=== PATIENT | male | born 1950 | race Caucasian/White ===

== ENCOUNTER 2019-05-01 13:20 | Inpatient (IN) | payer OTHER, SELFPAY ==
[2019-05-01] VITALS (15 sets, daily range): BP systolic 110–195; BP diastolic 61–101; PULSE 54–83; RESP 14–25; TEMP 36.6–38; O2SAT 91–100; BMI 23.2
--- NOTE | ~2019-05-01 | XR_ITS ---
XR abdomen/kub 1V 05/02/2019 10:58 Indication: Bilateral renal stones Procedure: KUB Comparison: 03/24/2016 Findings: There are bilateral renal stones. Nonobstructive bowel gas pattern. There is fecal impactio n of the colon. There is an aortobiiliac stent moderate degenerative changes of the hips. Impression: 1: Fecal impaction of the colon. 2: Bilateral nephrolithiasis. Reviewed, dictated and finalized at location B. GENIZER OPERATOR Impression: 1: Fecal impaction of the colon. 2: Bilateral nephrolithiasis.
--- NOTE | ~2019-05-01 | CT_ITS ---
EXAMINATION: CTA chest abdomen DATE: 05/01/2019 14:10 INDICATION: Chest and abdominal pain. TECHNIQUE: Computed tomographic angiography (CTA) of the chest and abdomen was performed with 100 mL Omnipaque-350 intravenous contrast. Automated exposure control and iterative reconstruction technique were employed. The dose-length product was 564.56 mGy-cm. Maximum intensity projection 3D-reconstruc tions of the aorta and other arteries were constructed by the technologist on a separate workstation. COMPARISON: CT abdomen and pelvis 04/22/2017 FINDINGS: CHEST CTA: There is mild scarring at the lung apices. There is moderate emphysema. There is mild atelectasis fela aterally. No pleural effusion. The heart size is normal. There are coronary artery calcifications. No pericardial effusion. There is no pulmonary embolus. There is mild bilateral hilar lymphadenopathy, likely reactive. The aorta measures 5.1 cm at the sinuses of Valsalva, 4.2 cm at the sinotubular junc tion, 3.8 cm in the mid ascending aorta, 3.4 cm at the aortic isthmus, 4.3 cm in the proximal descend ing aorta, and 3.3 cm in the mid descending aorta. There are bridging endplate osteophytes at multipl e levels in the spine, consistent with diffuse idiopathic skeletal hyperostosis (DISH). ABDOMEN CTA: The liver, gallbladder, spleen, pancreas, and adrenal glands are normal. There is cortical thinning o f the kidneys. There are cysts in the kidneys measuring up to 2.0 cm on the right. There are 1 mm, 7 mm, and 4 mm stones in right kidney. There are 9 mm and 7 mm stones in left kidney. The juxtarenal ao rta measures 4.8 cm. There is a 6.1 cm fusiform infrarenal aortic aneurysm. Partially visualized is a n infrarenal stent graft. Partially visualized is an intimal flap in infrarenal aorta. There is total occlusion of proximal right renal artery. There is mild stenosis of celiac axis and superior mesente dillan artery. The appendix is dilated to 10 mm with adjacent fat stranding. There is mild left para-aor tic lymphadenopathy. The largest node measures 12 x 16 mm. There is mild lumbar spondylosis. IMPRESSION: 1. Acute appendicitis. 2. Thoracic and abdominal aortic aneurysms with partially visualized stent graft in infrarenal aorta. Partially visualized intimal flap in the infrarenal aorta. 3. Mild left para-aortic and bilateral hilar lymphadenopathy, likely reactive. Reviewed, dictated and finalized at location A. IFIED PERSONAL FINANCE COUNSELOR IMPRESSION: 1. Acute appendicitis. 2. Thoracic and abdominal aortic aneurysms with partially visualized stent leni t in infrarenal aorta. Partially visualized intimal flap in the infrarenal aort a. 3. Mild left para-aortic and bilateral hilar lymphadenopathy, likely reactive.
--- NOTE | 2019-05-01 13:29 | ED.SOB ---
HPI - SOB/Dyspnea General Chief Complaint: Shortness of Breath/Dyspnea Stated Complaint: chest pain & SOB Time Seen by Provider: 05/01/19 13:29 Source: patient, EMS and RN notes reviewed Mode of arrival: EMS Limitations: no limitations History of Present Illness HPI Narrative: A 68 y/o male presents to the ED diffuse ABD tenderness and CP Related Data Allergies Allergy/AdvReac Type Severity Reaction Status Date / Time No Known Drug Allergies Allergy Mild Verified 11/06/17 02:53 PMFSH Family History Family History (Updated 11/09/16 @ 13:36 by DOCTOR UNKNOWN) Mother Family history of malignant neoplasm Acute myocardial infarction, Onset Age: 89 Father Acute myocardial infarction Social History Social History Smoking status: Heavy tobacco smoker Smoking end date: 03/01/11 Alcohol intake: never Course Vital Signs Vital signs: Vital Signs Temperature 98.9 F 05/01/19 13:16 Pulse Rate 70 05/01/19 13:16 Respiratory Rate 25 H 05/01/19 13:16 Blood Pressure 206/108 H 05/01/19 13:16 Pulse Oximetry 97 05/01/19 13:16 Temperature 98.9 F 05/01/19 13:16 Pulse Rate 67 05/01/19 13:29 Respiratory Rate 25 H 05/01/19 13:16 Blood Pressure 206/108 H 05/01/19 13:16 Pulse Oximetry 97 05/01/19 13:16 Discharge Plan Discharge Prescriptions: No Action albuterol sulfate [ProAir HFA] 90 mcg/actuation HFA aerosol inhaler See Rx Instructions .ROUTE .COMPLEX Qty: 8.5 RF: 2 trazodone 50 mg tablet See Rx Instructions PO BID Qty: 60 RF: 0 cyclobenzaprine 10 mg tablet 10 mg PO DAILY Qty: 90 RF: 2
--- NOTE | 2019-05-01 13:30 | ECG_ITS ---
Measurements Intervals [place] Rate: 66 P: 85 MO: 212 QRS: 101 QRSD: 117 T: 22 QT: 435 QTc: 457 Interpretive Statements SINUS RHYTHM WITH FIRST DEGREE AV BLOCK RIGHT AXIS DEVIATION INCOMPLETE RIGHT BUNDLE BRANCH BLOCK DELAYED PRECORDIAL R/S TRANSITION BASELINE ARTIFACT- I, III, AVR, AVL, AVF, V1-V6 ABNORMAL ECG Electronically Signed On 05-01-2019 13:49:27 HEARING AID REPAIRER by Reji Benton D.O.
--- NOTE | 2019-05-01 13:35 | ED.ABDPAIN ---
HPI - Abdominal Pain General Chief Complaint: Shortness of Breath/Dyspnea Stated Complaint: chest pain & SOB Time Seen by Provider: 05/01/19 13:29 Source: patient and RN notes reviewed Mode of arrival: EMS Limitations: no limitations History of Present Illness HPI narrative: A 68 y/o male presents to the ED via EMS with severe, constant, 7/10, diffuse ABD pain beginning this morning. He reports associated diffuse CP and that he has been constipated recently. He states that the last time he had pain like this was when he was dx with a aneurysm. He notes that the pain feels better when he covers up . He denies any SOB, N/V/D, back pain, fevers, and chills. MD elicited complaint: abdominal pain Pertinent past history: constipation, kidney stones and myocardial infarction Onset (ago): hour(s) (this morning) Pain Consistency: constant Location: diffuse Severity: severe Pain scale (0-10): 7 Relieving factors: other (when he covers up ) Associated symptoms: other (Diffuse CP and constipation) Related Data Home Medications Medication Instructions Recorded Confirmed albuterol sulfate [ProAir HFA] 90 mcg INHALATION PRN 05/01/19 05/01/19 amiodarone 200 mg PO DAILY 05/01/19 05/01/19 apixaban [Eliquis] 5 mg PO DAILY 05/01/19 05/01/19 aspirin [Adult Low Dose Aspirin] 81 mg PO DAILY 05/01/19 05/01/19 carvedilol 25 mg PO DAILY 05/01/19 05/01/19 hydralazine 50 mg PO DAILY 05/01/19 05/01/19 metoprolol succinate 200 mg PO DAILY 05/01/19 05/01/19 morphine 30 mg PO BID 05/01/19 05/01/19 naloxegol [Movantik] 25 mg PO DAILY 05/01/19 05/01/19 pantoprazole 40 mg PO DAILY 05/01/19 05/01/19 trazodone 50 mg PO BID 05/01/19 05/01/19 Allergies Allergy/AdvReac Type Severity Reaction Status Date / Time No Known Allergies Allergy Verified 05/01/19 13:53 Review of Systems Review of Systems: All systems reviewed & are unremarkable except as noted in HPI and below Constitutional: Constitutional: Denies chills and Denies fever(s) Cardiovascular: Cardiovascular: Reports chest pain (diffuse) Respiratory: Respiratory: Denies dyspnea Gastrointestinal: Gastrointestinal: Reports abdominal pain (diffuse), Reports constipation, Denies diarrhea, Denies nausea and Denies vomiting Musculoskeletal: Musculoskeletal: Denies back pain REPLACED BY [facility] Past Medical History Medical History AAA (abdominal aortic aneurysm) History of ruptured AAA with intravascular repair CAD (coronary artery disease) <4 METs, last stent in 2018 Carotid stenosis MADDIE. 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 History of kidney stones History of pneumonia Hypercholesteremia Osteomyelitis Surgical History Surgical History History of AAA (abdominal aortic aneurysm) repair Intra vascular repair 3 years ago at [facility] History of elbow surgery lt. History of lithotripsy History of tonsillectomy Hx of cardiac cath Hx of heart artery stent >5. Status post femorofemoral bypass surgery Family History Family History Mother Family history of malignant neoplasm Acute myocardial infarction, Onset Age: 89 Father Acute myocardial infarction Sibling AAA (abdominal aortic aneurysm) Social History Social History Smoking packs per day: 1 Smoking cigarettes per day: 20.0 Smoking status: Current every day smoker Tobacco type: cigarettes Second hand tobacco smoke exposure: Yes Alcohol intake: never Substance use: never Substance use type: does not use Living arrangements: alone Occupation/Education: retired
--- NOTE | 2019-05-01 13:37 | ECG_ITS ---
Measurements Intervals [place] Rate: 66 P: 95 AL: 212 QRS: 167 QRSD: 126 T: 76 QT: 469 QTc: 494 Interpretive Statements SINUS RHYTHM WITH FIRST DEGREE AV BLOCK LEFT POSTERIOR FASCICULAR BLOCK BASELINE ARTIFACT- I, II, III, AVR, AVL, AVF, V1-V3 ABNORMAL ECG Electronically Signed On 05-01-2019 14:18:59 BASEBALL GLOVE SHAPER by Reji Benton D.O.
[2019-05-01] MEDS: MORPHINE SULFATE 4 MG/ML INJ IV PUSH (13:55)
[2019-05-01] MEDS: NITROGLYCERIN OINTMENT 1 INCH DOSE 0.5 INCH TRANSDERM (13:56)
--- NOTE | 2019-05-01 14:01 | PC.NURSE ---
Pt to CT scan via stretcher on tele monitor.
[2019-05-01 14:06] LABS: Estimated CRCL calculation 53 ml/min; Estimated Glomerular Filt Rate 46
[2019-05-01 14:33] LABS: Basophils Percent Auto 0.2 % (0.2-1.2); Eosinophils Percent Auto 0.2 % (0-4.4); Hematocrit 40.5 % (42.0-52.0); Hemoglobin 12.6 g/dL (14.0-18.0); Immature Granulocyte Absolute 0.01 K/mm3 (0.00-0.031); Immature Granulocyte Percent A 0.2 % (0-0.5); Lymphocytes Absolute Auto 0.17 K/mm3 (0.9-3.2); Lymphocytes Percent Auto 3.1 % (18.3-44.2); Mean Corpuscular HGB Conc 31.1 g/dl (32-36); Mean Corpuscular Hemoglobin 27.2 pg (26-34); Mean Corpuscular Volume 87.3 fl (80-100); Mean Platelet Volume 8.6 fl (7.4-10.4); Monocytes Absolute Auto 0.1 K/mm3 (0.1-0.6); Monocytes Percent Auto 1.5 % (2.6-8.5); Neutrophils Absolute Auto 5.2 K/mm3 (1.3-6.7); Neutrophils Percent Auto 94.8 % (45.5-73.1); Platelet Count Result 147 k/mm3 (150-375); Red Blood Count 4.64 M/mm3 (4.6-6.20); Red Cell Distribution Width 14.6 % (11.5-14.5); White Blood Count 5.4 K/mm3 (4.5-10.0)
[2019-05-01 15:16] LABS: Alanine Aminotransferase 11 U/L (4-50); Albumin Level 3.3 g/dL (3.5-5.1); Alkaline Phosphatase 114 U/L (38-126); Aspartate Amino Transferase 15 U/L (17-59); Bilirubin,Total 0.7 mg/dL (0.2-1.3); Blood Urea Nitrogen 20 mg/dL (9-20); Calcium 7.5 mg/dL (8.4-10.2); Carbon Dioxide 27 mmol/L (22-30); Chloride 99 mmol/L (98-107); Estimated CRCL calculation 56 ml/min; Estimated Glomerular Filt Rate 50; Glucose 90 mg/dL (75-110); Potassium 3.5 mmol/L (3.4-5.0); Sodium 138 mmol/L (137-145)
[2019-05-01 15:27] LABS: Troponin I < 0.012 ng/mL (0.000-0.034)
--- NOTE | 2019-05-01 16:13 | WPDANESEPPF ---
Anes - Initial Pre Proc Eval Procedure: Operation Date: 05/01/19 16:00 Proposed Procedures p Laparoscopic Appendectomy - Gordon Blackwood MD Date/Time: 05/01/19 16:13 Surgeon: Gordon Blackwood MD Pre Op Diagnosis: chest pain & SOB Patient Data Age: 68 Gender: M Height: 2.01 m Weight: 90.4 kg Last Vital Signs Temp 37.2 C 05/01/19 13:16 Pulse 66 05/01/19 15:57 Resp 15 05/01/19 15:57 BP 158/75 H 05/01/19 15:57 Pulse Ox 94 05/01/19 15:57 Allergies Allergy/AdvReac Type Severity Reaction Status Date / Time No Known Allergies Allergy Verified 05/01/19 13:53 Home Medications Medication Instructions Recorded Confirmed Type albuterol sulfate 90 mcg/actuation See Rx Instructions .ROUTE 01/02/19 Rx aerosol inhaler .COMPLEX #8.5 gm cyclobenzaprine 10 mg tablet 10 mg PO DAILY #90 tablet 03/31/19 Rx trazodone 50 mg tablet See Rx Instructions PO BID #60 03/31/19 Rx tablet Laboratory Tests 05/01/19 05/01/19 05/01/19 14:05 14:29 14:29 WBC 5.4 K/mm3 K/mm3 (4.5-10.0) RBC 4.64 M/mm3 M/mm3 (4.6-6.20) Hgb 12.6 g/dL L g/dL (14.0-18.0) Hct 40.5 % L % (42.0-52.0) MCV 87.3 fl fl (80-100) MCH 27.2 pg pg (26-34) MCHC 31.1 g/dl L g/dl (32-36) RDW 14.6 % H % (11.5-14.5) Plt Count 147 k/mm3 L k/mm3 (150-375) MPV 8.6 fl fl (7.4-10.4) Immature Gran % (Auto) 0.2 % % (0-0.5) Neut % (Auto) 94.8 % H % (45.5-73.1) Lymph % (Auto) 3.1 % L % (18.3-44.2) [place] % (Auto) 1.5 % L % (2.6-8.5) Eos % (Auto) 0.2 % % (0-4.4) Baso % (Auto) 0.2 % % (0.2-1.2) Lymph # (Auto) 0.17 K/mm3 L K/mm3 (0.9-3.2) [place] # (Auto) 0.1 K/mm3 K/mm3 (0.1-0.6) Eos # (Auto) 0.0 K/mm3 K/mm3 (0-0.3) Baso # (Auto) 0.0 K/mm3 K/mm3 (0.0-0.1) Abs Immat Gran (auto) 0.01 K/mm3 K/mm3 (0.00-0.031) Absolute Neuts (auto) 5.2 K/mm3 K/mm3 (1.3-6.7) Absolute Nucleated RBC 0.0 K/mm3 K/mm3 (0.0-0.012) Nucleated RBC % 0.0 % % (0.0-0.2) Sodium 138 mmol/L mmol/L (137-145) Potassium 3.5 mmol/L mmol/L (3.4-5.0) Chloride 99 mmol/L mmol/L (98-107) Carbon Dioxide 27 mmol/L mmol/L (22-30) BUN 20 mg/dL mg/dL (9-20) Creatinine 1.50 mg/dL mg/dL 1.40 mg/dL H mg/dL (0.8-1.5) (0.7-1.3) Estim Creat Clear Calc 53 ml/min ml/min 56 ml/min ml/min Estimated GFR 46 L 50 L (59 - ) (59 - ) Glucose 90 mg/dL mg/dL (75-110) Calcium 7.5 mg/dL L mg/dL (8.4-10.2) Total Bilirubin 0.7 mg/dL mg/dL (0.2-1.3) AST 15 U/L L U/L (17-59) ALT 11 U/L U/L (4-50) Alkaline Phosphatase 114 U/L U/L (38-126) Troponin I < 0.012 ng/mL ng/mL (0.000-0.034) Total Protein 7.0 g/dL g/dL (6.3-8.2) Albumin 3.3 g/dL L g/dL (3.5-5.1) Patient hx anesthesia problems: none Family hx anesthesia problems: none [facility] Past Medical History Medical History (Updated 05/01/19 @ 16:14 by Guerrero Hou DO) AAA (abdominal aortic aneurysm) CAD (coronary artery disease) <4 METs, last stent in 2018 Carotid stenosis MADDIE. 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 History of kidney stones History of pneumonia Hypercholesteremia Osteomyelitis Surgical History Surgical History History of AAA (abdominal aortic aneurysm) repair History of elbow surgery lt. History of lithotripsy History of tonsillectomy Hx of cardiac cath Hx of heart artery stent >5.
--- NOTE | 2019-05-01 16:18 | PM.IMHP ---
H&P: HPI History of Present Illness Chief complaint: chest pain & SOB Narrative: Sameer Choe is a 68 year old male with a history of coronary artery disease status post multiple cardiac stents, carotid artery stenosis bilaterally, history of multiple strokes, COPD, and hypertension who is currently on chronic anticoagulation with Eliquis. He presented to the emergency department today with complaints of lower abdominal pain. He reports his pain started around 5:00 a.m. as a sudden onset and continued to worsen throughout the day. He denies any associated nausea, vomiting, fever, or chills. CT scan in the emergency department revealed acute uncomplicated appendicitis. Labs revealed a normal white blood cell count. Our service was contacted for the acute appendicitis. The patient has been evaluated in the emergency department by myself and Dr. Blackwood. The patient reports that his abdominal pain has improved since receiving pain medication. Denies any nausea or other pain at this time. He reports taking Eliquis last night around 5:00 p.m.. No other additional complaints at this time. Reports his most recent stroke was a few years ago. Patient denies any oral intake today. Review of Systems Constitutional: Constitutional: Reports as per HPI, Denies chills, Denies excessive sweating, Denies fatigue, Denies fever(s), Denies headache(s) and Denies weakness Eyes: Eyes: Denies change in vision and Denies loss of vision ENT: Reports Normal hearing present, Denies dizziness and Denies headache(s) Cardiovascular: Cardiovascular: Denies chest pain, Denies syncope, Denies leg edema, Denies lightheadedness, Denies radiating jaw, neck or arm pain and Denies dyspnea Respiratory: Respiratory: Denies cough, Denies dyspnea and Denies wheezing Gastrointestinal: Gastrointestinal: Reports as per HPI, Reports no additional gastrointestinal complaints, Reports abdominal pain (Lower abdominal pain), Denies bloating, Denies change in bowel habits, Reports constipation (Chronic constipation, no BM in a week), Denies diarrhea, Denies nausea and Denies vomiting Musculoskeletal: Musculoskeletal: Denies deformity, Denies joint swelling, Denies radiating pain into limb and Denies tingling Integumentary/Breasts: Skin/Breast: Denies pruritus, Denies wounds and Denies jaundice Neurologic: Reports Normal hearing present, Denies confusion, Denies dizziness, Denies syncope, Denies headache(s), Denies loss of vision and Denies tingling Comments: Reports aphasia and right-sided weakness as residual affects from previous strokes. Psychiatric: Psychiatric: Denies anxiety and Denies depression Endocrine: Endocrine: Denies cold intolerance and Denies heat intolerance [facility] Past Medical History Medical History AAA (abdominal aortic aneurysm) History of ruptured AAA with intravascular repair CAD (coronary artery disease) <4 METs, last stent in 2018 Carotid stenosis MADDIE. 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 History of kidney stones History of pneumonia Hypercholesteremia Osteomyelitis Surgical History Surgical History History of AAA (abdominal aortic aneurysm) repair Intra vascular repair 3 years ago at [facility] History of elbow surgery lt. History of lithotripsy History of tonsillectomy Hx of cardiac cath Hx of heart artery stent >5. Status post femorofemoral bypass surgery Family History Family History Mother Family history of malignant neoplasm Acute myocardial infarction, Onset Age: 89 Father Acute myocardial infarction Sibling AAA (abd
[2019-05-01] MEDS: LACTATED RINGERS 1,000 ML 30 ML IV CONT (16:23)
--- NOTE | 2019-05-01 17:45 | SUR.PREOP ---
1745 - PT ATTEMPTED TO VOID PER URINAL. NO URINE NOTED.
--- NOTE | 2019-05-01 17:57 | PM.PNGS ---
Progress Note: A&P Assessment and Plan (1) Acute appendicitis: Qualifiers: Acute appendicitis type: with localized peritonitis Appendicitis abscess presence: without abscess Appendicitis gangrene presence: without gangrene Appendicitis perforation presence: without perforation Qualified Code(s): K35.30 - Acute appendicitis with localized peritonitis, without perforation or gangrene Code(s): K35.80 - Unspecified acute appendicitis Status: Acute Assessment and Plan: Despite unusual presentation, it does look like the patient has acute appendicitis. I talked with him and his brother and we will go ahead with laparoscopic appendectomy this evening. Patient will be admitted after surgery and I will have the hospitalist see him in consultation. He is obviously at high risk for surgery but I think the surgery can be done safely with at the present time. All questions were answered. He agrees to go ahead. (2) Carotid stenosis: Code(s): I65.29 - Occlusion and stenosis of unspecified carotid artery Status: Chronic (3) Chronic anticoagulation: Code(s): Z79.01 - MCC (current) use of anticoagulants Status: Chronic Assessment and Plan: On Eliquis (4) CVA (cerebral vascular accident): Code(s): I63.9 - Cerebral infarction, unspecified Status: Chronic (5) CAD (coronary artery disease): Code(s): I25.10 - Atherosclerotic heart disease of [place] coronary artery without angina pectoris Status: Chronic (6) H/O: HTN (hypertension): Code(s): Z86.79 - Personal history of other diseases of the circulatory system Status: Acute Subjective Subjective Date/Time Seen: 05/01/19 17:57 Patient is a 68-year-old man who has had multiple complications of peripheral, cardiac, and cerebrovascular disease. He has had strokes and has some cognitive impairment as well as aphasia. He came to the emergency room with diffuse abdominal pain. He had an elevated white blood cell count. He was noted to have tenderness in the right lower quadrant. CT scan shows early acute appendicitis with a 10 mm appendix and periappendiceal stranding. He is taken to surgery now for laparoscopic appendectomy. He does take Eliquis and aspirin for his vascular disease and cardiac stents. Exam GI: Inspection: normal to inspection and non-distended GI Palp: Yes Soft to palpation, Yes Tenderness to palpation present (GI) (Right lower quadrant over McBurney's point) and Yes Guarding due to palpation present (GI) Objective Data Vital Signs Vital Signs: Vital Signs - 24 hr 05/01/19 13:16 05/01/19 13:29 05/01/19 13:32 Temperature 37.2 C Pulse Rate 70 67 Respiratory Rate 25 H Blood Pressure 195/101 H Pulse Oximetry 97 99 05/01/19 15:38 05/01/19 15:57 05/01/19 16:03 Temperature 38.0 C H Pulse Rate 66 66 65 Respiratory Rate 16 15 14 Blood Pressure 145/71 H 158/75 H 110/82 Pulse Oximetry 94 94 94 Intake/Output Intake/Output: Intake & Output 04/28/19 04/29/19 04/30/19 05/01/19 23:59 23:59 23:59 23:59 Intake Total 50 Balance 50 Meds/Results Medications: Active Medications Generic Name Dose Route Start Last Admin Trade Name Freq PRN Reason Stop Dose Admin Fentanyl Citrate 25 mcg 05/01/19 16:15 Sublimaze IV PUSH Q2M PRN Pain Lactated Ringer's 1,000 mls @ 30 mls/hr 05/01/19 16:15 05/01/19 16:23 Lr - Lactated Ringers Iv IV CONT 30 mls/hr .Q24H JENNIFER Administration Lactated Ringer's 1,000 mls @ 30 mls/hr 05/01/19 16:15 Lr - Lactated Ringers Iv IV CONT .Q24H JENNIFER Ondansetron HCl 4 mg 05/01/19 16:15 Zofran Inj IV PUSH ONCE PRN Nausea Radiology Results: ITS Impressions Chest/Abdomen CTA 05/01/19 14:22 IMPRESSION: 1. Acute appendicitis. 2. Thoracic and abdominal aortic aneurysms with partially visualized stent graft in infrarenal aorta. Partially visualized intimal flap in the infrar
[2019-05-01] MEDS: BUPIVACAINE/EPINEPHRINE 0.5% 30 ML VIAL INFILTRATE (18:27)
--- NOTE | 2019-05-01 18:56 | P.OP_ITS ---
Procedure Note - Detailed Date of procedure: 05/01/19 Pre-op diagnosis: chest pain & SOB acute appendicitis Post-op diagnosis: same Procedure performed: Laparoscopic appendectomy Description of procedure: The patient was taken to surgery and induced into general anesthesia. The abdomen was prepped and draped. Trocars were placed in the usual fashion using 0.5% Marcaine with epinephrine and applied Medical optical trocars. A 5 mm camera was used. The patient was placed in Trendelenburg with the right side elevated. The appendix was found and was elevated anteriorly. Dissection was carried out in the mesoappendix. The mesoappendix was dissectedand the appendiceal vessels cauterized for hemostasis. Eventually the base of the appendix was skeletonized. The appendix was ligated at its base with a Vicryl endo-loop. It was amputated just above the ligature and the mucosa of the appendiceal stump was cauterized. The appendix was immediately placed in an Endo-Catch bag and retrieved through the 10 11 left lower quadrant trocar site. We replaced the 10 11 trocar and reviewed the right lower quadrant and areas of dissection. All looked good with no evidence of bleeding or other problems. We evacuated CO2 and removed the trocar sleeves. Skin wounds were closed with subcuticular 4 O Monocryl skin suture. The wounds were dressed with Exofin surgical adhesive. The patient was awakened and taken to recovery in good condition. Sponge and needle counts were correct x2. Anesthesia: GETA and local (0.5% Marcaine with epinephrine) Surgeon: Gordon Blackwood MD Special Programs Director: Nhung VARELA Estimated blood loss (mL): 5 Drains: No Packing: No Pathology: yes (Appendix) Complications: None Condition: stable Disposition: PACU Findings: Acute non perforated appendicitis
--- NOTE | 2019-05-01 20:12 | ADMGEN ---
This patient, Sameer Choe, was admitted to 2 Medical Room 254-01. Patient/family oriented to hospital policies and general routines including ID bracelet, bed and alarms, visiting hours, pain management, procedures, bathroom and other care routines, personal items, smoking policy, room service/diet, and visiting hours. Valuables list has been completed. Information on how to activate the Rapid Response Team has been discussed. Patient/Family are encouraged to report perceived risks to care and to ask questions if they do not understand what they are told or what they should do.
[2019-05-01] MEDS: LACTATED RINGERS 1,000 ML 80 ML IV CONT (20:41)
[2019-05-01] MEDS: MORPHINE SULFATE 30 MG TABCR PO (20:41)
[2019-05-01] MEDS: TRAZODONE HCL 50 MG TABLET 100 MG PO (22:08)
[2019-05-01] MEDS: MORPHINE SULFATE 2 MG/ML INJ IV PUSH (22:15)
[2019-05-02] VITALS (7 sets, daily range): BP systolic 105–123; BP diastolic 56–64; PULSE 57–94; RESP 16–20; TEMP 36.5–37.5; O2SAT 90–94
[2019-05-02] MEDS: MORPHINE SULFATE 4 MG/ML INJ IV PUSH (04:59)
[2019-05-02 05:29] LABS: Basophils Percent Auto 0.1 % (0.2-1.2); Hematocrit 35.1 % (42.0-52.0); Hemoglobin 11.2 g/dL (14.0-18.0); Immature Granulocyte Absolute 0.05 K/mm3 (0.00-0.031); Immature Granulocyte Percent A 0.5 % (0-0.5); Lymphocytes Absolute Auto 0.44 K/mm3 (0.9-3.2); Lymphocytes Percent Auto 4.3 % (18.3-44.2); Mean Corpuscular HGB Conc 31.9 g/dl (32-36); Mean Corpuscular Hemoglobin 27.1 pg (26-34); Mean Platelet Volume 8.8 fl (7.4-10.4); Monocytes Absolute Auto 0.3 K/mm3 (0.1-0.6); Monocytes Percent Auto 2.8 % (2.6-8.5); Neutrophils Absolute Auto 9.5 K/mm3 (1.3-6.7); Neutrophils Percent Auto 92.3 % (45.5-73.1); Platelet Count Result 141 k/mm3 (150-375); Red Blood Count 4.13 M/mm3 (4.6-6.20); Red Cell Distribution Width 14.6 % (11.5-14.5); White Blood Count 10.3 K/mm3 (4.5-10.0)
[2019-05-02 05:42] LABS: Blood Urea Nitrogen 22 mg/dL (9-20); Calcium 7.2 mg/dL (8.4-10.2); Carbon Dioxide 24 mmol/L (22-30); Chloride 101 mmol/L (98-107); Estimated CRCL calculation 55 ml/min; Estimated Glomerular Filt Rate 46; Glucose 110 mg/dL (75-110); Potassium 4.1 mmol/L (3.4-5.0); Sodium 136 mmol/L (137-145)
--- NOTE | 2019-05-02 07:42 | P.PNAN_ITS ---
Anes - Prog Note Post-Op Date/Time: 05/02/19 07:42 Cardiovascular status: normal Respiratory status: normal Airway patency: baseline Mental status: baseline Post-Op hydration status: normal Vital Signs: Last Vital Signs Temp 36.9 C 05/02/19 06:00 Pulse 61 05/02/19 06:00 Resp 18 05/02/19 06:00 BP 115/60 05/02/19 06:00 Pulse Ox 90 05/02/19 06:00 I/O: Intake & Output 05/01/19 05/01/19 05/02/19 15:59 23:59 07:59 Intake Total 50 100 390 Output Total 2700 Balance 50 100 -2310 Laboratory Tests 05/02/19 05:08 05/02/19 05:08 05/01/19 05/01/19 05/01/19 14:05 14:29 14:29 WBC 5.4 RBC 4.64 Hgb 12.6 L Hct 40.5 L MCV 87.3 MCH 27.2 MCHC 31.1 L RDW 14.6 H Plt Count 147 L MPV 8.6 Immature Gran % (Auto) 0.2 Neut % (Auto) 94.8 H Lymph % (Auto) 3.1 L Villalba % (Auto) 1.5 L Eos % (Auto) 0.2 Baso % (Auto) 0.2 Lymph # (Auto) 0.17 L Villalba # (Auto) 0.1 Eos # (Auto) 0.0 Baso # (Auto) 0.0 Abs Immat Gran (auto) 0.01 Absolute Neuts (auto) 5.2 Absolute Nucleated RBC 0.0 Nucleated RBC % 0.0 Sodium 138 Potassium 3.5 Chloride 99 Carbon Dioxide 27 BUN 20 Creatinine 1.50 1.40 H Estim Creat Clear Calc 53 56 Estimated GFR 46 L 50 L Glucose 90 Calcium 7.5 L Total Bilirubin 0.7 AST 15 L ALT 11 Alkaline Phosphatase 114 Troponin I < 0.012 Total Protein 7.0 Albumin 3.3 L 05/02/19 05/02/19 05:08 05:08 WBC 10.3 H RBC 4.13 L Hgb 11.2 L Hct 35.1 L MCV 85.0 MCH 27.1 MCHC 31.9 L RDW 14.6 H Plt Count 141 L MPV 8.8 Immature Gran % (Auto) 0.5 Neut % (Auto) 92.3 H Lymph % (Auto) 4.3 L Villalba % (Auto) 2.8 Eos % (Auto) 0.0 Baso % (Auto) 0.1 L Lymph # (Auto) 0.44 L Villalba # (Auto) 0.3 Eos # (Auto) 0.0 Baso # (Auto) 0.0 Abs Immat Gran (auto) 0.05 H Absolute Neuts (auto) 9.5 H Absolute Nucleated RBC 0.0 Nucleated RBC % 0.0 Sodium 136 L Potassium 4.1 Chloride 101 Carbon Dioxide 24 BUN 22 H Creatinine 1.50 H Estim Creat Clear Calc 55 Estimated GFR 46 L Glucose 110 Calcium 7.2 L Total Bilirubin AST ALT Alkaline Phosphatase Troponin I Total Protein Albumin Post-procedural complaints: none Patient Feedback: Patient satisfied with anesthetic care.
--- NOTE | 2019-05-02 08:44 | WPDURCON ---
Assessment and Plan Assessment and plan (1) Urinary retention: Code(s): R33.9 - Retention of urine, unspecified Status: Acute Assessment and Plan: Will plan to keep villasenor in for 7-10 days and follow up in the office next week to do a voiding trial. Obtain catheter urine specimen for UA. (2) BPH (benign prostatic hyperplasia): Code(s): N40.0 - Benign prostatic hyperplasia without lower urinary tract symptoms Status: Acute Assessment and Plan: Start Flomax and Finasteride. No further evaluation necessary at this time. Will plan to follow as an outpatient. (3) Bilateral kidney stones: Code(s): N20.0 - Calculus of kidney Status: Acute Assessment and Plan: Obtain KUB for surgical planning purposes. No stones are obstructive at this time, we will discuss a Lithotripsy at his office visit. No surgery at this time, will be as an outpatient if patient chooses to proceed. (4) Bilateral renal cysts: Code(s): N28.1 - Cyst of kidney, acquired Status: Acute Urology Consult Note HPI Date Seen: 05/02/19 Requesting Physician: Gordon Blackwood MD Primary Care Provider: Horace Zendejas MD Consult Narrative Narrative: Sameer Choe is a 68 year old male who presented to the ER yesterday with lower quadrant abdominal pain and was later diagnosed with appendicitis. He then underwent an appendectomy with Dr. Blackwood last night and was transferred to the floor. He was discovered to have urinary retention following anethesia and bladder distension. He notes that he also had urinary retention after his AAA repair two years ago. Normally at home, he struggles with hesitancy, straining and slowed urinary stream. He doesn't have nocturia, and only urinates 3x during the day. He denies hematuria and UTI's. WBC initially was 13,000 but is trending down since surgery to 10,000. Creatinine was 1.60 and is also trending down slightly to 1.50. CT abdomen and pelvis reveals bilateral kidney cysts as well as bilateral renal stones that are non obstructive measuring 1mm, 7mm and 4mm in the right kidney and a 9mm and 7 mm in the left kidney. No UA was obtained. A catheter was placed early this morning to relieve retention. Review of Systems Cardiovascular: Cardiovascular: Denies chest pain Respiratory: Respiratory: Reports no additional respiratory complaints Gastrointestinal: Gastrointestinal: Reports abdominal pain (at incision sites), Denies nausea and Denies vomiting Genitourinary: Genitourinary: Denies hematuria, Denies dysuria, Denies flank pain, Denies urinary frequency, Reports urinary hesitancy, Denies urinary incontinence and Denies urinary urgency [facility] Past Medical History Medical History AAA (abdominal aortic aneurysm) History of ruptured AAA with intravascular repair CAD (coronary artery disease) <4 METs, last stent in 2018 Carotid stenosis MADDIE. 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 History of kidney stones History of pneumonia Hypercholesteremia Osteomyelitis Surgical History Surgical History History of AAA (abdominal aortic aneurysm) repair Intra vascular repair 3 years ago at [facility] History of elbow surgery lt. History of lithotripsy History of tonsillectomy Hx of cardiac cath Hx of heart artery stent >5. Status post femorofemoral bypass surgery Family History Family History Mother Family history of malignant neoplasm Acute myocardial infarction, Onset Age: 89 Father Acute myocardial infarction Sibling AAA (abdominal aortic aneurysm) Ot
[2019-05-02] MEDS: hydrALAZINE HCL 50 MG TABLET PO (08:51)
[2019-05-02] MEDS: ASPIRIN 81 MG ENTERIC TABLET PO (08:51)
[2019-05-02] MEDS: CYCLOBENZAPRINE HCL 10 MG TABLET PO (08:51)
[2019-05-02] MEDS: PANTOPRAZOLE 40 MG TABLET PO (08:52)
[2019-05-02] MEDS: carvediloL 25 MG TABLET PO (08:53)
[2019-05-02] MEDS: ENOXAPARIN 40 MG/0.4 ML SYRINGE SUB-Q (08:54)
[2019-05-02] MEDS: AMIODARONE HCL 200 MG TABLET PO (08:54)
[2019-05-02] MEDS: METOPROLOL SUCCINATE EXT REL 100 MG TABCR 200 MG PO (08:54)
[2019-05-02] MEDS: LACTATED RINGERS 1,000 ML 80 ML IV CONT (09:00)
[2019-05-02] MEDS: MORPHINE SULFATE 30 MG TABCR PO ×2 (09:15→20:33)
[2019-05-02] MEDS: FINASTERIDE 5 MG TABLET PO (10:03)
[2019-05-02] MEDS: TAMSULOSIN HCL 0.4 MG CAPSULE PO (10:03)
--- NOTE | 2019-05-02 10:44 | PM.PNGS ---
Progress Note: A&P Assessment and Plan (1) Acute appendicitis: Qualifiers: Acute appendicitis type: with localized peritonitis Appendicitis abscess presence: without abscess Appendicitis gangrene presence: without gangrene Appendicitis perforation presence: without perforation Qualified Code(s): K35.30 - Acute appendicitis with localized peritonitis, without perforation or gangrene Code(s): K35.80 - Unspecified acute appendicitis Status: Acute Assessment and Plan: POD#1 and doing fair. Had urinary retention post-operatively. Jhaveri catheter placed and Urology consulted. Appreciate their recommendations. Flomax and Finasteride started. Plan to keep Jhaveri in place on discharge and f/u with Urology next week as an outpatient. Advanced his diet to heart healthy. Pain well-controlled. Encouraged increased activity today. Hopefully discharge tomorrow if patient continues to improve. (2) Urinary retention: Code(s): R33.9 - Retention of urine, unspecified Status: Acute (3) BPH (benign prostatic hyperplasia): Code(s): N40.0 - Benign prostatic hyperplasia without lower urinary tract symptoms Status: Acute (4) Carotid stenosis: Code(s): I65.29 - Occlusion and stenosis of unspecified carotid artery Status: Chronic (5) Chronic anticoagulation: Code(s): Z79.01 - manager terminal (current) use of anticoagulants Status: Chronic Assessment and Plan: Eliquis on hold for now. (6) CVA (cerebral vascular accident): Code(s): I63.9 - Cerebral infarction, unspecified Status: Chronic (7) CAD (coronary artery disease): Code(s): I25.10 - Atherosclerotic heart disease of [place] coronary artery without angina pectoris Status: Chronic (8) H/O: HTN (hypertension): Code(s): Z86.79 - Personal history of other diseases of the circulatory system Status: Acute Additional Plan Discussed plan of care with Dr. Blackwood. Subjective Subjective Date/Time Seen: 05/02/19 09:55 Post Op day: 1 (laparoscopic appendectomy) Patient reports: feels better, tolerating liquids well, flatus and bowel movement Interval history: Patient seen and examined. Reports some abdominal soreness this morning at incision sites, to which he took the oxycodone for and feels it helped. Reports getting up to the chair this morning. Tolerating a full liquid diet without nausea, vomiting, or bloating. Has had a BM this morning. Has issues with urinary retention and a Jhaveri catheter was placed. Urology has been consulted. Patient reports having a history of difficulty urinating following his AAA repair. No additional complaints today. Review of Systems Review of Systems: All systems reviewed & are unremarkable except as noted in HPI and below Exam Const: General: comfortable, no acute distress, alert and awake Orientation/consciousness: patient oriented x3 Resp: Effort & Inspection: normal respiratory effort Auscultation: clear to auscultation bilaterally Cardio: Rate: regular rate Rhythm: regular rhythm Heart sounds: S1 normal heart sound present and S2 normal heart sound present GI: Inspection: non-distended and incision (Abdominal incisions clean/dry/intact.) GI Palp: Yes Soft to palpation, Yes Tenderness to palpation present (GI) (mild incisional tenderness), No Guarding due to palpation present (GI) and No Rebound tenderness present Auscultation: normal bowel sounds Urinary Catheter: Urinary Catheter: patent and draining, urine dark and urine pink Neuro: General: moves all extremities Cranial nerves: Yes CN's II-XII intact bilaterally Speech: normal speech Extrem: General: no calf tenderness and no edema Psych: Mental Status: mental status grossly normal Attitude: cooperative Thought process: Normal thought process present Thought content: Yes Normal thought content present Objective Data Vital Signs Vital Signs: Vital Signs - 24 hr 05/01/19 13:16
--- NOTE | 2019-05-02 12:41 | PC.NURSE ---
Patient having issues with villasenor catheter properly draining. Villasenor was inserted by night RN around 0600. She stated she had initially received 100mls of urine after inserting catheter. However, at approximately 1200 patient still has not had anymore urine output in villasenor (still at the 100ml hayden). Bladder scanned patient and it revealed only approx 12ccs on scan. Tried to manipulate villasenor to see if it was a positional issue. However, after trying to reinflate catheter, patient complaining of a lot of pain with balloon inflation. Discontinued catheter and notified Dr. Ramirez of issue. Received orders from Dr. Ramirez to allow patient to rest and then try to insert a coude villasenor catheter. He was also notified of patients urine output being very dark and minimal since 0600. He stated he was going to look into patients chart and he would let me know if he wanted to start patient back on IVF.
--- NOTE | 2019-05-02 14:24 | PM.IMCN ---
Assessment and Plan Assessment and plan (1) Acute appendicitis: Qualifiers: Acute appendicitis type: with localized peritonitis Appendicitis abscess presence: without abscess Appendicitis gangrene presence: without gangrene Appendicitis perforation presence: without perforation Qualified Code(s): K35.30 - Acute appendicitis with localized peritonitis, without perforation or gangrene Code(s): K35.80 - Unspecified acute appendicitis Status: Acute Assessment and Plan: Sameer Choe is a 68 year old male with a past medical history of coronary artery disease with stents, CVA with right-sided residual and with bilateral 100% carotid stenosis as well as AAA which was repaired about 2 years ago, patient presented emergency department a complaint of low abdominal pain he was found to have acute appendicitis patient was seen by general surgery and was taken to OR and had a penectomy, today patient is feeling better denies any chest pain shortness of breath abdominal pain nausea or vomiting he did have a bowel movement this morning, he does have history of BPH with hesitancy and slow stream, patient was seen by urologist and started the patient on finasteride and Flomax, however patient p.o. intake is very poor will increase him to increase his fluid intake and will monitor his urine output (2) H/O: HTN (hypertension): Code(s): Z86.79 - Personal history of other diseases of the circulatory system Status: Acute Assessment and Plan: Will continue home regimen and monitor (3) CAD (coronary artery disease): Code(s): I25.10 - Atherosclerotic heart disease of [place] coronary artery without angina pectoris Status: Chronic Assessment and Plan: Patient is clinically stable will be continued is beta-florecita he has no complaint of chest pain (4) Carotid stenosis: Code(s): I65.29 - Occlusion and stenosis of unspecified carotid artery Status: Chronic Assessment and Plan: Patient clinically stable (5) CVA (cerebral vascular accident): Code(s): I63.9 - Cerebral infarction, unspecified Status: Chronic Assessment and Plan: Patient is clinically stable (6) BPH (benign prostatic hyperplasia): Code(s): N40.0 - Benign prostatic hyperplasia without lower urinary tract symptoms Status: Acute Assessment and Plan: Patient with history of BPH with symptoms he was seen by urologist started the patient Flomax and finasteride will continue to monitor HPI Data of Consult Consult date: 05/02/19 Requesting Physician: Gordon Blackwood MD Primary Care Provider: Horace Zendejas MD Consult Narrative Narrative: Sameer Choe is a 68 year old male with a past medical history of coronary artery disease with stents, CVA with right-sided residual and with bilateral 100% carotid stenosis as well as AAA which was repaired about 2 years ago, patient presented emergency department a complaint of low abdominal pain he was found to have acute appendicitis patient was seen by general surgery and was taken to OR and had a penectomy, today patient is feeling better denies any chest pain shortness of breath abdominal pain nausea or vomiting he did have a bowel movement this morning, he does have history of BPH with hesitancy and slow stream, patient was seen by urologist and started the patient on finasteride and Flomax, however patient p.o. intake is very poor will increase him to increase his fluid intake and will monitor his urine output Review of Systems Review of Systems: All systems reviewed & are unremarkable except as noted in HPI and below PMFSH Past Medical History Medical History AAA (abdominal aortic aneurysm) History of ruptured AAA with intravascular repair CAD (coronary artery disease) <4 METs, last stent in 2018 Carotid stenosis MADDIE. - 100% occlusion both sides CVA (cerebral vasc
[2019-05-02 14:42] LABS: Add Urine Microscopic? YES; Appearance Urine Clear (Clear); Bacteria Urine Trace /hpf; Bilirubin Urine Negative (Negative); Blood Urine 3+ (Negative); Color Urine Yellow (Yellow); Glucose Urine UA Negative (Negative); Ketones Urine Negative (Negative); Leukocyte Esterase Ur 1+ LEU/UL (NEGATIVE); Nitrate Urine Negative (Negative); Protein Urine Negative (Negative); RBC Urine >75 /hpf (0-2); Specific Grav Ur 1.015 (1.001-1.035); Urobilinogen Urine Negative mg/dL (<2.0); WBC Urine 16-20 /hpf (0-3)
--- NOTE | 2019-05-02 16:31 | PC.NURSE ---
On 05/02/19, the graduate nurse Rupert Callaway RN, provided care and completed [facility] documentation on this patient. I have reviewed the student's documentation and agree with the findings.
--- NOTE | 2019-05-02 19:29 | PC.NURSE ---
Home medication Movantik tubed down to pharmacy at 1929 05/02/2019.
--- NOTE | 2019-05-02 19:54 | PHAR ---
The patient's home med of HOME MED Naloxegol [Movantik] 25 MG has been verified. Med bottle is dated 01/04/18.
[2019-05-02] MEDS: TRAZODONE HCL 50 MG TABLET 100 MG PO (20:33)
[2019-05-03 06:00] VITALS: BP 173/83; PULSE 56; RESP 20; TEMP 36.9; O2SAT 95
[2019-05-03 06:05] LABS: Hematocrit 36.7 % (42.0-52.0); Hemoglobin 11.9 g/dL (14.0-18.0); Mean Corpuscular HGB Conc 32.4 g/dl (32-36); Mean Corpuscular Hemoglobin 27.4 pg (26-34); Mean Corpuscular Volume 84.6 fl (80-100); Mean Platelet Volume 9.1 fl (7.4-10.4); Platelet Count Result 168 k/mm3 (150-375); Red Blood Count 4.34 M/mm3 (4.6-6.20); Red Cell Distribution Width 14.6 % (11.5-14.5); White Blood Count 10.8 K/mm3 (4.5-10.0)
[2019-05-03 06:13] LABS: Blood Urea Nitrogen 29 mg/dL (9-20); Calcium 7.5 mg/dL (8.4-10.2); Carbon Dioxide 27 mmol/L (22-30); Chloride 99 mmol/L (98-107); Estimated CRCL calculation 48 ml/min; Estimated Glomerular Filt Rate 40; Glucose 99 mg/dL (75-110); Potassium 3.4 mmol/L (3.4-5.0); Sodium 138 mmol/L (137-145)
[2019-05-03 08:12] VITALS: PULSE 60
[2019-05-03] MEDS: TAMSULOSIN HCL 0.4 MG CAPSULE PO (08:12)
[2019-05-03] MEDS: MORPHINE SULFATE 30 MG TABCR PO ×2 (08:12→21:52)
[2019-05-03] MEDS: METOPROLOL SUCCINATE EXT REL 100 MG TABCR 200 MG PO (08:12)
[2019-05-03] MEDS: ASPIRIN 81 MG ENTERIC TABLET PO (08:12)
[2019-05-03 08:13] VITALS: PULSE 60
[2019-05-03] MEDS: hydrALAZINE HCL 50 MG TABLET PO (08:13)
[2019-05-03] MEDS: carvediloL 25 MG TABLET PO (08:13)
[2019-05-03] MEDS: PANTOPRAZOLE 40 MG TABLET PO (08:13)
[2019-05-03 08:14] VITALS: PULSE 60
[2019-05-03] MEDS: AMIODARONE HCL 200 MG TABLET PO (08:14)
[2019-05-03] MEDS: CYCLOBENZAPRINE HCL 10 MG TABLET PO (08:14)
[2019-05-03] MEDS: FINASTERIDE 5 MG TABLET PO (08:14)
[2019-05-03] MEDS: ENOXAPARIN 40 MG/0.4 ML SYRINGE SUB-Q (08:14)
[2019-05-03] MEDS: POTASSIUM CHLORIDE 20 MEQ PACKET (FOR LIQUID) 40 MEQ PO (08:18)
--- NOTE | 2019-05-03 08:37 | PM.PNGS ---
Progress Note: A&P Assessment and Plan (1) Acute appendicitis: Qualifiers: Acute appendicitis type: with localized peritonitis Appendicitis abscess presence: without abscess Appendicitis gangrene presence: without gangrene Appendicitis perforation presence: without perforation Qualified Code(s): K35.30 - Acute appendicitis with localized peritonitis, without perforation or gangrene Code(s): K35.80 - Unspecified acute appendicitis Status: Acute Assessment and Plan: POD2 and patient continues to slowly improve. Abdominal x-ray yesterday ordered by Urology showed a fecal impaction. Patient was restarted on his Movantik and has had multiple large formed bowel movements through the night and into this morning. Seems to have resolved. Tolerating a regular diet. Will get the patient up and walking the halls today. Encouraged increased activity. Creatinine up to 1.7 today. Will repeat labs in the am. Hopefully patient can be discharged tomorrow if he continues to improve. (2) Urinary retention: Code(s): R33.9 - Retention of urine, unspecified Status: Acute Assessment and Plan: Urinary retention post-operatively. Urology was consulted and appreciate recommendations. Plan to keep Jhaveri in place on discharge and f/u with Urology next week as an outpatient. Continue Flomax and Finasteride. (3) BPH (benign prostatic hyperplasia): Code(s): N40.0 - Benign prostatic hyperplasia without lower urinary tract symptoms Status: Acute Assessment and Plan: See plan above. (4) Carotid stenosis: Code(s): I65.29 - Occlusion and stenosis of unspecified carotid artery Status: Chronic (5) Chronic anticoagulation: Code(s): Z79.01 - long-term (current) use of anticoagulants Status: Chronic Assessment and Plan: Eliquis on hold. (6) CVA (cerebral vascular accident): Code(s): I63.9 - Cerebral infarction, unspecified Status: Chronic (7) CAD (coronary artery disease): Code(s): I25.10 - Atherosclerotic heart disease of [place] coronary artery without angina pectoris Status: Chronic (8) H/O: HTN (hypertension): Code(s): Z86.79 - Personal history of other diseases of the circulatory system Status: Acute Additional Plan Discussed plan of care with Dr. Blackwood. Subjective Subjective Date/Time Seen: 05/03/19 08:37 Post Op day: 2 (Laparoscopic appendectomy) Patient reports: no new complaints and bowel movement Interval history: Patient seen and examined. Reports feeling well today. Tolerating a heart healthy diet. Reports 3 bowel movements overnight. Per the nurse, the patient's family brought in his Movantik last night and after taking this he had 3 large stool ball formed bowel movements. The patient reports a bowel movement already this morning. Denies nausea, vomiting, or bloating. Pain is tolerable. No other complaints at this time. Review of Systems Review of Systems: All systems reviewed & are unremarkable except as noted in HPI and below Exam Const: General: comfortable, no acute distress, alert and awake Orientation/consciousness: patient oriented x3 GI: Inspection: non-distended and incision (Abdominal incisions clean/dry/intact.) GI Palp: Yes Soft to palpation, Yes Tenderness to palpation present (GI) (Minimal incisional tenderness), No Guarding due to palpation present (GI) and No Rebound tenderness present Auscultation: normal bowel sounds Urinary Catheter: Urinary Catheter: patent and draining and urine clear Neuro: General: moves all extremities Cranial nerves: Yes CN's II-XII intact bilaterally Speech: normal speech Extrem: General: no calf tenderness and no edema Psych: Mental Status: mental status grossly normal Attitude: cooperative Thought process: Normal thought process present Thought content: Yes Normal thought content present Objective Data Vital Signs Vital Signs: Vital Signs - 24 hr
[2019-05-03] MEDS: LACTATED RINGERS 1,000 ML 80 ML IV CONT ×2 (10:23→23:51)
[2019-05-03 14:00] VITALS: BP 129/63; PULSE 56; RESP 16; TEMP 36.5; O2SAT 92
--- NOTE | 2019-05-03 14:52 | PM.IMPN ---
Progress Note: A&P Assessment and Plan (1) Acute appendicitis: Qualifiers: Acute appendicitis type: with localized peritonitis Appendicitis abscess presence: without abscess Appendicitis gangrene presence: without gangrene Appendicitis perforation presence: without perforation Qualified Code(s): K35.30 - Acute appendicitis with localized peritonitis, without perforation or gangrene Code(s): K35.80 - Unspecified acute appendicitis Status: Acute Assessment and Plan: 05/03/19 14:52 Sameer Choe is a 68 year old male with a past medical history of coronary artery disease with stents, CVA with right-sided residual and with bilateral 100% carotid stenosis as well as AAA which was repaired about 2 years ago, patient presented emergency department a complaint of low abdominal pain he was found to have acute appendicitis patient was seen by general surgery and was taken to OR and had a penectomy, today patient is feeling better denies any chest pain shortness of breath abdominal pain nausea or vomiting he did have a bowel movement this morning, he does have history of BPH with hesitancy and slow stream, patient was seen by urologist and started the patient on finasteride and Flomax, however patient p.o. intake is very poor will encourage him to increase his fluid intake and will monitor his urine output, Today patient had 2 big BM, he is feeling better, however his creatinine is 1.7, discussed with surgery team will start patient on IVF 80cc/hr, encourage him to increase fluids intake and monitor him over night and plan tomorrow for discharge. (2) H/O: HTN (hypertension): Code(s): Z86.79 - Personal history of other diseases of the circulatory system Status: Acute Assessment and Plan: Will continue home regimen and monitor (3) CAD (coronary artery disease): Code(s): I25.10 - Atherosclerotic heart disease of [place] coronary artery without angina pectoris Status: Chronic Assessment and Plan: Patient is clinically stable will be continued is beta-florecita he has no complaint of chest pain (4) Carotid stenosis: Code(s): I65.29 - Occlusion and stenosis of unspecified carotid artery Status: Chronic Assessment and Plan: Patient clinically stable (5) CVA (cerebral vascular accident): Code(s): I63.9 - Cerebral infarction, unspecified Status: Chronic Assessment and Plan: Patient is clinically stable (6) BPH (benign prostatic hyperplasia): Code(s): N40.0 - Benign prostatic hyperplasia without lower urinary tract symptoms Status: Acute Assessment and Plan: Patient with history of BPH with symptoms he was seen by urologist started the patient Flomax and finasteride will continue to monitor (7) REYES (acute kidney injury): Code(s): N17.9 - Acute kidney failure, unspecified Status: Acute Assessment and Plan: most likely due to dehydation and poor po intake, we have started patient on IVF and will recheck tomorrow. Subjective Date/time seen: 05/03/19 14:52 Sameer Choe is a 68 year old male with a past medical history of coronary artery disease with stents, CVA with right-sided residual and with bilateral 100% carotid stenosis as well as AAA which was repaired about 2 years ago, patient presented emergency department a complaint of low abdominal pain he was found to have acute appendicitis patient was seen by general surgery and was taken to OR and had a penectomy, today patient is feeling better denies any chest pain shortness of breath abdominal pain nausea or vomiting he did have a bowel movement this morning, he does have history of BPH with hesitancy and slow stream, patient was seen by urologist and started the patient on finasteride and Flomax, however patient p.o. intake is very poor will encourage him to increase his fluid intake and will monitor his urine output, Today patient had 2 big BM, he is feeling marcia
[2019-05-03] MEDS: TRAZODONE HCL 50 MG TABLET 100 MG PO (21:51)
[2019-05-03 22:00] VITALS: BP 140/74; PULSE 84; RESP 20; TEMP 37.4; O2SAT 93
[2019-05-04 05:54] LABS: Hematocrit 33.5 % (42.0-52.0); Hemoglobin 10.5 g/dL (14.0-18.0); Mean Corpuscular HGB Conc 31.3 g/dl (32-36); Mean Corpuscular Hemoglobin 27.3 pg (26-34); Mean Platelet Volume 9.1 fl (7.4-10.4); Platelet Count Result 121 k/mm3 (150-375); Red Blood Count 3.85 M/mm3 (4.6-6.20); Red Cell Distribution Width 14.6 % (11.5-14.5); White Blood Count 7.5 K/mm3 (4.5-10.0)
[2019-05-04 06:00] VITALS: BP 151/87; PULSE 48; RESP 20; TEMP 37; O2SAT 94
[2019-05-04 06:06] LABS: Blood Urea Nitrogen 20 mg/dL (9-20); Calcium 7.2 mg/dL (8.4-10.2); Carbon Dioxide 26 mmol/L (22-30); Chloride 103 mmol/L (98-107); Estimated CRCL calculation 55 ml/min; Estimated Glomerular Filt Rate 46; Glucose 87 mg/dL (75-110); Potassium 3.7 mmol/L (3.4-5.0); Sodium 139 mmol/L (137-145)
[2019-05-04] MEDS: ENOXAPARIN 40 MG/0.4 ML SYRINGE SUB-Q (08:46)
[2019-05-04 08:47] VITALS: PULSE 56
[2019-05-04] MEDS: PANTOPRAZOLE 40 MG TABLET PO (08:47)
[2019-05-04] MEDS: FINASTERIDE 5 MG TABLET PO (08:47)
[2019-05-04] MEDS: METOPROLOL SUCCINATE EXT REL 100 MG TABCR 200 MG PO (08:47)
[2019-05-04] MEDS: ASPIRIN 81 MG ENTERIC TABLET PO (08:47)
[2019-05-04] MEDS: TAMSULOSIN HCL 0.4 MG CAPSULE PO (08:47)
[2019-05-04] MEDS: CYCLOBENZAPRINE HCL 10 MG TABLET PO (08:47)
[2019-05-04] MEDS: MORPHINE SULFATE 30 MG TABCR PO (08:47)
[2019-05-04 08:49] VITALS: PULSE 56
[2019-05-04] MEDS: carvediloL 25 MG TABLET PO (08:49)
[2019-05-04] MEDS: hydrALAZINE HCL 50 MG TABLET PO (08:49)
[2019-05-04] MEDS: AMIODARONE HCL 200 MG TABLET PO (08:49)
--- NOTE | 2019-05-04 09:04 | PM.DS ---
DS: Diagnosis Admitting Diagnosis Admitting Diagnosis: Unspecified acute appendicitis Chronic anticoagulation CVA Carotid stenosis 100% bilaterally Coronary artery disease Hypertension BPH Bilateral kidney stones Discharge Diagnosis (1) Acute appendicitis: Qualifiers: Acute appendicitis type: with localized peritonitis Appendicitis abscess presence: without abscess Appendicitis gangrene presence: without gangrene Appendicitis perforation presence: without perforation Qualified Code(s): K35.30 - Acute appendicitis with localized peritonitis, without perforation or gangrene Code(s): K35.80 - Unspecified acute appendicitis Status: Acute Assessment and Plan: Laparoscopic appendectomy by Dr. Blackwood on 05/01/2019 (2) Chronic anticoagulation: Code(s): Z79.01 - terminal manager (current) use of anticoagulants Status: Chronic Assessment and Plan: May restart Eliquis tomorrow morning on 05/05/19. (3) CVA (cerebral vascular accident): Code(s): I63.9 - Cerebral infarction, unspecified Status: Chronic (4) Carotid stenosis: Code(s): I65.29 - Occlusion and stenosis of unspecified carotid artery Status: Chronic (5) CAD (coronary artery disease): Code(s): I25.10 - Atherosclerotic heart disease of [place] coronary artery without angina pectoris Status: Chronic (6) H/O: HTN (hypertension): Code(s): Z86.79 - Personal history of other diseases of the circulatory system Status: Acute (7) Urinary retention: Code(s): R33.9 - Retention of urine, unspecified Status: Acute (8) BPH (benign prostatic hyperplasia): Code(s): N40.0 - Benign prostatic hyperplasia without lower urinary tract symptoms Status: Acute (9) Bilateral kidney stones: Code(s): N20.0 - Calculus of kidney Status: Acute (10) Bilateral renal cysts: Code(s): N28.1 - Cyst of kidney, acquired Status: Acute (11) Chronic kidney disease: Code(s): N18.9 - Chronic kidney disease, unspecified Status: Acute DS: Summary Hospital Course Reason for hospitalization: Sameer Cohe is a 68 year old male with a history of coronary artery disease status post multiple cardiac stents, 100% carotid artery stenosis bilaterally, history of multiple strokes, COPD, and hypertension who is currently on chronic anticoagulation with Eliquis. He presented to the emergency department with complaints of lower abdominal pain. CT scan in the emergency department revealed acute uncomplicated appendicitis. Labs revealed a normal white blood cell count. Our service was contacted for the acute appendicitis. The patient had last taken Eliquis the night prior to surgery around 5:00 p.m.. The patient was evaluated in the emergency department by myself and Dr. Blackwood, and a discussion was had regarding treatment plan. The decision was made to admit the patient for surgical evaluation and to proceed with laparoscopic appendectomy. Hospital Course: The patient underwent a laparoscopic appendectomy by Dr. Blackwood on 05/01/2019. Appendicitis with no evidence of perforation or abscess. The patient was treated with IV antibiotics, IV fluids, and analgesics preoperatively. Following surgery, the antibiotics were stopped. The patient was a high risk surgical candidate due to his significant medical history and comorbidities. The hospitalist was consulted for medical management postoperatively. Patient also dealt with urinary retention postoperatively and Urology was consulted. He does have a history of BPH. A Jhaveri catheter was placed and he was started on finasteride and Flomax. He will be discharged with the Jhaveri catheter and follow up with Urology in week. He also incidentally had renal cysts and kidney stones. The patient was slowly advanced on a diet and has been tolerating this well since surgery. Urology had ordered an abdominal x-ray for outpatient surgery planning a
--- NOTE | 2019-05-04 12:34 | PM.IMPN ---
Progress Note: A&P Assessment and Plan (1) Acute appendicitis: Qualifiers: Acute appendicitis type: with localized peritonitis Appendicitis abscess presence: without abscess Appendicitis gangrene presence: without gangrene Appendicitis perforation presence: without perforation Qualified Code(s): K35.30 - Acute appendicitis with localized peritonitis, without perforation or gangrene Code(s): K35.80 - Unspecified acute appendicitis Status: Acute Assessment and Plan: 05/04/19 12:34 Sameer Choe is a 68 year old male with a past medical history of coronary artery disease with stents, CVA with right-sided residual and with bilateral 100% carotid stenosis as well as AAA which was repaired about 2 years ago, patient presented emergency department a complaint of low abdominal pain he was found to have acute appendicitis patient was seen by general surgery and was taken to OR and had a penectomy, today patient is feeling better denies any chest pain shortness of breath abdominal pain nausea or vomiting he did have a bowel movement this morning, he does have history of BPH with hesitancy and slow stream, patient was seen by urologist and started the patient on finasteride and Flomax, however patient p.o. intake is very poor will encourage him to increase his fluid intake and will monitor his urine output, Today patient had 2 big BM, he is feeling better, however his creatinine is 1.7, discussed with surgery team will start patient on IVF 80cc/hr, encourage him to increase fluids intake and monitor him over night, today patient creatinine is close to his baseline his clinically stable his seen by his surgeon and plan is to discharge him today (2) H/O: HTN (hypertension): Code(s): Z86.79 - Personal history of other diseases of the circulatory system Status: Acute Assessment and Plan: Clinically stable (3) CAD (coronary artery disease): Code(s): I25.10 - Atherosclerotic heart disease of [place] coronary artery without angina pectoris Status: Chronic Assessment and Plan: Patient is clinically stable. (4) Carotid stenosis: Code(s): I65.29 - Occlusion and stenosis of unspecified carotid artery Status: Chronic Assessment and Plan: Patient clinically stable (5) CVA (cerebral vascular accident): Code(s): I63.9 - Cerebral infarction, unspecified Status: Chronic Assessment and Plan: Patient is clinically stable (6) BPH (benign prostatic hyperplasia): Code(s): N40.0 - Benign prostatic hyperplasia without lower urinary tract symptoms Status: Acute Assessment and Plan: Patient with history of BPH with symptoms he was seen by urologist started the patient Flomax and finasteride, patient has a Jhaveri catheter he will follow-up with urologist (7) REYES (acute kidney injury): Code(s): N17.9 - Acute kidney failure, unspecified Status: Acute Assessment and Plan: most likely due to dehydation and poor po intake, we have started patient on IVF, patient creatinine is at his baseline. Subjective Date/time seen: 05/04/19 12:34 Sameer Choe is a 68 year old male with a past medical history of coronary artery disease with stents, CVA with right-sided residual and with bilateral 100% carotid stenosis as well as AAA which was repaired about 2 years ago, patient presented emergency department a complaint of low abdominal pain he was found to have acute appendicitis patient was seen by general surgery and was taken to OR and had a penectomy, today patient is feeling better denies any chest pain shortness of breath abdominal pain nausea or vomiting he did have a bowel movement this morning, he does have history of BPH with hesitancy and slow stream, patient was seen by urologist and started the patient on finasteride and Flomax, however patient p.o. intake is very poor will encourage him to increase his fluid intake and will monitor
[2019-05-04 14:00] VITALS: BP 125/62; PULSE 75; RESP 18; TEMP 36.3; O2SAT 97
== END 2019-05-04 14:33 | disposition home or self-care (01) | DRG 342 ==
LOC: ANHED 15:15 → ANHSURGERY 15:50 → ANH2MED 19:54 → ANHSURGERY 05-02 11:04 → ANH2MED 05-03 10:46
PROVIDERS: Family Medicine; Nurse Practitioner Adult Health; Admitting Provider Hospitalist; Emergency Provider Emergency Medicine; PCP Emergency Medicine; Visit Provider Surgery
PROC: 0DTJ4ZZ Resection of Appendix, Percutaneous Endoscopic Approach (ICD-10-PCS; CPT 44970; principal; 2019-05-01 16:00)
DX: K35.30 Acute appendicitis with localized peritonitis, without perforation or gangrene (principal); I69.351 Hemiplegia and hemiparesis following cerebral infarction affecting right dominant side; I25.10 Atherosclerotic heart disease of native coronary artery without angina pectoris; I65.23 Occlusion and stenosis of bilateral carotid arteries; N20.0 Calculus of kidney; N40.1 Benign prostatic hyperplasia with lower urinary tract symptoms; R33.9 Retention of urine, unspecified; I12.9 Hypertensive chronic kidney disease with stage 1 through stage 4 chronic kidney disease, or unspecified chronic kidney disease; N18.9 Chronic kidney disease, unspecified; N28.1 Cyst of kidney, acquired; K21.9 Gastro-esophageal reflux disease without esophagitis; E78.00 Pure hypercholesterolemia, unspecified; I69.320 Aphasia following cerebral infarction; I69.311 Memory deficit following cerebral infarction; I69.319 Unspecified symptoms and signs involving cognitive functions following cerebral infarction; F17.210 Nicotine dependence, cigarettes, uncomplicated; Z95.5 Presence of coronary angioplasty implant and graft; Z79.01 Long term (current) use of anticoagulants; I25.2 Old myocardial infarction; Z86.19 Personal history of other infectious and parasitic diseases
CPT/HCPCS: 36415; 71275; 74018; 74175; 80048; 80053; 81001; 84484; 85025; 85027; 87804; 88304; 88342; 93005; 96365; 96375; 99285; A9270; J0330; J1650; J2270; J2405; J2543; J2704; J2710; J3010; J7120; Q9967

== ENCOUNTER 2019-07-16 22:10 | Emergency (ER) | payer OTHER, SELFPAY ==
--- NOTE | ~2019-07-16 | CT_ITS ---
EXAMINATION: CT abdomen pelvis w con DATE: 07/16/2019 23:04 INDICATION: Left-sided abdominal pain TECHNIQUE: Computed tomography (CT) of the abdomen and pelvis was performed with 100 mL Omnipaque-350 intravenous contrast. Automated exposure control and iterative reconstruction technique were employe d. The dose-length product was 562.11 mGy-cm. COMPARISON: 05/01/2019 FINDINGS: Emphysema. Heart size is normal. Atherosclerotic coronary artery calcifications and likely stenting a long the right coronary artery. No pericardial or pleural effusion. Focal hepatic steatosis along the gallbladder fossa. Gallbladder, spleen, pancreas, bilateral adrenal glands are normal. There are reg ions of cortical scarring at both kidneys. Bilateral renal cysts, couple with peripheral rim calcific ation in the largest measuring up to 2.0 cm in the right kidney. Bilateral nonobstructing nephrolithi asis with largest stone measuring 11 mm in the left kidney and 6 mm in the right kidney. No hydroneph rosis. Moderate amount of stool in the proximal colon. No bowel obstruction. The previously inflamed appendix is no longer visualized and has likely been resected. Bladder is normal. Endoluminal abdominal aortic stent grafting extending into the right common iliac artery. The fusifo abdominal aortic aneurysm is not significant changed measuring 5.9 x 5.7 cm. There is complete occ lusion of the left common iliac artery with patent femoral-femoral bypass graft. There is calcified a therosclerosis of the aorta and many of the other arteries. There is high-grade stenosis at the origi ns of both the left and right renal arteries. Circumaortic left renal vein. No free intraperitoneal g as or fluid. Unchanged mild left periaortic lymphadenopathy with is likely reactive. No new or enlarg ing lymphadenopathy. Small fat-containing umbilical hernia. Mild thoracolumbar spondylosis. IMPRESSION: 1. No acute intra-abdominal/pelvic process. 2. Abdominal aortic endoluminal stent grafting of an unchanged 5.9 x 5.7 cm fusiform aneurysm. 3. Occlusion of the left common iliac artery with supply to the left external and internal iliac michael ry supplied via a 8 and left femoral femoral bypass graft. 4. Bilateral nonobstructing nephrolithiasis with cortical scarring at both kidneys which may be relat ed to prior infarcts given the high-grade stenosis at the origins of both renal arteries. 5. Unchanged mild left para-aortic lymphadenopathy which is likely reactive. Reviewed, dictated and finalized at [facility]. IMPRESSION: 1. No acute intra-abdominal/pelvic process. 2. Abdominal aortic endoluminal stent grafting of an unchanged 5.9 x 5.7 cm fus iform aneurysm. 3. Occlusion of the left common iliac artery with supply to the left external a nd internal iliac artery supplied via a 8 and left femoral femoral bypass graft . 4. Bilateral nonobstructing nephrolithiasis with cortical scarring at both kidn eys which may be related to prior infarcts given the high-grade stenosis at the origins of both renal arteries. 5. Unchanged mild left para-aortic lymphadenopathy which is likely reactive.
[2019-07-16 22:21] VITALS: BP 193/88; PULSE 74; RESP 18; TEMP 36.4; O2SAT 100
[2019-07-16 22:30] LABS: Basophils Percent Auto 0.5 % (0.2-1.2); Eosinophils Absolute Auto 0.1 K/mm3 (0-0.3); Eosinophils Percent Auto 1.9 % (0-4.4); Hemoglobin 13.6 g/dL (14.0-18.0); Immature Granulocyte Absolute 0.02 K/mm3 (0.00-0.031); Immature Granulocyte Percent A 0.3 % (0-0.5); Lymphocytes Absolute Auto 1.66 K/mm3 (0.9-3.2); Lymphocytes Percent Auto 22.1 % (18.3-44.2); Mean Corpuscular HGB Conc 30.9 g/dl (32-36); Mean Corpuscular Hemoglobin 27.3 pg (26-34); Mean Corpuscular Volume 88.2 fl (80-100); Mean Platelet Volume 8.7 fl (7.4-10.4); Monocytes Absolute Auto 0.4 K/mm3 (0.1-0.6); Monocytes Percent Auto 5.9 % (2.6-8.5); Neutrophils Absolute Auto 5.2 K/mm3 (1.3-6.7); Neutrophils Percent Auto 69.3 % (45.5-73.1); Platelet Count Result 169 k/mm3 (150-375); Red Blood Count 4.99 M/mm3 (4.6-6.20); Red Cell Distribution Width 18.2 % (11.5-14.5); White Blood Count 7.5 K/mm3 (4.5-10.0)
[2019-07-16 22:44] LABS: Alanine Aminotransferase 13 U/L (4-50); Albumin Level 4.2 g/dL (3.5-5.1); Alkaline Phosphatase 113 U/L (38-126); Aspartate Amino Transferase 20 U/L (17-59); Bilirubin,Total 0.5 mg/dL (0.2-1.3); Blood Urea Nitrogen 18 mg/dL (9-20); Calcium 8.4 mg/dL (8.4-10.2); Carbon Dioxide 30 mmol/L (22-30); Chloride 102 mmol/L (98-107); Estimated CRCL calculation 53 ml/min; Estimated Glomerular Filt Rate 46; Glucose 114 mg/dL (75-110); Lipase 90 U/L (23-300); Potassium 4.3 mmol/L (3.4-5.0); Sodium 139 mmol/L (137-145)
[2019-07-16] MEDS: MORPHINE SULFATE 4 MG/ML INJ IV PUSH (22:49)
[2019-07-16 23:55] VITALS: BP 200/81; PULSE 70; RESP 18; O2SAT 95
[2019-07-17] MEDS: METHYLNALTREXONE 12 MG/0.6 ML VIAL SUB-Q (00:45)
--- NOTE | 2019-07-17 01:18 | ED.ABDPAIN ---
HPI - Abdominal Pain General Chief Complaint: Abdominal Pain Stated Complaint: abd pain Time Seen by Provider: 07/16/19 22:25 History of Present Illness HPI narrative: Patient is a 68-year-old male who presents ER with left-sided abdominal pain. Reports he has been having abdominal pain for 2 weeks over last couple days has become more severe. Waxes and wanes in intensity. No radiation. Has history of chronic constipation due to oral morphine and Percocet for chronic pain. Believes he has been having normal bowel movements. Takes MiraLAX 3 times a day as well as Metamucil and senna. No fevers or chills or sweats. No vomiting. Related Data Home Medications Medication Instructions Recorded Confirmed Movantik 25 mg PO DAILY 05/01/19 05/01/19 albuterol sulfate [ProAir HFA] 90 mcg INHALATION PRN PRN 05/01/19 05/01/19 amiodarone 200 mg PO DAILY 05/01/19 05/01/19 aspirin [Adult Low Dose Aspirin] 81 mg PO DAILY 05/01/19 05/01/19 carvedilol 25 mg PO DAILY 05/01/19 05/01/19 morphine 30 mg PO BID 05/01/19 05/01/19 pantoprazole 40 mg PO DAILY 05/01/19 05/01/19 amlodipine 10 mg tablet 5 mg PO DAILY 06/27/19 apixaban 5 mg tablet 5 mg PO BID tablet 06/27/19 hydralazine 50 mg tablet 25 mg PO TID 06/27/19 rosuvastatin 20 mg tablet 20 mg PO DAILY 06/27/19 docusate sodium 50 mg PO DAILY 07/16/19 meclizine 25 mg PO DAILY 07/16/19 oxycodone-acetaminophen 5 - 325 tablet PO PRN 07/16/19 psyllium husk [Metamucil] 0.4 g PO TID 07/16/19 sennosides [senna] 8.6 mg PO HS 07/16/19 simethicone 125 mg PO PRN PRN 07/16/19 tamsulosin 0.4 mg PO TID 07/16/19 tizanidine 4 mg PO PRN 07/16/19 07/16/19 trazodone 100 mg PO HS PRN 07/16/19 albuterol sulfate 1.25 mg INHALATION Q4H PRN 07/17/19 Allergies Allergy/AdvReac Type Severity Reaction Status Date / Time No Known Allergies Allergy Verified 05/01/19 13:53 Review of Systems Review of Systems: All systems reviewed & are unremarkable except as noted in HPI and below Constitutional: Constitutional: Denies chills, Denies fever(s) and Denies weakness ENT: Denies nasal congestion and Denies sore throat Cardiovascular: Cardiovascular: Denies chest pain and Denies radiating jaw, neck or arm pain Respiratory: Respiratory: Denies cough, Denies dyspnea and Denies wheezing Gastrointestinal: Gastrointestinal: Reports abdominal pain, Reports constipation, Denies diarrhea, Denies nausea and Denies vomiting Genitourinary: Genitourinary: Denies hematuria, Denies dysuria and Denies urinary frequency PMFSH Social History Social History Smoking packs per day: 1 Smoking cigarettes per day: 20.0 Smoking status: Never smoker Tobacco type: cigarettes Second hand tobacco smoke exposure: Yes Alcohol intake: never Substance use: never Substance use type: does not use Gender identity (if verbalized by the patient): Male Spiritual care concerns: No Agree to blood products: No Exam Narrative: Exam Narrative: GENERAL: Chronically ill-appearing, well-nourished, and in no acute distress. HEAD: Normocephalic, atraumatic. ENT: Mucous membranes moist. CHEST: Clear to auscultation. No respiratory distress. HEART: Regular rate and rhythm. Normal peripheral pulses. ABDOMEN: Soft, tender palpation left mid and upper quadrants without guarding, nondistended, normal active bowel sounds. EXTREMITIES: Normal range of motion. No edema. SKIN: Warm, dry, no rash. NEURO: Alert and oriented x3. PSYCH: Normal mood and affect. Course Course Emergency Course: Discussed results with patient and family member. Patient given some relistor and will be prescribed a bowel prep for home. Recommend he talk to his pain management physicians about tapering off of opiates and finding other forms of treatment for his chronic back pain. Vital Signs Vital signs: Vital Signs Temperature 97.6 F 07/16/19 22:21 Pulse Rate 74 07/16/19 22:21 Respirat
[2019-07-17 02:12] VITALS: BP 184/90; PULSE 81; RESP 18; O2SAT 97
--- NOTE | 2019-07-17 02:15 | PC.NURSE ---
--Patient ambulated to bathroom-small amount of stool passed--diaper applied for security while traveling home. Brother driving
== END 2019-07-17 02:21 | disposition home or self-care (01) ==
PROVIDERS: Emergency Provider Emergency Medicine; PCP Emergency Medicine
DX: K59.00 Constipation, unspecified (principal)
CPT/HCPCS: 36415; 74177; 80053; 83690; 85025; 96372; 96374; 99284; J2212; J2270; Q9967

== ENCOUNTER 2019-08-05 08:53 | Emergency (ER) | payer OTHER, SELFPAY ==
[2019-08-05] VITALS (24 sets, daily range): BP systolic 144–184; BP diastolic 58–93; PULSE 50–64; RESP 13–30; TEMP 36.2–37.1; O2SAT 96–100
--- NOTE | ~2019-08-05 | CT_ITS ---
EXAMINATION: CT abdomen pelvis wo con DATE: 08/05/2019 09:27 INDICATION: Left lower quadrant and flank pain TECHNIQUE: Computed tomography (CT) of the abdomen and pelvis was performed without intravenous contr ast. Automated exposure control and iterative reconstruction technique were employed. Exam dose: 515 .73 mGy-cm total exam DLP. COMPARISON: 07/16/2019 CT abdomen pelvis FINDINGS: Mild emphysematous changes are noted. There is minimal atelectasis in the lower lung zones. Coronary artery atherosclerosis. Heart size is within normal range. No pericardial or pleural effusio n. The liver, gallbladder, bile ducts, spleen, pancreas and pancreatic duct are unremarkable. Normal morphology of the adrenal glands. Bilateral nephrolithiasis. There is scarring of the kidneys, greater on the right, with volume loss o f the right kidney compared to the left. No ureteral calculus or hydroureteronephrosis is evident. Stable bilateral renal cysts, demonstrated to better advantage on prior CT examination with IV contra st material on 07/16/2019. Again noted is abdominal aortic endoluminal stent grafts extending into the right common iliac artery and femoral-femoral bypass graft. There are shotty periaortic and aortocaval lymph nodes. The urinar y bladder is unremarkable. No bowel obstruction or intraperitoneal free air. Diffuse idiopathic skeletal hyperostosis of the lower thoracic spine. Osteopenia. No suspicious osteolytic or osteoblastic lesions are identified. IMPRESSION: Bilateral nonobstructive nephrolithiasis Bilateral renal scarring, asymmetric right renal volume loss Bilateral renal cysts Abdominal aortic endovascular stent extending into right common iliac arteries; femorofemoral bypass graft. Reviewed, dictated and finalized at [facility]. Reviewed, dictated and finalized at [facility].
--- NOTE | 2019-08-05 09:09 | ECG_ITS ---
Measurements Intervals [place] Rate: 55 P: 96 [place]: 240 QRS: 6 QRSD: 110 T: 57 QT: 381 QTc: 367 Interpretive Statements SINUS BRADYCARDIA WITH SINUS ARRHYTHMIA WITH FIRST DEGREE AV BLOCK INCOMPLETE RIGHT BUNDLE BRANCH BLOCK CANNOT RULE OUT SEPTAL INFARCT, AGE INDETERMINATE ABNORMAL ECG Electronically Signed On 08-05-2019 11:05:03 CDT by Reji Benton D.O.
[2019-08-05] MEDS: SODIUM CHLORIDE 0.9% IV 1,000 ML 999 ML IV CONT (09:19)
[2019-08-05 09:26] LABS: Basophils Percent Auto 0.5 % (0.2-1.2); Eosinophils Absolute Auto 0.1 K/mm3 (0-0.3); Eosinophils Percent Auto 1.1 % (0-4.4); Hematocrit 38.6 % (42.0-52.0); Immature Granulocyte Absolute 0.02 K/mm3 (0.00-0.031); Immature Granulocyte Percent A 0.3 % (0-0.5); Lymphocytes Absolute Auto 1.17 K/mm3 (0.9-3.2); Lymphocytes Percent Auto 18.9 % (18.3-44.2); Mean Corpuscular HGB Conc 31.1 g/dl (32-36); Mean Corpuscular Hemoglobin 27.5 pg (26-34); Mean Corpuscular Volume 88.3 fl (80-100); Mean Platelet Volume 9.1 fl (7.4-10.4); Monocytes Absolute Auto 0.4 K/mm3 (0.1-0.6); Monocytes Percent Auto 6.3 % (2.6-8.5); Neutrophils Absolute Auto 4.5 K/mm3 (1.3-6.7); Neutrophils Percent Auto 72.9 % (45.5-73.1); Platelet Count Result 161 k/mm3 (150-375); Red Blood Count 4.37 M/mm3 (4.6-6.20); White Blood Count 6.2 K/mm3 (4.5-10.0)
[2019-08-05 09:43] LABS: Alanine Aminotransferase 8 U/L (4-50); Albumin Level 3.4 g/dL (3.5-5.1); Alkaline Phosphatase 89 U/L (38-126); Aspartate Amino Transferase 13 U/L (17-59); Bilirubin,Total 0.2 mg/dL (0.2-1.3); Blood Urea Nitrogen 13 mg/dL (9-20); Calcium 7.8 mg/dL (8.4-10.2); Carbon Dioxide 29 mmol/L (22-30); Chloride 104 mmol/L (98-107); Estimated CRCL calculation 54 ml/min; Estimated Glomerular Filt Rate 50; Glucose 115 mg/dL (75-110); Lipase 85 U/L (23-300); Potassium 3.5 mmol/L (3.4-5.0); Sodium 137 mmol/L (137-145)
[2019-08-05 09:55] LABS: Add Urine Microscopic? YES; Appearance Urine Clear (Clear); Bilirubin Urine Negative (Negative); Blood Urine 2+ (Negative); Color Urine Straw (Yellow); Glucose Urine UA Negative (Negative); Ketones Urine Negative (Negative); Leukocyte Esterase Ur 1+ LEU/UL (Negative); Mucus Urine Rare /lpf; Nitrate Urine Negative (Negative); Protein Urine Negative (Negative); Specific Grav Ur 1.008 (1.001-1.035); Squamous Epithelial Cell Urine Rare /hpf (Few); Urobilinogen Urine Negative mg/dL (<2.0); WBC Urine 16-20 /hpf
[2019-08-05] MEDS: MECLIZINE HCL 25 MG TABLET PO (10:59)
--- NOTE | 2019-08-05 13:14 | ED.GENADULT ---
HPI - General Adult General Chief complaint: Unspecified Stated complaint: MULTIPLE C/O Time Seen by Provider: 08/05/19 08:58 History of Present Illness HPI narrative: Patient is a 68-year-old male who presents the ER with multiple complaints. Patient reports he was walking to his car to place a handicap sticker in it when he collapsed to the ground. He denies any chest pain or racing heart. He has chronic dizziness since having a stroke in the past. He reports he woke up on the ground and suffered no injury. He also reports she has been dealing with a bowel obstruction for the last month despite having a normal bowel movement yesterday evening. He also reports some chronic left flank pain and thinks he may be passing a kidney stone. He is having no other additional urinary symptoms. No lower extremity numbness or tingling. Denies any additional focal deficit. Per EMS patient had a kidney stone attack in front of them and collapsed the ground but did not lose consciousness or strike his head. Related Data Home Medications Medication Instructions Recorded Confirmed Movantik 25 mg PO DAILY 05/01/19 05/01/19 albuterol sulfate [ProAir HFA] 90 mcg INHALATION PRN PRN 05/01/19 05/01/19 amiodarone 200 mg PO DAILY 05/01/19 05/01/19 aspirin [Adult Low Dose Aspirin] 81 mg PO DAILY 05/01/19 05/01/19 carvedilol 25 mg PO DAILY 05/01/19 05/01/19 morphine 30 mg PO BID 05/01/19 05/01/19 pantoprazole 40 mg PO DAILY 05/01/19 05/01/19 amlodipine 10 mg tablet 5 mg PO DAILY 06/27/19 apixaban 5 mg tablet 5 mg PO BID tablet 06/27/19 hydralazine 50 mg tablet 25 mg PO TID 06/27/19 rosuvastatin 20 mg tablet 20 mg PO DAILY 06/27/19 meclizine 25 mg PO DAILY 07/16/19 oxycodone-acetaminophen 5 - 325 tablet PO PRN 07/16/19 psyllium husk [Metamucil] 0.4 g PO TID 07/16/19 sennosides [senna] 8.6 mg PO HS 07/16/19 simethicone 125 mg PO PRN PRN 07/16/19 tamsulosin 0.4 mg PO TID 07/16/19 tizanidine 4 mg PO PRN 07/16/19 07/16/19 trazodone 100 mg PO HS PRN 07/16/19 albuterol sulfate 1.25 mg INHALATION Q4H PRN 07/17/19 albuterol sulfate 2.5 mg .ROUTE .COMPLEX ml 07/19/19 Allergies Allergy/AdvReac Type Severity Reaction Status Date / Time No Known Allergies Allergy Verified 05/01/19 13:53 Review of Systems Review of Systems: All systems reviewed & are unremarkable except as noted in HPI and below Constitutional: Constitutional: Denies chills, Denies fever(s) and Reports weakness ENT: Denies nasal congestion and Denies sore throat Cardiovascular: Cardiovascular: Denies chest pain, Denies rapid heart rate and Denies radiating jaw, neck or arm pain Respiratory: Respiratory: Denies cough, Denies dyspnea and Denies wheezing Gastrointestinal: Gastrointestinal: Reports abdominal pain, Denies diarrhea, Reports nausea and Denies vomiting Genitourinary: Genitourinary: Denies oliguria, Denies dysuria and Denies urinary frequency Neurologic: Reports syncope, Denies headache(s), Denies focal weakness and Denies numbness PMFSH Social History Social History Smoking packs per day: 1 Smoking cigarettes per day: 20.0 Smoking status: Never smoker Tobacco type: cigarettes Second hand tobacco smoke exposure: Yes Alcohol intake: never Substance use: never Substance use type: does not use Gender identity (if verbalized by the patient): Male Spiritual care concerns: No Agree to blood products: No Exam Narrative: Exam Narrative: GENERAL: Chronically ill-appearing, well-nourished, and in no acute distress. HEAD: Normocephalic, atraumatic. EYES: Anisocoria with left larger than right, appears to be scarred from previous surgery, and EOMI. ENT: Mucous membranes moist. CHEST: Bradycardic and regular. No respiratory distress. HEART: Regular rate and rhythm. Normal peripheral pulses. ABDOMEN: Soft, nontender, nondistended. Back: No midline tenderness of thoracic or lumbar spine mid
== END 2019-08-05 13:38 | disposition home or self-care (01) ==
PROVIDERS: Emergency Provider Emergency Medicine; PCP Emergency Medicine
DX: R42 Dizziness and giddiness (principal); R10.9 Unspecified abdominal pain; I69.998 Other sequelae following unspecified cerebrovascular disease; I69.951 Hemiplegia and hemiparesis following unspecified cerebrovascular disease affecting right dominant side; I69.911 Memory deficit following unspecified cerebrovascular disease; I69.920 Aphasia following unspecified cerebrovascular disease; I25.10 Atherosclerotic heart disease of native coronary artery without angina pectoris; K21.9 Gastro-esophageal reflux disease without esophagitis; I10 Essential (primary) hypertension; I25.2 Old myocardial infarction; Z86.19 Personal history of other infectious and parasitic diseases; Z87.442 Personal history of urinary calculi; E78.00 Pure hypercholesterolemia, unspecified; Z95.5 Presence of coronary angioplasty implant and graft; F17.210 Nicotine dependence, cigarettes, uncomplicated; I45.10 Unspecified right bundle-branch block; R00.1 Bradycardia, unspecified; R94.31 Abnormal electrocardiogram [ECG] [EKG]; Z79.82 Long term (current) use of aspirin; Z79.01 Long term (current) use of anticoagulants
CPT/HCPCS: 36415; 74176; 80053; 81001; 83690; 85025; 87077; 87086; 87088; 87186; 93005; 96360; 99284; A9270; J7030

== ENCOUNTER 2019-08-11 15:27 | Outpatient (CLI) | payer OTHER, SELFPAY ==
--- NOTE | ~2019-08-11 | XR_ITS ---
XR ankle RT 2V DATE: 08/11/2019 16:08 INDICATION: Fall. Lateral ankle pain and swelling TECHNIQUE: AP and lateral views COMPARISON: None FINDINGS: No recent fracture or dislocation of the ankle or disruption of the ankle mortise is detect ed. IMPRESSION: No recent fracture or dislocation Reviewed, dictated and finalized at [facility].
--- NOTE | ~2019-08-11 | XR_ITS ---
XR foot RT 2V DATE: 08/11/2019 16:08 INDICATION: Fall. Lateral pain. TECHNIQUE: AP and lateral views of right foot COMPARISON: None FINDINGS: There is prominent osteoarthritis at the first metatarsophalangeal joint. No fracture, dislocation, periosteal reaction or bone destruction. IMPRESSION: Osteoarthritis at first metatarsophalangeal joint No fracture or dislocation Reviewed, dictated and finalized at [facility].
== END 2019-08-11 15:28 | disposition home or self-care (01) ==
LOC: ANHIMG 15:28
PROVIDERS: PCP Emergency Medicine; Visit Provider Emergency Medicine
DX: M79.89 Other specified soft tissue disorders (principal); M19.071 Primary osteoarthritis, right ankle and foot
CPT/HCPCS: 73600; 73620

== ENCOUNTER 2019-10-12 14:04 | Emergency (ER) | payer OTHER, SELFPAY ==
--- NOTE | ~2019-10-12 | XR_ITS ---
EXAMINATION: XR foot RT min 3V DATE: 10/12/2019 15:07 INDICATION: Right foot pain. Injury. TECHNIQUE: 4 views of right foot were obtained. COMPARISON: Right foot radiographs 08/11/2019 FINDINGS: There is mild hallux valgus. There is a transverse extra-articular fracture of base of fift h proximal phalanx. The distal fracture fragment demonstrates impaction. There is moderate osteoarthr itis of first metatarsophalangeal joint and mild osteoarthritis of many of the midfoot joints and int erphalangeal joints. There is an enthesophyte at posterior aspect of calcaneal tuberosity. IMPRESSION: 1. Transverse extra-articular fracture of base of fifth proximal phalanx. 2. Polyarticular osteoarthritis. 3. Mild hallux valgus. Reviewed, dictated and finalized at location B.
--- NOTE | 2019-10-12 14:36 | ED.ABDPAIN ---
HPI - Abdominal Pain General Chief Complaint: Extremity Injury, Lower <SNEHAL Luong Last Filed: 10/12/19 15:56> Stated Complaint: right foot injury <SNEHAL Luong Last Filed: 10/12/19 15:56> Time Seen by Provider: 10/12/19 14:15 <SNEHAL Luong Last Filed: 10/12/19 15:56> Source: patient <SNEHAL Luong Last Filed: 10/12/19 15:56> Mode of arrival: ambulatory <SNEHAL Luong Last Filed: 10/12/19 15:56> Limitations: no limitations <SNEHAL Luong Last Filed: 10/12/19 15:56> History of Present Illness HPI narrative: Patient is a 68-year-old male who presents to emergency department for evaluation of right foot pain and swelling patient was seen pain management today for right foot pain and swelling patient notes 10 days ago he had dropped an object on foot and has since had swelling and pain patient denies any fever chills nausea vomiting weakness or other complaints and on arrival is in the room in no distress patient denies similar occurrence in the past <SNEHAL Luong Last Filed: 10/12/19 15:56> Related Data Home Medications: Home Medications Medication Instructions Recorded Confirmed Movantik 25 mg PO DAILY 05/01/19 05/01/19 albuterol sulfate [ProAir HFA] 90 mcg INHALATION PRN PRN 05/01/19 05/01/19 amiodarone 200 mg PO DAILY 05/01/19 05/01/19 aspirin [Adult Low Dose Aspirin] 81 mg PO DAILY 05/01/19 05/01/19 carvedilol 25 mg PO DAILY 05/01/19 05/01/19 morphine 30 mg PO BID 05/01/19 05/01/19 pantoprazole 40 mg PO DAILY 05/01/19 05/01/19 amlodipine 10 mg tablet 5 mg PO DAILY 06/27/19 apixaban 5 mg tablet 5 mg PO BID tablet 06/27/19 hydralazine 50 mg tablet 25 mg PO TID 06/27/19 rosuvastatin 20 mg tablet 20 mg PO DAILY 06/27/19 meclizine 25 mg PO DAILY 07/16/19 oxycodone-acetaminophen 5 - 325 tablet PO PRN 07/16/19 psyllium husk [Metamucil] 0.4 g PO TID 07/16/19 sennosides [senna] 8.6 mg PO HS 07/16/19 simethicone 125 mg PO PRN PRN 07/16/19 tamsulosin 0.4 mg PO TID 07/16/19 tizanidine 4 mg PO PRN 07/16/19 07/16/19 albuterol sulfate 1.25 mg INHALATION Q4H PRN 07/17/19 albuterol sulfate 2.5 mg .ROUTE .COMPLEX ml 07/19/19 <Gregory Zhang PA-C - Last Filed: 10/12/19 15:56> Allergies/Adverse Reactions: Allergies Allergy/AdvReac Type Severity Reaction Status Date / Time No Known Allergies Allergy Verified 05/01/19 13:53 <Gregory Zhang PA-C - Last Filed: 10/12/19 15:56> Review of Systems Review of Systems: All systems reviewed & are unremarkable except as noted in HPI and below <Gregory Zhang PA-C - Last Filed: 10/12/19 15:56> [facility] Past Medical History Medical History: Medical History AAA (abdominal aortic aneurysm) History of ruptured AAA with intravascular repair CAD (coronary artery disease) <4 METs, last stent in 2018 Carotid stenosis MADDIE. 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 History of kidney stones History of pneumonia Hypercholesteremia Osteomyelitis <Gregory Zhang PA-C - Last Filed: 10/12/19 15:56> Surgical History Surgical History: Surgical History History of AAA (abdominal aortic aneurysm) repair Intra vascular repair 3 years ago at [facility] History of elbow surgery lt. History of lithotripsy History of tonsillectomy Hx of cardiac cath Hx of heart artery stent >5. Status post femorofemoral bypass surgery <Gregory Zhang PA-C - Last Filed: 10/12/19 15:56> Family History Family History: Family History Theresa
[2019-10-12 14:49] VITALS: BP 161/105; PULSE 69; RESP 17; TEMP 36.5; O2SAT 100
[2019-10-12 15:05] LABS: Basophils Percent Auto 0.6 % (0.2-1.2); Eosinophils Absolute Auto 0.1 K/mm3 (0-0.3); Eosinophils Percent Auto 1.8 % (0-4.4); Hematocrit 42.8 % (42.0-52.0); Hemoglobin 13.1 g/dL (14.0-18.0); Immature Granulocyte Absolute 0.02 K/mm3 (0.00-0.031); Immature Granulocyte Percent A 0.3 % (0-0.5); Lymphocytes Absolute Auto 1.26 K/mm3 (0.9-3.2); Lymphocytes Percent Auto 18.4 % (18.3-44.2); Mean Corpuscular HGB Conc 30.6 g/dl (32-36); Mean Corpuscular Hemoglobin 26.5 pg (26-34); Mean Corpuscular Volume 86.6 fl (80-100); Mean Platelet Volume 8.6 fl (7.4-10.4); Monocytes Absolute Auto 0.4 K/mm3 (0.1-0.6); Monocytes Percent Auto 6.4 % (2.6-8.5); Neutrophils Percent Auto 72.5 % (45.5-73.1); Platelet Count Result 151 k/mm3 (150-375); Red Blood Count 4.94 M/mm3 (4.6-6.20); Red Cell Distribution Width 15.1 % (11.5-14.5); White Blood Count 6.8 K/mm3 (4.5-10.0)
[2019-10-12 15:19] LABS: Anion Gap 7 mmol/L (8-16); Blood Urea Nitrogen 15 mg/dL (9-20); CRP 2.2 mg/dL (<1.0); Calcium 7.9 mg/dL (8.4-10.2); Carbon Dioxide 29 mmol/L (22-30); Chloride 101 mmol/L (98-107); Estimated CRCL calculation 58 ml/min; Estimated Glomerular Filt Rate 50; Glucose 120 mg/dL (75-110); Potassium 4.4 mmol/L (3.4-5.0); Sodium 137 mmol/L (137-145); Uric Acid 5.2 mg/dL (3.5-8.5)
[2019-10-12 16:20] VITALS: BP 154/75; PULSE 68; RESP 12; O2SAT 99
== END 2019-10-12 16:20 | disposition home or self-care (01) ==
PROVIDERS: Emergency Medicine Emergency Medical Services; Emergency Provider General Practice; PCP Emergency Medicine
DX: S92.511A Displaced fracture of proximal phalanx of right lesser toe(s), initial encounter for closed fracture (principal); I25.10 Atherosclerotic heart disease of native coronary artery without angina pectoris; K21.9 Gastro-esophageal reflux disease without esophagitis; I25.2 Old myocardial infarction; I10 Essential (primary) hypertension; W20.8XXA Other cause of strike by thrown, projected or falling object, initial encounter
CPT/HCPCS: 36415; 73630; 80048; 84550; 85025; 86140; 99284

== ENCOUNTER 2020-05-19 10:19 | Emergency (ER) | payer OTHER, SELFPAY ==
[2020-05-19] VITALS (9 sets, daily range): BP systolic 131–231; BP diastolic 78–127; PULSE 60–76; RESP 13–20; TEMP 36.2; O2SAT 96–100
--- NOTE | ~2020-05-19 | CT_ITS ---
EXAMINATION: CT abdomen pelvis w con DATE: 05/19/2020 11:47 INDICATION: Radiculitis presenting with nausea, vomiting and left lower quadrant abdominal pain. TECHNIQUE: Computed tomography (CT) of the abdomen and pelvis was performed with 100 mL Omnipaque-350 intravenous contrast. Automated exposure control and iterative reconstruction technique were employe d. The dose-length product was 645.24 mGy-cm. COMPARISON: 08/05/2019 FINDINGS: Lung bases are clear. Heart size is normal. Atherosclerotic coronary artery calcific calcifications. Aortic valve calcification. No pericardial or pleural effusion. Liver, gallbladder, spleen, pancreas and bilateral adrenal glands are normal. There are regions of cortical scarring at both kidneys, righ t greater than left. Bilateral renal cysts, the largest measuring up to 1.5 cm at the lower pole of t he left kidney. Partial thin rim calcification at the periphery of a cyst at the lower pole of the ri ght kidney. 7 mm and 11 mm nonobstructing stones at the lower pole of the left kidney. 4 mm and 7 mm nonobstructing stones at the mid right kidney. Infrarenal endoluminal abdominal aortic stent grafting extending into the right common iliac artery. Unchanged fusiform abdominal aortic aneurysm measuring 5.9 x 5.8 in maximal diameter below the level of the renal arteries. The aorta measures up to 5.6 x 5.6 cm above level of the stent graft at the le allie of the renal arteries. There is severe, >70%, stenosis at the origins of both the left and right renal arteries. There is complete occlusion of the left common iliac artery with patent femoral-femor al bypass graft supplying retrograde contrast opacification of the left external and internal iliac a rteries. There is calcified atherosclerosis of the aorta and many of the other arteries. Circumaortic left renal vein. Moderate amount of stool in the proximal colon. No abnormal bowel wall thickening or obstruction. Meenu endix is surgically absent. Bladder is normal. No free intraperitoneal gas or fluid. Unchanged mild l eft periaortic lymphadenopathy with is likely reactive. No new or enlarging lymphadenopathy. Small fa t-containing umbilical hernia. Mild thoracolumbar spondylosis. IMPRESSION: 1. No acute intra-abdominal/pelvic process. 2. Abdominal aortic endoluminal stent grafting of an unchanged 5.9 x 5.8 cm fusiform aneurysm. 3. Occlusion of the left common iliac artery with supply to the left external and internal iliac michael jaymie supplied via a patent femoral-femoral bypass graft. 4. Bilateral nonobstructing nephrolithiasis with chronic cortical scarring at both kidneys which may be related to prior infarcts given the high-grade stenosis at the origins of both renal arteries. 5. Unchanged mild left periaortic lymphadenopathy which is likely reactive. Reviewed, dictated and finalized at location A. IMPRESSION: 1. No acute intra-abdominal/pelvic process. 2. Abdominal aortic endoluminal stent grafting of an unchanged 5.9 x 5.8 cm fus iform aneurysm. 3. Occlusion of the left common iliac artery with supply to the left external a nd internal iliac arteries supplied via a patent femoral-femoral bypass graft. 4. Bilateral nonobstructing nephrolithiasis with chronic cortical scarring at b oth kidneys which may be related to prior infarcts given the high-grade stenosi s at the origins of both renal arteries. 5. Unchanged mild left periaortic lymphadenopathy which is likely reactive.
[2020-05-19 10:44] LABS: Basophils Absolute Auto 0.1 K/mm3 (0.0-0.1); Basophils Percent Auto 0.5 % (0.2-1.2); Eosinophils Absolute Auto 0.1 K/mm3 (0-0.3); Eosinophils Percent Auto 0.9 % (0-4.4); Hematocrit 48.2 % (42.0-52.0); Hemoglobin 15.1 g/dL (14.0-18.0); Immature Granulocyte Absolute 0.03 K/mm3 (0.00-0.031); Immature Granulocyte Percent A 0.3 % (0-0.5); Lymphocytes Absolute Auto 1.49 K/mm3 (0.9-3.2); Mean Corpuscular HGB Conc 31.3 g/dl (32-36); Mean Corpuscular Hemoglobin 25.9 pg (26-34); Mean Corpuscular Volume 82.7 fl (80-100); Mean Platelet Volume 8.6 fl (7.4-10.4); Monocytes Absolute Auto 0.6 K/mm3 (0.1-0.6); Monocytes Percent Auto 5.5 % (2.6-8.5); Neutrophils Absolute Auto 7.8 K/mm3 (1.3-6.7); Neutrophils Percent Auto 77.8 % (45.5-73.1); Platelet Count Result 234 k/mm3 (150-375); Red Blood Count 5.83 M/mm3 (4.6-6.20); Red Cell Distribution Width 18.7 % (11.5-14.5)
[2020-05-19 10:58] LABS: Alanine Aminotransferase 11 U/L (4-50); Albumin Level 4.3 g/dL (3.5-5.1); Alkaline Phosphatase 150 U/L (38-126); Anion Gap 8 mmol/L (8-16); Aspartate Amino Transferase 21 U/L (17-59); Bilirubin,Total 0.6 mg/dL (0.2-1.3); Blood Urea Nitrogen 17 mg/dL (9-20); Calcium 8.6 mg/dL (8.4-10.2); Carbon Dioxide 30 mmol/L (22-30); Chloride 103 mmol/L (98-107); Estimated CRCL calculation 53 ml/min; Estimated Glomerular Filt Rate 46; Glucose 118 mg/dL (75-110); Lipase 137 U/L (23-300); Potassium 3.7 mmol/L (3.4-5.0); Sodium 141 mmol/L (137-145)
[2020-05-19] MEDS: ONDANSETRON INJ 4 MG/2 ML VIAL IV PUSH (10:58)
[2020-05-19] MEDS: SODIUM CHLORIDE 0.9% IV 1,000 ML 999 ML IV CONT (10:58)
[2020-05-19] MEDS: hydrALAZINE HCL 20 MG/ML VIAL 10 MG IV PUSH (10:58)
[2020-05-19] MEDS: PANTOPRAZOLE SODIUM IV 40 MG VIAL IV PUSH (10:58)
[2020-05-19 10:59] LABS: Lactic Acid Reflex 1.1 mmol/L (0.7-2.1)
[2020-05-19 11:21] LABS: Add Urine Microscopic? YES; Appearance Urine Clear (Clear); Bacteria Urine Trace /hpf; Bilirubin Urine Negative (Negative); Blood Urine 2+ (Negative); Color Urine Yellow (Yellow); Glucose Urine UA Negative (Negative); Ketones Urine Negative (Negative); Leukocyte Esterase Ur Trace LEU/UL (Negative); Mucus Urine Rare /lpf; Nitrate Urine Negative (Negative); Protein Urine 2+ mg/dL (Negative); RBC Urine >75 /hpf (0-2); Specific Grav Ur 1.012 (1.001-1.035); Urobilinogen Urine Negative mg/dL (<2.0); WBC Urine 16-20 /hpf
--- NOTE | 2020-05-19 11:55 | ED.GENADULT ---
HPI - General Adult General Chief complaint: Abdominal Pain Stated complaint: ABD PAIN Time Seen by Provider: 05/19/20 10:26 Source: patient Mode of arrival: ambulatory Limitations: no limitations History of Present Illness HPI narrative: Patient is a 69-year-old male who presents with abdominal pain that began in the last 24 hours this morning had an episode of emesis presents with aching pain to the left lower quadrant. Patient is on chronic narcotics and has not taken his constipation medication for the last 3 days. Patient notes 5 out of 10 discomfort worse with activity and movement. Patient was unable to take his medications today due to emesis. Patient notes that he has had this pain before with no clear cause. Patient had a normal colonoscopy in the last 6 months per patient. Patient on arrival does not appear distressed. Patient denies rectal bleeding melena or urinary issues or recent illness Related Data Home Medications Medication Instructions Recorded Confirmed Movantik 25 mg PO DAILY 05/01/19 05/01/19 albuterol sulfate [ProAir HFA] 90 mcg INHALATION PRN PRN 05/01/19 05/01/19 aspirin [Adult Low Dose Aspirin] 81 mg PO DAILY 05/01/19 05/01/19 amlodipine 10 mg tablet 5 mg PO DAILY 06/27/19 apixaban 5 mg tablet 5 mg PO BID tablet 06/27/19 hydralazine 50 mg tablet 25 mg PO TID 06/27/19 meclizine 25 mg PO DAILY 07/16/19 oxycodone-acetaminophen 5 - 325 tablet PO PRN 07/16/19 sennosides [senna] 8.6 mg PO HS 07/16/19 tamsulosin 0.4 mg PO TID 07/16/19 albuterol sulfate 1.25 mg INHALATION Q4H PRN 07/17/19 albuterol sulfate 2.5 mg .ROUTE .COMPLEX ml 07/19/19 Allergies Allergy/AdvReac Type Severity Reaction Status Date / Time No Known Allergies Allergy Verified 05/19/20 10:23 Review of Systems Review of Systems: All systems reviewed & are unremarkable except as noted in HPI and below PMFSH Past Medical History Medical History (Updated 05/19/20 @ 13:31 by Gregory Zhang PA-C) AAA (abdominal aortic aneurysm) History of ruptured AAA with intravascular repair CAD (coronary artery disease) <4 METs, last stent in 2018 Carotid stenosis MADDIE. - 100% occlusion both sides CVA (cerebral vascular accident) residual right sided weakness, memory loss and occasional difficulty speaking GERD (gastroesophageal reflux disease) H/O: HTN (hypertension) Hepatitis C History of angina History of heart attack 2009 and 2018. History of kidney stones History of pneumonia Hypercholesteremia Osteomyelitis Surgical History Surgical History History of AAA (abdominal aortic aneurysm) repair Intra vascular repair 3 years ago at [facility] History of elbow surgery lt. History of lithotripsy History of tonsillectomy Hx of cardiac cath Hx of heart artery stent >5. Status post femorofemoral bypass surgery Family History Family History Mother Family history of malignant neoplasm Acute myocardial infarction, Onset Age: 89 Father Acute myocardial infarction Sibling AAA (abdominal aortic aneurysm) Other Asthma Cerebrovascular accident History of blood clots Social History Social History Smoking packs per day: 1 Smoking cigarettes per day: 20.0 Smoking status: Never smoker Tobacco type: cigarettes Second hand tobacco smoke exposure: Yes Alcohol intake: never Substance use: never Substance use type: does not use Gender identity (if verbalized by the patient): Male Spiritual care concerns: No Agree to blood products: No Exam Narrative: Exam Narrative: GENERAL: Well-appearing, well-nourished, and in no acute distress. HEAD: Normocephalic, atraumatic. EYES: PERRLA and EOMI. ENT: Nares clear, no rhinorrhea or epistaxis. Mucous membranes moist. NECK: Supple. No adenopathy or masses. CHEST: Clear
[2020-05-19] MEDS: METHYLNALTREXONE 12 MG/0.6 ML VIAL SUB-Q (12:52)
[2020-05-19] MEDS: HYOSCYAMINE SULFATE 0.125 MG TABLET PO (13:10)
--- NOTE | 2020-05-19 13:16 | PC.NURSE ---
PO challenge tried with gilma mist and patient tolerated well. Diogo LUGO notified.
[2020-05-19] MEDS: LACTATED RINGERS 1,000 ML 999 ML IV CONT (14:06)
== END 2020-05-19 15:20 | disposition home or self-care (01) ==
PROVIDERS: Emergency Medicine Emergency Medical Services; Emergency Provider Emergency Medicine; PCP Emergency Medicine
DX: N39.0 Urinary tract infection, site not specified (principal); I25.10 Atherosclerotic heart disease of native coronary artery without angina pectoris; I65.23 Occlusion and stenosis of bilateral carotid arteries; I69.911 Memory deficit following unspecified cerebrovascular disease; I69.951 Hemiplegia and hemiparesis following unspecified cerebrovascular disease affecting right dominant side; I69.021 Dysphasia following nontraumatic subarachnoid hemorrhage; K21.9 Gastro-esophageal reflux disease without esophagitis; I10 Essential (primary) hypertension; I25.2 Old myocardial infarction; Z87.442 Personal history of urinary calculi; E78.00 Pure hypercholesterolemia, unspecified; Z95.5 Presence of coronary angioplasty implant and graft; F17.210 Nicotine dependence, cigarettes, uncomplicated; Z79.82 Long term (current) use of aspirin
CPT/HCPCS: 36415; 74177; 80048; 80076; 81001; 83605; 83690; 85025; 87077; 87086; 87088; 87186; 96361; 96365; 96372; 96375; 99284; A9270; C9113; J0131; J0360; J0696; J2212; J2405; J7030; J7120; Q9967

== ENCOUNTER 2020-06-22 10:11 | Inpatient (IN) | payer OTHER, SELFPAY ==
[2020-06-22] VITALS (14 sets, daily range): BP systolic 110–188; BP diastolic 68–95; PULSE 54–67; RESP 14–20; TEMP 36–36.4; O2SAT 95–100; BMI 23.1; BMI 22.4
--- NOTE | ~2020-06-22 | XR_ITS ---
EXAMINATION: XR chest 1V portable DATE: 06/22/2020 11:03 INDICATION: Coronary atherosclerosis. Fall. TECHNIQUE: A single frontal view of the chest was obtained on 2 radiographs. COMPARISON: Chest single view 11/06/2017, chest CT 05/01/2019 FINDINGS: There are lucencies in the lungs, consistent with emphysema. No pleural effusion or pneumot horax. The heart size is normal. There is an old healed fracture of left clavicle. IMPRESSION: 1. Emphysema. Reviewed, dictated and finalized at location A. IMPRESSION: 1. Emphysema.
--- NOTE | ~2020-06-22 | CT_ITS ---
EXAMINATION: CT abd pelvis lumbar w con DATE: 06/22/2020 12:16 INDICATION: Right flank pain. Fall. TECHNIQUE: Computed tomography (CT) of the abdomen and pelvis and lumbar spine was performed with 100 mL Omnipaque 350 intravenous contrast. Automated exposure control and iterative reconstruction techn ique were employed. Automated exposure control and iterative reconstruction technique were employed. The dose-length product was 539.64 mGy-cm. COMPARISON: CT abdomen and pelvis 05/19/2020, 08/05/2019 FINDINGS: CT ABDOMEN AND PELVIS: The visualized portions of the lung bases demonstrate mild atelectasis. No ple ural effusion. The heart size is normal. There are coronary artery calcifications. No pericardial eff usion. The liver, gallbladder, spleen, pancreas, and adrenal glands are normal. There is cortical thi nning of the kidneys. There are cysts and hemorrhagic cysts in the kidneys measuring up to 2.1 cm on the right. There is a 10 mm stone in right kidney. There is a 3 mm stone in right kidney. There are 9 mm and 8 mm stones in left kidney. There are no dilated loops of bowel. The appendix is not visualiz ed. There is mild left para-aortic lymphadenopathy. There is a suprarenal and infrarenal fusiform ane urysm of abdominal aorta measuring 5.8 cm. There is chronic fat stranding around the aneurysm. There is a stent graft in infrarenal aorta and right common iliac artery. There is total occlusion of proxi mal left common iliac artery with reconstitution at the bifurcation. There is mild stenosis of left r enal artery. There is total occlusion of proximal right renal artery. Mid right renal artery receives collateral flow from the adrenal artery. There is total occlusion of proximal right internal iliac a rtery with reconstitution. There is a patent femorofemoral bypass graft. There is mild stenosis of le ft external iliac artery and severe stenosis of origin of right internal iliac artery. CT LUMBAR SPINE: Bone alignment is normal. There is mild chronic anterior wedging of T12-L2 vertebral bodies, likely physiologic. There is mildly decreased disc height at L2-L3. The following disc level s are specifically discussed: L1-L2: The disc is bulging. There is mild right and moderate left facet joint osteoarthritis. There i s mild bilateral neural foraminal stenosis. There is no central canal stenosis. L2-L3: The disc is bulging. There is mild bilateral facet joint osteoarthritis. There is mild bilater al neural foraminal stenosis. There is mild central canal stenosis. L3-L4: The disc is bulging. There is severe bilateral facet joint osteoarthritis. There is mild bilat eral neural foraminal stenosis. There is mild central canal stenosis. L4-L5: The disc is bulging. There is severe right and mild left facet joint osteoarthritis. There is moderate bilateral neural foraminal stenosis. There is mild central canal stenosis. L5-S1: The disc is bulging. There is severe bilateral facet joint osteoarthritis. There is mild right neural foraminal stenosis. There is mild central canal stenosis. IMPRESSION: 1. 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 No endoleak. Chronic fat stranding around the aneurysm suggests inflammation/scarring. 2. Mild left para-aortic lymphadenopathy, likely reactive. 3. 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 Patent femorofemoral bypass graft. 4. Bilateral nonobstructing kidney stones. 5. Mild lumbar spondylosis. Reviewed, dictated and finalized at location A. IMPRESSION: 1. 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 No endoleak. Chronic fat stran
--- NOTE | ~2020-06-22 | CT_ITS ---
EXAMINATION: CT brain wo con DATE: 06/22/2020 12:04 INDICATION: Head injury. TECHNIQUE: Computed tomography (CT) of the head was performed without intravenous contrast. The mA wa s adjusted according to patient size. Iterative reconstruction technique was employed. The dose-lengt h product was 681.00 mGy-cm. COMPARISON: Head CT 09/17/2011 FINDINGS: There is an old infarct involving left frontal lobe and left insula. There is no intracrani al hemorrhage, acute infarction, or abnormal intracranial mass lesion. The ventricles are normal in s ize. The orbits are normal. There are mucous retention cysts in the maxillary sinuses. The mastoid ai r cells are normal. There is abundant cerumen in the external auditory canals. IMPRESSION: 1. 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 Reviewed, dictated and finalized at location A.
--- NOTE | ~2020-06-22 | XR_ITS ---
EXAMINATION: XR femur RT min 2V DATE: 06/22/2020 11:03 INDICATION: Right thigh pain. Fall. TECHNIQUE: 2 views of right femur on 4 radiographs were obtained. COMPARISON: None. FINDINGS: Bone alignment is normal. No fracture. There is mild right hip and knee osteoarthritis. The re is abundant heterotopic ossification in the area of patellar ligament. No knee joint effusion. The re is a fusiform aneurysm of popliteal artery measuring approximately 2.9 cm. There is a stent graft in abdominal aorta. IMPRESSION: 1. Mild polyarticular osteoarthritis. 2. 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 Reviewed, dictated and finalized at location A.
--- NOTE | 2020-06-22 10:34 | ECG_ITS ---
Measurements Intervals [place] Rate: 57 P: 82 ME: 208 QRS: -24 QRSD: 110 T: 55 QT: 470 QTc: 460 Interpretive Statements SINUS BRADYCARDIA WITH FIRST DEGREE AV BLOCK INCOMPLETE RIGHT BUNDLE BRANCH BLOCK BORDERLINE T WAVE ABNORMALITY- ANTERIOR LEADS BASELINE ARTIFACT- III, V2-V5 ABNORMAL ECG Electronically Signed On 06-22-2020 12:10:42 CDT by Reji Benton D.O.
--- NOTE | 2020-06-22 10:42 | ED.FALL ---
HPI - Fall General Chief Complaint: Fall Stated Complaint: fall, hip pain Time Seen by Provider: 06/22/20 10:14 Source: patient Mode of arrival: EMS Limitations: no limitations History of Present Illness HPI Narrative: Patient presents for evaluation after experiencing a fall at home last night around 2200. He indicates he was walking between his living room and bedroom when he felt off balance . She has a history of multiple CVAs in the past and has intermittent problems with feeling off balance . He does not use any type of assistive device to assist with ambulation at home. He lives independently. He cannot identify what part of his body landed on when he fell. However he does deny hitting his head and denies loss of consciousness. He is anticoagulated with Eliquis. He reports 7 out of 10 pain in the low back and right femur. He states it is very difficult for him to bear weight. It took him about an hour to get up off the floor and contacted EMS who brought him to the ER today. He denies any chest pain/sob. He takes oxycodone for chronic abdominal pain r/t IBS, however he has not taken any pain medication today. Related Data Home Medications Medication Instructions Recorded Confirmed Movantik 25 mg PO DAILY 05/01/19 05/01/19 albuterol sulfate [ProAir HFA] 90 mcg INHALATION PRN PRN 05/01/19 05/01/19 aspirin [Adult Low Dose Aspirin] 81 mg PO DAILY 05/01/19 05/01/19 apixaban 5 mg tablet 5 mg PO BID tablet 06/27/19 meclizine 25 mg PO DAILY 07/16/19 sennosides [senna] 8.6 mg PO HS 07/16/19 albuterol sulfate 2.5 mg .ROUTE .COMPLEX ml 07/19/19 amlodipine 5 mg tablet 5 mg PO DAILY 06/12/20 hydralazine 50 mg tablet 50 mg PO TID 06/12/20 naloxone 4 mg/actuation nasal spray 1 spray INTRANASAL Q3M 06/12/20 oxycodone-acetaminophen 10 mg-325 1 tablet PO . bid PRN tablet 06/12/20 mg tablet Allergies Allergy/AdvReac Type Severity Reaction Status Date / Time No Known Allergies Allergy Verified 06/22/20 10:18 Review of Systems Review of Systems: Narrative: CONSTITUTIONAL: Denies fever, chills, or sweats. EYES: Denies visual changes, redness, or discharge. ENT: Denies rhinorrhea, congestion, sore throat, or otalgia. CARDIOVASCULAR: Denies chest pain, palpitations, or edema. RESPIRATORY: Denies cough or dyspnea. GASTROINTESTINAL: Denies abdominal pain, nausea, vomiting, or diarrhea. GENITOURINARY: Denies dysuria or hematuria. SKIN: Denies rash or itching. MUSCULOSKELETAL: Reports back pain and pain in right thigh. Denies any other joint pain NEUROLOGIC: Denies headache, numbness, dizziness, or weakness. PSYCHIATRIC: Denies anxiety or depression. [facility] Past Medical History Medical History (Updated 06/22/20 @ 13:48 by Han Lee, TAE, BC) AAA (abdominal aortic aneurysm) History of ruptured AAA with intravascular repair CAD (coronary artery disease) <4 METs, last stent in 2018 Carotid stenosis MADDIE. 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 History of kidney stones History of pneumonia Hypercholesteremia Osteomyelitis Surgical History Surgical History History of AAA (abdominal aortic aneurysm) repair [facility] vascular [facility] ago at [facility] History of elbow surgery lt. History of lithotripsy History of tonsillectomy Hx of cardiac cath Hx of heart artery stent >5. Status post femorofemoral bypass surgery Family History Family History Mother Family history of malignant neoplasm Acute myocardial infarction, Onset Age: 89 Father Acute myocardial infarction Sibling AAA (abdominal aortic aneurysm) Other Asthma Cerebrovascul
[2020-06-22] MEDS: MORPHINE SULFATE (*CRX) 4 MG/ML INJ IV PUSH ×2 (10:48→21:22)
[2020-06-22 11:12] LABS: Basophils Percent Auto 0.5 % (0.2-1.2); Eosinophils Absolute Auto 0.1 K/mm3 (0-0.3); Eosinophils Percent Auto 0.9 % (0-4.4); Hematocrit 40.7 % (42.0-52.0); Hemoglobin 12.5 g/dL (14.0-18.0); Immature Granulocyte Absolute 0.03 K/mm3 (0.00-0.031); Immature Granulocyte Percent A 0.4 % (0-0.5); Lymphocytes Absolute Auto 0.87 K/mm3 (0.9-3.2); Lymphocytes Percent Auto 11.1 % (18.3-44.2); Mean Corpuscular HGB Conc 30.7 g/dl (32-36); Mean Corpuscular Volume 84.8 fl (80-100); Mean Platelet Volume 8.2 fl (7.4-10.4); Monocytes Absolute Auto 0.6 K/mm3 (0.1-0.6); Monocytes Percent Auto 7.5 % (2.6-8.5); Neutrophils Absolute Auto 6.2 K/mm3 (1.3-6.7); Neutrophils Percent Auto 79.6 % (45.5-73.1); Platelet Count Result 138 k/mm3 (150-375); Red Cell Distribution Width 17.6 % (11.5-14.5); White Blood Count 7.8 K/mm3 (4.5-10.0)
[2020-06-22 11:23] LABS: Alanine Aminotransferase 11 U/L (4-50); Albumin Level 3.7 g/dL (3.5-5.1); Alkaline Phosphatase 106 U/L (38-126); Anion Gap 6 mmol/L (8-16); Aspartate Amino Transferase 18 U/L (17-59); Bilirubin,Total 0.3 mg/dL (0.2-1.3); Blood Urea Nitrogen 18 mg/dL (9-20); Calcium 7.8 mg/dL (8.4-10.2); Carbon Dioxide 29 mmol/L (22-30); Chloride 103 mmol/L (98-107); Estimated CRCL calculation 43 ml/min; Estimated Glomerular Filt Rate 35; Glucose 106 mg/dL (75-110); Potassium 3.6 mmol/L (3.4-5.0); Sodium 138 mmol/L (137-145)
[2020-06-22 11:26] LABS: INR 1.4; Prothrombin Time 17.8 Seconds (11.1-14.7)
[2020-06-22 11:27] LABS: Partial Thromboplastin Time 31.3 SECONDS (22.3-36.8)
[2020-06-22 11:33] LABS: Creatine Kinase 56 U/L (55-170)
[2020-06-22 11:34] LABS: NT Pro B Type Natriuretic Pept 563 pg/mL (5-100); Troponin I 0.014 ng/mL (0.000-0.034)
[2020-06-22 12:28] LABS: Add Urine Microscopic? YES; Appearance Urine Cloudy (Clear); Bilirubin Urine Negative (Negative); Blood Urine 3+ (Negative); Color Urine Yellow (Yellow); Glucose Urine UA Negative (Negative); Ketones Urine Negative (Negative); Leukocyte Esterase Ur 2+ LEU/UL (Negative); Nitrate Urine Negative (Negative); Protein Urine 1+ mg/dL (Negative); RBC Urine >75 /hpf (0-2); Urobilinogen Urine Negative mg/dL (<2.0); WBC Urine 51-75 /hpf
[2020-06-22] MEDS: SODIUM CHLORIDE 0.9% IV 1,000 ML 75 ML IV CONT (12:36)
[2020-06-22 14:18] LABS: Troponin I < 0.012 ng/mL (0.000-0.034)
--- NOTE | 2020-06-22 14:58 | ADMGEN ---
This patient, Sameer Choe, was admitted to Medical Room 349-01. Patient/family oriented to hospital policies and general routines including ID bracelet, bed and alarms, visiting hours, pain management, procedures, bathroom and other care routines, personal items, smoking policy, room service/diet, and visiting hours. Information on how to activate the Rapid Response Team has been discussed. Patient/Family are encouraged to report perceived risks to care and to ask questions if they do not understand what they are told or what they should do.
[2020-06-22] MEDS: SODIUM CHLORIDE 0.9% IV 1,000 ML 50 ML IV CONT (17:50)
--- NOTE | 2020-06-22 20:32 | PM.IMHP ---
H&P: HPI History of Present Illness Date/Time: 06/22/20 20:32 male patient who resides by himself. The patient has a history of falling. He said he just spontaneously falls and typically he is only on the ground for short period time and is able to get back up. However last night at 10:00 p.m.. he fell when his legs gave out. The patient stated that he does have people at check on him and that he can call is brothers if he has any problems. He typically does not have any problems living home alone. He also has a girlfriend that checks up on him frequently. Between his living room and bedroom when he felt that he was off balance. The patient has had multiple TIAs and CVAs. And has occasional feeling of feeling off balance. He does not use any dental assistant devices at home. He is usually pretty independent. The patient stated that he did not lose consciousness or hit his head. He was brought to the emergency room after contacted EMS. He was having some lower back pain and right femur pain. Also the patient was complaining of not having a bowel movement for the the last for 5 days. The patient is on chronic pain medication for chronic abdominal pain related to IBS and also lower back pain. Patient has chronic renal failure stage 3 1.9 today where his baseline is typically 1.4 or 1.5. GFR is 433 today and typically in the 50s. IV morphine, ceftriaxone, and Protonix in the emergency room. Shows the following:.1. 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 No endoleak. Chronic fat stranding around the aneurysm suggests inflammation/scarring. 2. Mild left para-aortic lymphadenopathy, likely reactive. 3. 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 Patent femorofemoral bypass graft. 4. Bilateral nonobstructing kidney stones. 5. Mild lumbar spondylosis CT the brain shows old infarct involving the left frontal lobe and left insular The patient was admitted to inpatient status. Date of service 06/22/2020 Chief Complaint: Falling Review of Systems Review of Systems: All systems reviewed & are unremarkable except as noted in HPI and below Constitutional: Constitutional: Reports as per HPI and Reports no additional constitutional complaints Eyes: Eyes: Reports as per HPI and Reports no additional eye complaints ENT: Reports system reviewed and no additional complaints, except as documented and Reports Normal hearing present Cardiovascular: Cardiovascular: Reports no additional cardiovascular complaints Respiratory: Respiratory: Reports no additional respiratory complaints and Reports no additional respiratory complaints Gastrointestinal: Gastrointestinal: Reports as per HPI and Reports no additional gastrointestinal complaints Musculoskeletal: Musculoskeletal: Reports no additional musculoskeletal complaints Integumentary/Breasts: Skin/Breast: Reports system reviewed and no additional complaints, except as docu and Reports as per HPI Neurologic: Reports system reviewed and no additional complaints, except as documented, Reports as per HPI and Reports Normal hearing present Psychiatric: Psychiatric: Reports no additional psychiatric complaints and Reports as per HPI Endocrine: Endocrine: Reports no additional endocrine complaints Hematologic/Lymphatic: Hematologic/Lymphatic: Reports no additional hematologic/lymphatic complaints Allergic/Immunologic: Allergic/Immunologic: Reports no additional allergic/immunologic complaints [facility] Past Medical History Medical History (Updated 06/22/20 @ 20:38 by Brook De Guzman NP) AAA (abdominal aortic aneurysm) History of ruptured AAA with intravascular repair CAD (coronary artery disease) <4 METs, last stent in 2018 Carotid stenosis MADDIE. - 100% occlusion both sides Constipation Related to narcotic use CVA (cerebral vascular accident) residual right sided weakness, memory loss and occasional diffi
[2020-06-22] MEDS: METHYLNALTREXONE 12 MG/0.6 ML VIAL SUB-Q (21:21)
[2020-06-22] MEDS: APIXABAN 5 MG TABLET PO (21:29)
[2020-06-22] MEDS: DICYCLOMINE HCL 10 MG CAPSULE BY MOUTH (21:30)
[2020-06-22] MEDS: carvediloL 25 MG TABLET PO (21:30)
[2020-06-22] MEDS: hydrALAZINE HCL 50 MG TABLET PO (21:31)
[2020-06-22] MEDS: NICOTINE (*PBKC) 21 MG PATCH 1 PATCH TRANSDERM (21:31)
[2020-06-22] MEDS: SENNOSIDES 8.6 MG TABLET PO (21:31)
[2020-06-22] MEDS: HYOSCYAMINE SULFATE 0.125 MG TABLET BY MOUTH (21:31)
[2020-06-22] MEDS: ALBUTEROL SULFATE NEB 2.5 MG/0.5 ML INH INHALATION (22:21)
[2020-06-23] VITALS (19 sets, daily range): BP systolic 120–152; BP diastolic 58–70; PULSE 56–69; RESP 12–20; TEMP 36.3–36.9; O2SAT 93–100
[2020-06-23] MEDS: MORPHINE SULFATE (*CRX) 4 MG/ML INJ IV PUSH (00:29)
[2020-06-23] MEDS: ALBUTEROL SULFATE NEB 2.5 MG/0.5 ML INH INHALATION ×3 (07:44→22:00)
[2020-06-23] MEDS: AMIODARONE HCL 200 MG TABLET BY MOUTH (08:02)
[2020-06-23] MEDS: hydrALAZINE HCL 50 MG TABLET PO ×3 (08:03→17:10)
[2020-06-23] MEDS: carvediloL 25 MG TABLET PO ×2 (08:03→17:10)
[2020-06-23] MEDS: amLODIPine BESYLATE 5 MG TABLET PO (08:03)
[2020-06-23] MEDS: APIXABAN 5 MG TABLET PO ×2 (08:03→17:11)
[2020-06-23] MEDS: FINASTERIDE 5 MG TABLET PO (08:03)
[2020-06-23] MEDS: DICYCLOMINE HCL 10 MG CAPSULE BY MOUTH ×3 (08:03→17:10)
[2020-06-23] MEDS: CYCLOBENZAPRINE HCL 10 MG TABLET BY MOUTH (08:03)
[2020-06-23] MEDS: MECLIZINE HCL 25 MG TABLET PO (08:04)
[2020-06-23] MEDS: ROSUVASTATIN 10 MG TABLET PO (08:04)
[2020-06-23] MEDS: HYOSCYAMINE SULFATE 0.125 MG TABLET BY MOUTH ×4 (08:04→20:59)
[2020-06-23] MEDS: PANTOPRAZOLE SODIUM IV 40 MG VIAL IV PUSH (08:04)
[2020-06-23] MEDS: NICOTINE (*PBKC) 21 MG PATCH 1 PATCH TRANSDERM (08:04)
[2020-06-23] MEDS: PREGABALIN (*CRX) 50 MG CAPSULE PO (08:06)
[2020-06-23 08:11] LABS: Basophils Percent Auto 0.4 % (0.2-1.2); Eosinophils Absolute Auto 0.1 K/mm3 (0-0.3); Eosinophils Percent Auto 0.8 % (0-4.4); Hematocrit 36.5 % (42.0-52.0); Hemoglobin 11.3 g/dL (14.0-18.0); Immature Granulocyte Absolute 0.02 K/mm3 (0.00-0.031); Immature Granulocyte Percent A 0.3 % (0-0.5); Lymphocytes Absolute Auto 1.19 K/mm3 (0.9-3.2); Lymphocytes Percent Auto 16.8 % (18.3-44.2); Mean Corpuscular Hemoglobin 26.2 pg (26-34); Mean Corpuscular Volume 84.5 fl (80-100); Mean Platelet Volume 8.4 fl (7.4-10.4); Monocytes Absolute Auto 0.5 K/mm3 (0.1-0.6); Neutrophils Absolute Auto 5.3 K/mm3 (1.3-6.7); Neutrophils Percent Auto 74.7 % (45.5-73.1); Platelet Count Result 121 k/mm3 (150-375); Red Blood Count 4.32 M/mm3 (4.6-6.20); Red Cell Distribution Width 17.6 % (11.5-14.5); White Blood Count 7.1 K/mm3 (4.5-10.0)
[2020-06-23 08:20] LABS: Anion Gap 5 mmol/L (8-16); Blood Urea Nitrogen 18 mg/dL (9-20); Calcium 7.3 mg/dL (8.4-10.2); Carbon Dioxide 27 mmol/L (22-30); Chloride 106 mmol/L (98-107); Estimated CRCL calculation 52 ml/min; Estimated Glomerular Filt Rate 46; Glucose 93 mg/dL (75-110); Magnesium 1.7 mg/dL (1.6-2.3); Potassium 3.5 mmol/L (3.4-5.0); Sodium 138 mmol/L (137-145)
[2020-06-23 10:18] LABS: Creatine Kinase 77 U/L (55-170)
--- NOTE | 2020-06-23 10:24 | PM.IMPN ---
Progress Note: A&P Assessment and Plan (1) REYES (acute kidney injury): Code(s): N17.9 - Acute kidney failure, unspecified Status: Acute Assessment and Plan: Cr 1.90 on arrival with improvement to baseline of 1.50 today. Likely secondary to dehydration based on PE and labs. Continue gentle IV fluid hydration overnight Monitor renal function Avoid nephrotoxic agents, renally dose medications (2) Gait instability: Code(s): R26.81 - Unsteadiness on feet Status: Acute Assessment and Plan: 2/2 to past CVAs. Does not use any assistive devices. Multiple falls in the past due to same. Discussed with OT who recommends HH therapy, however, given frequent falls and persistent pain, I feel patient may benefit from SNF. Patient, however, is reluctant to go to SNF. PT/OT evaluations; appreciate recommendations Will place CC consult to discuss different options for disposition He may benefit from Life Alert as well Monitor Hold ambien due to risk for falls Will take caution with narcotics given history of falls, although pain is uncontrolled at the moment Continue meclizine daily for dizziness (3) Right leg pain: Code(s): M79.604 - Pain in right leg Status: Acute Assessment and Plan: 2/2 to fall. Uncontrolled today. Discussed with Radiologist who feels there is no evidence for hip/femur fracture. Pain likely 2/2 bone/muscle contusion. No evidence of rhabdomyolysis as CK WNL. Given history of falls, will need to limit narcotics as much as possible, although this proves to be difficulty at this moment on his current regimen; hopefully pain improves with time/rest Ice pack to right hip Pain control with PRN Percocet 10/325 for severe pain, PRN Seminary 5/325 for moderate pain, and PRN Tylenol for mild pain; morphine for breakthrough pain available. Discussed with RN to start with minimal narcotics as possible for now and titrate up as needed Monitor closely given risk for falls PT/OT (4) Constipation: Qualifiers: Constipation type: drug induced constipation Qualified Code(s): K59.03 - Drug induced constipation Code(s): K59.00 - Constipation, unspecified Status: Chronic Assessment and Plan: Partly due to narcotic use at home. Relistor given on admission. Hisotry of IBS. Continue with Miralax Continue home meds Monitor Titrate/add meds as needed (5) Abnormal urinalysis: Code(s): R82.90 - Unspecified abnormal findings in urine Status: Acute Assessment and Plan: UA suspicious for UTI. UCx pending. Patient not the best historian but does not occasional hematuria from his kidney stones; no complaints today. Started on Rocephin from the ED. Continue with Rocephin for now Await cultures; tailor antibiotics to cultures (6) IBS (irritable bowel syndrome): Qualifiers: Irritable bowel syndrome type: unspecified Qualified Code(s): K58.9 - Irritable bowel syndrome without diarrhea Code(s): K58.9 - Irritable bowel syndrome without diarrhea Status: Acute Assessment and Plan: Assumed IBS-C; patient not the best historian Continue with home medications. See above a/p (7) HLD (hyperlipidemia): Code(s): E78.5 - Hyperlipidemia, unspecified Status: Acute Assessment and Plan: LFTs WNL Continue with rosuvastatin. (8) H/O: HTN (hypertension): Code(s): Z86.79 - Personal history of other diseases of the circulatory system Status: Acute Assessment and Plan: BP more controlled today with most recent BP 140s sys. Assumed elevation 2/2 pain Continue home antihypertensives Monitor
[2020-06-23] MEDS: oxyCODONE/ACETAMINOPHEN (*CRX) 5-325 MG TABLET 1 TABLET PO (10:52)
[2020-06-23] MEDS: SODIUM CHLORIDE 0.9% IV 1,000 ML 50 ML IV CONT (17:11)
[2020-06-23] MEDS: SENNOSIDES 8.6 MG TABLET PO (20:59)
[2020-06-24] VITALS (16 sets, daily range): BP systolic 126–170; BP diastolic 58–67; PULSE 60–71; RESP 12–20; TEMP 36.1–36.8; O2SAT 92–96
[2020-06-24 07:05] LABS: Hematocrit 33.3 % (42.0-52.0); Hemoglobin 10.2 g/dL (14.0-18.0); Mean Corpuscular HGB Conc 30.6 g/dl (32-36); Mean Corpuscular Hemoglobin 25.4 pg (26-34); Mean Corpuscular Volume 82.8 fl (80-100); Mean Platelet Volume 9.1 fl (7.4-10.4); Platelet Count Result 126 k/mm3 (150-375); Red Blood Count 4.02 M/mm3 (4.6-6.20); Red Cell Distribution Width 17.8 % (11.5-14.5); White Blood Count 6.6 K/mm3 (4.5-10.0)
[2020-06-24 07:13] LABS: Anion Gap 5 mmol/L (8-16); Blood Urea Nitrogen 18 mg/dL (9-20); Calcium 7.2 mg/dL (8.4-10.2); Carbon Dioxide 25 mmol/L (22-30); Chloride 108 mmol/L (98-107); Creatine Kinase 72 U/L (55-170); Estimated CRCL calculation 49 ml/min; Estimated Glomerular Filt Rate 43; Glucose 85 mg/dL (75-110); Magnesium 1.8 mg/dL (1.6-2.3); Potassium 3.6 mmol/L (3.4-5.0); Sodium 138 mmol/L (137-145)
[2020-06-24] MEDS: ALBUTEROL SULFATE NEB 2.5 MG/0.5 ML INH INHALATION ×3 (08:25→20:34)
[2020-06-24] MEDS: PANTOPRAZOLE SODIUM IV 40 MG VIAL IV PUSH (09:36)
[2020-06-24] MEDS: hydrALAZINE HCL 50 MG TABLET PO ×3 (09:36→17:20)
[2020-06-24] MEDS: APIXABAN 5 MG TABLET PO ×2 (09:37→17:20)
[2020-06-24] MEDS: PREGABALIN (*CRX) 50 MG CAPSULE PO (09:37)
[2020-06-24] MEDS: MECLIZINE HCL 25 MG TABLET PO (09:37)
[2020-06-24] MEDS: carvediloL 25 MG TABLET PO ×2 (09:37→17:20)
[2020-06-24] MEDS: AMIODARONE HCL 200 MG TABLET BY MOUTH (09:37)
[2020-06-24] MEDS: DICYCLOMINE HCL 10 MG CAPSULE BY MOUTH ×3 (09:37→17:20)
[2020-06-24] MEDS: amLODIPine BESYLATE 5 MG TABLET PO (09:37)
[2020-06-24] MEDS: CYCLOBENZAPRINE HCL 10 MG TABLET BY MOUTH (09:37)
[2020-06-24] MEDS: ROSUVASTATIN 10 MG TABLET PO (09:38)
[2020-06-24] MEDS: HYOSCYAMINE SULFATE 0.125 MG TABLET BY MOUTH ×4 (09:38→20:11)
[2020-06-24] MEDS: NICOTINE (*PBKC) 21 MG PATCH 1 PATCH TRANSDERM (09:38)
[2020-06-24] MEDS: FINASTERIDE 5 MG TABLET PO (09:38)
--- NOTE | 2020-06-24 10:24 | PM.IMPN ---
Progress Note: A&P Assessment and Plan (1) Urinary tract infection: Qualifiers: Hematuria presence: without hematuria Urinary tract infection type: acute cystitis Qualified Code(s): N30.00 - Acute cystitis without hematuria Code(s): N39.0 - Urinary tract infection, site not specified Status: Acute Assessment and Plan: UA suspicious for UTI. He endorsed hematuria in the past but otherwise cannot recall additional urinary symptoms, though he is a somewhat poor history. Urine culture with growth of >100,000 CFU Coag negative staphlococcus. Prior urine culture from 05/19/20 with same findings, as well as urine culture from 08/04/20. He was not treated for this. He denies ureteral stents or other hardware. IV Vancomycin initiated today based on sensitivities. Rocephin discontinued. Plan to discharge on PO antibiotics. (2) Fall: Code(s): W19.XXXA - Unspecified fall, initial encounter Status: Acute Assessment and Plan: He had a mechanical fall at home on 06/21/2020. He reports feeling off balance, but this is not abnormal for him given his dizziness and gait instability secondary to CVA in the past. He denies loss of consciousness. He is unsure if he hit his head. Head CT was negative for acute findings. He now has right leg pain secondary to fall. Fall precautions in place Appreciate PT/OT eval Ambien on hold due to fall risk. Limit narcotics due to fall risk. Discharge planning as described below. (3) Gait instability: Code(s): R26.81 - Unsteadiness on feet Status: Acute Assessment and Plan: Due to past CVAs. Does not use any assistive devices, but reports he does have a walker and cane at home. Multiple falls at home due to this. PT/OT evaluations; appreciate recommendations Care coordination is following. SNF vs home health being considered. Patient is reluctant to consider SNF, but I believe he would benefit from short-stay. He may benefit from Life Alert as well (4) REYES (acute kidney injury): Code(s): N17.9 - Acute kidney failure, unspecified Status: Acute Assessment and Plan: Baseline creatinine appears to be around 1.5. Creatinine was elevated at 1.9 upon arrival and improved with IV fluids down to baseline. Creatinine is 1.6 today. Monitor renal function closely. Renally dose medications and avoid nephrotoxins. Continue gentle IV fluids today. Adequate p.o. intake has been encouraged (5) Right leg pain: Code(s): M79.604 - Pain in right leg Status: Acute Assessment and Plan: Secondary to fall. Femur x-ray shows mild polyarticular OA without concern for fracture. Imaging further discussed with Radiologist who feels there is no evidence for hip/femur fracture. Pain likely due to bone/muscle contusion. Ecchymosis noted. No concern for hematoma at this time. No evidence of rhabdomyolysis as CK WNL. He reports pain is improved today and he is comfortable at rest. Supportive care to include ice, elevation Analgesics available as needed. Limit narcotics as above due to fall risk. PRN Percocet 10/325 for severe pain, PRN Sheldon 5/325 for moderate pain, and PRN Tylenol for mild pain; morphine for breakthrough pain available. (6) Constipation: Qualifiers: Constipation type: drug induced constipation Qualified Code(s): K59.03 - Drug induced constipation Code(s): K59.00 - Constipation, unspecified Status: Chronic Assessment and Plan: Partly due to narcotic use at home. Relistor given on admission. History of IBS. Last BM was 06/21. Continue with Miralax scheduled. Add colace. Continue home meds. Limit narcotics as above. Monitor closely and consider addition of suppository if no BM with above therapy. (7) H/O: HTN (hypertension): Code(s): Z86.79 - Personal history of other diseases of the circulatory system Status: Acute Assessment and
[2020-06-24] MEDS: oxyCODONE/ACETAMINOPHEN (*CRX) 5-325 MG TABLET 1 TABLET PO (14:49)
[2020-06-24] MEDS: SODIUM CHLORIDE 0.9% IV 1,000 ML 50 ML IV CONT (17:18)
[2020-06-24] MEDS: SENNOSIDES 8.6 MG TABLET PO (20:11)
[2020-06-25] VITALS (12 sets, daily range): BP systolic 129–152; BP diastolic 62–73; PULSE 60–68; RESP 14–18; TEMP 36.1–36.8; O2SAT 92–99
[2020-06-25 06:06] LABS: Hematocrit 32.7 % (42.0-52.0); Hemoglobin 10.1 g/dL (14.0-18.0)
[2020-06-25 06:15] LABS: Potassium 3.3 mmol/L (3.4-5.0)
[2020-06-25 06:18] LABS: Anion Gap 6 mmol/L (8-16); Blood Urea Nitrogen 15 mg/dL (9-20); Calcium 7.2 mg/dL (8.4-10.2); Carbon Dioxide 24 mmol/L (22-30); Chloride 108 mmol/L (98-107); Estimated CRCL calculation 60 ml/min; Estimated Glomerular Filt Rate 54; Glucose 104 mg/dL (75-110); Magnesium 1.8 mg/dL (1.6-2.3); Sodium 138 mmol/L (137-145)
[2020-06-25] MEDS: ALBUTEROL SULFATE NEB 2.5 MG/0.5 ML INH INHALATION ×3 (07:52→21:11)
[2020-06-25] MEDS: CYCLOBENZAPRINE HCL 10 MG TABLET BY MOUTH (09:06)
[2020-06-25] MEDS: POTASSIUM CHLORIDE 20 MEQ PACKET (FOR LIQUID) PO (09:06)
[2020-06-25] MEDS: FINASTERIDE 5 MG TABLET PO (09:11)
[2020-06-25] MEDS: DICYCLOMINE HCL 10 MG CAPSULE BY MOUTH ×3 (09:12→17:47)
[2020-06-25] MEDS: NICOTINE (*PBKC) 21 MG PATCH 1 PATCH TRANSDERM (09:12)
[2020-06-25] MEDS: hydrALAZINE HCL 50 MG TABLET PO ×3 (09:12→17:47)
[2020-06-25] MEDS: ROSUVASTATIN 10 MG TABLET PO (09:13)
[2020-06-25] MEDS: HYOSCYAMINE SULFATE 0.125 MG TABLET BY MOUTH ×4 (09:13→20:13)
[2020-06-25] MEDS: AMIODARONE HCL 200 MG TABLET BY MOUTH (09:13)
[2020-06-25] MEDS: carvediloL 25 MG TABLET PO ×2 (09:14→17:48)
[2020-06-25] MEDS: PANTOPRAZOLE SODIUM IV 40 MG VIAL IV PUSH (09:14)
[2020-06-25] MEDS: MECLIZINE HCL 25 MG TABLET PO (09:14)
[2020-06-25] MEDS: APIXABAN 5 MG TABLET PO ×2 (09:14→17:48)
[2020-06-25] MEDS: amLODIPine BESYLATE 5 MG TABLET PO (09:14)
[2020-06-25] MEDS: PREGABALIN (*CRX) 50 MG CAPSULE PO (09:18)
[2020-06-25] MEDS: oxyCODONE/ACETAMINOPHEN (*CRX) 5-325 MG TABLET 1 TABLET PO (14:41)
--- NOTE | 2020-06-25 15:08 | PM.IMPN ---
Progress Note: A&P Assessment and Plan (1) Urinary tract infection: Qualifiers: Hematuria presence: without hematuria Urinary tract infection type: acute cystitis Qualified Code(s): N30.00 - Acute cystitis without hematuria Code(s): N39.0 - Urinary tract infection, site not specified Status: Acute Assessment and Plan: UA suspicious for UTI. He endorsed hematuria in the past but otherwise cannot recall additional urinary symptoms. Urine culture with growth of >100,000 CFU Coag negative staphylococcus. Prior urine culture from 05/19/20 with same findings, as well as urine culture from 08/04/20. He was not treated for this. He denies ureteral stents or other hardware. Continue IV Vancomycin initiated 06/24 based on sensitivities. Will obtain blood cultures to ensure no bacteremia Plan to discharge on PO antibiotics to complete 7 total days of antibiotic therapy. (2) Fall: Code(s): W19.XXXA - Unspecified fall, initial encounter Status: Acute Assessment and Plan: He had a mechanical fall at home on 06/21/2020. He reports feeling off balance, but this is not abnormal for him given his dizziness and gait instability secondary to CVA in the past. He denied loss of consciousness. He is unsure if he hit his head. Head CT was negative for acute findings. He now has right leg pain secondary to fall. Fall precautions in place Appreciate PT/OT eval Ambien on hold due to fall risk. Limit narcotics due to fall risk. Discharge planning as described below. (3) Gait instability: Code(s): R26.81 - Unsteadiness on feet Status: Acute Assessment and Plan: Due to past CVAs. Does not use any assistive devices, but reports he does have a walker and cane at home. Multiple falls at home due to this. PT/OT evaluations; appreciate recommendations Care coordination is following. Planning for home health care on discharge. Hopeful discharge tomorrow. He has family support and assistance at home. (4) REYES (acute kidney injury): Code(s): N17.9 - Acute kidney failure, unspecified Status: Acute Assessment and Plan: Baseline creatinine appears to be around 1.5. Creatinine was elevated at 1.9 upon arrival and improved with IV fluids down to baseline. Creatinine is 1.3 today. Monitor renal function closely. Renally dose medications and avoid nephrotoxins. Discontinue IV fluids as he is tolerating PO intake (5) Right leg pain: Code(s): M79.604 - Pain in right leg Status: Acute Assessment and Plan: Secondary to fall. Femur x-ray shows mild polyarticular OA without concern for fracture. Imaging further discussed with Radiologist who feels there is no evidence for hip/femur fracture. Pain likely due to bone/muscle contusion. Ecchymosis noted. No concern for hematoma at this time. No evidence of rhabdomyolysis as CK WNL. He reports pain is improved today and he is comfortable at rest. Supportive care to include ice, elevation Analgesics available as needed. Limit narcotics as above due to fall risk. (6) Constipation: Qualifiers: Constipation type: drug induced constipation Qualified Code(s): K59.03 - Drug induced constipation Code(s): K59.00 - Constipation, unspecified Status: Chronic Assessment and Plan: Partly due to narcotic use at home. Relistor given on admission. History of IBS. Last BM was 06/21. Continue with scheduled miralax and colace Will add bisacodyl suppository prn Continue home meds. Limit narcotics as above. Monitor closely and consider addition of suppository if no BM with above therapy. (7) H/O: HTN (hypertension): Code(s): Z86.79 - Personal history of other diseases of the circulatory system Status: Acute Assessment and Plan: BP reviewed and had been elevated above target, likely due to pain. Slowly improving and BP is better controlled today.
--- NOTE | 2020-06-25 15:30 | PC.NURSE ---
Observed care and reviewed charting by [employer] student nurse Stefanie Carreno [phone]
[2020-06-25] MEDS: SENNOSIDES 8.6 MG TABLET PO (20:13)
[2020-06-26 05:04] VITALS: BP 171/75; PULSE 67; RESP 18; TEMP 36.7; O2SAT 95
[2020-06-26 06:32] LABS: Hematocrit 31.8 % (42.0-52.0); Hemoglobin 9.9 g/dL (14.0-18.0); Mean Corpuscular HGB Conc 31.1 g/dl (32-36); Mean Corpuscular Hemoglobin 25.9 pg (26-34); Mean Corpuscular Volume 83.2 fl (80-100); Mean Platelet Volume 8.7 fl (7.4-10.4); Platelet Count Result 118 k/mm3 (150-375); Red Blood Count 3.82 M/mm3 (4.6-6.20); Red Cell Distribution Width 17.9 % (11.5-14.5); White Blood Count 7.2 K/mm3 (4.5-10.0)
[2020-06-26 06:54] LABS: Anion Gap 4 mmol/L (8-16); Blood Urea Nitrogen 13 mg/dL (9-20); Calcium 7.1 mg/dL (8.4-10.2); Carbon Dioxide 24 mmol/L (22-30); Chloride 107 mmol/L (98-107); Estimated CRCL calculation 60 ml/min; Estimated Glomerular Filt Rate 54; Glucose 94 mg/dL (75-110); Potassium 3.7 mmol/L (3.4-5.0); Sodium 135 mmol/L (137-145)
[2020-06-26] MEDS: ALBUTEROL SULFATE NEB 2.5 MG/0.5 ML INH INHALATION (08:20)
[2020-06-26 08:21] VITALS: PULSE 72; RESP 18
[2020-06-26 08:23] VITALS: O2SAT 97
[2020-06-26 08:28] VITALS: PULSE 75; RESP 18
--- NOTE | 2020-06-26 08:47 | PCOTNOTE ---
Attempted to see patient this am, however patient refused stating, I'm ready to go home. I'm working on my leg right now. Pt declined upper extremity exercises stating, Uh, no, it's my leg that hurts. I don't have any concerns for my arms.
[2020-06-26] MEDS: NICOTINE (*PBKC) 21 MG PATCH 1 PATCH TRANSDERM (09:13)
[2020-06-26 09:16] VITALS: PULSE 71
[2020-06-26] MEDS: amLODIPine BESYLATE 5 MG TABLET PO (09:16)
[2020-06-26] MEDS: CYCLOBENZAPRINE HCL 10 MG TABLET BY MOUTH (09:16)
[2020-06-26] MEDS: APIXABAN 5 MG TABLET PO (09:16)
[2020-06-26] MEDS: ROSUVASTATIN 10 MG TABLET PO (09:16)
[2020-06-26] MEDS: DICYCLOMINE HCL 10 MG CAPSULE BY MOUTH (09:16)
[2020-06-26] MEDS: MECLIZINE HCL 25 MG TABLET PO (09:16)
[2020-06-26] MEDS: carvediloL 25 MG TABLET PO (09:16)
[2020-06-26] MEDS: FINASTERIDE 5 MG TABLET PO (09:16)
[2020-06-26] MEDS: AMIODARONE HCL 200 MG TABLET BY MOUTH (09:16)
[2020-06-26] MEDS: HYOSCYAMINE SULFATE 0.125 MG TABLET BY MOUTH (09:16)
[2020-06-26] MEDS: PANTOPRAZOLE SODIUM IV 40 MG VIAL IV PUSH (09:16)
[2020-06-26] MEDS: hydrALAZINE HCL 50 MG TABLET PO (09:16)
[2020-06-26] MEDS: PREGABALIN (*CRX) 50 MG CAPSULE PO (09:16)
--- NOTE | 2020-06-26 11:14 | PM.DS ---
DS: Admitting Diagnosis Admitting Diagnosis Admitting Diagnosis: Fall DS: Discharge Diagnosis Discharge Diagnosis (1) Urinary tract infection: Qualifiers: Hematuria presence: without hematuria Urinary tract infection type: acute cystitis Qualified Code(s): N30.00 - Acute cystitis without hematuria Code(s): N39.0 - Urinary tract infection, site not specified Status: Acute Assessment and Plan: UA upon presentation suspicious for UTI. He endorsed hematuria in the past but otherwise cannot recall additional urinary symptoms. Urine culture with growth of >100,000 CFU Coag negative staphylococcus. Prior urine culture from 05/19/20 with same findings, as well as urine culture from 08/04/20. He was not treated for this. He denies ureteral stents or other hardware. Blood cultures negative to date and final cultures will be monitored. He was treated with IV Vancomycin and was transitioned to PO Bactrim based on sensitivity report to complete a 7 day course of antibiotics. (2) Fall: Code(s): W19.XXXA - Unspecified fall, initial encounter Status: Acute Assessment and Plan: He had a mechanical fall at home on 06/21/2020. He reported feeling off balance, but this is not abnormal for him given his dizziness and gait instability secondary to CVA in the past. He denied loss of consciousness. He is unsure if he hit his head. Head CT was negative for acute findings. He developed right leg pain secondary to fall. He was evaluated by PT/OT and will continue therapy with home health. Encouraged decreased use of prn narcotics and sedating medications due to fall risk. (3) Gait instability: Code(s): R26.81 - Unsteadiness on feet Status: Acute Assessment and Plan: Due to past CVAs. Does not use any assistive devices, but reports he does have a walker and cane at home. Multiple falls at home due to this. Seen by PT/OT as above. Home health arranged. He should use his walker at all times at home. (4) [id number] kidney injury: Code(s): N17.9 - Acute kidney failure, unspecified; N18.9 - Chronic kidney disease, unspecified Status: Acute Assessment and Plan: Baseline creatinine appears to be around 1.5. Creatinine was elevated at 1.9 upon arrival and improved with IV fluids back to baseline. (5) Right leg pain: Code(s): M79.604 - Pain in right leg Status: Acute Assessment and Plan: Secondary to fall. Femur x-ray shows mild polyarticular OA without concern for fracture. Imaging further discussed with Radiologist who feels there is no evidence for hip/femur fracture. Pain likely due to bone/muscle contusion. Ecchymosis noted. No evidence of hematoma. No evidence of rhabdomyolysis as CK WNL. Supportive care provided including ice and elevation as well as analgesics. Pain improved. (6) Constipation: Qualifiers: Constipation type: drug induced constipation Qualified Code(s): K59.03 - Drug induced constipation Code(s): K59.00 - Constipation, unspecified Status: Chronic Assessment and Plan: Partly due to narcotic use at home and IBS-C. Relistor given on admission and he did have a bowel movement. He is on a bowel regimen of movantik and senna. Colace added. Discussed limiting prn narcotic use. (7) H/O: HTN (hypertension): Code(s): Z86.79 - Personal history of other diseases of the circulatory system Status: Acute Assessment and Plan: BP reviewed and was initially elevated above target, likely due to pain. BP slowly improved. Continue amlodipine, carvedilol, hydralazine. (8) Chronic anticoagulation: Code(s): Z79.01 - bed bug exterminator (current) use of anticoagulants Status: Chronic Assessment and Plan: Assumed due to extensive arterial disease. Long discussion with patient regarding risks vs benefits of continued anticoagulation given his frequent falls. Patient unders
== END 2020-06-26 12:57 | disposition home health service (06) | DRG 690 ==
LOC: ANHED 10:34 → ANH3MED 06-23 07:13
PROVIDERS: Physician Assistant; Admitting Provider Hospitalist; Emergency Provider Nurse Practitioner; PCP Emergency Medicine; Visit Provider Physician Assistant
DX: N30.00 Acute cystitis without hematuria (principal); N17.9 Acute kidney failure, unspecified; I69.351 Hemiplegia and hemiparesis following cerebral infarction affecting right dominant side; R26.81 Unsteadiness on feet; I12.9 Hypertensive chronic kidney disease with stage 1 through stage 4 chronic kidney disease, or unspecified chronic kidney disease; N18.9 Chronic kidney disease, unspecified; E78.5 Hyperlipidemia, unspecified; F17.210 Nicotine dependence, cigarettes, uncomplicated; I25.10 Atherosclerotic heart disease of native coronary artery without angina pectoris; I65.23 Occlusion and stenosis of bilateral carotid arteries; K21.9 Gastro-esophageal reflux disease without esophagitis; K58.9 Irritable bowel syndrome, unspecified; K59.03 Drug induced constipation; T40.605A Adverse effect of unspecified narcotics, initial encounter; M79.604 Pain in right leg; W19.XXXA Unspecified fall, initial encounter; Z79.01 Long term (current) use of anticoagulants; Z79.899 Other long term (current) drug therapy; Z91.81 History of falling
CPT/HCPCS: 36415; 70450; 71045; 72132; 73552; 74177; 80048; 80053; 81001; 82550; 83735; 83880; 84484; 85014; 85018; 85025; 85027; 85610; 85730; 87040; 87077; 87086; 87088; 87186; 93005; 94640; 96361; 96365; 96375; 97110; 97116; 97161; 97165; 97530; 97535; 99285; A9270; C9113; J0696; J2212; J2270; J3370; J7030; Q9967

== ENCOUNTER 2020-10-08 13:49 | Emergency (ER) | payer OTHER, SELFPAY ==
[2020-10-08] VITALS (8 sets, daily range): BP systolic 138–209; BP diastolic 72–131; PULSE 71–80; RESP 16–23; TEMP 36.7; O2SAT 96–100
--- NOTE | ~2020-10-08 | XR_ITS ---
EXAMINATION: XR chest 2V DATE: 10/08/2020 14:34 INDICATION: Chest pressure and right arm pain TECHNIQUE: PA and lateral views of the chest are obtained. COMPARISON: 06/22/2020 FINDINGS: The lungs are hyperinflated but free of acute opacities. There is no pleural effusion or pn eumothorax. The cardiomediastinal silhouette is normal. There are bridging osteophytes at multiple le vels in the spine, consistent with diffuse idiopathic skeletal hyperostosis (DISH). The thoracic aort a is ectatic. An old left clavicle fracture is noted. IMPRESSION: 1. Hyperinflation without acute cardiopulmonary abnormality. Reviewed, dictated and finalized at location B.
--- NOTE | ~2020-10-08 | CT_ITS ---
EXAMINATION: CT abdomen pelvis w con DATE: 10/08/2020 18:33 INDICATION: Epigastric pain TECHNIQUE: Computed tomography (CT) of the abdomen and pelvis was performed with 100 mL Omnipaque-350 intravenous contrast. Automated exposure control and iterative reconstruction technique were employe d. The dose-length product was 498.18 mGy-cm. COMPARISON: 06/22/2020 FINDINGS: No significant change in mild bibasilar atelectasis/scarring greatest at the medial left lung base. H eart size normal. Atherosclerotic coronary artery calcification. No pericardial or pleural effusion. Liver, gallbladder, spleen, pancreas and bilateral adrenal glands are normal. Cortical scarring and b ilateral renal cysts. There is partial rim calcification at the margins of one of the right renal cys ts. There is approximately 1.7 similar lesion at the upper pole of the right kidney with Hounsfield u nits of 79 which is increased from 59 on the prior noncontrast study raising suspicion for renal cell carcinoma. Bilateral nonobstructing renal stones measuring 6 mm, 4 mm 2 mm in the right kidney and 8 mm and 5 mm in the left kidney. Bladder is normal. Large amount of stool at the cecum. No abnormal b owel wall thickening or obstruction. The appendix is not visualized. No free intraperitoneal gas or f luid. No significant change in mild to moderate peritoneal lymphadenopathy surrounding the abdominal aorta. Mild lumbar spondylosis. Fusiform aneurysm involving the entire thoracic aorta which measures up to 6.4 x 6.5 cm at the infrar enal aorta where it has increased from 5.8 x 5.5 cm at the time of the prior study. Endoluminal aorti c stent graft extending into the right common iliac artery. Chronic occlusion of the proximal left co mmon iliac artery which reconstitutes at the bifurcation. There is chronic fat stranding around the a neurysm. Extensive atherosclerotic disease with complete occlusion of the origin of the right renal a rtery which reconstitutes in the mid artery via the right adrenal artery. Atherosclerotic calcificati ons at the origins of duplicated left renal arteries. Complete occlusion of the proximal right paid intern al iliac artery which reconstitutes shortly after its origin. Patent femoral to femoral bypass graft. Circumaortic left renal vein. IMPRESSION: 1. Diffuse suprarenal and infrarenal abdominal aortic aneurysm with interval of the stented infrarena l aorta from 5.8 x 5.5 cm to currently 6.4 x 6.5 cm. No discrete endoleak identified. 2. 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 3. 1.8 cm potentially enhancing lesion at the upper pole of the right kidney raising concern for scar l cell carcinoma. Would recommend follow-up pre and postcontrast MRI or CT. 4. Bilateral nonobstructing nephrolithiasis. 5. Chronic periaortic stranding and unchanged para-aortic lymphadenopathy which is likely reactive. Reviewed, dictated and finalized at location A. IMPRESSION: 1. Diffuse suprarenal and infrarenal abdominal aortic aneurysm with interval of the stented infrarenal aorta from 5.8 x 5.5 cm to currently 6.4 x 6.5 cm. No d iscrete endoleak identified. 2. 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 3. 1.8 cm potentially enhancing lesion at the upper pole of the right kidney ra ising concern for renal cell carcinoma. Would recommend follow-up pre and postc ontrast MRI or CT. 4. Bilateral nonobstructing nephrolithiasis. 5. Chronic periaortic stranding and unchanged para-aortic lymphadenopathy which is likely reactive.
--- NOTE | 2020-10-08 13:55 | ECG_ITS ---
Measurements Intervals [place] Rate: 82 P: 102 RI: 212 QRS: 77 QRSD: 110 T: 57 QT: 401 QTc: 469 Interpretive Statements SINUS RHYTHM WITH FIRST DEGREE AV BLOCK DELAYED PRECORDIAL R/S TRANSITION BASELINE ARTIFACT- I, III ,AVR, AVL , AVF, V1-V3 ABNORMAL ECG Electronically Signed On 10-08-2020 14:49:50 CDT by Reji Benton D.O.
[2020-10-08 14:17] LABS: Basophils Percent Auto 0.7 % (0.2-1.2); Eosinophils Absolute Auto 0.1 K/mm3 (0-0.3); Eosinophils Percent Auto 2.2 % (0-4.4); Hematocrit 40.1 % (42.0-52.0); Hemoglobin 11.8 g/dL (14.0-18.0); Immature Granulocyte Absolute 0.02 K/mm3 (0.00-0.031); Immature Granulocyte Percent A 0.4 % (0-0.5); Lymphocytes Absolute Auto 0.96 K/mm3 (0.9-3.2); Lymphocytes Percent Auto 17.7 % (18.3-44.2); Mean Corpuscular HGB Conc 29.4 g/dl (32-36); Mean Corpuscular Hemoglobin 24.1 pg (26-34); Mean Corpuscular Volume 81.8 fl (80-100); Mean Platelet Volume 8.5 fl (7.4-10.4); Monocytes Absolute Auto 0.4 K/mm3 (0.1-0.6); Monocytes Percent Auto 7.6 % (2.6-8.5); Neutrophils Absolute Auto 3.9 K/mm3 (1.3-6.7); Neutrophils Percent Auto 71.4 % (45.5-73.1); Platelet Count Result 155 k/mm3 (150-375); Red Cell Distribution Width 16.5 % (11.5-14.5); White Blood Count 5.4 K/mm3 (4.5-10.0)
[2020-10-08 14:26] LABS: Anion Gap 6 mmol/L (8-16); Blood Urea Nitrogen 17 mg/dL (9-20); Calcium 8.2 mg/dL (8.4-10.2); Carbon Dioxide 26 mmol/L (22-30); Chloride 109 mmol/L (98-107); Estimated CRCL calculation 57 ml/min; Estimated Glomerular Filt Rate 50; Glucose 120 mg/dL (65-110); Potassium 3.6 mmol/L (3.4-5.0); Sodium 141 mmol/L (137-145)
[2020-10-08 14:34] LABS: INR 1.4; Platelet Estimate Adequate (Adequate); Prothrombin Time 16.6 Seconds (11.1-14.7)
[2020-10-08 14:35] LABS: Hypochromasia 1+ (NORMAL); Partial Thromboplastin Time 33.6 SECONDS (22.3-36.8)
[2020-10-08 14:36] LABS: Anisocytosis 2+ (NORMAL)
[2020-10-08 14:38] LABS: Troponin I < 0.012 ng/mL (0.000-0.034)
--- NOTE | 2020-10-08 17:58 | ED.ABDPAIN ---
HPI - Abdominal Pain General Chief Complaint: Abdominal Pain Stated Complaint: chest pressure/arm pain Time Seen by Provider: 10/08/20 17:21 Source: patient and RN notes reviewed Mode of arrival: ambulatory Limitations: no limitations History of Present Illness HPI narrative: Patient 69 years old white male presented to the ED with intermittent epigastric pain, usually last for hours, denies any aggravating or relieving factors, associated with nausea and upset stomach. Been going for the last 7 days. Patient is fully vaccinated for COVID-19. Patient did not take his blood pressure medication at noon or at night today. History of hypertension, hyperlipidemia, [place] x2 with coronary stents, stroke x3 with slight residual right arm weakness. Patient is a smoker, does not drink or uses drugs, history of appendectomy and AAA repair Related Data Home Medications Medication Instructions Recorded Confirmed Movantik 25 mg PO DAILY 05/01/19 06/22/20 albuterol sulfate [ProAir HFA] 90 mcg INHALATION PRN PRN 05/01/19 06/22/20 apixaban 5 mg tablet 5 mg PO BID tablet 06/27/19 06/22/20 meclizine 25 mg PO DAILY 07/16/19 06/22/20 sennosides [senna] 8.6 mg PO HS 07/16/19 06/22/20 albuterol sulfate 2.5 mg .ROUTE .COMPLEX ml 07/19/19 06/22/20 amlodipine 5 mg tablet 5 mg PO DAILY 06/12/20 06/22/20 hydralazine 50 mg tablet 50 mg PO TID 06/12/20 06/22/20 carvedilol 25 mg PO BID 06/22/20 06/22/20 zolpidem 10 mg tablet See Rx Instructions .ROUTE .COMPLEX 09/25/20 Allergies Allergy/AdvReac Type Severity Reaction Status Date / Time No Known Allergies Allergy Verified 06/22/20 15:13 Review of Systems Review of Systems: CONSTITUTIONAL: Denies fever, chills, or sweats. EYES: Denies visual changes, redness, or discharge. ENT: Denies rhinorrhea, congestion, sore throat, or otalgia. CARDIOVASCULAR: Denies chest pain, palpitations, or edema. RESPIRATORY: Denies cough or dyspnea. GASTROINTESTINAL: Denies abdominal pain, nausea, vomiting, or diarrhea. GENITOURINARY: Denies dysuria or hematuria. SKIN: Denies rash or itching. MUSCULOSKELETAL: Denies back pain, joint pain, or myalgia. NEUROLOGIC: Denies headache, numbness, or weakness. PSYCHIATRIC: Denies anxiety or depression. [facility] Past Medical History Medical History AAA (abdominal aortic aneurysm) History of ruptured AAA with intravascular repair CAD (coronary artery disease) <4 METs, last stent in 2018 Carotid stenosis MADDIE. - 100% occlusion both sides Constipation Related to narcotic use CVA (cerebral vascular accident) residual right sided weakness, memory loss and occasional difficulty speaking GERD (gastroesophageal reflux disease) H/O: HTN (hypertension) Hepatitis C History of angina History of heart attack 2009 and 2017. History of kidney stones History of pneumonia Hypercholesteremia Osteomyelitis Tobacco abuse Surgical History Surgical History History of AAA (abdominal aortic aneurysm) repair Intra vascular repair 3 years ago at [facility] History of elbow surgery lt. History of lithotripsy History of tonsillectomy Hx of cardiac cath Hx of heart artery stent >5. Status post femorofemoral bypass surgery Family History Family History Mother Family history of malignant neoplasm Acute myocardial infarction, Onset Age: 89 Father Acute myocardial infarction Sibling AAA (abdominal aortic aneurysm) Other Asthma Cerebrovascular accident History of blood clots Social History Social History Social History: The patient lives home alone. However he does have a significant other. The patient tells me that he would like to be a full code but would not like to live in a vegetative state. The patient has 2 children. The patient stated that his 2 children are
[2020-10-08 18:06] LABS: Troponin I < 0.012 ng/mL (0.000-0.034)
[2020-10-08] MEDS: carvediloL 25 MG TABLET PO (19:17)
[2020-10-08] MEDS: hydrALAZINE HCL 50 MG TABLET PO (19:17)
[2020-10-08 19:22] LABS: Add Urine Microscopic? YES; Appearance Urine Clear (Clear); Bacteria Urine Trace /hpf; Bilirubin Urine Negative (Negative); Blood Urine 2+ (Negative); Color Urine Yellow (Yellow); Glucose Urine UA Negative (Negative); Ketones Urine Negative (Negative); Leukocyte Esterase Ur 1+ LEU/UL (Negative); Mucus Urine Rare /lpf; Nitrate Urine Positive (Negative); Protein Urine 1+ mg/dL (Negative); RBC Urine >75 /hpf (0-2); Squamous Epithelial Cell Urine Rare /hpf (Few); WBC Urine 31-50 /hpf
[2020-10-08 21:02] LABS: Troponin I < 0.012 ng/mL (0.000-0.034)
[2020-10-09] VITALS (19 sets, daily range): BP systolic 139–196; BP diastolic 75–100; PULSE 64–86; RESP 14–24; O2SAT 92–99
--- NOTE | 2020-10-09 16:06 | PC.NURSE ---
SPOKE WITH ASHER SON OF PT AND GIVEN BED STATUS UPDATE. HE STATES HE WILL COME BY LATER TO VISIT PT IN THE ED.
--- NOTE | 2020-10-09 20:26 | PC.NURSE ---
Spoke to Christina at [facility] to inquire about status on bed assignment. Patient has been accepted, still on waitlist. NO ETA as to when a bed will become available.
[2020-10-09 20:36] LABS: Basophils Percent Auto 0.5 % (0.2-1.2); Eosinophils Absolute Auto 0.1 K/mm3 (0-0.3); Eosinophils Percent Auto 1.3 % (0-4.4); Hematocrit 37.5 % (42.0-52.0); Hemoglobin 11.2 g/dL (14.0-18.0); Immature Granulocyte Absolute 0.01 K/mm3 (0.00-0.031); Immature Granulocyte Percent A 0.2 % (0-0.5); Lymphocytes Absolute Auto 1.01 K/mm3 (0.9-3.2); Lymphocytes Percent Auto 15.9 % (18.3-44.2); Mean Corpuscular HGB Conc 29.9 g/dl (32-36); Mean Corpuscular Volume 80.3 fl (80-100); Mean Platelet Volume 8.5 fl (7.4-10.4); Monocytes Absolute Auto 0.4 K/mm3 (0.1-0.6); Monocytes Percent Auto 6.9 % (2.6-8.5); Neutrophils Absolute Auto 4.8 K/mm3 (1.3-6.7); Neutrophils Percent Auto 75.2 % (45.5-73.1); Platelet Count Result 153 k/mm3 (150-375); Red Blood Count 4.67 M/mm3 (4.6-6.20); Red Cell Distribution Width 16.4 % (11.5-14.5); White Blood Count 6.4 K/mm3 (4.5-10.0)
[2020-10-09] MEDS: PANTOPRAZOLE SODIUM IV 40 MG VIAL IV PUSH (20:43)
[2020-10-09 20:44] LABS: Alanine Aminotransferase 7 U/L (4-50); Albumin Level 3.5 g/dL (3.5-5.1); Alkaline Phosphatase 115 U/L (38-126); Anion Gap 7 mmol/L (8-16); Aspartate Amino Transferase 16 U/L (17-59); Bilirubin,Total 0.5 mg/dL (0.2-1.3); Blood Urea Nitrogen 13 mg/dL (9-20); Calcium 8.1 mg/dL (8.4-10.2); Carbon Dioxide 25 mmol/L (22-30); Chloride 101 mmol/L (98-107); Estimated CRCL calculation 72 ml/min; Estimated Glomerular Filt Rate > 60; Glucose 92 mg/dL (65-110); Lipase 39 U/L (23-300); Magnesium 1.8 mg/dL (1.6-2.3); Potassium 3.4 mmol/L (3.4-5.0); Sodium 133 mmol/L (137-145)
[2020-10-09] MEDS: amLODIPine BESYLATE 5 MG TABLET PO (20:50)
[2020-10-09 20:55] LABS: Platelet Estimate Adequate (Adequate)
[2020-10-09 20:56] LABS: Anisocytosis 1+ (NORMAL); Ovalocytes 1+ (NORMAL)
[2020-10-09] MEDS: carvediloL 25 MG TABLET PO (21:32)
[2020-10-09] MEDS: HYOSCYAMINE SULFATE 0.125 MG TABLET PO (21:32)
[2020-10-09] MEDS: hydrALAZINE HCL 50 MG TABLET PO (21:33)
--- NOTE | 2020-10-09 21:45 | PC.NURSE ---
Pt to go to [facility] in [place] [address]. Floor to be called for report.
--- NOTE | 2020-10-09 22:20 | PC.NURSE ---
Called [facility] to transport patient to [facility], Room 2503. ETA 0000
[2020-10-09] MEDS: hydrALAZINE HCL 20 MG/ML VIAL 10 MG IV PUSH (22:48)
--- NOTE | 2020-10-09 23:53 | PC.NURSE ---
Mai called with updated ETA...approximately 0030
[2020-10-10 00:01] VITALS: BP 143/79; PULSE 71; RESP 17; O2SAT 94
--- NOTE | 2020-10-10 00:46 | PC.NURSE ---
Mai called with updated ETA...approximately 0130
[2020-10-10 01:49] VITALS: BP 114/68; PULSE 78; RESP 16; O2SAT 96
== END 2020-10-10 02:02 | disposition short-term general hospital (02) ==
PROVIDERS: Emergency Medicine; General Practice; Emergency Provider Emergency Medicine; PCP Emergency Medicine
DX: I71.4 Abdominal aortic aneurysm, without rupture (principal); K59.00 Constipation, unspecified; N39.0 Urinary tract infection, site not specified; R10.13 Epigastric pain; I10 Essential (primary) hypertension; E78.5 Hyperlipidemia, unspecified; I25.2 Old myocardial infarction; F17.210 Nicotine dependence, cigarettes, uncomplicated; Z86.73 Personal history of transient ischemic attack (TIA), and cerebral infarction without residual deficits; Z79.01 Long term (current) use of anticoagulants
CPT/HCPCS: 36415; 71046; 74177; 80048; 80053; 81001; 83690; 83735; 84484; 85025; 85610; 85730; 87077; 87086; 87088; 87186; 93005; 96365; 96366; 96375; 99285; A9270; C9113; J0360; J0696; Q9967

== ENCOUNTER 2020-12-11 04:45 | Emergency (ER) | payer OTHER, SELFPAY ==
[2020-12-11 04:48] VITALS: BP 162/90; PULSE 82; RESP 22; TEMP 37.1; O2SAT 93
[2020-12-11] MEDS: HYDROmorphone HCL INJ (*CRX) 1 MG/ML SYR IV PUSH (05:24)
--- NOTE | 2020-12-11 05:42 | ED.GENADULT ---
HPI - General Adult General Chief complaint: Abdominal Pain Stated complaint: abd pain following surgery @ [facility] Time Seen by Provider: 12/11/20 04:54 History of Present Illness HPI narrative: Patient is 69-year-old gentleman who presents the emergency department with chief complaint of abdominal pain. Patient reports that he was discharged from [facility] to a local nursing facility for rehab. Patient states that he got there at the pharmacy was closed and they were unable to give him pain medications. Patient was sent to our facility for pain control and the patient has no other complaints. Related Data Home Medications Medication Instructions Recorded Confirmed Movantik 25 mg PO DAILY 05/01/19 06/22/20 albuterol sulfate [ProAir HFA] 90 mcg INHALATION PRN PRN 05/01/19 06/22/20 apixaban 5 mg tablet 5 mg PO BID tablet 06/27/19 06/22/20 meclizine 25 mg PO DAILY 07/16/19 06/22/20 sennosides [senna] 8.6 mg PO HS 07/16/19 06/22/20 albuterol sulfate 2.5 mg .ROUTE .COMPLEX ml 07/19/19 06/22/20 amlodipine 5 mg tablet 5 mg PO DAILY 06/12/20 06/22/20 hydralazine 50 mg tablet 50 mg PO TID 06/12/20 06/22/20 carvedilol 25 mg PO BID 06/22/20 06/22/20 zolpidem 10 mg tablet See Rx Instructions .ROUTE .COMPLEX 09/25/20 Allergies Allergy/AdvReac Type Severity Reaction Status Date / Time No Known Allergies Allergy Verified 12/11/20 05:02 Review of Systems Review of Systems: A 10 system review of systems was completed on the patient and is negative except for what is stated in the HPI. Nursing and ancillary documentation was reviewed. [facility] Past Medical History Medical History AAA (abdominal aortic aneurysm) History of ruptured AAA with intravascular repair CAD (coronary artery disease) <4 METs, last stent in 2018 Carotid stenosis MADDIE. - 100% occlusion both sides Constipation Related to narcotic use CVA (cerebral vascular accident) residual right sided weakness, memory loss and occasional difficulty speaking GERD (gastroesophageal reflux disease) H/O: HTN (hypertension) Hepatitis C History of angina History of heart attack 2009 and 2018. History of kidney stones History of pneumonia Hypercholesteremia Osteomyelitis Tobacco abuse Surgical History Surgical History History of AAA (abdominal aortic aneurysm) repair Intra vascular repair 3 years ago at [facility] History of elbow surgery lt. History of lithotripsy History of tonsillectomy Hx of cardiac cath Hx of heart artery stent >5. Status post femorofemoral bypass surgery Family History Family History Mother Family history of malignant neoplasm Acute myocardial infarction, Onset Age: 89 Father Acute myocardial infarction Sibling AAA (abdominal aortic aneurysm) Other Asthma Cerebrovascular accident History of blood clots Social History Social History Social History: The patient lives home alone. However he does have a significant other. The patient tells me that he would like to be a full code but would not like to live in a vegetative state. The patient has 2 children. The patient stated that his 2 children are the durable power sports attorney for healthcare. The patient continues to smoke a pack cigarettes a day. He denies any alcohol marijuana or illicit drugs. 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 Smoking packs per day: 1 Smoking cigarettes per day: 20.0 Years smoked: 50 Smoking pack-years: 50.00 Smoking status: Current every day smoker Second hand tobacco smoke exposure: Yes Alcohol intake: never Substance use: never Substance use type: does not use Gender identity (if verbalized by the patient): Male Spiritual care concerns: No Agree to b
--- NOTE | 2020-12-11 05:45 | PC.NURSE ---
This RN called [facility] and spoke with Fern NICOLAS. She stated pt had not been discharged with any medications and their physician would not be in facility until 12/13. MYKEL Weiss notified, states he is not able fill pts home medications and that physician at facility will have to see pt. This RN attempted to call Fern NICOLAS back and left voicemail to call back.
[2020-12-11 06:58] VITALS: BP 148/85; PULSE 80; RESP 22; O2SAT 94
--- NOTE | 2020-12-11 07:02 | PC.NURSE ---
This RN gave report to Rosa Elena NICOLAS at [facility].
== END 2020-12-11 07:41 | disposition home or self-care (01) ==
PROVIDERS: Emergency Provider Emergency Medicine; PCP Emergency Medicine
DX: R10.84 Generalized abdominal pain (principal); G89.29 Other chronic pain; I69.951 Hemiplegia and hemiparesis following unspecified cerebrovascular disease affecting right dominant side; I69.928 Other speech and language deficits following unspecified cerebrovascular disease; I69.911 Memory deficit following unspecified cerebrovascular disease; I25.10 Atherosclerotic heart disease of native coronary artery without angina pectoris; K21.9 Gastro-esophageal reflux disease without esophagitis; I10 Essential (primary) hypertension; E78.00 Pure hypercholesterolemia, unspecified; M86.9 Osteomyelitis, unspecified; I25.2 Old myocardial infarction; Z86.19 Personal history of other infectious and parasitic diseases; Z87.442 Personal history of urinary calculi; Z95.5 Presence of coronary angioplasty implant and graft; F17.210 Nicotine dependence, cigarettes, uncomplicated
CPT/HCPCS: 96374; 99284; J1170

== ENCOUNTER 2020-12-21 11:13 | Emergency (ER) | payer OTHER, SELFPAY ==
--- NOTE | ~2020-12-21 | CT_ITS ---
EXAMINATION: CT abdomen pelvis wo con DATE: 12/21/2020 14:01 INDICATION: Left lower quadrant pain TECHNIQUE: Computed tomography (CT) of the abdomen and pelvis was performed without intravenous contr ast. The dose-length product (DLP) was 10/08/2020 mGy-cm. Automated exposure control and iterative rec onstruction technique were employed. COMPARISON: 10/08/2020 FINDINGS: There are airspace opacities and atelectasis of the left lower lobe. Small pleural effusion s are present. Cardiomegaly is noted. A gastrostomy is present in the stomach. The liver, spleen, kirk creas, gallbladder, and adrenal glands are normal. There is atrophy of the right kidney. Stones of th e right kidney measure up to 7 mm. A 1.6 cm hyperattenuating lesion is noted in the upper pole of the right kidney. There are cysts of the left kidney. Nonobstructing stones of the left kidney measure u p to 8 mm. There is a 6.5 x 6.3 cm fusiform infrarenal abdominal aortic aneurysm without significant change since the prior examination. An endoluminal stent graft with a right common iliac component is again noted. There is a new left periaortic fluid collection which extends from the level of the pro ximal aorta inferiorly and appears to be contiguous with a bypass of the left common iliac artery. Th ere is a new endovascular stent in the left external iliac artery. There is unchanged retroperitoneal lymphadenopathy which is likely reactive. There is evidence of interval surgical change involving th e abdomen to the left of midline. A femoral-femoral bypass graft is noted. There is moderate lumbar s pondylosis. IMPRESSION: 1. Interval surgical change of the left abdomen with new left periaortic fluid collection extending f rom the proximal aorta and appearing to continue as a bypass of the left common iliac artery. Definit alex characterization is limited by the absence of intravenous contrast and possibility of postsurgica l fluid collection or extraluminal contrast material is not excluded. Consider repeat examination wit h intravenous contrast. 2. Stable fusiform infrarenal abdominal aortic aneurysm. 3. Bilateral nonobstructing nephrolithiasis. 4. Indeterminate lesion of the right kidney upper pole. Reviewed, dictated and finalized at location A. IMPRESSION: 1. Interval surgical change of the left abdomen with new left periaortic fluid collection extending from the proximal aorta and appearing to continue as a byp ass of the left common iliac artery. Definitive characterization is limited by the absence of intravenous contrast and possibility of postsurgical fluid colle ction or extraluminal contrast material is not excluded. Consider repeat examin ation with intravenous contrast. 2. Stable fusiform infrarenal abdominal aortic aneurysm. 3. Bilateral nonobstructing nephrolithiasis. 4. Indeterminate lesion of the right kidney upper pole.
[2020-12-21 11:19] VITALS: BP 153/61; PULSE 75; RESP 18; TEMP 37.1; O2SAT 94
[2020-12-21 11:44] LABS: Basophils Percent Auto 0.4 % (0.2-1.2); Eosinophils Absolute Auto 0.1 K/mm3 (0-0.3); Hematocrit 32.1 % (42.0-52.0); Hemoglobin 9.9 g/dL (14.0-18.0); Immature Granulocyte Absolute 0.01 K/mm3 (0.00-0.031); Immature Granulocyte Percent A 0.2 % (0-0.5); Lymphocytes Absolute Auto 0.43 K/mm3 (0.9-3.2); Lymphocytes Percent Auto 7.9 % (18.3-44.2); Mean Corpuscular HGB Conc 30.8 g/dl (32-36); Mean Corpuscular Hemoglobin 28.7 pg (26-34); Mean Platelet Volume 8.5 fl (7.4-10.4); Monocytes Absolute Auto 0.3 K/mm3 (0.1-0.6); Monocytes Percent Auto 5.5 % (2.6-8.5); Neutrophils Absolute Auto 4.6 K/mm3 (1.3-6.7); Platelet Count Result 169 k/mm3 (150-375); Red Blood Count 3.45 M/mm3 (4.6-6.20); Red Cell Distribution Width 15.6 % (11.5-14.5); White Blood Count 5.4 K/mm3 (4.5-10.0)
[2020-12-21] MEDS: ONDANSETRON INJ 4 MG/2 ML VIAL IV PUSH (12:03)
[2020-12-21] MEDS: HYDROmorphone HCL INJ (*CRX) 1 MG/ML SYR 0.5 MG IV PUSH ×2 (12:03→15:59)
[2020-12-21 12:11] LABS: Alanine Aminotransferase 20 U/L (4-50); Albumin Level 3.2 g/dL (3.5-5.1); Alkaline Phosphatase 100 U/L (38-126); Anion Gap 6 mmol/L (8-16); Aspartate Amino Transferase 24 U/L (17-59); Bilirubin,Total 0.4 mg/dL (0.2-1.3); Blood Urea Nitrogen 32 mg/dL (9-20); Calcium 7.8 mg/dL (8.4-10.2); Carbon Dioxide 27 mmol/L (22-30); Chloride 103 mmol/L (98-107); Estimated CRCL calculation 53 ml/min; Estimated Glomerular Filt Rate 46; Glucose 108 mg/dL (65-110); Lipase 257 U/L (23-300); Potassium 4.7 mmol/L (3.4-5.0); Sodium 136 mmol/L (137-145)
--- NOTE | 2020-12-21 12:42 | ED.ABDPAIN ---
HPI - Abdominal Pain General Chief Complaint: Abdominal Pain Stated Complaint: abd pain, 2 weeks post of AAA repair Time Seen by Provider: 12/21/20 11:26 Source: patient, RN notes reviewed and old records reviewed Mode of arrival: EMS Limitations: no limitations History of Present Illness HPI narrative: This is a 70 year old male with history of peripheral vascular disease, CVA, AAA s/p repair who presents for evaluation of left upper abdominal pain. Patient states this pain has been present for 10 years. He has been taking oxycodone for his pain but he states his pain was not improved with his oxycodone today. He was discharged from [facility] 10 days ago after a prolonged hospitalization. During that hospitalization he had TEVAR of his AAA. He also had thrombectomy and Fem fem graft repair. Paitent reports nausea but no vomiting, fever. His pain does not radiate anywhere. Related Data Home Medications Medication Instructions Recorded Confirmed Movantik 25 mg PO DAILY 05/01/19 06/22/20 albuterol sulfate [ProAir HFA] 90 mcg INHALATION PRN PRN 05/01/19 06/22/20 apixaban 5 mg tablet 5 mg PO BID tablet 06/27/19 06/22/20 meclizine 25 mg PO DAILY 07/16/19 06/22/20 sennosides [senna] 8.6 mg PO HS 07/16/19 06/22/20 albuterol sulfate 2.5 mg .ROUTE .COMPLEX ml 07/19/19 06/22/20 amlodipine 5 mg tablet 5 mg PO DAILY 06/12/20 06/22/20 hydralazine 50 mg tablet 50 mg PO TID 06/12/20 06/22/20 carvedilol 25 mg PO BID 06/22/20 06/22/20 zolpidem 10 mg tablet See Rx Instructions .ROUTE .COMPLEX 09/25/20 Allergies Allergy/AdvReac Type Severity Reaction Status Date / Time No Known Allergies Allergy Verified 12/11/20 05:02 Review of Systems Review of Systems: All systems reviewed & are unremarkable except as noted in HPI and below PMFSH Past Medical History Medical History AAA (abdominal aortic aneurysm) History of ruptured AAA with intravascular repair CAD (coronary artery disease) <4 METs, last stent in 2018 Carotid stenosis MADDIE. - 100% occlusion both sides Constipation Related to narcotic use CVA (cerebral vascular accident) residual right sided weakness, memory loss and occasional difficulty speaking GERD (gastroesophageal reflux disease) H/O: HTN (hypertension) Hepatitis C History of angina History of heart attack 2009 and 2017. History of kidney stones History of pneumonia Hypercholesteremia Osteomyelitis Tobacco abuse Surgical History Surgical History History of AAA (abdominal aortic aneurysm) repair Intra vascular repair 3 years ago at [facility] History of elbow surgery lt. History of lithotripsy History of tonsillectomy Hx of cardiac cath Hx of heart artery stent >5. Status post femorofemoral bypass surgery Family History Family History Mother Family history of malignant neoplasm Acute myocardial infarction, Onset Age: 89 Father Acute myocardial infarction Sibling AAA (abdominal aortic aneurysm) Other Asthma Cerebrovascular accident History of blood clots Social History Social History Social History: The patient lives home alone. However he does have a significant other. The patient tells me that he would like to be a full code but would not like to live in a vegetative state. The patient has 2 children. The patient stated that his 2 children are the durable power mergers and acquisitions attorney for healthcare. The patient continues to smoke a pack cigarettes a day. He denies any alcohol marijuana or illicit drugs. 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 Smoking packs per day: 1 Smoking cigarettes per day: 20.0 Years smoked: 50 Smoking pack-years: 50.00 Smoking status: Current every day smoker Second hand tobacco smoke expo
[2020-12-21 12:43] VITALS: BP 127/81; PULSE 67; RESP 20; O2SAT 94
[2020-12-21] MEDS: SODIUM CHLORIDE 0.9% IV 1,000 ML 999 ML IV CONT (13:08)
[2020-12-21 13:19] LABS: Add Urine Microscopic? YES; Appearance Urine Cloudy (Clear); Bacteria Urine Trace /hpf; Bilirubin Urine Negative (Negative); Blood Urine 2+ (Negative); Color Urine Yellow (Yellow); Glucose Urine UA Negative (Negative); Ketones Urine Negative (Negative); Leukocyte Esterase Ur Negative LEU/UL (Negative); Mucus Urine Rare /lpf; Nitrate Urine Negative (Negative); Protein Urine 1+ mg/dL (Negative); Specific Grav Ur 1.021 (1.001-1.035); Squamous Epithelial Cell Urine Rare /hpf (Few); Urobilinogen Urine Negative mg/dL (<2.0); WBC Urine 0-3 /hpf
[2020-12-21 18:32] VITALS: BP 131/96; PULSE 68; RESP 14; TEMP 36.5; O2SAT 97
== END 2020-12-21 18:34 ==
PROVIDERS: Emergency Provider General Practice; PCP Emergency Medicine
DX: R10.814 Left lower quadrant abdominal tenderness (principal); R10.12 Left upper quadrant pain; G89.29 Other chronic pain; Z98.890 Other specified postprocedural states; I25.10 Atherosclerotic heart disease of native coronary artery without angina pectoris; K21.9 Gastro-esophageal reflux disease without esophagitis; I65.23 Occlusion and stenosis of bilateral carotid arteries; I69.951 Hemiplegia and hemiparesis following unspecified cerebrovascular disease affecting right dominant side; I69.911 Memory deficit following unspecified cerebrovascular disease; I69.928 Other speech and language deficits following unspecified cerebrovascular disease; Z87.442 Personal history of urinary calculi; Z86.19 Personal history of other infectious and parasitic diseases; I25.2 Old myocardial infarction; Z87.01 Personal history of pneumonia (recurrent); E78.00 Pure hypercholesterolemia, unspecified; M86.9 Osteomyelitis, unspecified; Z95.5 Presence of coronary angioplasty implant and graft; F17.210 Nicotine dependence, cigarettes, uncomplicated; N20.0 Calculus of kidney; I71.4 Abdominal aortic aneurysm, without rupture; N28.9 Disorder of kidney and ureter, unspecified
CPT/HCPCS: 36415; 74176; 80053; 81001; 83690; 85025; 96361; 96365; 96375; 96376; 99284; J0131; J1170; J2405; J7030

== ENCOUNTER 2020-12-30 20:46 | Emergency (ER) | payer OTHER, SELFPAY ==
--- NOTE | ~2020-12-30 | CT_ITS ---
EXAMINATION: CT brain wo con DATE: 12/30/2020 21:34 INDICATION: Left facial droop. History of 3 cerebrovascular accident TECHNIQUE: Computed tomography (CT) of the head was performed without intravenous contrast. The mA wa s adjusted according to patient size. Iterative reconstruction technique was employed. Exam dose: 68 1.00 mGy-cm total exam DLP. COMPARISON: 06/22/2020 CT brain FINDINGS: There are prominent cerebral artery calcifications including the vertebral arteries and int ernal carotid arteries particularly, with some basilar artery calcification as well. There is nonspecific diminished attenuation cerebral white matter, likely due to chronic small vessel ischemic changes. Chronic old infarcts of the left frontal lobe and left insula. No new cerebrovascular accident is detected. No intracranial mass lesion or hemorrhage, midline shift or mass effect. No subdural or epidural luigi iggy. No fracture or bone destruction of the cranial vault. There is a chronic prominent polypoid soft tissue density within each sphenoid sinus as before. There is patchy opacification of left ethmoid air cells. There is partial opacification of mastoid air cells bilaterally, new since 06/22/2020.. IMPRESSION: No acute intracranial finding since 06/22/2020 Chronic left frontal and insular infarcts Cerebral atherosclerosis and chronic small vessel ischemic changes of cerebral white matter Reviewed, dictated and finalized at [facility]. Reviewed, dictated and finalized at [facility].
--- NOTE | ~2020-12-30 | XR_ITS ---
XR chest 1V DATE: 12/30/2020 21:40 INDICATION: Shortness of breath. Hypertension. Angina. Myocardial infarction. TECHNIQUE: AP chest COMPARISON: 10/08/2020 PA and lateral chest FINDINGS: There is patchy left lower lobe increased density with leftward shift of heart and mediasti num consistent with left lower lobe atelectasis/infiltrate. There is otherwise pulmonary hyperinflati on suggesting COPD. No pleural effusion or pulmonary vascular congestion or pneumothorax is evident. Cardiomegaly. Aortic calcification and tortuosity. Diffuse osteopenia. Old healed fracture deformity of the left clavicular shaft. IMPRESSION: Left lower lobe atelectasis/infiltrate Pulmonary hyperinflation suggesting COPD Cardiomegaly Aortic atherosclerosis Diffuse osteopenia Reviewed, dictated and finalized at [facility].
[2020-12-30 20:48] VITALS: BP 160/76; PULSE 85; RESP 22; TEMP 38.6; O2SAT 94
--- NOTE | 2020-12-30 20:56 | ECG_ITS ---
Measurements Intervals Cade Rate: 83 P: 96 [place]: 222 QRS: 35 QRSD: 100 T: 45 QT: 374 QTc: 440 Interpretive Statements SINUS RHYTHM WITH FIRST DEGREE AV BLOCK DELAYED PRECORDIAL R/S TRANSITION BORDERLINE T WAVE ABNORMALITY- ANTERIOR LEADS BASELINE WANDER- I, III, AVR, AVL, AVF ABNORMAL ECG Electronically Signed On 12-31-2020 6:12:50 CDT by Reji Benton D.O.
--- NOTE | 2020-12-30 21:00 | PC.NURSE ---
per [facility], pt did not get any night time medication
--- NOTE | 2020-12-30 21:19 | PC.NURSE ---
[place], son, called at [phone] to be informed pt is in dept.
--- NOTE | 2020-12-30 21:26 | PC.NURSE ---
Called Lab to add on mg lip
[2020-12-30 21:33] LABS: Basophils Percent Auto 0.2 % (0.2-1.2); Eosinophils Absolute Auto 0.3 K/mm3 (0-0.3); Hematocrit 30.2 % (42.0-52.0); Hemoglobin 9.4 g/dL (14.0-18.0); Immature Granulocyte Absolute 0.01 K/mm3 (0.00-0.031); Immature Granulocyte Percent A 0.2 % (0-0.5); Lymphocytes Absolute Auto 0.51 K/mm3 (0.9-3.2); Lymphocytes Percent Auto 10.5 % (18.3-44.2); Mean Corpuscular HGB Conc 31.1 g/dl (32-36); Mean Corpuscular Hemoglobin 28.4 pg (26-34); Mean Corpuscular Volume 91.2 fl (80-100); Mean Platelet Volume 8.7 fl (7.4-10.4); Monocytes Absolute Auto 0.4 K/mm3 (0.1-0.6); Monocytes Percent Auto 8.6 % (2.6-8.5); Neutrophils Absolute Auto 3.6 K/mm3 (1.3-6.7); Neutrophils Percent Auto 74.5 % (45.5-73.1); Platelet Count Result 159 k/mm3 (150-375); Red Blood Count 3.31 M/mm3 (4.6-6.20); Red Cell Distribution Width 15.3 % (11.5-14.5); White Blood Count 4.9 K/mm3 (4.5-10.0)
[2020-12-30 21:43] LABS: INR 1.9; Prothrombin Time 21.4 Seconds (11.1-14.7)
[2020-12-30 21:44] LABS: Partial Thromboplastin Time 36.5 SECONDS (22.3-36.8)
[2020-12-30 21:46] LABS: Anion Gap 10 mmol/L (8-16); Blood Urea Nitrogen 42 mg/dL (9-20); Calcium 7.6 mg/dL (8.4-10.2); Carbon Dioxide 21 mmol/L (22-30); Chloride 104 mmol/L (98-107); Estimated Glomerular Filt Rate 40; Glucose 95 mg/dL (65-110); Sodium 135 mmol/L (137-145)
[2020-12-30 21:57] LABS: Troponin I 0.019 ng/mL (0.000-0.034)
[2020-12-30] MEDS: SODIUM CHLORIDE 0.9% IV 1,000 ML 999 ML IV CONT (21:59)
[2020-12-30 22:15] LABS: Lipase 64 U/L (23-300); Magnesium 1.6 mg/dL (1.6-2.3)
--- NOTE | 2020-12-30 22:22 | ED.NEUROSD ---
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 Patient with history of R sided weakness s/p CVA which patient states is baseline for him. No drooping in ED, patient complains of chronic abdominal pain. He has been taking oxycodone for his pain but he states his pain was not improved with his oxycodone today. He was discharged from [facility] 10 days ago after a prolonged hospitalization. During that hospitalization he had TEVAR of his AAA. He also had thrombectomy and Fem fem graft repair. Paitent reports nausea but no vomiting, no fever. His pain does not radiate anywhere. No headache, no new onset of focal weakness per patient, no recent falls or trauma. No LOC. States decreased appetite since feeding tube inserted at [facility] during last hospitalization. Patient takes eliquis for blood thinner, did not get evening dose per NH. Onset (ago): unknown Location: left face History of same: No Quality: weak Relieving factors: none Exacerbating factors: none On Anticoagulants: Yes Associated symptoms: denies other symptoms and other (chronic abdominal pain) Treatments Prior to Arrival: oxygen Related Data Home Medications Medication Instructions Recorded Confirmed Movantik 25 mg PO DAILY 05/01/19 01/19/21 albuterol sulfate [ProAir HFA] 2 inh INHALATION Q4-6H PRN 05/01/19 01/19/21 carvedilol 25 mg PO BID 06/22/20 01/19/21 Eliquis 5 mg PO BID 01/08/21 01/19/21 acidophilus-pectin, citrus 1 cap PO BID 01/08/21 01/19/21 amlodipine 10 mg PO DAILY 01/08/21 01/19/21 aspirin 81 mg PO DAILY 01/08/21 01/19/21 folic acid 1 mg PO DAILY 01/08/21 01/19/21 ondansetron 4 mg PO Q8H PRN 01/08/21 01/19/21 rosuvastatin 10 mg PO HS 01/08/21 01/19/21 terazosin 5 mg PO HS 01/08/21 01/19/21 oxycodone-acetaminophen 1 tablet PO Q4-6H PRN 01/19/21 01/19/21 Allergies Allergy/AdvReac Type Severity Reaction Status Date / Time hydralazine Allergy Unknown Verified 01/19/21 20:00 Review of Systems Review of Systems: General: no fever, no recent weight loss, does have decrased appetite HENT: left facial drooping, resolved before arrival, no vision changes RESP: no cough, no shortness of breath CV: no chest pain, no palpitations ABd: positive for nausea and abdominal pain, no vomiting : no flank pain, no urinary retention MSK: no new myalgias or joint pain SKin: no new rash or itching Neuro: denies headache, denies syncope, denies trauma, denies dizziness Psych: denies anxiety, denies depression [facility] Past Medical History Medical History (Updated 01/27/21 @ 15:03 by Lilia Lara MD) AAA (abdominal aortic aneurysm) History of ruptured AAA with intravascular repair Anxiety CAD (coronary artery disease) <4 METs, last stent in 2018 Carotid stenosis MADDIE. - 100% occlusion both sides Constipation Related to narcotic use CVA (cerebral vascular accident) residual right sided weakness, memory loss and occasional difficulty speaking GERD (gastroesophageal reflux disease) H/O: HTN (hypertension) Hepatitis C History of angina History of heart attack 2009 and 2017. History of kidney stones History of pneumonia HTN (hypertension), malignant Hypercholesteremia Osteomyelitis Tobacco abuse Surgical History Surgical History History of AAA (abdominal aortic aneurysm) repair Intra vascular repair 3 years ago at [facility] History of elbow surgery lt. History of lithotripsy History of tonsillectomy Hx of cardiac cath Hx of heart artery stent >5. Status pos
[2020-12-30 22:30] LABS: Add Urine Microscopic? YES; Appearance Urine Clear (Clear); Bilirubin Urine Negative (Negative); Blood Urine 1+ (Negative); Color Urine Yellow (Yellow); Glucose Urine UA Negative (Negative); Ketones Urine Negative (Negative); Leukocyte Esterase Ur Negative LEU/UL (Negative); Nitrate Urine Negative (Negative); Protein Urine 1+ mg/dL (Negative); Specific Grav Ur 1.017 (1.001-1.035); Urobilinogen Urine Negative mg/dL (<2.0); WBC Urine 0-3 /hpf
[2020-12-30 23:42] VITALS: BP 148/68; PULSE 75; RESP 16; O2SAT 96
[2020-12-31] MEDS: oxyCODONE/ACETAMINOPHEN (*CRX) 5-325 MG TABLET 1 TABLET PO (00:38)
--- NOTE | 2020-12-31 00:48 | PC.NURSE ---
called [facility] to request transport. ETA [id number], [facility], [facility].
[2020-12-31 03:02] VITALS: BP 159/74; PULSE 78; RESP 16; O2SAT 98
[2020-12-31 15:02] LABS: Glucose Point of Care 94 mg/dl (65-105)
== END 2020-12-31 03:05 ==
PROVIDERS: General Practice; Emergency Provider Emergency Medicine
DX: E86.0 Dehydration (principal); J18.9 Pneumonia, unspecified organism; I73.9 Peripheral vascular disease, unspecified; I69.951 Hemiplegia and hemiparesis following unspecified cerebrovascular disease affecting right dominant side; I69.911 Memory deficit following unspecified cerebrovascular disease; I69.928 Other speech and language deficits following unspecified cerebrovascular disease; K21.9 Gastro-esophageal reflux disease without esophagitis; I65.23 Occlusion and stenosis of bilateral carotid arteries; E78.00 Pure hypercholesterolemia, unspecified; I25.2 Old myocardial infarction; Z86.19 Personal history of other infectious and parasitic diseases; Z87.442 Personal history of urinary calculi; Z87.01 Personal history of pneumonia (recurrent); Z79.01 Long term (current) use of anticoagulants; Z95.5 Presence of coronary angioplasty implant and graft; F17.210 Nicotine dependence, cigarettes, uncomplicated; I51.7 Cardiomegaly; I70.0 Atherosclerosis of aorta; M85.88 Other specified disorders of bone density and structure, other site; I67.2 Cerebral atherosclerosis; I44.0 Atrioventricular block, first degree; R94.31 Abnormal electrocardiogram [ECG] [EKG]
CPT/HCPCS: 36415; 51701; 70450; 71045; 80048; 81001; 82948; 83690; 83735; 84484; 85025; 85610; 85730; 93005; 96361; 96365; 99284; A9270; J0456; J7030

== ENCOUNTER 2021-01-08 03:02 | Inpatient (IN) | payer OTHER, SELFPAY ==
[2021-01-08] VITALS (9 sets, daily range): BP systolic 135–145; BP diastolic 66–98; PULSE 72–94; RESP 16–24; TEMP 36.3–37.7; O2SAT 93–95; BMI 22.2
--- NOTE | ~2021-01-08 | CT_ITS ---
EXAMINATION: CT abdomen pelvis wo con DATE: 01/08/2021 10:23 INDICATION: Abdominal pain. Malfunctioning of gastrostomy tube. TECHNIQUE: Computed tomography (CT) of the abdomen and pelvis was performed without intravenous contr ast. Automated exposure control and iterative reconstruction technique were employed. The dose-length product was 595.60 mGy-cm. COMPARISON: CT abdomen and pelvis 12/21/2020, 10/08/2020 FINDINGS: The visualized portions of the lung bases demonstrate small pleural effusions. There are ai rspace opacities in left lower lobe and lingula with volume loss, likely atelectasis. There is smooth septal thickening bilaterally, consistent with pulmonary edema. The heart size is normal. There are coronary artery calcifications. No pericardial effusion. There are calcifications of aortic valve. Th ere is ectasia of the aortic root measuring 4.6 cm. The liver and spleen are normal. The gallbladder is normal in size. There is a gastrostomy tube with balloon in the gastric antrum and tube tip in the first portion of the duodenum. The pancreas and adrenal glands are normal. There is moderate atrophy of right kidney. There are cysts and hemorrhagic cysts in the kidneys. There are 3 stones in right k idney measuring up to 6 mm. There are parenchymal calcifications in both kidneys. There are 2 stones in left kidney measuring up to 7 mm. There are no dilated loops of bowel. The appendix is not visuali zed. There is a 6.7 x 6.3 cm fusiform infrarenal aortic aneurysm. There is a stent graft from the sup rarenal aorta to the right common iliac artery. 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 There is a femorofemoral bypass graft. There is a graft from the left common femoral art huseyin that bifurcates and anastomoses to each of the bilateral renal arteries. There is a mass that is contiguous with the celiac axis and left renal artery that continuous inferiorly in the left retroper itoneum. The mass measures 11.6 x 2.9 cm, stable from 12/21/20. There is mild left para-aortic lympha denopathy, likely reactive. Again seen is fracture of the left inferior costal cartilage. There is an umbilical hernia containing fat. There is no free intraperitoneal fluid. There is moderate lumbar sp ondylosis. IMPRESSION: 1. Gastrostomy tube balloon in the gastric antrum with gastrostomy tube tip in the first portion of t he duodenum. 2. Small pleural effusions. 3. Mild pulmonary edema. 4. Ectasia of the aortic root measuring 4.6 cm. 5. 6.7 cm fusiform aortic aneurysm status post stent graft placement with recent addition of an addit ional contiguous suprarenal and juxtarenal stent graft and addition of grafts from the left side of t he femorofemoral bypass graft to the bilateral renal arteries. The grafts are not well evaluated in t he absence of intravenous contrast. 6. 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 7. Stable mass involving the areas of the celiac axis and left renal artery, likely hematoma. Reviewed, dictated and finalized at location A. AY TRAFFIC CONTROLLER IMPRESSION: 1. Gastrostomy tube balloon in the gastric antrum with gastrostomy tube tip in the first portion of the duodenum. 2. Small pleural effusions. 3. Mild pulmonary edema. 4. Ectasia of the aortic root measuring 4.6 cm. 5. 6.7 cm fusiform aortic aneurysm status post stent graft placement with recen t addition of an additional contiguous suprarenal and juxtarenal stent graft an d addition of grafts from the left side of the femorofemoral bypass graft to th e bilateral renal arteries. The grafts are not well evaluated in the absence of intravenous contrast. 6. 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 7. Stable mass invo
--- NOTE | ~2021-01-08 | XR_ITS ---
EXAMINATION: XR chest 1V portable DATE: 01/14/2021 14:33 INDICATION: Shortness of breath. TECHNIQUE: A single frontal view of the chest was obtained on 2 radiographs. COMPARISON: Chest single view 01/12/2021, CT abdomen and pelvis 01/08/2021 FINDINGS: There are small pleural effusions. There are airspace opacities at the lung bases. There is a diffuse interstitial pattern in the lungs, consistent with pulmonary edema. No pneumothorax. The h eart size is normal. There is an old healed left rib fracture. IMPRESSION: 1. Mild pulmonary edema. 2. Worsened small pleural effusions. 3. Worsened airspace opacities at the lung bases, consistent with atelectasis versus pneumonia. Reviewed, dictated and finalized at location A. OR BUSINESS DEVELOPMENT ANALYST IMPRESSION: 1. Mild pulmonary edema. 2. Worsened small pleural effusions. 3. Worsened airspace opacities at the lung bases, consistent with atelectasis v ersus pneumonia.
--- NOTE | ~2021-01-08 | XR_ITS ---
EXAMINATION: XR chest 1V portable DATE: 01/08/2021 03:36 INDICATION: Fever. TECHNIQUE: A single frontal view of the chest was obtained on 2 radiographs. COMPARISON: Chest single view 12/30/2020, CT abdomen and pelvis 12/21/2020 FINDINGS: There are lucencies in the lungs, consistent with emphysema. There is a diffuse interstitia l pattern in the lungs. There are airspace opacities in left mid and lower lung zones. There is a sma ll left pleural effusion. No pneumothorax. The heart size is normal. Partially visualized is a stent graft in abdominal aorta. IMPRESSION: 1. Mild pulmonary edema. 2. Mildly worsened airspace opacities in left mid and lower lung zones, consistent with atelectasis v ersus pneumonia. 3. Stable small left pleural effusion. 4. Emphysema. Reviewed, dictated and finalized at location A. OR BENEFITS SPECIALIST IMPRESSION: 1. Mild pulmonary edema. 2. Mildly worsened airspace opacities in left mid and lower lung zones, consist ent with atelectasis versus pneumonia. 3. Stable small left pleural effusion. 4. Emphysema.
--- NOTE | ~2021-01-08 | US_ITS ---
EXAMINATION: US venous doppler [facility] DATE: 01/14/2021 15:42 INDICATION: Left upper limb swelling TECHNIQUE: Grayscale images without and with compression and Doppler images of the left upper extremi ty veins were obtained. COMPARISON: None. FINDINGS: The left internal jugular vein, subclavian vein, axillary vein, brachial vein, basilic vein, cephalic vein, radial vein, and ulnar vein are patent. IMPRESSION: 1. Patent left upper extremity veins. No evidence of venous thrombosis. Reviewed, dictated and finalized at location A. ON CLASSER
--- NOTE | ~2021-01-08 | XR_ITS ---
EXAMINATION: XR chest 1V portable INDICATION: Pneumonia TECHNIQUE: Portable AP chest at 1104 hours COMPARISON: None available FINDINGS: There are small pleural effusions with associated bibasilar airspace opacities. Cardiomegal y is noted. There is no pneumothorax. A partially imaged abdominal aortic stent is noted. A percutane ous gastrostomy is noted. IMPRESSION: 1. Small pleural effusions with associated bibasilar atelectasis. Reviewed, dictated and finalized at location A. T MANAGER/DISPATCH
[2021-01-08 04:17] LABS: Basophils Percent Auto 0.4 % (0.2-1.2); Eosinophils Absolute Auto 0.2 K/mm3 (0-0.3); Eosinophils Percent Auto 4.4 % (0-4.4); Hematocrit 30.8 % (42.0-52.0); Hemoglobin 9.6 g/dL (14.0-18.0); Immature Granulocyte Absolute 0.01 K/mm3 (0.00-0.031); Immature Granulocyte Percent A 0.2 % (0-0.5); Lymphocytes Absolute Auto 0.67 K/mm3 (0.9-3.2); Lymphocytes Percent Auto 13.4 % (18.3-44.2); Mean Corpuscular HGB Conc 31.2 g/dl (32-36); Mean Corpuscular Hemoglobin 27.7 pg (26-34); Mean Platelet Volume 8.9 fl (7.4-10.4); Monocytes Absolute Auto 0.3 K/mm3 (0.1-0.6); Monocytes Percent Auto 6.2 % (2.6-8.5); Neutrophils Absolute Auto 3.8 K/mm3 (1.3-6.7); Neutrophils Percent Auto 75.4 % (45.5-73.1); Platelet Count Result 218 k/mm3 (150-375); Red Blood Count 3.46 M/mm3 (4.6-6.20); Red Cell Distribution Width 15.1 % (11.5-14.5)
[2021-01-08 04:23] LABS: Lactic Acid Reflex 0.5 mmol/L (0.7-2.1)
--- NOTE | 2021-01-08 04:43 | ED.GENADULT ---
HPI - General Adult General Chief complaint: Abdominal Pain Stated complaint: displaced g-tube Time Seen by Provider: 01/08/21 03:13 History of Present Illness HPI narrative: Patient 70-year-old gentleman who presents the emergency department with chief complaint of pulled out G-tube. Patient reports that sometime today his G-tube was pulled out at the [facility]. Patient reports that there is no pain the patient was found to have a low-grade fever upon arrival to the emergency department. Patient denies cough denies shortness of breath denies knowing that he had a fever before arriving to the emergency department. Patient denies vomiting denies diarrhea. Related Data Home Medications Medication Instructions Recorded Confirmed Movantik 25 mg PO DAILY 05/01/19 06/22/20 albuterol sulfate [ProAir HFA] 90 mcg INHALATION PRN PRN 05/01/19 06/22/20 apixaban 5 mg tablet 5 mg PO BID tablet 06/27/19 06/22/20 meclizine 25 mg PO DAILY 07/16/19 06/22/20 sennosides [senna] 8.6 mg PO HS 07/16/19 06/22/20 albuterol sulfate 2.5 mg .ROUTE .COMPLEX ml 07/19/19 06/22/20 amlodipine 5 mg tablet 5 mg PO DAILY 06/12/20 06/22/20 hydralazine 50 mg tablet 50 mg PO TID 06/12/20 06/22/20 carvedilol 25 mg PO BID 06/22/20 06/22/20 zolpidem 10 mg tablet See Rx Instructions .ROUTE .COMPLEX 09/25/20 Allergies Allergy/AdvReac Type Severity Reaction Status Date / Time No Known Allergies Allergy Verified 12/11/20 05:02 Review of Systems Review of Systems: A 10 system review of systems was completed on the patient and is negative except for what is stated in the HPI. Nursing and ancillary documentation was reviewed. [facility] Past Medical History Medical History AAA (abdominal aortic aneurysm) History of ruptured AAA with intravascular repair CAD (coronary artery disease) <4 METs, last stent in 2018 Carotid stenosis MADDIE. - 100% occlusion both sides Constipation Related to narcotic use CVA (cerebral vascular accident) residual right sided weakness, memory loss and occasional difficulty speaking GERD (gastroesophageal reflux disease) H/O: HTN (hypertension) Hepatitis C History of angina History of heart attack 2009 and 2018. History of kidney stones History of pneumonia Hypercholesteremia Osteomyelitis Tobacco abuse Surgical History Surgical History History of AAA (abdominal aortic aneurysm) repair Intra vascular repair 3 years ago at [facility] History of elbow surgery lt. History of lithotripsy History of tonsillectomy Hx of cardiac cath Hx of heart artery stent >5. Status post femorofemoral bypass surgery Family History Family History Mother Family history of malignant neoplasm Acute myocardial infarction, Onset Age: 89 Father Acute myocardial infarction Sibling AAA (abdominal aortic aneurysm) Other Asthma Cerebrovascular accident History of blood clots Social History Social History Social History: The patient lives home alone. However he does have a significant other. The patient tells me that he would like to be a full code but would not like to live in a vegetative state. The patient has 2 children. The patient stated that his 2 children are the durable power finance attorney for healthcare. The patient continues to smoke a pack cigarettes a day. He denies any alcohol marijuana or illicit drugs. 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 Smoking packs per day: 1 Smoking cigarettes per day: 20.0 Years smoked: 50 Smoking pack-years: 50.00 Smoking status: Current every day smoker Second hand tobacco smoke exposure: Yes Alcohol intake: never Substance use: never Substance use type: does not use Gender identity (if verbalized by the reyes
[2021-01-08 04:55] LABS: Alanine Aminotransferase 10 U/L (4-50); Albumin Level 2.9 g/dL (3.5-5.1); Alkaline Phosphatase 89 U/L (38-126); Anion Gap 6 mmol/L (8-16); Aspartate Amino Transferase 17 U/L (17-59); Bilirubin,Total 0.2 mg/dL (0.2-1.3); Blood Urea Nitrogen 19 mg/dL (9-20); Carbon Dioxide 27 mmol/L (22-30); Chloride 103 mmol/L (98-107); Estimated CRCL calculation 71 ml/min; Estimated Glomerular Filt Rate > 60; Glucose 105 mg/dL (65-110); Potassium 3.7 mmol/L (3.4-5.0); Sodium 136 mmol/L (137-145)
[2021-01-08 05:26] LABS: Add Urine Microscopic? YES; Appearance Urine Cloudy (Clear); Bilirubin Urine Negative (Negative); Blood Urine 2+ (Negative); Color Urine Yellow (Yellow); Glucose Urine UA Negative (Negative); Ketones Urine Negative (Negative); Leukocyte Esterase Ur Negative LEU/UL (Negative); Mucus Urine Rare /lpf; Nitrate Urine Negative (Negative); Protein Urine 1+ mg/dL (Negative); Squamous Epithelial Cell Urine Rare /hpf (Few); Urobilinogen Urine Negative mg/dL (<2.0); WBC Urine 0-3 /hpf
[2021-01-08] MEDS: oxyCODONE/ACETAMINOPHEN (*CRX) 5-325 MG TABLET 1 TABLET PO ×3 (05:57→23:23)
--- NOTE | 2021-01-08 06:19 | ADMGEN ---
This patient, Sameer Choe, was admitted to -. Patient/family oriented to hospital policies and general routines including ID bracelet, bed and alarms, visiting hours, pain management, procedures, bathroom and other care routines, personal items, smoking policy, room service/diet, and visiting hours. Information on how to activate the Rapid Response Team has been discussed. Patient/Family are encouraged to report perceived risks to care and to ask questions if they do not understand what they are told or what they should do.
[2021-01-08] MEDS: SODIUM CHLORIDE 0.9% IV 1,000 ML 125 ML IV CONT (07:54)
--- NOTE | 2021-01-08 08:03 | WPDGICN ---
Assessment and Plan Assessment and plan (1) Malfunction of gastrostomy tube: Code(s): K94.23 - Gastrostomy malfunction Status: Acute Assessment and Plan: the emergency room was unable to replace his feeding tube with a 20 Romanian or even 16 Romanian replacement tube. They placed a coude catheter to hold the orifice open. Because of its location, I am concerned that this may actually be a jejunal feeding tube. CT scan has been ordered to help determine that and to rule out any free air or misplacement of this tube depending on CT results. We may be able to replace his 2 by using percutaneous endoscopic gastrostomy tube (2) Cerebrovascular accident: Code(s): I63.9 - Cerebral infarction, unspecified Status: Acute Assessment and Plan: his speech was not quite clear. It seems that he had a recent cerebrovascular accident. He was able to tell me that his feeding tube was placed about 3 weeks ago at [facility] in [place]. He states that he cannot recall the surgeon's name. We will try to obtain the records, which will help us determine whether this is a jejunostomy tube or a true G-tube. For now we will need to hold his anticoagulant, in case any to place a G-tube and enlarge his incision/stoma (3) Anemia: Code(s): D64.9 - Anemia, unspecified Status: Acute Assessment and Plan: there does not seem to be any sign of active bleeding it appears that he has blood counts have been low for a while GI Consult Note Consult date/time: 01/08/21 08:03 HPI: Sameer Choe is a 70 year old male who presented to the emergency room yesterday with complaint that his feeding tube came out. He states that it was accidentally pulled out. He told me that was placed just 3 weeks ago at [facility]. He believes it was placed by a surgeon. He has a long midline scar but cannot give me a clear answer as to whether that was related to placement of the tube. His feeding tube is on the right side of the abdomen suggesting that is probably a small bowel feeding tube. The emergency room could not place a 20 Romanian or 16 Romanian replacement G-tube so they inserted a coude catheter. Apparently had a recent CVA but he cannot give a clear answer as to whether that was just prior to placement of the feeding tube which I suspect was the case. I am going to attempt to get records from [facility]. Review of Systems Review of Systems: All systems reviewed & are unremarkable except as noted in HPI and below PMFSH Past Medical History Medical History AAA (abdominal aortic aneurysm) History of ruptured AAA with intravascular repair CAD (coronary artery disease) <4 METs, last stent in 2018 Carotid stenosis MADDIE. - 100% occlusion both sides Constipation Related to narcotic use CVA (cerebral vascular accident) residual right sided weakness, memory loss and occasional difficulty speaking GERD (gastroesophageal reflux disease) H/O: HTN (hypertension) Hepatitis C History of angina History of heart attack 2009 and 2018. History of kidney stones History of pneumonia Hypercholesteremia Osteomyelitis Tobacco abuse Surgical History Surgical History History of AAA (abdominal aortic aneurysm) repair Intra vascular repair 3 years ago at [facility] History of elbow surgery lt. History of lithotripsy History of tonsillectomy Hx of cardiac cath Hx of heart artery stent >5. Status post femorofemoral bypass surgery Family History Family History Mother Family history of malignant neoplasm Acute myocardial infarction, Onset Age: 89 Father Acute myocardial infarction Sibling AAA (abdominal aortic aneurysm) Other Asthma Cerebrovascular accident History of blood clots Social History
--- NOTE | 2021-01-08 15:36 | PM.IMHP ---
H&P: HPI History of Present Illness Date/Time: 01/08/21 15:36 70 year old male elderly from NH history of CVA and recent feeding tube from [facility] 3 weeks ago. Pt had pulled this out and ED replaced a coude catheter to keep orifice open. GI consulted considering PEG tube placement for patient The patient has history of multiple TIAs and CVAs. And is presently in a NH. Pt has history of peripheral vascular disease, CVA, TEVAR of his AAA and thrombectomy and Fem fem graft repair. Pt is a poor historian complains of chronic pain in his legs and sides. Chief Complaint: Pulled out his feeding tube Review of Systems Review of Systems: All systems reviewed & are unremarkable except as noted in HPI and below PMFSH Past Medical History Medical History AAA (abdominal aortic aneurysm) History of ruptured AAA with intravascular repair CAD (coronary artery disease) <4 METs, last stent in 2018 Carotid stenosis MADDIE. - 100% occlusion both sides Constipation Related to narcotic use CVA (cerebral vascular accident) residual right sided weakness, memory loss and occasional difficulty speaking GERD (gastroesophageal reflux disease) H/O: HTN (hypertension) Hepatitis C History of angina History of heart attack 2009 and 2018. History of kidney stones History of pneumonia Hypercholesteremia Osteomyelitis Tobacco abuse Surgical History Surgical History History of AAA (abdominal aortic aneurysm) repair Intra vascular repair 3 years ago at [facility] History of elbow surgery lt. History of lithotripsy History of tonsillectomy Hx of cardiac cath Hx of heart artery stent >5. Status post femorofemoral bypass surgery Family History Family History Mother Family history of malignant neoplasm Acute myocardial infarction, Onset Age: 89 Father Acute myocardial infarction Sibling AAA (abdominal aortic aneurysm) Other Asthma Cerebrovascular accident History of blood clots Social History Social History Social History: The patient lives home alone. However he does have a significant other. The patient tells me that he would like to be a full code but would not like to live in a vegetative state. The patient has 2 children. The patient stated that his 2 children are the durable power estate attorney for healthcare. The patient continues to smoke a pack cigarettes a day. He denies any alcohol marijuana or illicit drugs. He is retired from [employer] and [employer]. Smoking packs per day: 1 Smoking cigarettes per day: 20.0 Years smoked: 50 Smoking pack-years: 50.00 Smoking status: Current every day smoker Second hand tobacco smoke exposure: Yes Alcohol intake: unknown Substance use: never Substance use type: does not use Gender identity (if verbalized by the patient): Male Spiritual care concerns: No Agree to blood products: No Meds Home Medications and Allergies Home Medications Medication Instructions Recorded Confirmed Type Movantik 25 mg PO DAILY 05/01/19 01/08/21 History albuterol sulfate [ProAir HFA] 2 inh INHALATION PRN PRN 05/01/19 01/08/21 History finasteride 5 mg tablet 5 mg PO QAM 30 Days #30 tablet 05/14/20 01/08/21 Rx carvedilol 25 mg PO BID 06/22/20 01/08/21 History pantoprazole 40 mg tablet,delayed 40 mg PO DAILY #90 tablet 07/30/20 01/08/21 Rx release acidophilus-pectin, citrus 1 cap PO BID 01/08/21 01/08/21 History [Acidophilus Probiotic] alprazolam 25 mg PO HS PRN 01/08/21 01/08/21 History amlodipine 10 mg PO DAILY 01/08/21 01/08/21 History apixaban [Eliquis] 5 mg PO BID 01/08/21 01/08/21 History aspirin 81 mg PO DAILY 01/08/21 01/08/21 History folic acid 1 mg PO DAILY 01/08/21 01/08/21 History ondansetron 4 mg PO Q8H PRN 01/08/21 01/08/21
--- NOTE | 2021-01-08 17:09 | WPDANESEPP ---
Anes - Eval Pre Procedure Procedure: Operation Date: 01/09/21 13:30 Proposed Procedures p Percutaneous Endoscopic Gastrostomy - Salty Castellanos MD Date/Time: 01/08/21 17:09 Pre Op Diagnosis: g tube malfunction Patient Data Age: 70 Gender: M Height: 2.01 m Weight: 89.5 kg Last Vital Signs Temp 97.7 F 01/08/21 14:00 Pulse 81 01/08/21 14:00 Resp 20 01/08/21 14:00 BP 141/84 H 01/08/21 14:00 Pulse Ox 94 01/08/21 14:00 Allergies Allergy/AdvReac Type Severity Reaction Status Date / Time No Known Allergies Allergy Verified 12/11/20 05:02 Home Medications Medication Instructions Recorded Confirmed Type Movantik 25 mg PO DAILY 05/01/19 01/08/21 History albuterol sulfate [ProAir HFA] 2 inh INHALATION PRN PRN 05/01/19 01/08/21 History finasteride 5 mg tablet 5 mg PO QAM 30 Days #30 tablet 05/14/20 01/08/21 Rx carvedilol 25 mg PO BID 06/22/20 01/08/21 History pantoprazole 40 mg tablet,delayed 40 mg PO DAILY #90 tablet 07/30/20 01/08/21 Rx release acidophilus-pectin, citrus 1 cap PO BID 01/08/21 01/08/21 History [Acidophilus Probiotic] alprazolam 25 mg PO HS PRN 01/08/21 01/08/21 History amlodipine 10 mg PO DAILY 01/08/21 01/08/21 History apixaban [Eliquis] 5 mg PO BID 01/08/21 01/08/21 History aspirin 81 mg PO DAILY 01/08/21 01/08/21 History folic acid 1 mg PO DAILY 01/08/21 01/08/21 History ondansetron 4 mg PO Q8H PRN 01/08/21 01/08/21 History oxycodone-acetaminophen [Percocet] 1 tablet PO Q6H 01/08/21 01/08/21 History rosuvastatin 10 mg PO HS 01/08/21 01/08/21 History terazosin 5 mg PO HS 01/08/21 01/08/21 History Laboratory Tests 11/12/1901/08/21 01/08/21 03:36 03:36 03:55 WBC 5.0 K/mm3 K/mm3 (4.5-10.0) RBC 3.46 M/mm3 L M/mm3 (4.6-6.20) Hgb 9.6 g/dL L g/dL (14.0-18.0) Hct 30.8 % L % (42.0-52.0) MCV 89.0 fl fl (80-100) MCH 27.7 pg pg (26-34) MCHC 31.2 g/dl L g/dl (32-36) RDW 15.1 % H % (11.5-14.5) Plt Count 218 k/mm3 k/mm3 (150-375) MPV 8.9 fl fl (7.4-10.4) Immature Gran % (Auto) 0.2 % % (0-0.5) Neut % (Auto) 75.4 % H % (45.5-73.1) Lymph % (Auto) 13.4 % L % (18.3-44.2) [place] % (Auto) 6.2 % % (2.6-8.5) Eos % (Auto) 4.4 % % (0-4.4) Baso % (Auto) 0.4 % % (0.2-1.2) Lymph # (Auto) 0.67 K/mm3 L K/mm3 (0.9-3.2) [place] # (Auto) 0.3 K/mm3 K/mm3 (0.1-0.6) Eos # (Auto) 0.2 K/mm3 K/mm3 (0-0.3) Baso # (Auto) 0.0 K/mm3 K/mm3 (0.0-0.1) Abs Immat Gran (auto) 0.01 K/mm3 K/mm3 (0.00-0.031) Absolute Neuts (auto) 3.8 K/mm3 K/mm3 (1.3-6.7) Absolute Nucleated RBC 0.0 K/mm3 K/mm3 (0.0-0.012) Nucleated RBC % 0.0 % % (0.0-0.2) Sodium 136 mmol/L L mmol/L (137-145) Potassium 3.7 mmol/L mmol/L (3.4-5.0) Chloride 103 mmol/L mmol/L (98-107) Carbon Dioxide 27 mmol/L mmol/L (22-30) Anion Gap 6 mmol/L L mmol/L (8-16) BUN 19 mg/dL D mg/dL (9-20) Creatinine 1.10 mg/dL mg/dL (0.7-1.3) Estim Creat Clear Calc 71 ml/min ml/min Estimated GFR > 60 (59 - ) Glucose 105 mg/dL mg/dL (65-110) Lactic Acid 0.5 mmol/L L mmol/L (0.7-2.1) Calcium 8.0 mg/dL L mg/dL (8.4-10.2) Total Bilirubin 0.2 mg/dL mg/dL (0.2-1.3) AST 17 U/L U/L (17-59) ALT 10 U/L U/L (4-50) Alkaline Phosphatase 89 U/L U/L (38-126) Total Protein 6.0 g/dL L g/dL (6.3-8.2) Albumin 2.9 g/dL L g/dL (3.5-5.1) Urine Color Urine Appearance Urine pH Ur Specific [place] Urine Protein Urine Glucose (UA) Urine Ketones Ur Blood (Man) Urine Nitrate Urine Bilirubin
[2021-01-08] MEDS: ROSUVASTATIN 10 MG TABLET PO (21:50)
[2021-01-08] MEDS: TERAZOSIN HCL 5 MG CAPSULE PO (21:50)
[2021-01-08] MEDS: carvediloL 25 MG TABLET PO (21:51)
[2021-01-09] VITALS (13 sets, daily range): BP systolic 148–170; BP diastolic 56–98; PULSE 74–86; RESP 16–35; TEMP 36.3–38.4; O2SAT 91–100; BMI 22.2
[2021-01-09] MEDS: oxyCODONE/ACETAMINOPHEN (*CRX) 5-325 MG TABLET 1 TABLET PO ×3 (05:46→23:36)
--- NOTE | 2021-01-09 08:38 | WPDANESEPPF ---
Anes - Initial Pre Proc Eval Procedure: Operation Date: 01/09/21 13:30 Proposed Procedures p Percutaneous Endoscopic Gastrostomy - Salty Castellanos MD Date/Time: 01/09/21 08:38 Surgeon: Sandra Buckner MD Pre Op Diagnosis: g tube malfunction Patient Data Age: 70 Gender: M Height: 2.01 m Weight: 89.5 kg Last Vital Signs Temp 36.3 C L 01/09/21 06:00 Pulse 85 01/09/21 06:00 Resp 16 01/09/21 06:00 BP 170/71 H 01/09/21 06:00 Pulse Ox 92 01/09/21 06:00 Allergies Allergy/AdvReac Type Severity Reaction Status Date / Time No Known Allergies Allergy Verified 01/09/21 13:31 Home Medications Medication Instructions Recorded Confirmed Type Movantik 25 mg PO DAILY 05/01/19 01/08/21 History albuterol sulfate [ProAir HFA] 2 inh INHALATION PRN PRN 05/01/19 01/08/21 History finasteride 5 mg tablet 5 mg PO QAM 30 Days #30 tablet 05/14/20 01/08/21 Rx carvedilol 25 mg PO BID 06/22/20 01/08/21 History pantoprazole 40 mg tablet,delayed 40 mg PO DAILY #90 tablet 07/30/20 01/08/21 Rx release acidophilus-pectin, citrus 1 cap PO BID 01/08/21 01/08/21 History [Acidophilus Probiotic] alprazolam 25 mg PO HS PRN 01/08/21 01/08/21 History amlodipine 10 mg PO DAILY 01/08/21 01/08/21 History apixaban [Eliquis] 5 mg PO BID 01/08/21 01/08/21 History aspirin 81 mg PO DAILY 01/08/21 01/08/21 History folic acid 1 mg PO DAILY 01/08/21 01/08/21 History ondansetron 4 mg PO Q8H PRN 01/08/21 01/08/21 History oxycodone-acetaminophen [Percocet] 1 tablet PO Q6H 01/08/21 01/08/21 History rosuvastatin 10 mg PO HS 01/08/21 01/08/21 History terazosin 5 mg PO HS 01/08/21 01/08/21 History Patient hx anesthesia problems: none Family hx anesthesia problems: none Results Review: All pre-operative results and documents have been reviewed as part of the pre-operative evaluation. [facility] Past Medical History Medical History AAA (abdominal aortic aneurysm) History of ruptured AAA with intravascular repair CAD (coronary artery disease) <4 METs, last stent in 2018 Carotid stenosis MADDIE. - 100% occlusion both sides Constipation Related to narcotic use CVA (cerebral vascular accident) residual right sided weakness, memory loss and occasional difficulty speaking GERD (gastroesophageal reflux disease) H/O: HTN (hypertension) Hepatitis C History of angina History of heart attack 2009 and 2018. History of kidney stones History of pneumonia Hypercholesteremia Osteomyelitis Tobacco abuse Surgical History Surgical History History of AAA (abdominal aortic aneurysm) repair Intra vascular repair 3 years ago at [facility] History of elbow surgery lt. History of lithotripsy History of tonsillectomy Hx of cardiac cath Hx of heart artery stent >5. Status post femorofemoral bypass surgery Family History Family History Mother Family history of malignant neoplasm Acute myocardial infarction, Onset Age: 89 Father Acute myocardial infarction Sibling AAA (abdominal aortic aneurysm) Other Asthma Cerebrovascular accident History of blood clots Social History Social History Social History: The patient lives home alone. However he does have a significant other. The patient tells me that he would like to be a full code but would not like to live in a vegetative state. The patient has 2 children. The patient stated that his 2 children are the durable power workers compensation attorney for healthcare. The patient continues to smoke a pack cigarettes a day. He denies any alcohol marijuana or illicit drugs. He is retired from [employer] and [employer]. Smoking packs per day: 1 Smoking cigarettes per day: 20.0 Years smoked: 50 Smoking pack-years: 50.00 Smoking status: Current every day smoker Second hand to
[2021-01-09 08:45] LABS: Hematocrit 28.5 % (42.0-52.0); Hemoglobin 8.6 g/dL (14.0-18.0); Mean Corpuscular HGB Conc 30.2 g/dl (32-36); Mean Corpuscular Hemoglobin 26.9 pg (26-34); Mean Corpuscular Volume 89.1 fl (80-100); Mean Platelet Volume 8.6 fl (7.4-10.4); Platelet Count Result 191 k/mm3 (150-375); Red Cell Distribution Width 14.9 % (11.5-14.5); White Blood Count 4.9 K/mm3 (4.5-10.0)
[2021-01-09 08:56] LABS: INR 1.7; Prothrombin Time 19.5 Seconds (11.1-14.7)
[2021-01-09 09:07] LABS: Anion Gap 9 mmol/L (8-16); Blood Urea Nitrogen 20 mg/dL (9-20); Calcium 7.7 mg/dL (8.4-10.2); Carbon Dioxide 25 mmol/L (22-30); Chloride 103 mmol/L (98-107); Estimated CRCL calculation 63 ml/min; Estimated Glomerular Filt Rate 60; Glucose 76 mg/dL (65-110); Potassium 4.2 mmol/L (3.4-5.0); Sodium 137 mmol/L (137-145)
[2021-01-09] MEDS: carvediloL 25 MG TABLET PO ×2 (10:32→21:05)
[2021-01-09] MEDS: PANTOPRAZOLE 40 MG TABLET PO (10:32)
[2021-01-09] MEDS: FOLIC ACID 1 MG TABLET PO (10:32)
[2021-01-09] MEDS: amLODIPine BESYLATE 5 MG TABLET 10 MG PO (10:32)
[2021-01-09] MEDS: FINASTERIDE 5 MG TABLET PO (10:33)
[2021-01-09] MEDS: LACTATED RINGERS 1,000 ML 75 ML IV CONT (13:42)
--- NOTE | 2021-01-09 15:04 | SUR.PHASEII ---
pt felt warm to touch in postop. temp 101.2, dr camara aware, asked that hospitalist be notified when pt is back to the floor. preop antibiotic was ordered but pt has not received. report called to alejandrina on unit and made aware.
--- NOTE | 2021-01-09 16:03 | PM.IMPN ---
Progress Note: A&P Assessment and Plan (1) Cerebrovascular accident: Code(s): I63.9 - Cerebral infarction, unspecified Status: Acute Assessment and Plan: Chronic history of CVA , Pt will need PT/OT ordered tomorrow after procedure 01/09/2021 interval history patient is 70-year-old male original fci pulled out his PEG, patient is a poor historian unable to provide detail history however patient is scheduled for PEG replacement later today, patient also has a lesion on the right upper eyebrow appears to be herpes zoster and is eyes is close, patient need to see an ruffling machine operator as soon as possible, I am not sure how long with the lesion is there, plan is to discharge patient tomorrow and have him follow-up with ruffling machine operator as soon as possible. (2) Malfunction of gastrostomy tube: Code(s): K94.23 - Gastrostomy malfunction Status: Acute Assessment and Plan: GI considering PEG tube placement Continue iv fluids for now, display department manager consulted after PEG placement for tube feeds Pt had coude cath placed in ED with IV abx coverage (3) Anemia: Code(s): D64.9 - Anemia, unspecified Status: Acute Assessment and Plan: Hb is 9 continue to monitor (4) Tobacco abuse: Code(s): Z72.0 - Tobacco use Status: Acute Assessment and Plan: Pt continues to smoke adviced to quit (5) Chronic pain: Code(s): G89.29 - Other chronic pain Status: Acute Assessment and Plan: HISTORY OF PAD, CAD AND AAA Repair, chronic pain continue pts pain medications Subjective Date/time seen: 01/09/21 16:03 70 year old male elderly from MD history of CVA and recent feeding tube from [facility] 3 weeks ago. Pt had pulled this out and ED replaced a coude catheter to keep orifice open. GI consulted considering PEG tube placement for patient The patient has history of multiple TIAs and CVAs. And is presently in a NH. Pt has history of peripheral vascular disease, CVA, TEVAR of his AAA and thrombectomy and Fem fem graft repair. Pt is a poor historian complains of chronic pain in his legs and sides. Chief Complaint: Pulled out his feeding tube 01/09/2021 interval history patient is 70-year-old male original fci pulled out his PEG, patient is a poor historian unable to provide detail history however patient is scheduled for PEG replacement later today, patient also has a lesion on the right upper eyebrow appears to be herpes zoster and is eyes is close, patient need to see an ruffling machine operator as soon as possible, I am not sure how long with the lesion is there, plan is to discharge patient tomorrow and have him follow-up with ruffling machine operator as soon as possible. Review of Systems Review of Systems: All systems reviewed & are unremarkable except as noted in HPI and below Exam Narrative: elderly frail Patient is comfortable, NAD HEENT: right forehead possible herpes just and right eye is closed patient clear drainage, sclerae appears hemorrhagic LUNGS:CTA HEART: RR S1S2 ABD: BS+, Soft and nontender Lower extremities: no edema SKIN: nonjaundiced Neuro: grossly intact. Objective Data Vital Signs Vital Signs: Vital Signs - 24 hr 01/08/21 20:00 01/08/21 21:51 01/09/21 06:00 Temperature 97.3 F L 97.4 F L Pulse Rate 76 75 85 Respiratory Rate 16 16 Blood Pressure 137/66 170/71 H Pulse Oximetry 94 92 01/09/21 09:24 01/09/21 13:35 01/09/21 14:40 Temperature 97.8 F Pulse Rate 84 85 Respiratory Rate 20 27 H Blood Pressure 156/74 H 163/80 H Pulse Oximetry 91 94 100 01/09/21 14:50 01/09/21 15:00 01/09/21 15:10 Temperature 101.2 F H Pulse Rate 85 85 86 Respiratory Rate 30 H 35 H 35 H Blood Pressure 152/84 H 156/98 H 152/84 H Pulse Oximetry 97 92 92 Intake/Output Intake/Output: Intake & Output 01/06/21 01/07/21 01/08/21 01/09/21 23:59 23:59 23:59 23:59 Intake Total 0 100 Output Total 600 Balance 0 -500 Meds/Results
[2021-01-09] MEDS: ACETAMINOPHEN 325 MG TABLET 650 MG PO ×2 (16:13→21:06)
[2021-01-09] MEDS: TERAZOSIN HCL 5 MG CAPSULE PO (21:06)
[2021-01-09] MEDS: ROSUVASTATIN 10 MG TABLET PO (21:06)
[2021-01-10] VITALS (7 sets, daily range): BP systolic 139–146; BP diastolic 71–78; PULSE 74–85; RESP 18–22; TEMP 37.1–38.5; O2SAT 90–94
[2021-01-10] MEDS: oxyCODONE/ACETAMINOPHEN (*CRX) 5-325 MG TABLET 1 TABLET PO ×4 (05:12→23:52)
[2021-01-10] MEDS: IBUPROFEN 400 MG TABLET 800 MG PO (06:12)
--- NOTE | 2021-01-10 07:33 | PCNSR ---
On 01/10/21, the student,Emily Dunne, provided care and completed [facility] documentation on this patient. I have reviewed the student's documentation and agree with the findings.
[2021-01-10] MEDS: FINASTERIDE 5 MG TABLET PO (08:20)
[2021-01-10] MEDS: amLODIPine BESYLATE 5 MG TABLET 10 MG PO (08:20)
[2021-01-10] MEDS: carvediloL 25 MG TABLET PO ×2 (08:20→20:38)
[2021-01-10] MEDS: PANTOPRAZOLE 40 MG TABLET PO (08:20)
[2021-01-10] MEDS: FOLIC ACID 1 MG TABLET PO (08:20)
--- NOTE | 2021-01-10 11:13 | PCNFU ---
Nutrition Follow-Up Complete: Inadequate oral intake related to g-tube malfunction as evidenced by NPO diet order. Goal: Patient to meet estimated nutritional needs. Patient is progressing towards goal. We will continue current goal. Pt current nutrition is Regular diet with supplemental tube feedings of Nepro at 70 ml/hr for 10 hours daily (8pm-6am) Last recorded weight is 89.5 kg, no new weight to report. Bowel Motility:No BM reported. Labs Reviewed:Hct 28.5,Hgb 8.6 Meds Noted:Coreg, Protonix, Percocet, Crestor, Folic Acid, Hytrin Skin:WNL Additional Notes: Nutrition follow up. Patient had G-tube replacement on 01/09. Spoke with nurse and MD today, plans for diet order advancement of regular diet and supplement tube feedings of Nepro at 70 ml/hr providing an additional 1260 kcals/57 gms protein/509 ml water-meeting 70% of caloric needs. Free water flush 50 ml q 4 hours. Monitoring: patient's labs, medications, weight and oral intake every T/F.
--- NOTE | 2021-01-10 13:20 | PM.IMPN ---
Progress Note: A&P Assessment and Plan (1) Cerebrovascular accident: Code(s): I63.9 - Cerebral infarction, unspecified Status: Acute Assessment and Plan: Chronic history of CVA , Pt will need PT/OT ordered tomorrow after procedure 01/09/2021 interval history patient is 70-year-old male original fci pulled out his PEG, patient is a poor historian unable to provide detail history however patient is scheduled for PEG replacement later today, patient also has a lesion on the right upper eyebrow appears to be herpes zoster and is eyes is close, patient need to see an voice systems engineer as soon as possible, I am not sure how long with the lesion is there, plan is to discharge patient tomorrow and have him follow-up with voice systems engineer as soon as possible. 01/10/2021 interval history Patient remains clinically stable has no new complaint discussed with dietitian will resume G-tube feeding and increase patient to take oral intake, the right forehead the lesion appears to be herpes zoster will start the patient on acyclovir, will continue to monitor and further recommendation to follow. again patient is to be seen by voice systems engineer as soon as possible (2) Malfunction of gastrostomy tube: Code(s): K94.23 - Gastrostomy malfunction Status: Acute Assessment and Plan: GI considering PEG tube placement Continue iv fluids for now, natural fabricator consulted after PEG placement for tube feeds Pt had coude cath placed in ED with IV abx coverage (3) Anemia: Code(s): D64.9 - Anemia, unspecified Status: Acute Assessment and Plan: Hb is 9 continue to monitor (4) Tobacco abuse: Code(s): Z72.0 - Tobacco use Status: Acute Assessment and Plan: Pt continues to smoke adviced to quit (5) Chronic pain: Code(s): G89.29 - Other chronic pain Status: Acute Assessment and Plan: HISTORY OF PAD, CAD AND AAA Repair, chronic pain continue pts pain medications Subjective Date/time seen: 01/10/21 13:20 01/09/2021 interval history patient is 70-year-old male original fci pulled out his PEG, patient is a poor historian unable to provide detail history however patient is scheduled for PEG replacement later today, patient also has a lesion on the right upper eyebrow appears to be herpes zoster and is eyes is close, patient need to see an voice systems engineer as soon as possible, I am not sure how long with the lesion is there, plan is to discharge patient tomorrow and have him follow-up with voice systems engineer as soon as possible. 01/10/2021 interval history Patient remains clinically stable has no new complaint discussed with dietitian will resume G-tube feeding and increase patient to take oral intake, the right forehead the lesion appears to be herpes zoster will start the patient on acyclovir, will continue to monitor and further recommendation to follow. again patient is to be seen by voice systems engineer as soon as possible Review of Systems Review of Systems: All systems reviewed & are unremarkable except as noted in HPI and below Exam Narrative: elderly frail Patient is comfortable, NAD HEENT: right forehead possible herpes just and right eye is closed patient clear drainage, sclerae appears hemorrhagic LUNGS:CTA HEART: RR S1S2 ABD: BS+, Soft and nontender Lower extremities: no edema SKIN: nonjaundiced Neuro: grossly intact. Objective Data Vital Signs Vital Signs: Vital Signs - 24 hr 01/09/21 13:35 01/09/21 14:40 01/09/21 14:50 Temperature 97.8 F 101.2 F H Pulse Rate 84 85 85 Respiratory Rate 20 27 H 30 H Blood Pressure 156/74 H 163/80 H 152/84 H Pulse Oximetry 94 100 97 01/09/21 15:00 01/09/21 15:10 01/09/21 16:06 Temperature 100.8 F H Pulse Rate 85 86 81 Respiratory Rate 35 H 35 H 18 Blood Pressure 156/98 H 152/84 H 148/67 H Pulse Oximetry 92 92 92 01/09/21 16:13 01/09/21 17:10 01/09/21 20:00 Temperature 100.8 F H 9
[2021-01-10] MEDS: ACYCLOVIR 400 MG TABLET 800 MG PO ×4 (13:34→20:37)
--- NOTE | 2021-01-10 14:54 | PCOTNOTE ---
Began evaluation, pt. BP to low for participation. Pt. poor historian. Followed up on phone with pt.'s son for PLOF, history, and baseline. Spoke with Dr. Ramirez and nurse regarding updates. Pt. will be held today for therapy until condition improves.
[2021-01-10] MEDS: ROSUVASTATIN 10 MG TABLET PO (20:38)
[2021-01-10] MEDS: TERAZOSIN HCL 5 MG CAPSULE PO (20:39)
[2021-01-10] MEDS: ACETAMINOPHEN 325 MG TABLET 650 MG PO (20:42)
[2021-01-11] VITALS (7 sets, daily range): BP systolic 104–156; BP diastolic 58–68; PULSE 70–79; RESP 18–22; TEMP 37.3–37.9; O2SAT 94–98
[2021-01-11] MEDS: oxyCODONE/ACETAMINOPHEN (*CRX) 5-325 MG TABLET 1 TABLET PO ×4 (05:26→23:35)
[2021-01-11 06:17] LABS: Glucose Point of Care 144 mg/dl (65-105)
[2021-01-11 07:02] LABS: Anion Gap 6 mmol/L (8-16); Blood Urea Nitrogen 32 mg/dL (9-20); Calcium 7.7 mg/dL (8.4-10.2); Carbon Dioxide 28 mmol/L (22-30); Chloride 103 mmol/L (98-107); Estimated CRCL calculation 51 ml/min; Estimated Glomerular Filt Rate 46; Glucose 144 mg/dL (65-110); Magnesium 2.1 mg/dL (1.6-2.3); Potassium 3.7 mmol/L (3.4-5.0); Sodium 137 mmol/L (137-145)
[2021-01-11] MEDS: PANTOPRAZOLE 40 MG TABLET PO (08:37)
[2021-01-11] MEDS: amLODIPine BESYLATE 5 MG TABLET 10 MG PO (08:37)
[2021-01-11] MEDS: FINASTERIDE 5 MG TABLET PO (08:37)
[2021-01-11] MEDS: FOLIC ACID 1 MG TABLET PO (08:37)
[2021-01-11] MEDS: ACYCLOVIR 400 MG TABLET 800 MG PO ×5 (08:37→19:59)
[2021-01-11] MEDS: carvediloL 25 MG TABLET PO ×2 (08:37→19:59)
--- NOTE | 2021-01-11 08:57 | PCOTNOTE ---
OT evaluation attempted. Pt unable to follow 1-step commands, disoriented to time and person. Reported dizziness. Will follow-up in PM.
--- NOTE | 2021-01-11 11:52 | PM.IMPN ---
Progress Note: A&P Assessment and Plan (1) Cerebrovascular accident: Code(s): I63.9 - Cerebral infarction, unspecified Status: Acute Assessment and Plan: Chronic history of CVA , Pt will need PT/OT ordered tomorrow after procedure 01/09/2021 interval history patient is 70-year-old male [facility] pulled out his PEG, patient is a poor historian unable to provide detail history however patient is scheduled for PEG replacement later today, patient also has a lesion on the right upper eyebrow appears to be herpes zoster and is eyes is close, patient need to see an director of social media marketing as soon as possible, I am not sure how long with the lesion is there, plan is to discharge patient tomorrow and have him follow-up with director of social media marketing as soon as possible. 01/10/2021 interval history Patient remains clinically stable has no new complaint discussed with dietitian will resume G-tube feeding and increase patient to take oral intake, the right forehead the lesion appears to be herpes zoster will start the patient on acyclovir, will continue to monitor and further recommendation to follow. again patient is to be seen by director of social media marketing as soon as possible. 01/11/2021 interval history Patient remains clinically stable still confused unable to provide any review of symptoms or history, patient now has a blister bellow left eye with clear fluid no erythema or drainage, patient has shingles along the right latter day area started the patient on acyclovir, we have resumed patient's tube feeding and encourage oral intake, will continue to encourage the patient to work with physical therapist (2) Malfunction of gastrostomy tube: Code(s): K94.23 - Gastrostomy malfunction Status: Acute Assessment and Plan: GI considering PEG tube placement Continue iv fluids for now, senior mechanical technician consulted after PEG placement for tube feeds Pt had coude cath placed in ED with IV abx coverage (3) Anemia: Code(s): D64.9 - Anemia, unspecified Status: Acute Assessment and Plan: Hb is 9 continue to monitor (4) Tobacco abuse: Code(s): Z72.0 - Tobacco use Status: Acute Assessment and Plan: Pt continues to smoke adviced to quit (5) Chronic pain: Code(s): G89.29 - Other chronic pain Status: Acute Assessment and Plan: HISTORY OF PAD, CAD AND AAA Repair, chronic pain continue pts pain medications Subjective Date/time seen: 01/11/21 11:52 Chronic history of CVA , Pt will need PT/OT ordered tomorrow after procedure 01/09/2021 interval history patient is 70-year-old male [facility] pulled out his PEG, patient is a poor historian unable to provide detail history however patient is scheduled for PEG replacement later today, patient also has a lesion on the right upper eyebrow appears to be herpes zoster and is eyes is close, patient need to see an director of social media marketing as soon as possible, I am not sure how long with the lesion is there, plan is to discharge patient tomorrow and have him follow-up with director of social media marketing as soon as possible. 01/10/2021 interval history Patient remains clinically stable has no new complaint discussed with dietitian will resume G-tube feeding and increase patient to take oral intake, the right forehead the lesion appears to be herpes zoster will start the patient on acyclovir, will continue to monitor and further recommendation to follow. again patient is to be seen by director of social media marketing as soon as possible. 01/11/2021 interval history Patient remains clinically stable still confused unable to provide any review of symptoms or history, patient now has a blister bellow left eye with clear fluid no erythema or drainage, patient has shingles along the right latter day area started the patient on acyclovir, we have resumed patient's tube feeding and encourage oral intake, will continue to encourage the patient to work with physical therapist Review of Sy
[2021-01-11] MEDS: TERAZOSIN HCL 5 MG CAPSULE PO (20:00)
[2021-01-11] MEDS: ROSUVASTATIN 10 MG TABLET PO (20:00)
[2021-01-11] MEDS: ALPRAZolam (*CRX) 0.25 MG TABLET PO (23:34)
[2021-01-12] VITALS (8 sets, daily range): BP systolic 134–141; BP diastolic 63–64; PULSE 70–81; RESP 16–24; TEMP 36.4–37; O2SAT 92–95
[2021-01-12] MEDS: oxyCODONE/ACETAMINOPHEN (*CRX) 5-325 MG TABLET 1 TABLET PO ×4 (05:52→23:51)
[2021-01-12 07:13] LABS: Anion Gap 9 mmol/L (8-16); Blood Urea Nitrogen 30 mg/dL (9-20); Carbon Dioxide 27 mmol/L (22-30); Chloride 102 mmol/L (98-107); Estimated CRCL calculation 51 ml/min; Estimated Glomerular Filt Rate 46; Glucose 128 mg/dL (65-110); Magnesium 2.1 mg/dL (1.6-2.3); Potassium 3.5 mmol/L (3.4-5.0); Sodium 138 mmol/L (137-145)
[2021-01-12] MEDS: ACYCLOVIR 400 MG TABLET 800 MG PO ×5 (08:24→21:22)
[2021-01-12] MEDS: FOLIC ACID 1 MG TABLET PO (08:24)
[2021-01-12] MEDS: FINASTERIDE 5 MG TABLET PO (08:24)
[2021-01-12] MEDS: amLODIPine BESYLATE 5 MG TABLET 10 MG PO (08:24)
[2021-01-12] MEDS: carvediloL 25 MG TABLET PO ×2 (08:24→21:22)
[2021-01-12] MEDS: PANTOPRAZOLE 40 MG TABLET PO (08:25)
[2021-01-12] MEDS: FUROSEMIDE INJ 40 MG/4 ML VIAL 20 MG IV PUSH (11:45)
--- NOTE | 2021-01-12 12:06 | PM.IMPN ---
Progress Note: A&P Assessment and Plan (1) Cerebrovascular accident: Code(s): I63.9 - Cerebral infarction, unspecified Status: Acute Assessment and Plan: Chronic history of CVA , Pt will need PT/OT ordered tomorrow after procedure 01/09/2021 interval history patient is 70-year-old male original [facility] pulled out his PEG, patient is a poor historian unable to provide detail history however patient is scheduled for PEG replacement later today, patient also has a lesion on the right upper eyebrow appears to be herpes zoster and is eyes is close, patient need to see an orthophotography technician as soon as possible, I am not sure how long with the lesion is there, plan is to discharge patient tomorrow and have him follow-up with orthophotography technician as soon as possible. 01/10/2021 interval history Patient remains clinically stable has no new complaint discussed with dietitian will resume G-tube feeding and increase patient to take oral intake, the right forehead the lesion appears to be herpes zoster will start the patient on acyclovir, will continue to monitor and further recommendation to follow. again patient is to be seen by orthophotography technician as soon as possible. 01/11/2021 interval history Patient remains clinically stable still confused unable to provide any review of symptoms or history, patient now has a blister bellow left eye with clear fluid no erythema or drainage, patient has shingles along the right restorationist area started the patient on acyclovir, we have resumed patient's tube feeding and encourage oral intake, will continue to encourage the patient to work with physical therapist. 01/12/2021 interval history Patient remains clinically stable still confused unable to provide any review of symptoms or history, patient now has a blister bellow left eye with clear fluid no erythema or drainage, patient has shingles along the right restorationist area started the patient on acyclovir, we have resumed patient's tube feeding and encourage oral intake. today patient brother is here and was concerned about pneumonia patient was treated at the rehab, x-ray today did not show any infiltrates,will continue to monitor and further recommendation to follow, possibly discharge tomorrow (2) Malfunction of gastrostomy tube: Code(s): K94.23 - Gastrostomy malfunction Status: Acute Assessment and Plan: GI considering PEG tube placement Continue iv fluids for now, talcer consulted after PEG placement for tube feeds Pt had coude cath placed in ED with IV abx coverage (3) Anemia: Code(s): D64.9 - Anemia, unspecified Status: Acute Assessment and Plan: Hb is 9 continue to monitor (4) Tobacco abuse: Code(s): Z72.0 - Tobacco use Status: Acute Assessment and Plan: Pt continues to smoke adviced to quit (5) Chronic pain: Code(s): G89.29 - Other chronic pain Status: Acute Assessment and Plan: HISTORY OF PAD, CAD AND AAA Repair, chronic pain continue pts pain medications Subjective Date/time seen: 01/12/21 12:06 Chronic history of CVA , Pt will need PT/OT ordered tomorrow after procedure 01/09/2021 interval history patient is 70-year-old male original [facility] pulled out his PEG, patient is a poor historian unable to provide detail history however patient is scheduled for PEG replacement later today, patient also has a lesion on the right upper eyebrow appears to be herpes zoster and is eyes is close, patient need to see an orthophotography technician as soon as possible, I am not sure how long with the lesion is there, plan is to discharge patient tomorrow and have him follow-up with orthophotography technician as soon as possible. 01/10/2021 interval history Patient remains clinically stable has no new complaint discussed with dietitian will resume G-tube feeding and increase patient to take oral intake, the right forehead the lesion appears to be herpes zoster will start the patient on acyc
--- NOTE | 2021-01-12 15:56 | PCOTNOTE ---
OT evaluation attempted this date with patient refusing evaluation. Will followup tomorrow.
--- NOTE | 2021-01-12 16:48 | PCOTNOTE ---
Pt attempted to be seen for OT evaluation follow-up at 15:45. [facility] refusal to participate in evaluation from pt at this time. Will attempt evaluation tomorrow.
[2021-01-12] MEDS: ROSUVASTATIN 10 MG TABLET PO (21:22)
[2021-01-12] MEDS: TERAZOSIN HCL 5 MG CAPSULE PO (21:22)
[2021-01-12] MEDS: ALPRAZolam (*CRX) 0.25 MG TABLET PO (23:51)
[2021-01-13] VITALS (14 sets, daily range): BP systolic 114–155; BP diastolic 58–76; PULSE 60–81; RESP 16–30; TEMP 36.6–37.2; O2SAT 85–96
[2021-01-13 06:09] LABS: Anion Gap 7 mmol/L (8-16); Blood Urea Nitrogen 30 mg/dL (9-20); Calcium 7.7 mg/dL (8.4-10.2); Carbon Dioxide 30 mmol/L (22-30); Chloride 99 mmol/L (98-107); Estimated CRCL calculation 54 ml/min; Estimated Glomerular Filt Rate 50; Glucose 125 mg/dL (65-110); Magnesium 2.1 mg/dL (1.6-2.3); Potassium 3.5 mmol/L (3.4-5.0); Sodium 136 mmol/L (137-145)
[2021-01-13] MEDS: oxyCODONE/ACETAMINOPHEN (*CRX) 5-325 MG TABLET 1 TABLET PO ×4 (07:38→23:27)
--- NOTE | 2021-01-13 08:19 | PCOTNOTE ---
Despite education on benefits of participating with occupational therapy, patient reports not right now . Due to three days of consecutive refusals from Occupational therapy will discharged from services at this time. RN notified.
[2021-01-13] MEDS: ALBUTEROL SULFATE (*SP) AEROSOL 1 PUFF 2 PUFF INHALATION (08:22)
[2021-01-13] MEDS: FUROSEMIDE INJ 40 MG/4 ML VIAL IV PUSH (08:48)
[2021-01-13] MEDS: carvediloL 25 MG TABLET PO ×2 (08:52→21:50)
[2021-01-13] MEDS: amLODIPine BESYLATE 5 MG TABLET 10 MG PO (08:53)
[2021-01-13] MEDS: ACYCLOVIR 400 MG TABLET 800 MG PO ×5 (08:53→21:48)
[2021-01-13] MEDS: FINASTERIDE 5 MG TABLET PO (08:53)
[2021-01-13] MEDS: PANTOPRAZOLE 40 MG TABLET PO (08:53)
[2021-01-13] MEDS: FOLIC ACID 1 MG TABLET PO (08:53)
--- NOTE | 2021-01-13 12:59 | PM.IMPN ---
Progress Note: A&P Assessment and Plan (1) Cerebrovascular accident: Code(s): I63.9 - Cerebral infarction, unspecified Status: Acute Assessment and Plan: Chronic history of CVA , Pt will need PT/OT ordered tomorrow after procedure 01/09/2021 interval history patient is 70-year-old male original [facility] pulled out his PEG, patient is a poor historian unable to provide detail history however patient is scheduled for PEG replacement later today, patient also has a lesion on the right upper eyebrow appears to be herpes zoster and is eyes is close, patient need to see an photographic enlarger operator as soon as possible, I am not sure how long with the lesion is there, plan is to discharge patient tomorrow and have him follow-up with photographic enlarger operator as soon as possible. 01/10/2021 interval history Patient remains clinically stable has no new complaint discussed with dietitian will resume G-tube feeding and increase patient to take oral intake, the right forehead the lesion appears to be herpes zoster will start the patient on acyclovir, will continue to monitor and further recommendation to follow. again patient is to be seen by photographic enlarger operator as soon as possible. 01/11/2021 interval history Patient remains clinically stable still confused unable to provide any review of symptoms or history, patient now has a blister bellow left eye with clear fluid no erythema or drainage, patient has shingles along the right caodaism area started the patient on acyclovir, we have resumed patient's tube feeding and encourage oral intake, will continue to encourage the patient to work with physical therapist. 01/12/2021 interval history Patient remains clinically stable still confused unable to provide any review of symptoms or history, patient now has a blister bellow left eye with clear fluid no erythema or drainage, patient has shingles along the right caodaism area started the patient on acyclovir, we have resumed patient's tube feeding and encourage oral intake. today patient brother is here and was concerned about pneumonia patient was treated at the rehab, x-ray today did not show any infiltrates,will continue to monitor and further recommendation to follow, possibly discharge tomorrow 01/13/2021 interval history Patient remains clinically stable still confused unable to provide any review of symptoms or history, patient now has a blister bellow left eye with clear fluid no erythema or drainage, patient has shingles along the right caodaism area started the patient on acyclovir, we have resumed patient's tube feeding and encourage oral intake. discussed with dietitian patient is not eating enough orally will increase feeding tube to 22 hours, patient remains somnolent today, will continue to monitor and further recommendation to follow (2) Malfunction of gastrostomy tube: Code(s): K94.23 - Gastrostomy malfunction Status: Acute Assessment and Plan: GI considering PEG tube placement Continue iv fluids for now, tug boat engineer consulted after PEG placement for tube feeds Pt had coude cath placed in ED with IV abx coverage (3) Anemia: Code(s): D64.9 - Anemia, unspecified Status: Acute Assessment and Plan: Hb is 9 continue to monitor (4) Tobacco abuse: Code(s): Z72.0 - Tobacco use Status: Acute Assessment and Plan: Pt continues to smoke adviced to quit (5) Chronic pain: Code(s): G89.29 - Other chronic pain Status: Acute Assessment and Plan: HISTORY OF PAD, CAD AND AAA Repair, chronic pain continue pts pain medications Subjective Date/time seen: 01/13/21 12:59 01/09/2021 interval history patient is 70-year-old male original [facility] pulled out his PEG, patient is a poor historian unable to provide detail history however patient is scheduled for PEG replacement later today, patient also has a lesion on the right upper eyebrow appears to be herpes zoster and is eyes is close,
--- NOTE | 2021-01-13 13:01 | PCDIET ---
Spoke with Dr Ramirez today regarding poor po intake of patient. MD orders for Nepro at 45 ml/hr for 22 hours and continue to allow patient to eat regular diet. Current tube feedings will provide patient with 1782 kcals/80 gms protein/[address] will reassess patient every Wednesday and Wednesday.
[2021-01-13] MEDS: ROSUVASTATIN 10 MG TABLET PO (21:50)
[2021-01-13] MEDS: TERAZOSIN HCL 5 MG CAPSULE PO (21:51)
[2021-01-13] MEDS: ACETAMINOPHEN 325 MG TABLET 650 MG PO (21:57)
[2021-01-14] VITALS (9 sets, daily range): BP systolic 111–136; BP diastolic 54–61; PULSE 63–71; RESP 16–24; TEMP 36.2–37.2; O2SAT 93–95
[2021-01-14] MEDS: oxyCODONE/ACETAMINOPHEN (*CRX) 5-325 MG TABLET 1 TABLET PO ×4 (05:01→23:42)
[2021-01-14 05:54] LABS: Hematocrit 27.2 % (42.0-52.0); Hemoglobin 8.3 g/dL (14.0-18.0); Mean Corpuscular HGB Conc 30.5 g/dl (32-36); Mean Corpuscular Hemoglobin 26.9 pg (26-34); Mean Corpuscular Volume 88.3 fl (80-100); Mean Platelet Volume 8.9 fl (7.4-10.4); Platelet Count Result 163 k/mm3 (150-375); Red Blood Count 3.08 M/mm3 (4.6-6.20); White Blood Count 4.9 K/mm3 (4.5-10.0)
[2021-01-14 06:15] LABS: Anion Gap 6 mmol/L (8-16); Blood Urea Nitrogen 31 mg/dL (9-20); Calcium 7.7 mg/dL (8.4-10.2); Carbon Dioxide 32 mmol/L (22-30); Chloride 97 mmol/L (98-107); Estimated CRCL calculation 54 ml/min; Estimated Glomerular Filt Rate 50; Glucose 121 mg/dL (65-110); Magnesium 1.9 mg/dL (1.6-2.3); Potassium 3.3 mmol/L (3.4-5.0); Sodium 135 mmol/L (137-145)
[2021-01-14] MEDS: FINASTERIDE 5 MG TABLET PO (08:03)
[2021-01-14] MEDS: FOLIC ACID 1 MG TABLET PO (08:03)
[2021-01-14] MEDS: amLODIPine BESYLATE 5 MG TABLET 10 MG PO (08:03)
[2021-01-14] MEDS: carvediloL 25 MG TABLET PO ×2 (08:03→21:14)
[2021-01-14] MEDS: PANTOPRAZOLE 40 MG TABLET PO (08:03)
[2021-01-14] MEDS: ACYCLOVIR 400 MG TABLET 800 MG PO ×5 (08:03→21:14)
[2021-01-14] MEDS: ONDANSETRON HCL ODT 4 MG TABLET PO (08:09)
--- NOTE | 2021-01-14 11:37 | PCNFU ---
Nutrition Follow-Up Complete: Inadequate oral intake related to g-tube malfunction as evidenced by NPO diet order. Goal: Patient to meet estimated nutritional needs. Patient will continue with current goal. Pt current nutrition is Nepro at 45 ml/hr over 22 hours. Last recorded weight is 89.5 kg, no new weight to report. Bowel Motility:No BM reported. Labs Reviewed:Glu 122, K 3.3,Na 135, GFR 50, Hct 27.2,Hgb 8.3 Meds Noted:Xanax, Norvasc, Coreg, Proscar, Folic Acid, Zofran, Percocet, Protonix, Crestor, Hytrin. Skin: WNL Additional Notes: Nutrition follow up. No PO intake reported. Per nursing, patient is reporting nausea and constipation. Tube feeding being tolerated at Nepro 45 ml/hr over 22 hours, providing 1782 kcals/80 gms protein/720 ml water. 50 ml water flush q 4 hours. Monitoring: patient's labs, medications, weight and oral intake every T/F.
--- NOTE | 2021-01-14 11:59 | PM.IMPN ---
Progress Note: A&P Assessment and Plan (1) Cerebrovascular accident: Code(s): I63.9 - Cerebral infarction, unspecified Status: Acute Assessment and Plan: Chronic history of CVA , Pt will need PT/OT ordered tomorrow after procedure 01/09/2021 interval history patient is 70-year-old male original [place] [facility] pulled [facility] his PEG, patient is a poor historian unable to provide detail history however patient is scheduled for PEG replacement later today, patient also has a lesion on the right upper eyebrow appears to be herpes zoster and is eyes is close, patient need to see an lunchroom operator as soon as possible, I am not sure how long with the lesion is there, plan is to discharge patient tomorrow and have him follow-up with lunchroom operator as soon as possible. 01/10/2021 interval history Patient remains clinically stable has no new complaint discussed with dietitian will resume G-tube feeding and increase patient to take oral intake, the right forehead the lesion appears to be herpes zoster will start the patient on acyclovir, will continue to monitor and further recommendation to follow. again patient is to be seen by lunchroom operator as soon as possible. 01/11/2021 interval history Patient remains clinically stable still confused unable to provide any review of symptoms or history, patient now has a blister bellow left eye with clear fluid no erythema or drainage, patient has shingles along the right presybeterian area started the patient on acyclovir, we have resumed patient's tube feeding and encourage oral intake, will continue to encourage the patient to work with physical therapist. 01/12/2021 interval history Patient remains clinically stable still confused unable to provide any review of symptoms or history, patient now has a blister bellow left eye with clear fluid no erythema or drainage, patient has shingles along the right presybeterian area started the patient on acyclovir, we have resumed patient's tube feeding and encourage oral intake. today patient brother is here and was concerned about pneumonia patient was treated at the rehab, x-ray today did not show any infiltrates,will continue to monitor and further recommendation to follow, possibly discharge tomorrow 01/13/2021 interval history Patient remains clinically stable still confused unable to provide any review of symptoms or history, patient now has a blister bellow left eye with clear fluid no erythema or drainage, patient has shingles along the right presybeterian area started the patient on acyclovir, we have resumed patient's tube feeding and encourage oral intake. discussed with dietitian patient is not eating enough orally will increase feeding tube to 22 hours, patient remains somnolent today, will continue to monitor and further recommendation to follow 01/14/2021 patient still quite confused. Per his brother is much better than when he came in. Will recheck his chest x-ray. Left upper extremity is swollen will check Doppler. Labs were reviewed vitals are stable he was diuresed yesterday with Lasix. Will check chest x-ray. Likely needs further diuresis constipated as well will start MiraLax and Colace with senna. Looks like he used to be on Movantik at home however is not on formulary here in the hospital. Currently Eliquis on hold. Chronic pain control with oxycodone as ordered. Continue on acyclovir for his herpes zoster. Planned to go [place] [facility] [place] he came from [facility] and we have where the family mentions went more downhill since admitted to the facility. Family requested the going to a different facility since then. He has also been more weaker since the admission and needs further rehabilitation with increased skilled needs (2) Malfunction of gastrostomy tube: Code(s): K94.23 - Gastrostomy malfunction Status: Acute Assessment and Plan: Accidental removal of G-tube. Patient had a catheter placed in the ED. GI was consulte
[2021-01-14] MEDS: polyethylene glycoL 3350 17 GM POWD.PACK PO (14:36)
[2021-01-14] MEDS: POTASSIUM CHLORIDE 20 MEQ TABLET 40 MEQ PO (15:51)
[2021-01-14] MEDS: FUROSEMIDE INJ 40 MG/4 ML VIAL IV PUSH (15:51)
[2021-01-14] MEDS: SENNA/DOCUSATE SODIUM TABLET 1 TAB PO (17:01)
[2021-01-14] MEDS: TERAZOSIN HCL 5 MG CAPSULE PO (21:14)
[2021-01-14] MEDS: ROSUVASTATIN 10 MG TABLET PO (21:14)
[2021-01-15] VITALS (8 sets, daily range): BP systolic 126–140; BP diastolic 63–66; PULSE 70–80; RESP 16–18; TEMP 36.1–36.9; O2SAT 93–96
[2021-01-15 05:39] LABS: Basophils Percent Auto 0.6 % (0.2-1.2); Eosinophils Absolute Auto 0.3 K/mm3 (0-0.3); Hemoglobin 8.5 g/dL (14.0-18.0); Immature Granulocyte Absolute 0.02 K/mm3 (0.00-0.031); Immature Granulocyte Percent A 0.4 % (0-0.5); Lymphocytes Percent Auto 18.7 % (18.3-44.2); Mean Corpuscular HGB Conc 30.4 g/dl (32-36); Mean Corpuscular Hemoglobin 27.4 pg (26-34); Mean Corpuscular Volume 90.3 fl (80-100); Mean Platelet Volume 9.2 fl (7.4-10.4); Monocytes Absolute Auto 0.3 K/mm3 (0.1-0.6); Monocytes Percent Auto 6.2 % (2.6-8.5); Neutrophils Absolute Auto 3.7 K/mm3 (1.3-6.7); Neutrophils Percent Auto 69.1 % (45.5-73.1); Platelet Count Result 163 k/mm3 (150-375); Red Cell Distribution Width 15.1 % (11.5-14.5); White Blood Count 5.4 K/mm3 (4.5-10.0)
[2021-01-15 05:51] LABS: Alanine Aminotransferase 15 U/L (4-50); Albumin Level 2.9 g/dL (3.5-5.1); Alkaline Phosphatase 88 U/L (38-126); Anion Gap 5 mmol/L (8-16); Aspartate Amino Transferase 23 U/L (17-59); Bilirubin,Total 0.2 mg/dL (0.2-1.3); Blood Urea Nitrogen 33 mg/dL (9-20); Calcium 7.8 mg/dL (8.4-10.2); Carbon Dioxide 34 mmol/L (22-30); Chloride 98 mmol/L (98-107); Estimated CRCL calculation 51 ml/min; Estimated Glomerular Filt Rate 46; Glucose 119 mg/dL (65-110); Phosphorus 3.6 mg/dL (2.5-4.5); Sodium 137 mmol/L (137-145)
[2021-01-15] MEDS: oxyCODONE/ACETAMINOPHEN (*CRX) 5-325 MG TABLET 1 TABLET PO ×3 (05:52→17:29)
[2021-01-15] MEDS: SENNA/DOCUSATE SODIUM TABLET 1 TAB PO ×2 (09:09→16:42)
[2021-01-15] MEDS: PANTOPRAZOLE 40 MG TABLET PO (09:10)
[2021-01-15] MEDS: carvediloL 25 MG TABLET PO ×2 (09:10→20:05)
[2021-01-15] MEDS: ACYCLOVIR 400 MG TABLET 800 MG PO ×5 (09:11→20:05)
[2021-01-15] MEDS: amLODIPine BESYLATE 5 MG TABLET 10 MG PO (09:12)
[2021-01-15] MEDS: FOLIC ACID 1 MG TABLET PO (09:12)
[2021-01-15] MEDS: FINASTERIDE 5 MG TABLET PO (09:12)
[2021-01-15] MEDS: polyethylene glycoL 3350 17 GM POWD.PACK PO (09:12)
[2021-01-15] MEDS: NEOMYCIN/POLYMYXIN/BACITRACIN OINTMENT 15 GM TUBE 1 APPLIC TOPICAL (11:03)
--- NOTE | 2021-01-15 11:03 | PCOTNOTE ---
Patient discharged from OT services due to attempted x3 days
--- NOTE | 2021-01-15 11:04 | PCOTNOTE ---
Patient discharged from OT services on 01/13/2021 due to declining therapy for 3 days consecutively. OT was re-ordered on 01/14/2021 and attempted on 01/15/2021, patient declined Occupational therapy. Will discharge from OT services at this time.
--- NOTE | 2021-01-15 15:45 | PM.DS ---
DS: Admitting Diagnosis Discharge Date 01/15/2021 Admitting Diagnosis dislodged PEG tube DS: Discharge Diagnosis Discharge Diagnosis (1) Cerebrovascular accident: Code(s): I63.9 - Cerebral infarction, unspecified Status: Acute Assessment and Plan: this is a 70-year-old male original [facility] who presents to the ER today after he pulled out his PEG, patient is a poor historian unable to provide detail history. Patient was scheduled with GI to have the PEG tube replaced. Patient also had right upper forehead lesion which is unclear for how long the lesion has been there. He also had erythema and conjunctival edema noted for which he needed to see review analyst. On 01/10/2021 he underwent G-tube replacement and subsequent to that his G-tube feeding was resumed. His right forehead lesion appeared to be herpes zoster and was started on acyclovir. The the lesion remains stable throughout the hospital stay. He also developed shortness of breath during the hospital stay for which he had an evaluation done with a chest x-ray which showed pulmonary edema/ congestion for which he had been diuresed. He remained on oxygen 2 L and remained stable on that and will require this at discharge. He will be transitioned to oral diuretic which he was not on in the past. He also has been intermittently confused however compared to the admission is continued to improve slowly. He needed further rehabilitation. He recently came from [facility] and was working with the Care coordination Team to get him to a different facility per request from the family. However insurance denied any further rehabilitation. He is getting transferred to [facility] today (2) Malfunction of gastrostomy tube: Code(s): K94.23 - Gastrostomy malfunction Status: Acute Assessment and Plan: Accidental removal of G-tube. Patient had a catheter placed in the ED. GI was consulted for PEG tube replacement which was done during the hospital stay on 01/09/2021. Currently T feet finding and functioning well. 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 with graft to existing femoro-femoral graft on 10/14/20 with subsequent extensive thromboembolectomy and TEVAR on 11/20/2020 # chronic diastolic heart failure # history of EVAR in 2018 # history of peripheral vascular disease with prior fem-fem bypass # history of CVA residual right upper walk extremity weakness and expressive aphasia # hypertension # hyperlipidemia # COPD # proximal atrial fibrillation # GERD # IgG kappa MGUS # BPH # severe protein calorie malnutrition status post PEG placement on 12/05/2020 # retroperitoneal ganglioma neuroma # CAD status post stents # bilateral ICA occlusion # CKD stage 3 (6) Acute encephalopathy: Code(s): G93.40 - Encephalopathy, unspecified Status: Acute (7) Herpes infection: Code(s): B00.9 - Herpesviral infection, unspecified Status: Acute DS: Summary Hospital Course Hospital Course: see above Time Spent with Patient Time attestation: Total time spent providing and/or coordinating discharge services: 50 minutes Exam Narrative: elderly frail, comfortable, NAD on oxygen HEENT: right forehead possible herpes just and right eye is closed patient clear drainage, sclerae appears hemorrhagic LUNGS: Coarse breath sounds bilaterally no respiratory distress HEART: RR S1S2 ABD:
[2021-01-15] MEDS: ROSUVASTATIN 10 MG TABLET PO (20:05)
[2021-01-15] MEDS: TERAZOSIN HCL 5 MG CAPSULE PO (20:05)
== END 2021-01-15 22:20 | DRG 70 ==
LOC: ANHED 05:07 → ANH2MED 06:19
PROVIDERS: Family Medicine; Internal Medicine Gastroenterology; Admitting Provider Internal Medicine; Emergency Provider Emergency Medicine; PCP Internal Medicine; Visit Provider Internal Medicine
PROC: 0DH63UZ Insertion of Feeding Device into Stomach, Percutaneous Approach (ICD-10-PCS; CPT 43246; principal; 2021-01-09 13:30)
DX: G93.40 Encephalopathy, unspecified (principal); E43 Unspecified severe protein-calorie malnutrition; Z43.1 Encounter for attention to gastrostomy; I13.0 Hypertensive heart and chronic kidney disease with heart failure and stage 1 through stage 4 chronic kidney disease, or unspecified chronic kidney disease; I50.32 Chronic diastolic (congestive) heart failure; I69.331 Monoplegia of upper limb following cerebral infarction affecting right dominant side; I69.311 Memory deficit following cerebral infarction; I69.320 Aphasia following cerebral infarction; B02.9 Zoster without complications; N18.30 Chronic kidney disease, stage 3 unspecified; Z68.22 Body mass index [BMI] 22.0-22.9, adult; I48.0 Paroxysmal atrial fibrillation; D64.9 Anemia, unspecified; G89.29 Other chronic pain; F17.210 Nicotine dependence, cigarettes, uncomplicated; I25.10 Atherosclerotic heart disease of native coronary artery without angina pectoris; K21.9 Gastro-esophageal reflux disease without esophagitis; I73.9 Peripheral vascular disease, unspecified; E78.5 Hyperlipidemia, unspecified; J44.9 Chronic obstructive pulmonary disease, unspecified; D47.2 Monoclonal gammopathy; N40.0 Benign prostatic hyperplasia without lower urinary tract symptoms; I65.23 Occlusion and stenosis of bilateral carotid arteries; Z86.79 Personal history of other diseases of the circulatory system
CPT/HCPCS: 36415; 43246; 51701; 71045; 74176; 80048; 80053; 81001; 82948; 83605; 83735; 84100; 85025; 85027; 85610; 87040; 93971; 94640; 96361; 96365; 96375; 96376; 97110; 97161; 97530; 99285; A9270; G0378; J0690; J1940; J2704; J7030; J7120

== ENCOUNTER 2021-01-19 16:49 | Inpatient (IN) | payer OTHER, SELFPAY ==
[2021-01-19] VITALS (26 sets, daily range): BP systolic 116–163; BP diastolic 61–83; PULSE 58–100; RESP 15–22; TEMP 36.2–36.9; O2SAT 88–100; BMI 21.2
--- NOTE | ~2021-01-19 | CT_ITS ---
EXAMINATION: CT brain wo con DATE: 01/19/2021 18:15 INDICATION: Altered mental status TECHNIQUE: Computed tomography (CT) of the head was performed without intravenous contrast. Sagittal and coronal reconstructions were performed. The mA was adjusted according to patient size. Iterative reconstruction technique was employed. The dose-length product was 681.00 mGy-cm. COMPARISON: head CT dated 12/30/2020 FINDINGS: No fracture. Moderate sized region of encephalomalacia consistent with old infarct involving portions of the left frontal lobe and insula. No acute intracranial hemorrhage, acute infarction or abnormal extra axial fluid collection. Symmetric prominence of the sulci consistent with mild age-appropriate diffuse cerebral volume loss. Ventricles are normal and symmetric. No mass/mass effect. Moderate muc osal thickening in the left maxillary sinus and prominent mucosal retention cyst in the left and righ t sphenoid sinuses. Chronic bilateral mastoid effusions. The orbits are normal. Intracranial calcifie d cerebral atherosclerosis is noted. IMPRESSION: 1. No acute intracranial process. 2. Moderate-sized chronic infarct involving portions of the left frontal lobe and insula. 3. Chronic bilateral mastoid effusions. Reviewed, dictated and finalized at location A. DEVELOPER CONSULTANT IMPRESSION: 1. No acute intracranial process. 2. Moderate-sized chronic infarct involving portions of the left frontal lobe a nd insula. 3. Chronic bilateral mastoid effusions.
--- NOTE | ~2021-01-19 | XR_ITS ---
EXAMINATION: XR chest 1V portable DATE: 01/21/2021 09:32 INDICATION: Increased oxygen requirement. Prior smoker. TECHNIQUE: frontal view of the chest was obtained. COMPARISON: Chest radiograph dated 01/19/2021 FINDINGS: The lung bases and inferior heart are excluded from the [id number]. Increased lucency and architec tural distortion in the upper lung zones consistent with emphysema. Interval improvement in the hazy airspace opacities in the right lower lung with blunting at the costophrenic angle consistent with de creased small right pleural effusion. Additional hazy opacity left lower lung zone with more dense re trocardiac consolidation with additional small left pleural effusion with associated left lower lobe atelectasis and/or pneumonia. Interval resolution of prior pulmonary edema. No pneumothorax. The card iomediastinal silhouette is normal. Coronary artery stenting. Old healed left clavicle fracture. IMPRESSION: 1. Resolution of prior pulmonary edema with residual small bilateral pleural effusions. 2. Left lower lobe consolidation which could represent atelectasis or pneumonia. Reviewed, dictated and finalized at location A. PULLER IMPRESSION: 1. Resolution of prior pulmonary edema with residual small bilateral pleural ef fusions. 2. Left lower lobe consolidation which could represent atelectasis or pneumonia .
--- NOTE | ~2021-01-19 | US_ITS ---
EXAMINATION: US venous doppler LE EXAM DATE: 01/21/2021 14:44 INDICATION: Shortness of breath, respiratory abnormality. TECHNIQUE: Multiple grayscale, color flow and Doppler images of the lower extremity deep venous syste ms bilaterally were obtained and reviewed. Correlation is made to CT abdomen pelvis 01/08/2021. FINDINGS: Patient has a femoral-femoral bypass graft correlating with CT scan which likely explains t he dilated common femoral arterial size. Right popliteal artery measures 2.4 cm in diameter, the left measuring 1.7 cm. Right side: The right common femoral, femoral and profunda veins demonstrate normal color flow, respi ratory variation, augmentation and compressibility. Compressibility, color flow confirmed within the right popliteal, posterior tibial, peroneal, and greater saphenous veins. Left side: The left common femoral, femoral and profunda veins demonstrate normal color flow, respira tory variation, augmentation and compressibility. Compressibility, color flow confirmed within the l eft popliteal, posterior tibial, peroneal, and greater saphenous veins. Small Bakers cyst measuring 1.7 x 0.8 x 1.5 cm. IMPRESSION: 1. No lower extremity deep venous thrombosis bilaterally. 2. Popliteal artery aneurysms bilaterally, larger on the right. 3. Small left Black's cyst. Reviewed, dictated and finalized at location A. UCTION QUALITY MANAGER
--- NOTE | ~2021-01-19 | CT_ITS ---
EXAMINATION: CT abdomen pelvis wo con DATE: 01/23/2021 13:24 INDICATION: Elevated liver function tests and elevated lipase TECHNIQUE: Computed tomography (CT) of the abdomen and pelvis was performed without intravenous contr ast. The dose-length product (DLP) was 952.50 mGy-cm. Automated exposure control and iterative recons truction technique were employed. COMPARISON: 01/08/2021 FINDINGS: There are small pleural effusions, right greater than left. Passive atelectasis is present in the visualized lung bases. The heart size is normal. Within the limitations of noncontrast examina tion, the liver, spleen, pancreas, and adrenal glands are normal. There is questionable mild wall thi ckening of the nondistended gallbladder. There is moderate atrophy of the right kidney. Simple and he morrhagic cysts of the kidneys are again noted. Nonobstructing stones of the right kidney measure up to 6 mm. Nonobstructing stones of the left kidney measure up to 7 mm. A stable 6.7 cm fusiform infrar enal abdominal aortic aneurysm is again noted with an endoluminal repair graft. Also noted are femora l-femoral bypass and left common femoral artery to bilateral renal artery bypass. There is a stable m ass at the celiac axis and left renal artery continuing inferiorly in the retroperitoneum, likely hem atoma. Mild left periaortic lymphadenopathy is stable, likely reactive. There is no free intraperiton eal gas or evidence of bowel obstruction. There is moderate lumbar spondylosis. A gastrostomy is in p lace. A Port-A-Cath is present in the urinary bladder. IMPRESSION: 1. Mild wall thickening of the nondistended gallbladder of unclear significance. 2. Unchanged left retroperitoneal masslike like area, likely hematoma. 3. Small pleural effusions. Reviewed, dictated and finalized at location A. NURSE MANAGER IMPRESSION: 1. Mild wall thickening of the nondistended gallbladder of unclear significance . 2. Unchanged left retroperitoneal masslike like area, likely hematoma. 3. Small pleural effusions.
--- NOTE | ~2021-01-19 | XR_ITS ---
XR chest 1V portable 01/26/2021 15:09 Indication: Shortness of breath. Increasing oxygen requirement. Procedure: AP portable chest Comparison: Comparison to multiple prior studies sequentially, with oldest reviewed study dated 12/31. Findings: There is bibasilar airspace disease which is not significantly changed. Mild cardiomegaly. There is coronary atherosclerosis. Probable coronary artery stents present. Impression: 1: Persistent patchy predominantly basilar airspace disease, compatible with pneumonia. Superimposed edema not excluded. Reviewed, dictated and finalized at location A. R SPORTS OFFICIAL Impression: 1: Persistent patchy predominantly basilar airspace disease, compatible with pn eumonia. Superimposed edema not excluded.
--- NOTE | ~2021-01-19 | US_ITS ---
EXAMINATION: US venous doppler [facility] DATE: 01/24/2021 11:12 INDICATION: Shortness of breath, lower limb swelling TECHNIQUE: Odom scale images without and with compression and Doppler images of the bilateral lower e xtremity veins were obtained. COMPARISON: 01/21/2021 FINDINGS: The right common femoral vein, profunda femoral vein, femoral vein, popliteal vein, peroneal trunk, p osterior tibial veins, and greater saphenous vein are patent. There is poor visualization of the left calf veins. The left common femoral vein, profunda femoral ve in, femoral vein, popliteal vein, peroneal trunk, posterior tibial veins, and greater saphenous vein are patent. IMPRESSION: 1. Grossly patent bilateral lower extremity veins. No evidence of deep venous thrombosis. Reviewed, dictated and finalized at location A. TICS MECHANIC IMPRESSION: 1. Grossly patent bilateral lower extremity veins. No evidence of deep venous t hrombosis.
--- NOTE | ~2021-01-19 | CT_ITS ---
EXAMINATION:CT chest high resolution [place] DATE: 01/21/2021 14:12 INDICATION: Fever. Cough. TECHNIQUE: Computed tomography (CT) of the chest was performed without intravenous contrast. Automate d exposure control and iterative reconstruction technique were employed. The dose-length product (DLP ) was 218.30 mGy-cm. COMPARISON: CT abdomen and pelvis 01/08/2021 FINDINGS: There is moderate emphysema. There are moderate-sized right and small left pleural effusion s. There is atelectasis in the lower lobes. There is mild scarring at the lung apices. There is mild atelectasis in the upper lobes. The heart size is normal. There are coronary artery calcifications. T here are calcifications of aortic valve. No pericardial effusion. There is mild bilateral gynecomasti a. Partially visualized is a stent graft in abdominal aorta. There are bridging endplate osteophytes at multiple levels in the spine, consistent with diffuse idiopathic skeletal hyperostosis (DISH). IMPRESSION: 1. Moderate-sized right and small left pleural effusions with worsening on the right. 2. Moderate emphysema. Reviewed, dictated and finalized at location B. L OR MOTEL MANAGER
--- NOTE | ~2021-01-19 | US_ITS ---
EXAMINATION: US abdomen limited DATE: 01/24/2021 11:13 INDICATION: Elevated liver function tests TECHNIQUE: Multiple grayscale and Doppler ultrasound images of the abdomen were obtained. COMPARISON: CT from yesterday FINDINGS: The head and body of the pancreas are normal. The pancreatic tail is obscured by bowel gas. The liver appears normal with normal echogenicity and echotexture. No surface nodularity. Normal hep atopetal flow in the main portal vein. The gallbladder is not well evaluated due to patient condition and inability to comply with breathing instructions. The normal common bile duct measures 3 mm. IMPRESSION: 1. Incomplete evaluation of the gallbladder. No definite correlate identified for elevated liver func tion tests. Reviewed, dictated and finalized at location A. AINABLE SYSTEMS ANALYST IMPRESSION: 1. Incomplete evaluation of the gallbladder. No definite correlate identified f or elevated liver function tests.
--- NOTE | ~2021-01-19 | XR_ITS ---
EXAMINATION: XR chest 1V portable DATE: 01/19/2021 17:21 INDICATION: Shortness of breath TECHNIQUE: frontal view of the chest was obtained. COMPARISON: Chest radiograph dated 01/14/2021 FINDINGS: Increasing hazy airspace opacities throughout the right mid to lower lung zone with mild blunting at the costophrenic angle consistent with small to moderate posteriorly layering pleural effusion with a ssociated atelectasis versus pneumonia.. Slight improvement in opacities at the left lower lung zone consistent with decreasing small left pleural effusion. Increased interstitial pattern in both lungs with a few scattered peripheral Phan B-lines consistent with mild pulmonary edema. The cardiomedias tinal silhouette is within normal limits for AP technique. Postoperative change of prior abdominal ao rtic endoluminal stenting. Couple additional surgical clips to the left of the stent. There is also a loop of catheter tubing coiled over the epigastric region. IMPRESSION: 1. Mild pulmonary edema. 2. Small left and increasing small to moderate right pleural effusions with associated atelectasis an d/or pneumonia not excludable. Reviewed, dictated and finalized at location A. CTOR OF LABOR AND DELIVERY IMPRESSION: 1. Mild pulmonary edema. 2. Small left and increasing small to moderate right pleural effusions with ass ociated atelectasis and/or pneumonia not excludable.
--- NOTE | ~2021-01-19 | XR_ITS ---
EXAMINATION: XR chest 1V INDICATION: Shortness of breath TECHNIQUE: AP view of the chest is obtained. COMPARISON: 01/21/2021 FINDINGS: There are small pleural effusions. The cardiomediastinal silhouette is normal. No pneumotho rax is identified. There are bibasilar airspace opacities with interval improvement. IMPRESSION: 1. Improving bibasilar airspace opacities, consistent with atelectasis versus pneumonia. 2. Small pleural effusions. Reviewed, dictated and finalized at location A. PUBLISHER DEVELOPMENT IMPRESSION: 1. Improving bibasilar airspace opacities, consistent with atelectasis versus p neumonia. 2. Small pleural effusions.
--- NOTE | ~2021-01-19 | XR_ITS ---
EXAMINATION: XR chest 1V portable INDICATION: Hypoxia TECHNIQUE: Portable AP chest at 0647 hours COMPARISON: 01/24/2020 FINDINGS: Small pleural effusions are unchanged. There are stable bibasilar airspace opacities. No pn eumothorax is identified. The cardiomediastinal silhouette is stable. IMPRESSION: 1. Small, stable pleural effusions. 2. Stable bibasilar airspace opacities, consistent with atelectasis versus pneumonia. Reviewed, dictated and finalized at location A. 6 DEALER IMPRESSION: 1. Small, stable pleural effusions. 2. Stable bibasilar airspace opacities, consistent with atelectasis versus pneu monia.
[2021-01-19] MEDS: FUROSEMIDE INJ 40 MG/4 ML VIAL IV PUSH (17:03)
--- NOTE | 2021-01-19 17:04 | ED.SOB ---
HPI - SOB/Dyspnea General Chief Complaint: Shortness of Breath/Dyspnea Stated Complaint: resp distress Source: EMS Mode of arrival: EMS Limitations: altered mental status History of Present Illness HPI Narrative: 70-year-old male with history of AAA status post TEVAR, brought in for acute respiratory distress and altered mental status. Per EMS patient was at the long-term with 2 L nasal cannula to his oropharynx, became increasingly short of breath and noncommunicative. When EMS arrived he had low pulse ox they put him on a nonrebreather and gave him Solu-Medrol 125 IV Patient full code with a reported history of TIA and CVA with G-tube, last seen in this hospital for G-tube replacement. Apparently at that time he had gotten increasingly short of breath, was treated for CHF and fluid overload and discharged to [place]. Patient arrives in respiratory distress, sonorous respirations, 100% on NRB, rhonchi all lombardo, herpes Zoster lesions to forehead, R eye with gross ulceration of cornea. Related Data Home Medications Medication Instructions Recorded Confirmed Movantik 25 mg PO DAILY 05/01/19 01/19/21 albuterol sulfate [ProAir HFA] 2 inh INHALATION Q4-6H PRN 05/01/19 01/19/21 carvedilol 25 mg PO BID 06/22/20 01/19/21 Eliquis 5 mg PO BID 01/08/21 01/19/21 acidophilus-pectin, citrus 1 cap PO BID 01/08/21 01/19/21 amlodipine 10 mg PO DAILY 01/08/21 01/19/21 aspirin 81 mg PO DAILY 01/08/21 01/19/21 folic acid 1 mg PO DAILY 01/08/21 01/19/21 ondansetron 4 mg PO Q8H PRN 01/08/21 01/19/21 rosuvastatin 10 mg PO HS 01/08/21 01/19/21 terazosin 5 mg PO HS 01/08/21 01/19/21 oxycodone-acetaminophen 1 tablet PO Q4-6H PRN 01/19/21 01/19/21 Allergies Allergy/AdvReac Type Severity Reaction Status Date / Time hydralazine Allergy Unknown Verified 01/19/21 20:00 Review of Systems Review of Systems: ROS unobtainable: Yes unobtainable due to mental status PMFSH Past Medical History Medical History (Updated 01/27/21 @ 15:03 by Lilia Lara MD) AAA (abdominal aortic aneurysm) History of ruptured AAA with intravascular repair Anxiety CAD (coronary artery disease) <4 METs, last stent in 2018 Carotid stenosis MADDIE. - 100% occlusion both sides Constipation Related to narcotic use CVA (cerebral vascular accident) residual right sided weakness, memory loss and occasional difficulty speaking GERD (gastroesophageal reflux disease) H/O: HTN (hypertension) Hepatitis C History of angina History of heart attack 2009 and 2017. History of kidney stones History of pneumonia HTN (hypertension), malignant Hypercholesteremia Osteomyelitis Tobacco abuse Surgical History Surgical History History of AAA (abdominal aortic aneurysm) repair Intra vascular repair 3 years ago at [facility] History of elbow surgery lt. History of lithotripsy History of tonsillectomy Hx of cardiac cath Hx of heart artery stent >5. Status post femorofemoral bypass surgery Family History Family History Mother Family history of malignant neoplasm Acute myocardial infarction, Onset Age: 89 Father Acute myocardial infarction Sibling AAA (abdominal aortic aneurysm) Other Asthma Cerebrovascular accident History of blood clots Social History Social History (Updated 01/19/21 @ 22:44 by Brook De Guzman NP) Social History: The patient is currently at at [facility] However he does have a significant other. The patient tells me that he would like to be a full code but would not like to live in a vegetative state. The patient has 2 children. The patient stated that his 2 children are the durable power estate attorney for healthcare. The patient continues to smoke a pack cigarettes a day. He denies any alcohol marijuana or illicit drugs. He is retired from remodeling and construction. Code status full code Smo
[2021-01-19 17:23] LABS: Basophils Percent Auto 0.6 % (0.2-1.2); Eosinophils Absolute Auto 0.2 K/mm3 (0-0.3); Eosinophils Percent Auto 3.3 % (0-4.4); Hematocrit 30.1 % (42.0-52.0); Immature Granulocyte Absolute 0.04 K/mm3 (0.00-0.031); Immature Granulocyte Percent A 0.6 % (0-0.5); Lymphocytes Absolute Auto 1.04 K/mm3 (0.9-3.2); Lymphocytes Percent Auto 14.9 % (18.3-44.2); Mean Corpuscular HGB Conc 29.9 g/dl (32-36); Mean Corpuscular Hemoglobin 27.4 pg (26-34); Mean Corpuscular Volume 91.5 fl (80-100); Monocytes Absolute Auto 0.5 K/mm3 (0.1-0.6); Monocytes Percent Auto 7.7 % (2.6-8.5); Neutrophils Absolute Auto 5.1 K/mm3 (1.3-6.7); Neutrophils Percent Auto 72.9 % (45.5-73.1); Platelet Count Result 237 k/mm3 (150-375); Red Blood Count 3.29 M/mm3 (4.6-6.20); Red Cell Distribution Width 15.6 % (11.5-14.5)
[2021-01-19] MEDS: IPRATROPIUM BR 0.02% INH SOLN 0.5 MG/2.5 ML VIAL INHALATION (17:27)
[2021-01-19] MEDS: ALBUTEROL SULFATE NEB 2.5 MG/0.5 ML INH 5 MG INHALATION (17:27)
[2021-01-19 17:34] LABS: Alveolar/Arterial O2 Gradient 108.4 mmHg; Base Excess ABG 6.9 mEq/l (+/-2.0); Fractional Inspired Oxygen 35 %; HCO3 ABG 35.4 mEq/l (22.0-26.0); Oxygen Content ABG 11.5 %vol (16.0-22.0); PO2 FiO2 Ratio Arterial Blood 1.51 %; Total Hemoglobin 10.1 g/dL (12.0-18.0)
[2021-01-19 17:37] LABS: PCO2 ABG 75.8 mmHg (35.0-45.0); pH ABG 7.287 (7.350-7.450)
[2021-01-19 17:38] LABS: Ammonia < 9 umol/L (9-30)
[2021-01-19 17:38] LABS: Oxygen Saturation ABG 81.9 % (95.0-100.0); Oxyhemoglobin 80.9 % THb (90.0-100.0); Site Drawn LEFT RADIAL
[2021-01-19 17:38] LABS: Alanine Aminotransferase 11 U/L (4-50); Albumin Level 3.2 g/dL (3.5-5.1); Alkaline Phosphatase 91 U/L (38-126); Anion Gap 1 mmol/L (8-16); Aspartate Amino Transferase 23 U/L (17-59); Bilirubin,Total 0.2 mg/dL (0.2-1.3); Blood Urea Nitrogen 37 mg/dL (9-20); Calcium 8.2 mg/dL (8.4-10.2); Carbon Dioxide 39 mmol/L (22-30); Chloride 90 mmol/L (98-107); Estimated CRCL calculation 53 ml/min; Estimated Glomerular Filt Rate 50; Glucose 130 mg/dL (65-110); Magnesium 2.1 mg/dL (1.6-2.3); Potassium 4.5 mmol/L (3.4-5.0); Sodium 130 mmol/L (137-145)
[2021-01-19 17:39] LABS: Lactic Acid Reflex 0.7 mmol/L (0.7-2.1)
[2021-01-19 17:39] LABS: Device NASAL CANNULA; Modified Allen's Test Pass
[2021-01-19 17:40] LABS: INR 1.4; Prothrombin Time 17.1 Seconds (11.1-14.7)
[2021-01-19 17:41] LABS: Partial Thromboplastin Time 41.1 SECONDS (22.3-36.8)
[2021-01-19 17:45] LABS: Add Urine Microscopic? NO; Appearance Urine Clear (Clear); Bilirubin Urine Negative (Negative); Blood Urine Negative (Negative); Color Urine Yellow (Yellow); Glucose Urine UA Negative (Negative); Ketones Urine Negative (Negative); Leukocyte Esterase Ur Negative LEU/UL (Negative); Nitrate Urine Negative (Negative); Protein Urine Negative (Negative); Specific Grav Ur 1.015 (1.001-1.035); Urobilinogen Urine Negative mg/dL (<2.0)
[2021-01-19 17:50] LABS: NT Pro B Type Natriuretic Pept 7100 pg/mL (5-100); Troponin I < 0.012 ng/mL (0.000-0.034)
[2021-01-19 18:50] LABS: Alveolar/Arterial O2 Gradient 150.8 mmHg; Base Excess ABG 5.8 mEq/l (+/-2.0); Carboxyhemoglobin 0.3 % THb (0-2.0); Fractional Inspired Oxygen 40 %; HCO3 ABG 33.2 mEq/l (22.0-26.0); Methemoglobin ABG 0.1 %THb (0-1.5); Oxygen Content ABG 12.3 %vol (16.0-22.0); PCO2 ABG 65.2 mmHg (35.0-45.0); PO2 ABG 59.4 mmHg (80.0-100.0); PO2 FiO2 Ratio Arterial Blood 1.49 %; Reduced Hemoglobin 13.9 %THb (0-5.0); Total Hemoglobin 10.2 g/dL (12.0-18.0); pH ABG 7.325 (7.350-7.450)
[2021-01-19 18:51] LABS: Device BIPAP; Modified Allen's Test Pass; Oxyhemoglobin 85.7 % THb (90.0-100.0); Site Drawn LEFT BRACHIAL
[2021-01-19 19:11] LABS: Expiratory Pressure 8 cmH2O; Inspiratory Pressure 16 cmH2O
[2021-01-19] MEDS: NALOXONE HCL 0.4 MG/ML VIAL IV PUSH (19:17)
--- NOTE | 2021-01-19 19:31 | ECG_ITS ---
Measurements Intervals [place] Rate: 63 P: 87 DC: 235 QRS: 45 QRSD: 109 T: 47 QT: 442 QTc: 455 Interpretive Statements SINUS RHYTHM WITH SINUS ARRHYTHMIA ATRIAL PREMATURE COMPLEXES BORDERLINE AV CONDUCTION DELAY INCOMPLETE RIGHT BUNDLE BRANCH BLOCK BORDERLINE R WAVE PROGRESSION, ANTERIOR LEADS BORDERLINE ECG Electronically Signed On 01-19-2021 20:19:33 SENIOR TABLEAU DEVELOPER by Reji Benton D.O.
[2021-01-19 20:39] LABS: Troponin I < 0.012 ng/mL (0.000-0.034)
--- NOTE | 2021-01-19 22:30 | PM.IMHP ---
H&P: HPI History of Present Illness Date/Time: 01/19/21 22:30 this is a 70-year-old male patient from [facility]. The patient was just discharged from here on the . The patient has a history of intermittent confusion. The patient has a history of having shingles over his right eyelid and forehead. Patient has erythema and conjunctival edema to the right eye. The patient had a G-tube replaced on 01/10/2021. It is G tubes were resumed. The patient has been on acyclovir for the herpes zoster. The patient was reportedly stable upon discharge on the of this month. The patient was on 2 L per nasal cannula at the group home because he became increasingly short of breath and was unresponsive. When EMS came to the facility the put him on a non-rebreather room gave him Solu-Medrol 125 mg IV. The patient has a history of TIA and CVA with a G-tube. First set of ABGs pH 7.287, pCO2 75.8, PO2 53, O2 saturations 81.9 and bicarb 35.4. Patient was placed on a BiPAP and approximately 1 hour later his arterial blood gases were 7.325, CO2 65.2, PO2 59.4, O2 saturation 88%. When I assessed the patient in the emergency room he was biting the BiPAP and was awake. The patient had received nor can in the emergency room. Both pupils were dilated. Patient has a dressing to his forehead that has old blood on it. He has she goes to his right eyelid and his sclera is red to the right eye. The patient is confused and yelling that he does not know what is going on and why he is here. Once the patient was taken to the IMU he was placed on oxygen at 2 L per nasal cannula. The patient had rhonchi and he was given a nebulizer treatment Lasix and narcan in the emergency room. Head CT was read as the following 1. No acute intracranial process. 2. Moderate-sized chronic infarct involving portions of the left frontal lobe and insula. 3. Chronic bilateral mastoid effusions. H&H is 9.0 in 30.1 which is his baseline. Sodium 130. Creatinine 1.4 with a BUN at 37 which is also his baseline. Glucose is 130. Troponin negative x2 BNP 7100 Chest x-ray was read as mild pulmonary edema. Small left increasing small to moderate right pleural effusions and associated atelectasis and/or pneumonia not excludable. The patient is being admitted to inpatient services on the date of service of 01/19/2021. Chief Complaint: Shortness of breath and unresponsiveness Review of Systems Review of Systems: ROS unobtainable: Yes unobtainable due to mental status [facility] Past Medical History Medical History (Updated 01/19/21 @ 23:05 by Brook De Guzman NP) AAA (abdominal aortic aneurysm) History of ruptured AAA with intravascular repair Anxiety CAD (coronary artery disease) <4 METs, last stent in 2018 Carotid stenosis MADDIE. - 100% occlusion both sides Constipation Related to narcotic use CVA (cerebral vascular accident) residual right sided weakness, memory loss and occasional difficulty speaking GERD (gastroesophageal reflux disease) H/O: HTN (hypertension) Hepatitis C History of angina History of heart attack 2009 and 2017. History of kidney stones History of pneumonia HTN (hypertension), malignant Hypercholesteremia Osteomyelitis Tobacco abuse Surgical History Surgical History History of AAA (abdominal aortic aneurysm) repair Intra vascular repair 3 years ago at [facility] History of elbow surgery lt. History of lithotripsy History of tonsillectomy Hx of cardiac cath Hx of heart artery stent >5. Status post femorofemoral bypass surgery Family History Family History Mother Family history of malignant neoplasm Acute myocardial infarction, Onset Age: 89 Father Acute myocardial infarction Sibling AAA (abdominal aortic aneurysm) Other Asthma Cerebrovascular accident History of blo
--- NOTE | 2021-01-19 23:04 | ADMGEN ---
This patient, Sameer Choe, was admitted to IMU Room 212-01 on 01/19/21 at 2215. Patient/family oriented to hospital policies and general routines including ID bracelet, bed and alarms, visiting hours, pain management, procedures, bathroom and other care routines, personal items, smoking policy, room service/diet, and visiting hours. Information on how to activate the Rapid Response Team has been discussed. Patient/Family are encouraged to report perceived risks to care and to ask questions if they do not understand what they are told or what they should do.
[2021-01-20] VITALS (16 sets, daily range): BP systolic 141–149; BP diastolic 60–82; PULSE 61–92; RESP 18–26; TEMP 36.4–38.1; O2SAT 86–95; BMI 21.2
--- NOTE | 2021-01-20 | ECHO_ITS ---
Patient Info Name: Sameer Choe Age: 70 years : 1950 Gender: Male Ht: 78 in Wt: 187 lbs BSA: 2.15 m2 HR: 66 bpm BP: 148 / 60 mmHg Heart Rhythm: Sinus Rhythm Exam Date: 01/20/2021 8:50 AM Exam Location: [facility] Pulmonary Patient Status: Inpatient Admit Date: 01/19/2021 Staff Ordering Physician: Brook De Guzman NP Control Room Supervisor: JANETTE Attending Provider: Josue Taylor MD Referring Physician: Gege GRAVES; Exam Type: CA echo doppler color flow Study Info Indications - PLEURAL EFFUSION Complete two-dimensional, color flow and Doppler transthoracic echocardiogram is performed. Summary 1. Complete two-dimensional, color flow and Doppler transthoracic echocardiogram is performed. 2. Left ventricular systolic function is normal, estimated at 60-65%. 3. The left ventricular diastolic function is grade II diastolic dysfunction. 4. Left atrial chamber dimension is moderately enlarged. 5. There is no aortic valve stenosis. 6. There is trivial pericardial effusion. 7. Left pleural effusion. Ascites noted. Left Ventricle Left ventricular systolic function is normal, estimated at 60-65%. There is no increased left ventricular wall thickness. The left ventricular diastolic function is grade II diastolic dysfunction. Right Ventricle Right ventricular chamber dimension is normal. Right ventricular systolic function is normal. Left Atria Left atrial chamber dimension is moderately enlarged. Right Atria Right atrial chamber dimension is mildly enlarged. Aortic Valve The aortic valve is probable trileaflet. There is mild aortic valve sclerosis. There is no aortic valve stenosis. There is no aortic valve regurgitation. Pulmonic Valve The pulmonic valve is not well visualized. There is trace pulmonic regurgitation. Mitral Valve The mitral valve has normal leaflets. There is trace mitral valve regurgitation. The mitral valve annulus is mildly calcified. Tricuspid Valve Unable to estimate PA systolic pressure due to poor spectral resolution of tricuspid regurgitant jet velocity. The tricuspid valve leaflets are normal. There is trace tricuspid valve regurgitation. Pericardium/Pleural The pericardium appears normal. There is trivial pericardial effusion. Left pleural effusion. Ascites noted. Inferior Vena Cava Dilated inferior vena cava with >50% collapse upon inspiration consistent with elevated right atrial pressure, 10 mmHg. Aorta The aortic root size at the sinus of Valsalva is moderately dilated. Consider CT of chest if clinically indicated. The prox ascending aorta size is mildly dilated. There is mild aortic atherosclerosis. Left Ventricular Outflow Tract Name Value Normal LVOT 2D LVOT Diameter 2.4 cm LVOT Doppler LVOT Peak Gradient 3 mmHg LVOT Mean Gradient 2 mmHg LVOT VTI 21 cm LVOT VTI/AV VTI Ratio 0.6 LVOT Stroke Volume 92 ml LVOT CO 6.3 l/min L
[2021-01-20 00:03] LABS: Anion Gap 4 mmol/L (8-16); Blood Urea Nitrogen 36 mg/dL (9-20); Calcium 8.7 mg/dL (8.4-10.2); Carbon Dioxide 38 mmol/L (22-30); Chloride 89 mmol/L (98-107); Estimated CRCL calculation 56 ml/min; Estimated Glomerular Filt Rate 54; Glucose 138 mg/dL (65-110); Potassium 4.6 mmol/L (3.4-5.0); Sodium 131 mmol/L (137-145)
[2021-01-20] MEDS: methylPREDNISolone SOD SUCC 125 MG VIAL 60 MG IV PUSH ×4 (02:27→17:51)
[2021-01-20] MEDS: APIXABAN 5 MG TABLET PO ×3 (02:28→21:02)
[2021-01-20] MEDS: ROSUVASTATIN 10 MG TABLET PO ×2 (02:29→21:02)
[2021-01-20] MEDS: TERAZOSIN HCL 5 MG CAPSULE PO ×2 (02:29→21:02)
[2021-01-20 04:39] LABS: Hematocrit 29.8 % (42.0-52.0); Hemoglobin 9.4 g/dL (14.0-18.0); Immature Granulocyte Absolute 0.04 K/mm3 (0.00-0.031); Immature Granulocyte Percent A 1.1 % (0-0.5); Lymphocytes Percent Auto 8.2 % (18.3-44.2); Mean Corpuscular HGB Conc 31.5 g/dl (32-36); Mean Corpuscular Hemoglobin 27.8 pg (26-34); Mean Corpuscular Volume 88.2 fl (80-100); Mean Platelet Volume 8.5 fl (7.4-10.4); Monocytes Percent Auto 0.3 % (2.6-8.5); Neutrophils Absolute Auto 3.3 K/mm3 (1.3-6.7); Neutrophils Percent Auto 90.4 % (45.5-73.1); Platelet Count Result 219 k/mm3 (150-375); Red Blood Count 3.38 M/mm3 (4.6-6.20); Red Cell Distribution Width 15.7 % (11.5-14.5); White Blood Count 3.7 K/mm3 (4.5-10.0)
[2021-01-20 04:58] LABS: Lactic Acid Reflex 0.8 mmol/L (0.7-2.1)
[2021-01-20 05:19] LABS: Alanine Aminotransferase 12 U/L (4-50); Albumin Level 3.1 g/dL (3.5-5.1); Alkaline Phosphatase 91 U/L (38-126); Anion Gap 4 mmol/L (8-16); Aspartate Amino Transferase 22 U/L (17-59); Bilirubin,Total 0.3 mg/dL (0.2-1.3); Blood Urea Nitrogen 38 mg/dL (9-20); Calcium 8.5 mg/dL (8.4-10.2); Carbon Dioxide 38 mmol/L (22-30); Chloride 91 mmol/L (98-107); Estimated CRCL calculation 52 ml/min; Estimated Glomerular Filt Rate 50; Glucose 183 mg/dL (65-110); Magnesium 2.1 mg/dL (1.6-2.3); Potassium 4.6 mmol/L (3.4-5.0); Sodium 133 mmol/L (137-145)
[2021-01-20 06:58] LABS: Sodium Urine Random 8 meq/L
[2021-01-20] MEDS: FUROSEMIDE INJ 40 MG/4 ML VIAL 20 MG IV PUSH ×2 (09:02→16:27)
[2021-01-20] MEDS: PANTOPRAZOLE SODIUM IV 40 MG VIAL IV PUSH ×2 (09:03→21:02)
[2021-01-20] MEDS: FINASTERIDE 5 MG TABLET PO (09:03)
[2021-01-20] MEDS: ACYCLOVIR 400 MG TABLET 800 MG PO ×5 (09:04→21:02)
[2021-01-20] MEDS: carvediloL 25 MG TABLET PO ×2 (09:05→16:27)
[2021-01-20] MEDS: SENNA/DOCUSATE SODIUM TABLET 1 TAB PO (09:05)
[2021-01-20] MEDS: ASPIRIN 81 MG CHEWABLE TABLET PO (09:05)
[2021-01-20] MEDS: FOLIC ACID 1 MG TABLET PO (09:06)
[2021-01-20] MEDS: amLODIPine BESYLATE 5 MG TABLET 10 MG PO (09:06)
[2021-01-20] MEDS: oxyCODONE/ACETAMINOPHEN (*CRX) 5-325 MG TABLET 1 TABLET PO ×3 (09:06→17:52)
[2021-01-20] MEDS: oxyCODONE HCL (*CRX) 2.5 MG TAB IR PO ×3 (09:07→17:51)
[2021-01-20] MEDS: polyethylene glycoL 3350 17 GM POWD.PACK PO (09:08)
--- NOTE | 2021-01-20 09:55 | PM.IMPN ---
Progress Note: A&P Assessment and Plan (1) Respiratory failure: Qualifiers: Chronicity: acute Respiratory failure complication: hypercapnia Qualified Code(s): J96.02 - Acute respiratory failure with hypercapnia Code(s): J96.90 - Respiratory failure, unspecified, unspecified whether with hypoxia or hypercapnia Status: Acute Assessment and Plan: Patient is on oxygen by nasal cannula today saturating 92-100% Patient's ABGs are improving. Patient has hypercapnea with hypoxia. Patient has pleural effusions. Echo has been ordered. Continue with IV Lasix. Patient has COPD and CHF. He was given nebulizer treatment in the emergency room. Patient is a COVID suspect (2) COPD (chronic obstructive pulmonary disease): Code(s): J44.9 - Chronic obstructive pulmonary disease, unspecified Status: Acute Assessment and Plan: Continue with inhalers and Solu-Medrol. Not actively wheezing (3) Pulmonary edema: Code(s): J81.1 - Chronic pulmonary edema Status: Acute Assessment and Plan: Improved Continue with IV Lasix. Obtain an echo. Continue with beta-florecita (4) Herpes infection: Code(s): B00.9 - Herpesviral infection, unspecified Status: Acute Assessment and Plan: Lesions are scabbed over Continue with acyclovir. Patient has been scratching his right eyelid. I did not want to give him any Benadryl at this time as it may over sedate him. The patient will need to be followed up with Ophthalmology outpatient. (5) BPH (benign prostatic hyperplasia): Code(s): N40.0 - Benign prostatic hyperplasia without lower urinary tract symptoms Status: Acute Assessment and Plan: Continue with terazosin. Continue with finasteride Continue to monitor (6) CAD (coronary artery disease): Code(s): I25.10 - Atherosclerotic heart disease of [place] coronary artery without angina pectoris Status: Chronic Assessment and Plan: Patient has a history of multiple stents. Continue with beta-florecita continue with aspirin Continue to monitor (7) HLD (hyperlipidemia): Code(s): E78.5 - Hyperlipidemia, unspecified Status: Acute Assessment and Plan: Continue with rosuvastatin. (8) RLS (restless legs syndrome): Code(s): G25.81 - Restless legs syndrome Status: Acute Assessment and Plan: Continue with home medication. (9) CVA (cerebral vascular accident): Qualifiers: CVA mechanism: unspecified Qualified Code(s): I63.9 - Cerebral infarction, unspecified Code(s): I63.9 - Cerebral infarction, unspecified Status: Chronic Assessment and Plan: Continue with home medication of aspirin. Continue with tube feedings as per fdc per G-tube. No changes (10) Suspected COVID-19 virus infection: Code(s): Z20.822 - Contact with and (suspected) exposure to COVID-19 Status: Acute Assessment and Plan: Patient is placed on droplet and contact isolation. He is currently on Solu-Medrol. Awaiting results (11) HTN (hypertension), malignant: Code(s): I10 - Essential (primary) hypertension Status: Acute Assessment and Plan: Continue with Coreg and amlodipine. Continue to monitor (12) Chronic kidney disease: Qualifiers: Chronic kidney disease stage: stage 3 (moderate) Qualified Code(s): N18.3 - Chronic kidney disease, stage 3 (moderate) Code(s): N18.9 - Chronic kidney disease, unspecified Status: Acute Assessment and Plan: The patient appears to be at his baseline. Continue to monitor (13) Anxiety: Code(s): F41.9 - Anxiety disorder, unspecified Status: Chronic Assessment and Plan: P.r.n. Ativan. Additional Plan Anemia of chronic disease. The patient is at his baseline. Hyponatremia. Gently hydrate the patient at KVO repeat BMP tonight and in the a.m.. Unchanged Subjective Date/time seen:
--- NOTE | 2021-01-20 14:04 | PCNSR ---
On 01/20/21, the student,Emily Dunne, provided care and completed [facility] documentation on this patient. I have reviewed the student's documentation and agree with the findings.
[2021-01-20 18:36] LABS: SARS-CoV-2 RNA PCR Negative
[2021-01-20] MEDS: LORazepam INJ (*CRX) 2 MG/ML VIAL 0.5 MG IV PUSH (22:44)
--- NOTE | 2021-01-20 23:55 | PC.NURSE ---
This patient, Sameer Choe, was transferred to [[facility] ] on 01/20/21 at 2340. Personal belongings sent with patient. Report given to [Klaudia ]. Appropriate documentation sent with patient.
[2021-01-21] VITALS (9 sets, daily range): BP systolic 132–141; BP diastolic 60–75; PULSE 48–68; RESP 18–23; TEMP 36.6–37; O2SAT 92–96
[2021-01-21] MEDS: methylPREDNISolone SOD SUCC 125 MG VIAL 60 MG IV PUSH ×2 (00:18→05:37)
--- NOTE | 2021-01-21 00:58 | PC.NURSE ---
Admitted to 305 per bed from ER at 2335.
[2021-01-21 08:47] LABS: Hematocrit 29.3 % (42.0-52.0); Hemoglobin 9.3 g/dL (14.0-18.0); Immature Granulocyte Absolute 0.08 K/mm3 (0.00-0.031); Immature Granulocyte Percent A 0.8 % (0-0.5); Lymphocytes Absolute Auto 0.32 K/mm3 (0.9-3.2); Lymphocytes Percent Auto 3.4 % (18.3-44.2); Mean Corpuscular HGB Conc 31.7 g/dl (32-36); Mean Corpuscular Hemoglobin 27.5 pg (26-34); Mean Corpuscular Volume 86.7 fl (80-100); Mean Platelet Volume 8.8 fl (7.4-10.4); Monocytes Absolute Auto 0.2 K/mm3 (0.1-0.6); Monocytes Percent Auto 2.2 % (2.6-8.5); Neutrophils Absolute Auto 8.9 K/mm3 (1.3-6.7); Neutrophils Percent Auto 93.6 % (45.5-73.1); Platelet Count Result 244 k/mm3 (150-375); Red Blood Count 3.38 M/mm3 (4.6-6.20); Red Cell Distribution Width 16.2 % (11.5-14.5); White Blood Count 9.5 K/mm3 (4.5-10.0)
[2021-01-21 09:03] LABS: Anion Gap 5 mmol/L (8-16); Blood Urea Nitrogen 52 mg/dL (9-20); Calcium 8.7 mg/dL (8.4-10.2); Carbon Dioxide 38 mmol/L (22-30); Chloride 90 mmol/L (98-107); Estimated CRCL calculation 48 ml/min; Estimated Glomerular Filt Rate 46; Glucose 165 mg/dL (65-110); Potassium 4.1 mmol/L (3.4-5.0); Sodium 133 mmol/L (137-145)
--- NOTE | 2021-01-21 09:24 | PM.IMPN ---
Progress Note: A&P Assessment and Plan (1) Respiratory failure: Qualifiers: Chronicity: acute Respiratory failure complication: hypercapnia Qualified Code(s): J96.02 - Acute respiratory failure with hypercapnia <Monique Maddie Dowling PA-C - Last Filed: 01/21/21 09:55> Code(s): J96.90 - Respiratory failure, unspecified, unspecified whether with hypoxia or hypercapnia <Monique Maddie Dowling PA-C - Last Filed: 01/21/21 09:55> Status: Acute <Monique Maddie Dowling PA-C - Last Filed: 01/21/21 09:55> Assessment and Plan: Patient is a 70-year-old man who lives at [facility], with a history of rupture of AAA with intravascular repair, CAD status post PCI, carotid stenosis with 100% occlusion bilaterally, CVA with residual right-sided weakness, PEG tube after CVA, hypertension, who presented emergency room with increasingly short of breath and was unresponsive. EMS was called and put him on a non-rebreather due to hypoxia and was given 125 mg of IV Solu-Medrol. First set of ABGs in ER showed pH 7.287, pCO2 75.8, PO2 53, O2 saturations 81.9 and bicarb 35.4. Patient was placed on a BiPAP and approximately 1 hour later his arterial blood gases were 7.325, CO2 65.2, PO2 59.4, O2 saturation 88%. Head CT was read as the following No acute intracranial process. Moderate-sized chronic infarct involving portions of the left frontal lobe and insula. Chronic bilateral mastoid effusions. H&H is 9.0 in 30.1 which is his baseline. Sodium 130. Creatinine 1.4 with a BUN at 37 which is also his baseline. Glucose is 130. Troponin negative x2 BNP 7100. Chest x-ray was read as mild pulmonary edema. Small left increasing small to moderate right pleural effusions and associated atelectasis and/or pneumonia not excludable. Patient was also given Narcan in the ER. The patient is being admitted to inpatient services for treatment of acute on chronic respiratory failure from COPD exacerbation with IV Solu-medrol/Duoneb treatments and CHF exacerbation with IV Lasix. Patient was tested for COVID and had a negative PCR on 01/19/2021 and taken off isolation Continue with IV Solu-Medrol 60 Q 6 hours for COPD exacerbation Echo ordered and showing normal EF 60-65%, diastolic grade 2 dysfunction Continue with Lasix IV 20 mg b.i.d., seems to be having a negative fluid balance and a decrease in 3 kg since arrival Currently patient's oxygen requirements has increased to 5 L via nasal cannula Will obtain a repeat chest x-ray Continue monitoring daily <Monique BRITTNEY Benson-C - Last Filed: 01/21/21 09:55> (2) COPD exacerbation: Code(s): J44.1 - Chronic obstructive pulmonary disease with (acute) exacerbation <Monique LBRITTNEY Suarez-C - Last Filed: 01/21/21 09:55> Status: Acute <Monique LBRITTNEY Suarez-C - Last Filed: 01/21/21 09:55> Assessment and Plan: See above <Monique LBRITTNEY Suarez-C - Last Filed: 01/21/21 09:55> (3) Diastolic CHF, acute: Code(s): I50.31 - Acute diastolic (congestive) heart failure <Monique BRITTNEY Benson-C - Last Filed: 01/21/21 09:55> Status: Acute <Monique L. Nitesh PA-C - Last Filed: 01/21/21 09:55> Assessment and Plan: See above <Monique L. BRITTNEY Dowling-C - Last Filed: 01/21/21 09:55> (4) Herpes infection: Code(s): B00.9 - Herpesviral infection, unspecified <Monique L. Roser, PA-C - Last Filed: 01/21/21 09:55> Status: Acute <Monique Dowling PA-C - Last Filed: 01/21/21 09:55> Assessment and Plan: Lesions are scabbed over Continue with acyclovir. Patient has been scratching his right eyelid. I did not want to give him any Benadryl at this time as it may over sedate him. The patient will need to be followed up with Ophthalmology outpatient.
[2021-01-21] MEDS: FUROSEMIDE INJ 40 MG/4 ML VIAL 20 MG IV PUSH ×2 (09:36→18:21)
[2021-01-21] MEDS: FINASTERIDE 5 MG TABLET PO (09:37)
[2021-01-21] MEDS: SENNA/DOCUSATE SODIUM TABLET 1 TAB PO (09:37)
[2021-01-21] MEDS: ASPIRIN 81 MG CHEWABLE TABLET PO (09:37)
[2021-01-21] MEDS: APIXABAN 5 MG TABLET PO ×2 (09:37→20:58)
[2021-01-21] MEDS: FOLIC ACID 1 MG TABLET PO (09:38)
[2021-01-21] MEDS: ACYCLOVIR 400 MG TABLET 800 MG PO ×4 (09:38→20:58)
[2021-01-21] MEDS: carvediloL 25 MG TABLET PO (09:38)
[2021-01-21] MEDS: amLODIPine BESYLATE 5 MG TABLET 10 MG PO (09:39)
[2021-01-21] MEDS: PANTOPRAZOLE SODIUM IV 40 MG VIAL IV PUSH ×2 (09:39→20:59)
[2021-01-21] MEDS: oxyCODONE HCL (*CRX) 2.5 MG TAB IR PO ×2 (09:45→20:57)
[2021-01-21] MEDS: oxyCODONE/ACETAMINOPHEN (*CRX) 5-325 MG TABLET 1 TABLET PO ×2 (09:46→20:57)
--- NOTE | 2021-01-21 11:04 | PCNFU ---
Nutrition Follow-Up Complete: Increased energy expenditure as related to COPD as evidenced by supplemental nutrition. goal: Pt. to meet estimated nutritional needs. Patient has met nutrition goal. No new goal. Pt current nutrition is Nepro at 50 ml/hr over 22 hours. Last recorded weight is 84.7 kg, down from 85.5 kg on admit. Bowel Motility:No BM reported. Labs Reviewed: Na 133, Glu 165, GFR 46, BUN 52, Hct 29.3,Hgb 9.3 Meds Noted:Eliquis, Norvasc, Proscar, Folic Acid, Solu Medrol, Protonix, Senokot Skin:WNL Additional Notes: Nutrition follow up. Patient currently on PEG tube feedings of Nepro at 50 ml/hr over 22 hours providing 1980 kcals/89 gm protein/800 ml water. Free water flush 50 ml q 4 hours. Agree with diet orders. Monitor every Wednesday and Wednesday.
--- NOTE | 2021-01-21 12:07 | PM.CNPUL ---
Assessment and Plan Assessment and plan (1) Respiratory failure: Qualifiers: Chronicity: acute Respiratory failure complication: hypercapnia Qualified Code(s): J96.02 - Acute respiratory failure with hypercapnia Code(s): J96.90 - Respiratory failure, unspecified, unspecified whether with hypoxia or hypercapnia Status: Acute Assessment and Plan: 70-year-old man smoker, with no previous history of lung disease, with acute on chronic hypercapnic hypoxemic respiratory failure, moderately large symmetrical pleural effusions bilaterally on chest imaging studies about 2 weeks ago, pulmonary edema on recent chest x-ray, doing better following treatment with diuretics and BiPAP support. Physical exam shows decreased breath sounds and dullness to percussion at bases posteriorly related to pleural effusions. The patient's hypercapnic respiratory failure is relatively new as serum bicarbonate was not elevated on testing not too long ago. I suspect the patient's hypercapnic respiratory failure is related to bilateral pleural effusions 1st detected on abdominal CT 2 weeks ago which are most likely related to diastolic heart failure. I doubt underlying advanced COPD would be the cause of the recent acute on chronic hypercapnic respiratory failure. Although not entirely excluded, COPD and also chronic opiate use also may have contributed to his acute on chronic hypercapnic respiratory failure. The case was discussed with the hospitalist. I would discontinue the IV steroids as there is no clear-cut evidence of COPD exacerbation. I would continue with diuretics and other treatment for congestive heart failure. The patient may benefit from BiPAP support at night using 10/5 IPAP/EPAP. I would also suggest chest CT to assess size of effusions and also exclude pneumonia. (2) Pleural effusion: Code(s): J90 - Pleural effusion, not elsewhere classified Status: Acute (3) Diastolic CHF, acute: Code(s): I50.31 - Acute diastolic (congestive) heart failure Status: Acute (4) Pulmonary edema: Qualifiers: Chronicity: acute Qualified Code(s): J81.0 - Acute pulmonary edema Code(s): J81.1 - Chronic pulmonary edema Status: Acute (5) Herpes infection: Code(s): B00.9 - Herpesviral infection, unspecified Status: Acute (6) Tobacco abuse: Code(s): Z72.0 - Tobacco use Status: Acute History of Present Illness History of Present Illness Consult date: 01/21/21 Chief complaint: Respiratory Failure, AMS, COVID PUI Narrative: this 70-year-old man was admitted into the hospital yesterday with shortness of breath. The patient lives in a half-way. He was recently discharge from [facility]. Reportedly he became a short of breath and was brought into the emergency room. One evaluated in the emergency room he was found to have acute on chronic hypercapnic hypoxemic respiratory failure and was placed on BiPAP support. currently his shortness of breath has improved. Upon questioning the patient stated that he has had shortness of breath and orthopnea for at least the year. He never had history of lung disease. Review of recent imaging studies showed that the abdominal CT done about 2 weeks ago had shown moderately large symmetrical pleural effusions bilaterally. On admission the chest x-ray showed pulmonary congestion consistent with pulmonary edema. On admission the BNP was very elevated. Patient has been treated with diuretic as well as with IV steroids for possible COPD exacerbation. Patient smokes 1 pack per day for about 50 years. Review of previous chest imaging studies showed no evidence of COPD by a radiological criteria. He never had pulmonary function testing. Recent echocardiogram showed grade 2 diastolic dysfunction. 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
[2021-01-21] MEDS: TERAZOSIN HCL 5 MG CAPSULE PO (20:59)
[2021-01-21] MEDS: ROSUVASTATIN 10 MG TABLET PO (20:59)
[2021-01-22] VITALS (8 sets, daily range): BP systolic 125–149; BP diastolic 55–68; PULSE 56–94; RESP 14–21; TEMP 36.4–36.6; O2SAT 92–99
[2021-01-22] MEDS: oxyCODONE HCL (*CRX) 2.5 MG TAB IR PO ×2 (02:51→11:01)
[2021-01-22] MEDS: oxyCODONE/ACETAMINOPHEN (*CRX) 5-325 MG TABLET 1 TABLET PO ×2 (02:51→11:06)
[2021-01-22 06:54] LABS: Hemoglobin 9.4 g/dL (14.0-18.0); Mean Corpuscular HGB Conc 31.3 g/dl (32-36); Mean Corpuscular Hemoglobin 27.4 pg (26-34); Mean Corpuscular Volume 87.5 fl (80-100); Mean Platelet Volume 8.9 fl (7.4-10.4); Platelet Count Result 263 k/mm3 (150-375); Red Blood Count 3.43 M/mm3 (4.6-6.20); Red Cell Distribution Width 16.8 % (11.5-14.5); White Blood Count 10.2 K/mm3 (4.5-10.0)
[2021-01-22 07:11] LABS: Anion Gap 7 mmol/L (8-16); Blood Urea Nitrogen 65 mg/dL (9-20); Calcium 8.4 mg/dL (8.4-10.2); Carbon Dioxide 39 mmol/L (22-30); Chloride 90 mmol/L (98-107); Estimated CRCL calculation 46 ml/min; Estimated Glomerular Filt Rate 43; Glucose 136 mg/dL (65-110); Magnesium 2.2 mg/dL (1.6-2.3); Potassium 3.9 mmol/L (3.4-5.0); Sodium 136 mmol/L (137-145)
[2021-01-22 07:28] LABS: Osmolality, Urine 360 mOsm/kg (50-1200)
--- NOTE | 2021-01-22 08:12 | PCPTNOTE ---
attempted PT evaluation, pt was in bed, slightly confused/disoriented and refused PT at this time, stated want to see dr about kidneys, will try therapy tomorrow
[2021-01-22] MEDS: ACYCLOVIR 400 MG TABLET 800 MG PO ×5 (09:58→21:20)
[2021-01-22] MEDS: SENNA/DOCUSATE SODIUM TABLET 1 TAB PO (11:02)
[2021-01-22] MEDS: ASPIRIN 81 MG CHEWABLE TABLET PO (11:02)
[2021-01-22] MEDS: amLODIPine BESYLATE 5 MG TABLET 10 MG PO (11:03)
[2021-01-22] MEDS: FOLIC ACID 1 MG TABLET PO (11:03)
[2021-01-22] MEDS: FINASTERIDE 5 MG TABLET PO (11:03)
[2021-01-22] MEDS: APIXABAN 5 MG TABLET PO ×2 (11:03→21:19)
[2021-01-22] MEDS: carvediloL 25 MG TABLET PO ×2 (11:06→18:21)
[2021-01-22] MEDS: PANTOPRAZOLE SODIUM IV 40 MG VIAL IV PUSH ×2 (11:07→21:20)
--- NOTE | 2021-01-22 11:41 | PM.IMPN ---
Progress Note: A&P Assessment and Plan (1) Respiratory failure: Qualifiers: Chronicity: acute Respiratory failure complication: hypercapnia Qualified Code(s): J96.02 - Acute respiratory failure with hypercapnia <Monique Maddie Dowling PA-C - Last Filed: 01/22/21 15:06> Code(s): J96.90 - Respiratory failure, unspecified, unspecified whether with hypoxia or hypercapnia <Moniqueamy Dowling PA-C - Last Filed: 01/22/21 15:06> Status: Acute <Monique Maddie Dowling PA-C - Last Filed: 01/22/21 15:06> Assessment and Plan: Patient is a 70-year-old man who lives at [facility], with a history of rupture of AAA with intravascular repair, CAD status post PCI, carotid stenosis with 100% occlusion bilaterally, CVA with residual right-sided weakness, PEG tube after CVA, hypertension, who presented emergency room with increasingly short of breath and was unresponsive. EMS was called and put him on a non-rebreather due to hypoxia and was given 125 mg of IV Solu-Medrol. First set of ABGs in ER showed pH 7.287, pCO2 75.8, PO2 53, O2 saturations 81.9 and bicarb 35.4. Patient was placed on a BiPAP and approximately 1 hour later his arterial blood gases were 7.325, CO2 65.2, PO2 59.4, O2 saturation 88%. Head CT was read as the following No acute intracranial process. Moderate-sized chronic infarct involving portions of the left frontal lobe and insula. Chronic bilateral mastoid effusions. H&H is 9.0 in 30.1 which is his baseline. Sodium 130. Creatinine 1.4 with a BUN at 37 which is also his baseline. Glucose is 130. Troponin negative x2 BNP 7100. Chest x-ray was read as mild pulmonary edema. Small left increasing small to moderate right pleural effusions and associated atelectasis and/or pneumonia not excludable. Patient was also given Narcan in the ER. The patient is being admitted to inpatient services for treatment of acute on chronic respiratory failure from COPD exacerbation with IV Solu-medrol/Duoneb treatments and CHF exacerbation with IV Lasix. Patient was tested for COVID and had a negative PCR on 01/19/2021 and taken off isolation Talked to the healthcare management who believes all of his acute respiratory failure is secondary to CHF exacerbation, pulmonary edema and now bilateral pleural effusions. CT of his chest does not show any more pulmonary edema or any signs of pneumonia, only moderate right pleural effusion and small left pleural effusion. I discussed with the healthcare management possibilities for treatment with a rising creatinine with diuresis, and we decided to go with a thoracentesis to remove the pleural fluid and further test for the cause. Also discussed getting Cardiology involved with his history and CHF exacerbation Echo ordered and showing normal EF 60-65%, diastolic grade 2 dysfunction Will discontinue IV Lasix, his fluid balance was positive 845, as compared to -1 L yesterday. Believe we are getting him a little to dry with a creatinine increased to 1.6. I did discuss with the patient's son who does agree with the thoracentesis at this time Currently patient's oxygen requirements has increased to 5 L via nasal cannula and 96%. Baseline is 2 L. Continue monitoring daily. Appreciate pulmonology and Cardiology input. <Monique Dowling PA-C - Last Filed: 01/22/21 15:06> (2) COPD exacerbation: Code(s): J44.1 - Chronic obstructive pulmonary disease with (acute) exacerbation <Monique Dowling PA-C - Last Filed: 01/22/21 15:06> Status: Acute <Monique Dowling PA-C - Last Filed: 01/22/21 15:06> Assessment and Plan: See above <Monique Dowling PA-C - Last Filed: 01/22/21 15:06> (3) Diastolic CHF, acute: Code(s): I50.31 - Acute diastolic (congestive) heart failure <Monique Dowling PA-C - Last Filed: 01/22/21 15:06> Status: Acute <Monique Perkins
--- NOTE | 2021-01-22 12:19 | PM.PNPUL ---
Progress Note: A&P Assessment and Plan (1) Respiratory failure: Qualifiers: Chronicity: acute Respiratory failure complication: hypercapnia Qualified Code(s): J96.02 - Acute respiratory failure with hypercapnia Code(s): J96.90 - Respiratory failure, unspecified, unspecified whether with hypoxia or hypercapnia Status: Acute Assessment and Plan: Chest CT showed bilateral pleural effusions right greater than left. in addition there was mild centrilobular emphysema on chest CT but no other infiltrates to suggest pneumonia. in view of pulmonary edema seen on initial chest imaging studies the pleural effusions are most likely related to congestive heart failure. Patient's diarrhea has been discontinued because of rising creatinine. I would suggest right thoracentesis to document the transudative nature of the effusion and also improve gas exchange. The case was discussed with the hospitalist. (2) Pleural effusion: Code(s): J90 - Pleural effusion, not elsewhere classified Status: Acute (3) Diastolic CHF, acute: Code(s): I50.31 - Acute diastolic (congestive) heart failure Status: Acute (4) COPD (chronic obstructive pulmonary disease): Code(s): J44.9 - Chronic obstructive pulmonary disease, unspecified Status: Acute (5) Pulmonary edema: Qualifiers: Chronicity: acute Qualified Code(s): J81.0 - Acute pulmonary edema Code(s): J81.1 - Chronic pulmonary edema Status: Acute (6) Herpes infection: Code(s): B00.9 - Herpesviral infection, unspecified Status: Acute (7) REYES (acute kidney injury): Code(s): N17.9 - Acute kidney failure, unspecified Status: Acute Subjective Date/time seen: 01/22/21 12:19 patient has no new respiratory symptoms. Remaining on supplemental oxygen via nasal cannula. Refused BiPAP last night. Review of Systems Review of Systems: All systems reviewed & are unremarkable except as noted in HPI and below (H & p amd beleow) Exam Narrative: GENERAL APPEARANCE: Well developed, well nourished, alert and cooperative, who appears to be in mild respiratory distress while on supplemental oxygen. SKIN: Inspection of the skin reveals no rashes, ulcerations or petechiae. HEENT: Herpetic rash around R eye. R eye conjunctivitis. Extraocular movements were intact and pupils were large equal, round. NECK: Supple. There was no thyroid enlargement, and no tenderness, or masses were felt. CHEST: Normal AP diameter and normal contour without any kyphoscoliosis. LUNGS: Auscultation of the lungs revealed decreased breath sounds at both bases posteriorly, tubular sounds right base posteriorly. No wheezing CARDIAC: There was a regular rate and rhythm without any murmurs, gallops, rubs. ABDOMEN: Soft and nontender with normal bowel sounds. There was no organomegaly. LYMPH NODES: No lymphadenopathy was appreciated in the neck. EXTREMITIES: No cyanosis, clubbing or edema. NEUROLOGIC: Alert and oriented x 3. Normal affect. Objective Data Vital Signs Vital Signs: Vital Signs - 24 hr 01/21/21 14:00 01/21/21 18:23 01/21/21 21:00 Temperature 37.0 C Pulse Rate 59 L 48 L Respiratory Rate 20 20 Blood Pressure 140/67 Pulse Oximetry 92 92 01/21/21 22:25 01/22/21 11:06 01/22/21 11:38 Temperature 36.7 C 36.6 C Pulse Rate 60 60 94 Respiratory Rate 18 14 Blood Pressure 132/60 125/55 L Pulse Oximetry 96 99 Intake/Output Intake/Output: Intake & Output 01/19/21 01/20/21 01/21/21 01/22/21 23:59 23:59 23:59 23:59 Intake Total 1960 1495 Output Total 2750 1100 Balance -790 395 Meds/Results Medications: Active Medications Generic Name Dose Route Start Last Admin Trade Name Freq PRN Reason Stop Dose Admin Acyclovir 800 mg 01/20/21 09:00 01/22/21 09:58 Acyclovir 400 Mg Tablet PO 800 mg 5 TIMES DAILY JENNIFER Administration Albuterol 2 puff 01/19/21 23:10 Albuterol Sulfate (*
[2021-01-22 12:38] LABS: INR 1.7; Prothrombin Time 19.7 Seconds (11.1-14.7)
[2021-01-22 12:42] LABS: Albumin Level 3.1 g/dL (3.5-5.1); Amylase 185 U/L (30-110); Bilirubin,Total 0.3 mg/dL (0.2-1.3); Cholesterol 75 mg/dL (0-200); Glucose 131 mg/dL (65-110); Triglycerides 101 mg/dL (<150)
[2021-01-22 13:00] LABS: Lactate Dehydrogenase 371 U/L (313-618)
--- NOTE | 2021-01-22 14:41 | PM.CNCAR ---
Assessment and Plan Assessment and plan (1) Heart failure with preserved ejection fraction: Code(s): I50.30 - Unspecified diastolic (congestive) heart failure Status: Acute Assessment and Plan: Very complicated patient with multiple comorbidities, prolonged hospitalization and multiple readmissions for various issues. On recently he has been having more difficulty with hypoxic and or hypercarbic respiratory failure. He has longstanding history of tobacco abuse with moderate emphysematous changes on CT chest but with evidence of bilateral pleural effusions with progression. It is reasonable that he has mild acute on chronic heart failure with preserved ejection fraction complicating his respiratory status. Thoracentesis may improve recruitment with mechanical advantage for his respiratory status. He is on relatively low-dose furosemide IV 20 mg q.12 hours and as documented is -395 cc which is negligible. Discussed with patient's brother risks with up titration of diuretic therapy with worsening renal failure that must be balanced with potential benefit in his respiratory status. Verbalized understanding. I would recommend up titration of Lasix to at least 40 mg q.12 hours close observation of input and output, daily weight and daily assessment of his renal function and electrolytes. I suspect his renal function will deteriorate the degree to which remains unclear at this time. Renal function worsens a recommend involving Nephrology this very complicated patient renal artery bypass. Patient acutely decompensated from a heart failure perspective and or renal function precipitously deteriorates repeat renal Doppler ultrasound assess for flow patency. There is any complication in this regard patient should be transferred to [facility] as we do not have available Cardiothoracic or Vascular Surgical Services. We must remain cautious with his very complicated gentleman. Spent 65 minutes in the care of this patient at bedside with discussions with and brother, counseling, examination, chart review, and medical decision making. (2) Pleural effusion: Code(s): J90 - Pleural effusion, not elsewhere classified Status: Acute Assessment and Plan: As above, plan for right thoracentesis noted. However, patient remains on Eliquis increasing risk for bleeding complications. Given history of graft thrombosis I would be hesitant to discontinue Eliquis for longer than 24 hours in which case I would recommend unfractionated heparin infusion for bridging if Eliquis must be held for longer periods of time. (3) [id number] kidney injury: Code(s): N17.9 - Acute kidney failure, unspecified; N18.9 - Chronic kidney disease, unspecified Status: Acute Assessment and Plan: As above, monitor very closely. If further deterioration consult Nephrology their involvement. If precipitous deterioration renal Doppler ultrasound to assess for vascular arterial patency given his history of arterial bypass. (4) Acute encephalopathy: Code(s): G93.40 - Encephalopathy, unspecified Status: Acute Assessment and Plan: Per primary service. Multifactorial (5) CAD (coronary artery disease): Code(s): I25.10 - Atherosclerotic heart disease of red devil coronary artery without angina pectoris Status: Chronic Assessment and Plan: Stable, no anginal symptoms. Patient has extensive atherosclerotic history continue aspirin, carvedilol, rosuvastatin. Goal LDL less than 70. (6) AAA (abdominal aortic aneurysm): Code(s): I71.4 - Abdominal aortic aneurysm, without rupture Status: Acute Assessment and Plan: Very complicated surgical history as noted in HPI. Continue systemic anticoagulation. Stable at present. (7) Carotid stenosis: Qualifiers: Laterality: bilateral Qualified Code(s): I65.23 - Occlusion and stenosis of bilateral carotid arteries Code(s): I65.2
[2021-01-22 15:55] LABS: Glucose Point of Care 113 mg/dl (65-105)
[2021-01-22] MEDS: FUROSEMIDE INJ 40 MG/4 ML VIAL IV PUSH (18:22)
[2021-01-22] MEDS: ROSUVASTATIN 10 MG TABLET PO (21:19)
[2021-01-22] MEDS: TERAZOSIN HCL 5 MG CAPSULE PO (21:20)
[2021-01-23] VITALS (11 sets, daily range): BP systolic 109–154; BP diastolic 67–77; PULSE 58–60; RESP 16–22; TEMP 36.3–36.5; O2SAT 90–100
[2021-01-23 06:48] LABS: Basophils Percent Auto 0.1 % (0.2-1.2); Eosinophils Percent Auto 0.5 % (0-4.4); Hematocrit 31.9 % (42.0-52.0); Hemoglobin 9.8 g/dL (14.0-18.0); Immature Granulocyte Absolute 0.05 K/mm3 (0.00-0.031); Immature Granulocyte Percent A 0.6 % (0-0.5); Lymphocytes Absolute Auto 1.03 K/mm3 (0.9-3.2); Lymphocytes Percent Auto 12.5 % (18.3-44.2); Mean Corpuscular HGB Conc 30.7 g/dl (32-36); Mean Corpuscular Hemoglobin 27.3 pg (26-34); Mean Corpuscular Volume 88.9 fl (80-100); Mean Platelet Volume 8.6 fl (7.4-10.4); Monocytes Absolute Auto 0.5 K/mm3 (0.1-0.6); Monocytes Percent Auto 6.6 % (2.6-8.5); Neutrophils Absolute Auto 6.6 K/mm3 (1.3-6.7); Neutrophils Percent Auto 79.7 % (45.5-73.1); Platelet Count Result 244 k/mm3 (150-375); Red Blood Count 3.59 M/mm3 (4.6-6.20); White Blood Count 8.2 K/mm3 (4.5-10.0)
[2021-01-23 07:12] LABS: Alanine Aminotransferase 178 U/L (4-50); Albumin Level 3.1 g/dL (3.5-5.1); Alkaline Phosphatase 73 U/L (38-126); Aspartate Amino Transferase 203 U/L (17-59); Bilirubin,Total 0.3 mg/dL (0.2-1.3); Blood Urea Nitrogen 72 mg/dL (9-20); Calcium 8.3 mg/dL (8.4-10.2); Carbon Dioxide > 40 mmol/L (22-30); Chloride 88 mmol/L (98-107); Estimated CRCL calculation 47 ml/min; Estimated Glomerular Filt Rate 46; Glucose 126 mg/dL (65-110); Lipase 1176 U/L (23-300); Potassium 3.5 mmol/L (3.4-5.0); Sodium 136 mmol/L (137-145)
[2021-01-23] MEDS: PANTOPRAZOLE SODIUM IV 40 MG VIAL IV PUSH ×2 (08:01→23:29)
[2021-01-23] MEDS: FUROSEMIDE INJ 40 MG/4 ML VIAL IV PUSH (08:02)
[2021-01-23] MEDS: FOLIC ACID 1 MG TABLET PO (08:02)
[2021-01-23] MEDS: amLODIPine BESYLATE 5 MG TABLET 10 MG PO (08:03)
[2021-01-23] MEDS: APIXABAN 5 MG TABLET PO ×2 (08:03→23:29)
[2021-01-23] MEDS: ACYCLOVIR 400 MG TABLET 800 MG PO ×5 (08:03→23:36)
[2021-01-23] MEDS: ASPIRIN 81 MG CHEWABLE TABLET PO (08:03)
[2021-01-23] MEDS: carvediloL 25 MG TABLET PO ×2 (08:04→17:23)
[2021-01-23] MEDS: FINASTERIDE 5 MG TABLET PO (08:04)
[2021-01-23 08:38] LABS: Magnesium 2.3 mg/dL (1.6-2.3)
--- NOTE | 2021-01-23 10:53 | PM.IMPN ---
Progress Note: A&P Assessment and Plan (1) Respiratory failure: Qualifiers: Chronicity: acute Respiratory failure complication: hypercapnia Qualified Code(s): J96.02 - Acute respiratory failure with hypercapnia <Monique Maddie Dowling PA-C - Last Filed: 01/23/21 13:47> Code(s): J96.90 - Respiratory failure, unspecified, unspecified whether with hypoxia or hypercapnia <Monique Maddie Dowling PA-C - Last Filed: 01/23/21 13:47> Status: Acute <Monique Maddie Dowling PA-C - Last Filed: 01/23/21 13:47> Assessment and Plan: Patient is a 70-year-old man who lives at [facility], with a history of rupture of AAA with intravascular repair, CAD status post PCI, carotid stenosis with 100% occlusion bilaterally, CVA with residual right-sided weakness, PEG tube after CVA, hypertension, who presented emergency room with increasingly short of breath and was unresponsive. EMS was called and put him on a non-rebreather due to hypoxia and was given 125 mg of IV Solu-Medrol. First set of ABGs in ER showed pH 7.287, pCO2 75.8, PO2 53, O2 saturations 81.9 and bicarb 35.4. Patient was placed on a BiPAP and approximately 1 hour later his arterial blood gases were 7.325, CO2 65.2, PO2 59.4, O2 saturation 88%. Head CT was read as the following No acute intracranial process. Moderate-sized chronic infarct involving portions of the left frontal lobe and insula. Chronic bilateral mastoid effusions. H&H is 9.0 in 30.1 which is his baseline. Sodium 130. Creatinine 1.4 with a BUN at 37 which is also his baseline. Glucose is 130. Troponin negative x2 BNP 7100. Chest x-ray was read as mild pulmonary edema. Small left increasing small to moderate right pleural effusions and associated atelectasis and/or pneumonia not excludable. Patient was also given Narcan in the ER. The patient is being admitted to inpatient services for treatment of acute on chronic respiratory failure from COPD exacerbation with IV Solu-medrol/Duoneb treatments and CHF exacerbation with IV Lasix. Patient was tested for COVID and had a negative PCR on 01/19/2021 and taken off isolation Talked to the craft coordinator who believes all of his acute respiratory failure is secondary to CHF exacerbation, pulmonary edema and now bilateral pleural effusions. CT of his chest does not show any more pulmonary edema or any signs of pneumonia, only moderate right pleural effusion and small left pleural effusion. I discussed with the craft coordinator possibilities for treatment with a rising creatinine with diuresis, and we decided to go with a thoracentesis to remove the pleural fluid and further test for the cause. Cardiology evaluated the patient and placed him on IV Lasix 40 mg b.i.d. with good improvement of urine output to -2300 in 24 hours. Creatinine is stable with this diuresis. Occupational Health Technician today evaluated the patient and did not believe he was fluid overloaded at this time. Echo ordered and showing normal EF 60-65%, diastolic grade 2 dysfunction I did discuss with the patient's son who does agree with the thoracentesis at this time which is still pending. Currently patient's oxygen requirements has improved to 2L via NC at 90%, but had to increase it slightly due to SOB Continue monitoring daily. Appreciate pulmonology and Cardiology input. <Monique Dowling PA-C - Last Filed: 01/23/21 13:47> (2) COPD exacerbation: Code(s): J44.1 - Chronic obstructive pulmonary disease with (acute) exacerbation <Monique Dowling PA-C - Last Filed: 01/23/21 13:47> Status: Acute <Monique Dowling PA-C - Last Filed: 01/23/21 13:47> Assessment and Plan: See above <Monique Dowling PA-C - Last Filed: 01/23/21 13:47> (3) Diastolic CHF, acute: Code(s): I50.31 - Acute diastolic (congestive) heart failure <Monique Dowling PA-C - [facility]
[2021-01-23] MEDS: IPRATROPIUM BR 0.02% INH SOLN 0.5 MG/2.5 ML VIAL INHALATION (11:11)
[2021-01-23] MEDS: ALBUTEROL SULFATE NEB 2.5 MG/0.5 ML INH INHALATION (11:11)
--- NOTE | 2021-01-23 11:19 | PCPTNOTE ---
attempted PT evaluation, pt refused; unable to convince him to get OOB; he stated will try tomorrow ; family member present and could not convince him to participate;
--- NOTE | 2021-01-23 11:50 | PM.PNPUL ---
Progress Note: A&P Assessment and Plan (1) Respiratory failure: Qualifiers: Chronicity: acute Respiratory failure complication: hypercapnia Qualified Code(s): J96.02 - Acute respiratory failure with hypercapnia Code(s): J96.90 - Respiratory failure, unspecified, unspecified whether with hypoxia or hypercapnia Status: Acute Assessment and Plan: Chest CT showed bilateral pleural effusions right greater than left. in addition there was mild centrilobular emphysema on chest CT but no other infiltrates to suggest pneumonia. in view of pulmonary edema seen on initial chest imaging studies the pleural effusions are most likely related to congestive heart failure. Await thoracentesis. Continue with same treatment use BiPAP at night out of bed to chair. (2) Pleural effusion: Code(s): J90 - Pleural effusion, not elsewhere classified Status: Acute (3) Diastolic CHF, acute: Code(s): I50.31 - Acute diastolic (congestive) heart failure Status: Acute (4) COPD (chronic obstructive pulmonary disease): Code(s): J44.9 - Chronic obstructive pulmonary disease, unspecified Status: Acute (5) Pulmonary edema: Qualifiers: Chronicity: acute Qualified Code(s): J81.0 - Acute pulmonary edema Code(s): J81.1 - Chronic pulmonary edema Status: Acute (6) Herpes infection: Code(s): B00.9 - Herpesviral infection, unspecified Status: Acute (7) REYES (acute kidney injury): Code(s): N17.9 - Acute kidney failure, unspecified Status: Acute Subjective Date/time seen: 01/23/21 11:50 Patient used BiPAP last night. He has no new respiratory symptoms. His shortness of breath is little better. Review of Systems Review of Systems: All systems reviewed & are unremarkable except as noted in HPI and below (H and P and below.) Exam Narrative: GENERAL APPEARANCE: Well developed, well nourished, alert and cooperative, who appears to be in mild respiratory distress while on supplemental oxygen. SKIN: Inspection of the skin reveals no rashes, ulcerations or petechiae. HEENT: Herpetic rash around R eye. R eye conjunctivitis. Extraocular movements were intact and pupils were large equal, round. NECK: Supple. There was no thyroid enlargement, and no tenderness, or masses were felt. CHEST: Normal AP diameter and normal contour without any kyphoscoliosis. LUNGS: Auscultation of the lungs revealed decreased breath sounds at both bases posteriorly, tubular sounds right base posteriorly. No wheezing CARDIAC: There was a regular rate and rhythm without any murmurs, gallops, rubs. ABDOMEN: Soft and nontender with normal bowel sounds. There was no organomegaly. LYMPH NODES: No lymphadenopathy was appreciated in the neck. EXTREMITIES: No cyanosis, clubbing or edema. NEUROLOGIC: Alert and oriented x 3. Normal affect Objective Data Vital Signs Vital Signs: Vital Signs - 24 hr 01/22/21 18:21 01/22/21 20:00 01/22/21 21:01 Temperature Pulse Rate 88 Respiratory Rate Blood Pressure Pulse Oximetry 94 92 01/22/21 22:00 01/23/21 06:00 01/23/21 08:00 Temperature 36.4 C 36.3 C L Pulse Rate 56 L 58 L Respiratory Rate 21 H 22 H Blood Pressure 149/68 H 150/67 H Pulse Oximetry 94 100 90 01/23/21 08:04 01/23/21 09:48 01/23/21 11:18 Temperature Pulse Rate 60 60 Respiratory Rate 18 Blood Pressure Pulse Oximetry 91 Intake/Output Intake/Output: Intake & Output 01/20/21 01/21/21 01/22/21 01/23/21 23:59 23:59 23:59 23:59 Intake Total 1960 1495 800 0 Output Total 2750 1100 1200 2350 Balance -790 999 -400 -2350 Meds/Results Medications: Active Medications Generic Name Dose Route Start Last Admin Trade Name Freq PRN Reason Stop Dose Admin Acyclovir 800 mg 01/20/21 09:00 01/23/21 08:03 Acyclovir 400 Mg Tablet PO 800 mg 5 TIMES DAILY JENNIFER Administration Albuterol 2 puff 01/19/21 23:10 Albuterol Sulfat
--- NOTE | 2021-01-23 15:13 | PM.PNCARD ---
Progress Note: A&P Additional Plan Acute on chronic diastolic heart failure, paroxysmal AF with HX of strokes, Hx of AAA repair with complicated hospital course. Hx of COPD, CKD, plan change to oral diuretic, f/u with pulm team regarding need for thoracentesis, cont apixaban, amlodipine, coreg Subjective Date/time seen: 01/23/21 15:13 Interval history: Feels SOB O2 sat down to 2 L but still feels SOB Review of Systems Review of Systems: All systems reviewed & are unremarkable except as noted in HPI and below ROS unobtainable: Yes unobtainable due to mental status Exam Const: General: comfortable and no acute distress Other: Able to lie flat HENMT: General nose exam: Normal nares present and no epistaxis Mouth: Yes moist mucous membranes Eyes: Sclera: sclerae normal Pupils: Equal, round and reactive pupils present Neck: Neck: supple and no JVD Carotids: no bruits Resp: Auscultation: rhonchi upper bilaterally and lung sounds not diminished Other: No chest wall tenderness Cardio: Rate: regular rate Rhythm: regular rhythm Heart sounds: no gallops, no murmurs and no rubs GI: GI Palp: Yes Soft to palpation and No Tenderness to palpation present (GI) Auscultation: normal bowel sounds Skin: General skin exam: normal color, rashes and/or lesions noted and no erythema Lesions: other (rt upper face bleeding skin lesion ) Other: Warm Neuro: Other: No obvious focal deficit or facial asymmetry Extrem: General: no edema Other: Normal capillary refills Intact distal pulses. Objective Data Vital Signs Vital Signs: Vital Signs - 24 hr 01/22/21 18:21 01/22/21 20:00 01/22/21 21:01 Temperature Pulse Rate 88 Respiratory Rate Blood Pressure Pulse Oximetry 94 92 01/22/21 22:00 01/23/21 06:00 01/23/21 08:00 Temperature 36.4 C 36.3 C L Pulse Rate 56 L 58 L Respiratory Rate 21 H 22 H Blood Pressure 149/68 H 150/67 H Pulse Oximetry 94 100 90 01/23/21 08:04 01/23/21 09:48 01/23/21 11:18 Temperature Pulse Rate 60 60 Respiratory Rate 18 Blood Pressure Pulse Oximetry 91 01/23/21 14:17 Temperature Pulse Rate Respiratory Rate Blood Pressure Pulse Oximetry 91 Intake/Output Intake/Output: Intake & Output 01/20/21 01/21/21 01/22/21 01/23/21 23:59 23:59 23:59 23:59 Intake Total 1960 1495 800 0 Output Total 2750 1100 1200 2350 Balance -790 395 400 -2350 Meds/Results Medications: Active Medications Generic Name Dose Route Start Last Admin Trade Name Freq PRN Reason Stop Dose Admin Acyclovir 800 mg 01/20/21 09:00 01/23/21 14:06 Acyclovir 400 Mg Tablet PO 800 mg 5 TIMES DAILY JENNIFER Administration Albuterol 2 puff 01/19/21 23:10 Albuterol Sulfate (*Sp) Aerosol 1 Puff INHALATION Q4-6H PRN Shortness Of Breath Amlodipine Besylate 10 mg 01/20/21 09:00 01/23/21 08:03 Amlodipine Besylate 5 Mg Tablet PO 10 mg DAILY JENNIFER Administration Apixaban 5 mg 01/20/21 00:30 01/23/21 08:03 Apixaban 5 Mg Tablet PO 5 mg Q12HR JENNIFER Administration Artificial Tears 1 drop 01/19/21 23:10 Artificial Tears Ophth Soln 15 Ml Bottle EACH EYE QID PRN Dry Eye(S) Aspirin 81 mg 01/20/21 08:00 01/23/21 08:03 Aspirin 81 Mg Chewable Tablet PO 81 mg DAILY@0800 JENNIFER Administration Carvedilol 25 mg 01/20/21 08:00 01/23/21 08:04 Carvedilol 25 Mg Tablet PO 25 mg BIDWM JENNIFER Administration Finasteride 5 mg 01/20/21 09:00 01/23/21 08:04 Finasteride 5 Mg Tablet PO 5 mg QAM JENNIFER Administration Folic Acid 1 mg 01/20/21 09:00 01/23/21 08:02 Folic Acid 1 Mg Tablet PO 1 mg DAILY JENNIFER Administration Furosemide 40 mg 01/22/21 17:00 01/23/21 08:02 Furosemide Inj 40 Mg/4 Ml Vial IV PUSH 40 mg BID JENNIFER Administration Lorazepam 0.5 mg 01/19/21 23:12 01/20/21 22:44 Lorazepam Inj (*Crx) 2 Mg/Ml Vial IV PUSH 0.5 mg Q6H PRN Administration Anxiety Miscellaneous Information 0 each
[2021-01-23] MEDS: FUROSEMIDE 40 MG TABLET PO (17:25)
[2021-01-23] MEDS: TERAZOSIN HCL 5 MG CAPSULE PO (23:28)
[2021-01-23] MEDS: ROSUVASTATIN 10 MG TABLET PO (23:28)
[2021-01-24] VITALS (26 sets, daily range): BP systolic 129–150; BP diastolic 65–74; PULSE 51–64; RESP 16–24; TEMP 36.1–36.8; O2SAT 85–100
--- NOTE | 2021-01-24 06:41 | ECG_ITS ---
Measurements Intervals [place] Rate: 61 P: -62 WI: 198 QRS: -40 QRSD: 101 T: 52 QT: 436 QTc: 442 Interpretive Statements SINUS RHYTHM WITH SINUS ARRHYTHMIA LEFT AXIS DEVIATION INCOMPLETE RIGHT BUNDLE BRANCH BLOCK CANNOT RULE OUT SEPTAL INFARCT, AGE INDETERMINATE BASELINE ARTIFACT- I, II, III, AVR, AVL, AVF, V2-V6 ABNORMAL ECG Electronically Signed On 01-24-2021 7:59:18 HOME [employer]GAN[employer] by Reji Benton D.O.
[2021-01-24 06:52] LABS: Hematocrit 34.6 % (42.0-52.0); Hemoglobin 10.6 g/dL (14.0-18.0); Mean Corpuscular HGB Conc 30.6 g/dl (32-36); Mean Corpuscular Hemoglobin 27.3 pg (26-34); Mean Corpuscular Volume 89.2 fl (80-100); Mean Platelet Volume 8.4 fl (7.4-10.4); Platelet Count Result 226 k/mm3 (150-375); Red Blood Count 3.88 M/mm3 (4.6-6.20); Red Cell Distribution Width 17.5 % (11.5-14.5); White Blood Count 8.3 K/mm3 (4.5-10.0)
[2021-01-24] MEDS: ALBUTEROL SULFATE NEB 2.5 MG/0.5 ML INH 10 MG INHALATION (07:01)
[2021-01-24 07:11] LABS: Albumin Level 3.3 g/dL (3.5-5.1); Alkaline Phosphatase 94 U/L (38-126); Bilirubin,Total 0.4 mg/dL (0.2-1.3); Blood Urea Nitrogen 67 mg/dL (9-20); Calcium 8.5 mg/dL (8.4-10.2); Carbon Dioxide > 40 mmol/L (22-30); Chloride 90 mmol/L (98-107); Estimated CRCL calculation 47 ml/min; Estimated Glomerular Filt Rate 46; Glucose 136 mg/dL (65-110); Lipase 1079 U/L (23-300); Potassium 3.3 mmol/L (3.4-5.0); Sodium 140 mmol/L (137-145)
[2021-01-24 07:17] LABS: Aspartate Amino Transferase 825 U/L (17-59)
[2021-01-24 07:18] LABS: Alanine Aminotransferase 874 U/L (4-50)
--- NOTE | 2021-01-24 08:27 | PM.IMPN ---
Progress Note: A&P Assessment and Plan (1) Respiratory failure: Qualifiers: Chronicity: acute Respiratory failure complication: hypercapnia Qualified Code(s): J96.02 - Acute respiratory failure with hypercapnia Code(s): J96.90 - Respiratory failure, unspecified, unspecified whether with hypoxia or hypercapnia Status: Acute Assessment and Plan: Patient is a 70-year-old man who lives at [facility], with a history of rupture of AAA with intravascular repair, CAD status post PCI, carotid stenosis with 100% occlusion bilaterally, CVA with residual right-sided weakness, PEG tube after CVA, hypertension, who presented emergency room with increasingly short of breath and was unresponsive. EMS was called and put him on a non-rebreather due to hypoxia and was given 125 mg of IV Solu-Medrol. First set of ABGs in ER showed pH 7.287, pCO2 75.8, PO2 53, O2 saturations 81.9 and bicarb 35.4. Patient was placed on a BiPAP and approximately 1 hour later his arterial blood gases were 7.325, CO2 65.2, PO2 59.4, O2 saturation 88%. Head CT was read as the following No acute intracranial process. Moderate-sized chronic infarct involving portions of the left frontal lobe and insula. Chronic bilateral mastoid effusions. H&H is 9.0 in 30.1 which is his baseline. Sodium 130. Creatinine 1.4 with a BUN at 37 which is also his baseline. Glucose is 130. Troponin negative x2 BNP 7100. Chest x-ray was read as mild pulmonary edema. Small left increasing small to moderate right pleural effusions and associated atelectasis and/or pneumonia not excludable. Patient was also given Narcan in the ER. The patient is being admitted to inpatient services for treatment of acute on chronic respiratory failure from COPD exacerbation with IV Solu-medrol/Duoneb treatments and CHF exacerbation with IV Lasix. Patient was tested for COVID and had a negative PCR on 01/19/2021 and taken off isolation 01/24/2021: Around 0645 this morning the patient was found to be hypoxic and confused. The patient needed to be increased to 15 L via nasal cannula with a non-rebreather mask with improvement of his oxygen saturations. A stat chest x-ray was completed which shows small pleural effusions and no acute change from atelectasis. Labs were drawn showing normal white blood cell count, CO2 greater than 40. I spoke with the hand driller who had personally evaluated the patient and reviewed the chest x-ray with me and he believes he is having some atelectasis causing hypoxia. He recommends placing the patient on BiPAP 02/05, breathing treatments q.i.d. with albuterol, Mucomyst to loosen secretions, check venous Dopplers to rule out DVT even though the patient is on Eliquis 5 mg q.12 hours. We will cancel the thoracentesis at this time because we do not want to hold his Eliquis and given his acute state. Will place the patient NPO and without any tube feedings until we further evaluate his abdominal ultrasound and mental status. Given his increased oxygenation we did a rapid COVID swab which was NEGATIVE 01/24/21 Cardiology evaluated the patient yesterday and switched him to oral Lasix 40 mg b.i.d.. I will hold his diuresis at this time since he will be NPO. Appreciate cardiology's input. Echo ordered and showing normal EF 60-65%, diastolic grade 2 dysfunction Spoke with the patient's son Houstno-who is where the patient's current mental status, hypoxia and being transferred to the IMU. Continue monitoring daily. Appreciate pulmonology and Cardiology input. (2) COPD exacerbation: Code(s): J44.1 - Chronic obstructive pulmonary disease with (acute) exacerbation Status: Acute Assessment and Plan: See above (3) Diastolic CHF, acute: Code(s): I50.31 - Acute diastolic (congestive) heart failure Status: Acute Assessment and Plan: See
[2021-01-24] MEDS: amLODIPine BESYLATE 5 MG TABLET 10 MG PO (08:54)
[2021-01-24] MEDS: APIXABAN 5 MG TABLET PO ×2 (08:54→21:32)
[2021-01-24] MEDS: ASPIRIN 81 MG CHEWABLE TABLET PO (08:54)
[2021-01-24] MEDS: FOLIC ACID 1 MG TABLET PO (08:54)
[2021-01-24] MEDS: ACYCLOVIR 400 MG TABLET 800 MG PO ×5 (08:54→21:32)
[2021-01-24] MEDS: PANTOPRAZOLE SODIUM IV 40 MG VIAL IV PUSH ×2 (08:55→21:33)
[2021-01-24] MEDS: FUROSEMIDE 40 MG TABLET PO ×2 (08:55→17:39)
[2021-01-24] MEDS: carvediloL 25 MG TABLET PO ×2 (08:55→17:38)
[2021-01-24] MEDS: polyethylene glycoL 3350 17 GM POWD.PACK PO (08:55)
[2021-01-24] MEDS: FINASTERIDE 5 MG TABLET PO (08:55)
[2021-01-24 09:07] LABS: EDCOVIDSCREEN Negative (Negative)
--- NOTE | 2021-01-24 09:14 | PM.PNPUL ---
Progress Note: A&P Assessment and Plan (1) Respiratory failure: Qualifiers: Chronicity: acute Respiratory failure complication: hypercapnia Qualified Code(s): J96.02 - Acute respiratory failure with hypercapnia Code(s): J96.90 - Respiratory failure, unspecified, unspecified whether with hypoxia or hypercapnia Status: Acute Assessment and Plan: Patient has no new respiratory symptoms but gas exchange worsening noted over the last 24 hours. supplemental oxygen flow increased to maintain O2 saturation a near 90%. Physical exam is essentially unchanged with dullness to percussion and decreased breath sounds at bases posteriorly and no wheezing. Abdominal CT done yesterday showed no increase in size of pleural effusions, if anything the right pleural effusion appears to be smaller compared to the CT done was 5 days ago. today's chest x-ray showed no new infiltrates or pulmonary congestion. Patient has been on Eliquis twice daily which makes pulmonary embolism rather unlikely. By exclusion this could be retained mucus plug, or worsening atelectasis related to pleural effusions. Plan as follows. Titrate oxygen to maintain O2 saturation over 90%. Start patient on nebulized Mucomyst and continue with the nebulized short-acting bronchodilator q 4-6 hours while awake. Start patient on BiPAP support, day and night, using expiratory pressures in the range of about 8 cm. Venous study of the lower extremities to exclude DVT. We will hold tube feedings today, and postpone thoracentesis for next week. Case was discussed with the hospitalist. (2) Pleural effusion: Code(s): J90 - Pleural effusion, not elsewhere classified Status: Acute (3) Diastolic CHF, acute: Code(s): I50.31 - Acute diastolic (congestive) heart failure Status: Acute (4) COPD (chronic obstructive pulmonary disease): Code(s): J44.9 - Chronic obstructive pulmonary disease, unspecified Status: Acute (5) Pulmonary edema: Qualifiers: Chronicity: acute Qualified Code(s): J81.0 - Acute pulmonary edema Code(s): J81.1 - Chronic pulmonary edema Status: Acute (6) Herpes infection: Code(s): B00.9 - Herpesviral infection, unspecified Status: Acute (7) REYES (acute kidney injury): Code(s): N17.9 - Acute kidney failure, unspecified Status: Acute Subjective Date/time seen: 01/24/21 09:14 Patient has no respiratory complaints but oxygen needs increased last 24 hours. He has no cough wheezing chest pain fever chills. Underwent abdominal CT yesterday and chest x-ray today regarding worsening of gas exchange. Thoracentesis on hold. Review of Systems Review of Systems: All systems reviewed & are unremarkable except as noted in HPI and below Exam Narrative: GENERAL APPEARANCE: Well developed, well nourished, cooperative, who appears to be in mild respiratory distress while on supplemental oxygen. SKIN: Inspection of the skin reveals no rashes, ulcerations or petechiae. HEENT: Herpetic rash around R eye. R eye conjunctivitis. Extraocular movements were intact and pupils were large equal, round. NECK: Supple. There was no thyroid enlargement, and no tenderness, or masses were felt. CHEST: Normal AP diameter and normal contour without any kyphoscoliosis. LUNGS: Auscultation of the lungs revealed decreased breath sounds at both bases posteriorly. No wheezing CARDIAC: There was a regular rate and rhythm without any murmurs, gallops, rubs. ABDOMEN: Soft and nontender with normal bowel sounds. There was no organomegaly. LYMPH NODES: No lymphadenopathy was appreciated in the neck. EXTREMITIES: No cyanosis, clubbing or edema. NEUROLOGIC: Alert and oriented x 3. Normal affect Objective Data Vital Signs Vital Signs: Vital Signs - 24 hr 01/23/21 09:48 01/23/21 11:18 01/23/21 14:00 Temperature 36.5 C Pulse Rate 60 60 Respiratory Rate 18 16 Blood Pressure 154/70 H Pulse
[2021-01-24 09:27] LABS: Alveolar/Arterial O2 Gradient 359.6 mmHg; Base Excess ABG 16.9 mEq/l (+/-2.0); Carboxyhemoglobin 0.3 % THb (0-2.0); Fractional Inspired Oxygen 70 %; HCO3 ABG 43.2 mEq/l (22.0-26.0); Methemoglobin ABG 0.3 %THb (0-1.5); Oxygen Content ABG 14.8 %vol (16.0-22.0); Oxygen Saturation ABG 95.2 % (95.0-100.0); Oxyhemoglobin 93.4 % THb (90.0-100.0); PO2 ABG 73.9 mmHg (80.0-100.0); PO2 FiO2 Ratio Arterial Blood 1.06 %; Site Drawn RIGHT BRACHIAL; Total Hemoglobin 11.2 g/dL (12.0-18.0); pH ABG 7.468 (7.350-7.450)
[2021-01-24 09:28] LABS: Device NON-INVASIVE VENT; Non-Invasive Expiratory Pressure 8 CMH2O; Non-Invasive Inspiratory Pressure 12 CMH2O; Non-Invasive Vent Rate 16 /MIN
[2021-01-24 10:33] LABS: CRP 0.6 mg/dL (<1.0)
[2021-01-24 10:39] LABS: Lactate Dehydrogenase 2135 U/L (313-618)
--- NOTE | 2021-01-24 10:46 | PC.NURSE ---
report given to Dalton RN and patient transferred to room 204 per bed. belongings with patient
[2021-01-24] MEDS: ALBUTEROL SULFATE NEB 2.5 MG/3 ML INH 1.25 MG INHALATION ×3 (11:35→20:02)
[2021-01-24 12:20] LABS: Troponin I 0.026 ng/mL (0.000-0.034)
--- NOTE | 2021-01-24 13:20 | PM.PNCARD ---
Progress Note: A&P Additional Plan Acute on chronic diastolic heart failure, no clinical evidenc eof volume overload, paroxysmal AF with HX of strokes, Hx of AAA repair with complicated hospital course. Hx of COPD, CKD, cont oral diuretic, decrease oral fluid intake to 1 L per day, cont apixaban (hold 2 days before thoracentesis), amlodipine, coreg Subjective Date/time seen: 01/24/21 13:20 Interval history: worse SOB today on BIPAP Hypoxemia that improved with BiPAP Review of Systems Review of Systems: ROS unobtainable: Yes unobtainable due to mental status Exam Resp: Auscultation: rales (basal) and diminished lung sounds Cardio: Jugular venous distension: no JVD Rate: regular rate and bradycardic Rhythm: regular rhythm Heart sounds: S1 normal heart sound present, S2 normal heart sound present and no murmurs GI: GI Palp: No abdominal tenderness and Yes Other GI palpation findings present (feeding tube in place ) Objective Data Vital Signs Vital Signs: Vital Signs - 24 hr 01/23/21 14:00 01/23/21 14:17 01/23/21 17:23 Temperature 36.5 C Pulse Rate 60 60 Respiratory Rate 16 Blood Pressure 154/70 H Pulse Oximetry 91 91 01/23/21 20:00 01/23/21 23:27 01/23/21 23:55 Temperature 36.4 C Pulse Rate 60 59 L Respiratory Rate 20 Blood Pressure 109/77 Pulse Oximetry 91 90 91 01/24/21 06:59 01/24/21 07:04 01/24/21 07:07 Temperature 36.2 C L Pulse Rate 59 L 60 Respiratory Rate 24 H 16 Blood Pressure 150/69 H Pulse Oximetry 85 L 100 01/24/21 08:00 01/24/21 08:08 01/24/21 08:55 Temperature Pulse Rate 63 63 Respiratory Rate 18 Blood Pressure Pulse Oximetry 97 01/24/21 09:55 01/24/21 10:47 01/24/21 10:51 Temperature 36.8 C Pulse Rate 63 56 L 55 L Respiratory Rate 19 18 20 Blood Pressure 150/66 H Pulse Oximetry 100 96 95 01/24/21 11:36 01/24/21 11:39 01/24/21 11:44 Temperature Pulse Rate 58 L 58 L 61 Respiratory Rate 18 20 18 Blood Pressure Pulse Oximetry 95 01/24/21 13:00 Temperature 36.3 C L Pulse Rate 62 Respiratory Rate 22 H Blood Pressure 129/65 Pulse Oximetry 98 Intake/Output Intake/Output: Intake & Output 01/21/21 01/22/21 01/23/21 01/24/21 23:59 23:59 23:59 23:59 Intake Total 1495 800 0 1779 Output Total 1100 1200 4200 650 Balance 395 -400 -4200 1129 Meds/Results Medications: Active Medications Generic Name Dose Route Start Last Admin Trade Name Freq PRN Reason Stop Dose Admin Acetylcysteine 200 mg 01/24/21 09:00 01/24/21 11:38 Acetylcysteine 20% Inhal Soln 800 Mg/4 Ml Vial INHALATION Not Given Q12HR JENNIFER Acyclovir 800 mg 01/20/21 09:00 01/24/21 12:13 Acyclovir 400 Mg Tablet PO 800 mg 5 TIMES DAILY JENNIFER Administration Albuterol 2 puff 01/19/21 23:10 Albuterol Sulfate (*Sp) Aerosol 1 Puff INHALATION Q4-6H PRN Shortness Of Breath Albuterol 1.25 mg 01/24/21 09:00 01/24/21 11:35 Albuterol Sulfate Neb 2.5 Mg/3 Ml Inh INHALATION 1.25 mg QID JENNIFER Administration Amlodipine Besylate 10 mg 01/20/21 09:00 01/24/21 08:54 Amlodipine Besylate 5 Mg Tablet PO 10 mg DAILY JENNIFER Administration Apixaban 5 mg 01/20/21 00:30 01/24/21 08:54 Apixaban 5 Mg Tablet PO 5 mg Q12HR JENNIFER Administration Artificial Tears 1 drop 01/19/21 23:10 Artificial Tears Ophth Soln 15 Ml Bottle EACH EYE QID PRN Dry Eye(S) Aspirin 81 mg 01/20/21 08:00 01/24/21 08:54 Aspirin 81 Mg Chewable Tablet PO 81 mg DAILY@0800 JENNIFER Administration Carvedilol 25 mg 01/20/21 08:00 01/24/21 08:55 Carvedilol 25 Mg Tablet PO 25 mg BIDWM JENNIFER Administration Finasteride 5 mg 01/20/21 09:00 01/24/21 08:55 Finasteride 5 Mg Tablet PO 5 mg QAM JENNIFER Administration Folic Acid 1 mg 01/20/21 09:00 01/24/21 08:54 Folic Acid 1 Mg Tablet PO 1 mg DAILY JENNIFER Administration Furosemide 40 mg 01/24/21 09:00 01/24/21 08:55 Furosemide 40 Mg Tablet PO 4
--- NOTE | 2021-01-24 18:13 | PCRCNOTE ---
Window of time for administration has passed. See next scheduled administration.
[2021-01-24] MEDS: TERAZOSIN HCL 5 MG CAPSULE PO (21:32)
[2021-01-24] MEDS: ROSUVASTATIN 10 MG TABLET PO (21:33)
[2021-01-25] VITALS (24 sets, daily range): BP systolic 116–146; BP diastolic 60–107; PULSE 54–76; RESP 16–22; TEMP 36.4–37.1; O2SAT 91–100
--- NOTE | 2021-01-25 05:02 | PCNFU ---
Nutrition Follow-Up Complete: Increased energy expenditure as related to COPD as evidenced by supplemental nutrition. Goal: Pt. to meet estimated nutritional needs. Pt. is progressing toward goal. No new goal at this time. Pt current nutrition is NPO diet order. Last recorded weight is 83 kg. Recommend re-weighing pt. prior to discharge. Bowel Motility: + BM 01/18/2021 Labs Reviewed: Hgb 10.6, Hct 34.6, K 3.3, GFR 46, BUN 67, Cr 1.5, Glu 136 Meds Noted: Albuterol, Eliquis, Coreg, Lasix, Proscar, Miralax, Crestor, Senna, Hytrin Skin: No skin breakdown at this time. WNL. Additional Notes: Pt. was previously on Nepro at 50 mls per hour over 22 hours per day providing him with 1980 calories, 89 grams of protein and 800 mls of water with a water flush of 50 ml q4. He was tolerating feeding well with little residuals. Nepro was stopped yesterday, 01/24/2021 on transfer to IMU for suspected aspiration. Spoke with pt. nurse who confirmed feedings are supposed to start again today, 01/25/2021. Monitor every Wednesday and Wednesday.
--- NOTE | 2021-01-25 06:35 | PCNSR ---
On 01/25/21, the student, Emily Dunne, provided care and completed [facility] documentation on this patient. I have reviewed the student's documentation and agree with the findings.
[2021-01-25] MEDS: oxyCODONE/ACETAMINOPHEN (*CRX) 5-325 MG TABLET 1 TABLET PO (08:27)
[2021-01-25] MEDS: polyethylene glycoL 3350 17 GM POWD.PACK PO (08:28)
[2021-01-25] MEDS: oxyCODONE HCL (*CRX) 2.5 MG TAB IR PO (08:28)
[2021-01-25] MEDS: amLODIPine BESYLATE 5 MG TABLET 10 MG PO (08:29)
[2021-01-25] MEDS: PANTOPRAZOLE SODIUM IV 40 MG VIAL IV PUSH ×2 (08:29→21:28)
[2021-01-25] MEDS: APIXABAN 5 MG TABLET PO ×2 (08:29→21:28)
[2021-01-25] MEDS: FOLIC ACID 1 MG TABLET PO (08:29)
[2021-01-25] MEDS: FUROSEMIDE 40 MG TABLET PO ×2 (08:29→17:50)
[2021-01-25] MEDS: FINASTERIDE 5 MG TABLET PO (08:29)
[2021-01-25] MEDS: ACYCLOVIR 400 MG TABLET 800 MG PO ×2 (08:30→11:55)
[2021-01-25] MEDS: carvediloL 25 MG TABLET PO ×2 (08:30→17:51)
[2021-01-25] MEDS: ASPIRIN 81 MG CHEWABLE TABLET PO (08:30)
--- NOTE | 2021-01-25 08:34 | PM.IMPN ---
Progress Note: A&P Assessment and Plan (1) Respiratory failure: Qualifiers: Chronicity: acute Respiratory failure complication: hypercapnia Qualified Code(s): J96.02 - Acute respiratory failure with hypercapnia Code(s): J96.90 - Respiratory failure, unspecified, unspecified whether with hypoxia or hypercapnia Status: Acute Assessment and Plan: Patient is a 70-year-old man who lives at [facility], with a history of rupture of AAA with intravascular repair, CAD status post PCI, carotid stenosis with 100% occlusion bilaterally, CVA with residual right-sided weakness, PEG tube after CVA, hypertension, who presented emergency room with increasingly short of breath and was unresponsive. EMS was called and put him on a non-rebreather due to hypoxia and was given 125 mg of IV Solu-Medrol. First set of ABGs in ER showed pH 7.287, pCO2 75.8, PO2 53, O2 saturations 81.9 and bicarb 35.4. Patient was placed on a BiPAP and approximately 1 hour later his arterial blood gases were 7.325, CO2 65.2, PO2 59.4, O2 saturation 88%. Head CT was read as the following No acute intracranial process. Moderate-sized chronic infarct involving portions of the left frontal lobe and insula. Chronic bilateral mastoid effusions. H&H is 9.0 in 30.1 which is his baseline. Sodium 130. Creatinine 1.4 with a BUN at 37 which is also his baseline. Glucose is 130. Troponin negative x2 BNP 7100. Chest x-ray was read as mild pulmonary edema. Small left increasing small to moderate right pleural effusions and associated atelectasis and/or pneumonia not excludable. Patient was also given Narcan in the ER. The patient is being admitted to inpatient services for treatment of acute on chronic respiratory failure from COPD exacerbation with IV Solu-medrol/Duoneb treatments and CHF exacerbation with IV Lasix. Patient was tested for COVID and had a negative PCR on 01/19/2021 and taken off isolation 01/24/2021: Around 0645 this morning the patient was found to be hypoxic and confused. The patient needed to be increased to 15 L via nasal cannula with a non-rebreather mask with improvement of his oxygen saturations. A stat chest x-ray was completed which shows small pleural effusions and no acute change from atelectasis. Labs were drawn showing normal white blood cell count, CO2 greater than 40. I spoke with the outside food server who had personally evaluated the patient and reviewed the chest x-ray with me and he believes he is having some atelectasis causing hypoxia. He recommends placing the patient on BiPAP 02/05, breathing treatments q.i.d. with albuterol, Mucomyst to loosen secretions, check venous Dopplers to rule out DVT even though the patient is on Eliquis 5 mg q.12 hours. We will cancel the thoracentesis at this time because we do not want to hold his Eliquis and given his acute state. Will place the patient NPO and without any tube feedings until we further evaluate his abdominal ultrasound and mental status. Given his increased oxygenation we did a rapid COVID swab which was NEGATIVE 01/24/21 Cardiology evaluated the patient yesterday and switched him to oral Lasix 40 mg b.i.d.. I will hold his diuresis at this time since he will be NPO. Appreciate cardiology's input. Echo ordered and showing normal EF 60-65%, diastolic grade 2 dysfunction Spoke with patient's brother and patient participated in the conversation. Patient agreed with brother that he would like to go on hospice. (2) COPD exacerbation: Code(s): J44.1 - Chronic obstructive pulmonary disease with (acute) exacerbation Status: Acute Assessment and Plan: See above (3) Diastolic CHF, acute: Code(s): I50.31 - Acute diastolic (congestive) heart failure Status: Acute Assessment and Plan: See above (4) He
[2021-01-25] MEDS: ALBUTEROL SULFATE NEB 2.5 MG/3 ML INH 1.25 MG INHALATION ×4 (08:58→20:34)
[2021-01-25] MEDS: ACETYLCYSTEINE 20% INHAL SOLN 800 MG/4 ML VIAL 200 MG INHALATION ×2 (08:59→20:33)
[2021-01-25 09:38] LABS: Basophils Percent Auto 0.1 % (0.2-1.2); Eosinophils Absolute Auto 0.4 K/mm3 (0-0.3); Eosinophils Percent Auto 4.6 % (0-4.4); Hematocrit 32.8 % (42.0-52.0); Hemoglobin 10.3 g/dL (14.0-18.0); Immature Granulocyte Absolute 0.03 K/mm3 (0.00-0.031); Immature Granulocyte Percent A 0.4 % (0-0.5); Lymphocytes Absolute Auto 0.85 K/mm3 (0.9-3.2); Lymphocytes Percent Auto 11.1 % (18.3-44.2); Mean Corpuscular HGB Conc 31.4 g/dl (32-36); Mean Corpuscular Volume 89.1 fl (80-100); Mean Platelet Volume 8.6 fl (7.4-10.4); Monocytes Absolute Auto 0.3 K/mm3 (0.1-0.6); Monocytes Percent Auto 4.1 % (2.6-8.5); Neutrophils Absolute Auto 6.1 K/mm3 (1.3-6.7); Neutrophils Percent Auto 79.7 % (45.5-73.1); Platelet Count Result 192 k/mm3 (150-375); Red Blood Count 3.68 M/mm3 (4.6-6.20); Red Cell Distribution Width 17.1 % (11.5-14.5); White Blood Count 7.7 K/mm3 (4.5-10.0)
[2021-01-25 10:15] LABS: Blood Urea Nitrogen 62 mg/dL (9-20); Calcium 8.2 mg/dL (8.4-10.2); Carbon Dioxide > 40 mmol/L (22-30); Chloride 90 mmol/L (98-107); Estimated CRCL calculation 47 ml/min; Estimated Glomerular Filt Rate 46; Glucose 102 mg/dL (65-110); Potassium 4.1 mmol/L (3.4-5.0); Sodium 138 mmol/L (137-145)
--- NOTE | 2021-01-25 10:54 | PM.PNPUL ---
Progress Note: A&P Assessment and Plan (1) Respiratory failure: Qualifiers: Chronicity: acute Respiratory failure complication: hypercapnia Qualified Code(s): J96.02 - Acute respiratory failure with hypercapnia Code(s): J96.90 - Respiratory failure, unspecified, unspecified whether with hypoxia or hypercapnia Status: Acute Assessment and Plan: Respiratory status slowly improving over the last 24 hours. No clear-cut evidence of new lower respiratory tract infection. No leukocytosis. Blood cultures pending. Supplemental oxygen has decreased to 5 liters/minute. Patient not tolerating BiPAP. will continue with supportive care with nebulized bronchodilators, nebulized Mucomyst. Case was discussed with the hospitalist. (2) Pleural effusion: Code(s): J90 - Pleural effusion, not elsewhere classified Status: Acute (3) Diastolic CHF, acute: Code(s): I50.31 - Acute diastolic (congestive) heart failure Status: Acute (4) COPD (chronic obstructive pulmonary disease): Code(s): J44.9 - Chronic obstructive pulmonary disease, unspecified Status: Acute (5) Pulmonary edema: Qualifiers: Chronicity: acute Qualified Code(s): J81.0 - Acute pulmonary edema Code(s): J81.1 - Chronic pulmonary edema Status: Acute (6) Herpes infection: Code(s): B00.9 - Herpesviral infection, unspecified Status: Acute (7) REYES (acute kidney injury): Code(s): N17.9 - Acute kidney failure, unspecified Status: Acute Subjective Date/time seen: 01/25/21 10:54 Patient has no new respiratory symptoms. Oxygen flow decreased back down to 5 liters/minute. Complaining of a headache. Has no abdominal pain. Review of Systems Review of Systems: All systems reviewed & are unremarkable except as noted in HPI and below Exam Narrative: GENERAL APPEARANCE: Well developed, well nourished, who appears to be in mild respiratory distress while on supplemental oxygen. SKIN: Inspection of the skin reveals no rashes, ulcerations or petechiae. HEENT: Herpetic rash around R eye. R eye conjunctivitis. Extraocular movements were intact and pupils were large equal, round. NECK: Supple. There was no thyroid enlargement, and no tenderness, or masses were felt. CHEST: Normal AP diameter and normal contour without any kyphoscoliosis. LUNGS: Auscultation of the lungs revealed rare rhonchi anteriorly, and decreased breath sounds at the bases posteriorly. No wheezing CARDIAC: There was a regular rate and rhythm without any murmurs, gallops, rubs. ABDOMEN: Soft and nontender with normal bowel sounds. There was no organomegaly. LYMPH NODES: No lymphadenopathy was appreciated in the neck. EXTREMITIES: No cyanosis, clubbing or edema. NEUROLOGIC: Appears drowsy, Moving all extremities. Objective Data Vital Signs Vital Signs: Vital Signs - 24 hr 01/24/21 11:36 01/24/21 11:39 01/24/21 11:44 Temperature Pulse Rate 58 L 58 L 61 Respiratory Rate 18 20 18 Blood Pressure Pulse Oximetry 95 01/24/21 12:00 01/24/21 13:00 01/24/21 13:45 Temperature 36.3 C L Pulse Rate 55 L 62 60 Respiratory Rate 22 H 18 Blood Pressure 129/65 Pulse Oximetry 94 98 01/24/21 13:48 01/24/21 14:00 01/24/21 16:00 Temperature Pulse Rate 60 54 L 56 L Respiratory Rate 18 Blood Pressure Pulse Oximetry 96 94 01/24/21 17:05 01/24/21 17:38 01/24/21 18:00 Temperature 36.1 C L Pulse Rate 51 L 60 56 L Respiratory Rate 22 H Blood Pressure 133/74 Pulse Oximetry 97 01/24/21 20:00 01/24/21 20:08 01/24/21 22:00 Temperature 36.2 C L Pulse Rate 61 61 64 Respiratory Rate 20 20 Blood Pressure 135/69 Pulse Oximetry 98 01/25/21 00:00 01/25/21 02:00 01/25/21 04:00 Temperature 36.9 C 37.1 C Pulse Rate 54 L 60 63 Respiratory Rate 20 19 Blood Pressure 135/65 132/67 Pulse Oximetry 96 97 01/25/21 06:00 01/25/21 08:00 01/25/21 08:23 Temperat
[2021-01-25] MEDS: POTASSIUM CHLORIDE 20 MEQ PACKET (FOR LIQUID) PO (11:55)
--- NOTE | 2021-01-25 12:59 | PM.PNCARD ---
Progress Note: A&P Additional Plan Acute on chronic diastolic heart failure, no clinical evidence of volume overload, paroxysmal AF with HX of strokes, Hx of AAA repair with complicated hospital course. Hx of COPD, CKD, cont oral diuretic, decrease oral fluid intake to 1 L per day, cont apixaban (hold 2 days before thoracentesis), amlodipine, coreg, target BP in 140 to 160 range Subjective Date/time seen: 01/25/21 12:59 Interval history: no acute events on nasal cannula today Review of Systems Review of Systems: All systems reviewed & are unremarkable except as noted in HPI and below Exam Const: General: comfortable and no acute distress Other: Able to lie flat HENMT: General nose exam: Normal nares present and no epistaxis Mouth: Yes moist mucous membranes Eyes: Sclera: sclerae normal Pupils: Equal, round and reactive pupils present Neck: Neck: supple and no JVD Carotids: no bruits Resp: Auscultation: clear to auscultation bilaterally and lung sounds not diminished Other: No chest wall tenderness Cardio: Rate: regular rate Rhythm: regular rhythm Heart sounds: no gallops, no murmurs and no rubs Objective Data Vital Signs Vital Signs: Vital Signs - 24 hr 01/24/21 13:00 01/24/21 13:45 01/24/21 13:48 Temperature 36.3 C L Pulse Rate 62 60 60 Respiratory Rate 22 H 18 18 Blood Pressure 129/65 Pulse Oximetry 98 96 01/24/21 14:00 01/24/21 16:00 01/24/21 17:05 Temperature 36.1 C L Pulse Rate 54 L 56 L 51 L Respiratory Rate 22 H Blood Pressure 133/74 Pulse Oximetry 94 97 01/24/21 17:38 01/24/21 18:00 01/24/21 20:00 Temperature 36.2 C L Pulse Rate 60 56 L 61 Respiratory Rate 20 Blood Pressure 135/69 Pulse Oximetry 98 01/24/21 20:08 01/24/21 22:00 01/25/21 00:00 Temperature 36.9 C Pulse Rate 61 64 54 L Respiratory Rate 20 20 Blood Pressure 135/65 Pulse Oximetry 96 01/25/21 02:00 01/25/21 04:00 01/25/21 06:00 Temperature 37.1 C Pulse Rate 60 63 63 Respiratory Rate 19 Blood Pressure 132/67 Pulse Oximetry 97 01/25/21 08:00 01/25/21 08:23 01/25/21 08:30 Temperature 36.4 C Pulse Rate 60 65 65 Respiratory Rate 16 Blood Pressure 132/107 H Pulse Oximetry 100 96 01/25/21 08:59 01/25/21 09:05 01/25/21 10:00 Temperature Pulse Rate 57 L 55 L 57 L Respiratory Rate 22 H 20 Blood Pressure Pulse Oximetry 01/25/21 11:54 01/25/21 12:00 01/25/21 12:09 Temperature 36.8 C Pulse Rate 58 L 60 Respiratory Rate 18 Blood Pressure 116/60 Pulse Oximetry 91 91 01/25/21 12:58 Temperature Pulse Rate 55 L Respiratory Rate 20 Blood Pressure Pulse Oximetry Intake/Output Intake/Output: Intake & Output 01/22/21 01/23/21 01/24/21 01/25/21 23:59 23:59 23:59 23:59 Intake Total 800 0 1879 0 Output Total 1200 4200 1375 800 Balance -400 -4200 504 -800 Meds/Results Medications: Active Medications Generic Name Dose Route Start Last Admin Trade Name Freq PRN Reason Stop Dose Admin Acetylcysteine 200 mg 01/24/21 09:00 01/25/21 08:59 Acetylcysteine 20% Inhal Soln 800 Mg/4 Ml Vial INHALATION 200 mg Q12HR JENNIFER Administration Acyclovir 800 mg 01/20/21 09:00 01/25/21 11:55 Acyclovir 400 Mg Tablet PO 800 mg 5 TIMES DAILY JENNIFER Administration Albuterol 2 puff 01/19/21 23:10 Albuterol Sulfate (*Sp) Aerosol 1 Puff INHALATION Q4-6H PRN Shortness Of Breath Albuterol 1.25 mg 01/24/21 09:00 01/25/21 12:58 Albuterol Sulfate Neb 2.5 Mg/3 Ml Inh INHALATION 1.25 mg QID JENNIFER Administration Amlodipine Besylate 10 mg 01/20/21 09:00 01/25/21 08:29 Amlodipine Besylate 5 Mg Tablet PO 10 mg DAILY JENNIFER Administration Apixaban 5 mg 01/20/21 00:30 01/25/21 08:29 Apixaban 5 Mg Tablet PO 5 mg Q12HR JENNIFER Administration Artificial Tears 1 drop 01/19/21 23:10 Artificial Tears Ophth Soln 15 Ml Bottle EACH EYE QID PRN Dry Eye(S) Aspirin 81 mg 01/20/21 08:
--- NOTE | 2021-01-25 13:21 | PC.NURSE ---
Spoke with [employer] (son/poa) about hospice for patient. [facility] will get back to us when he has talked to family. Patient's brother brought this up to RN when he visited patient today. Patient also voiced that he would like to be on hospice with doctor at bedside.
--- NOTE | 2021-01-25 17:50 | PCRCNOTE ---
Window of time for administration has passed. See next scheduled administration.
[2021-01-25] MEDS: TERAZOSIN HCL 5 MG CAPSULE PO (21:28)
[2021-01-25] MEDS: ROSUVASTATIN 10 MG TABLET PO (21:28)
[2021-01-26] VITALS (29 sets, daily range): BP systolic 120–145; BP diastolic 60–75; PULSE 54–75; RESP 16–23; TEMP 36.3–37.1; O2SAT 90–100
[2021-01-26 04:50] LABS: Basophils Percent Auto 0.1 % (0.2-1.2); Eosinophils Absolute Auto 0.2 K/mm3 (0-0.3); Eosinophils Percent Auto 2.6 % (0-4.4); Hematocrit 35.7 % (42.0-52.0); Hemoglobin 10.9 g/dL (14.0-18.0); Immature Granulocyte Absolute 0.03 K/mm3 (0.00-0.031); Immature Granulocyte Percent A 0.3 % (0-0.5); Lymphocytes Percent Auto 11.1 % (18.3-44.2); Mean Corpuscular HGB Conc 30.5 g/dl (32-36); Mean Corpuscular Hemoglobin 27.8 pg (26-34); Mean Corpuscular Volume 91.1 fl (80-100); Monocytes Absolute Auto 0.5 K/mm3 (0.1-0.6); Monocytes Percent Auto 5.3 % (2.6-8.5); Neutrophils Absolute Auto 7.3 K/mm3 (1.3-6.7); Neutrophils Percent Auto 80.6 % (45.5-73.1); Platelet Count Result 186 k/mm3 (150-375); Red Blood Count 3.92 M/mm3 (4.6-6.20); Red Cell Distribution Width 17.6 % (11.5-14.5)
[2021-01-26 05:46] LABS: Alanine Aminotransferase 504 U/L (4-50); Albumin Level 3.5 g/dL (3.5-5.1); Alkaline Phosphatase 103 U/L (38-126); Aspartate Amino Transferase 141 U/L (17-59); Bilirubin,Total 0.8 mg/dL (0.2-1.3); Blood Urea Nitrogen 64 mg/dL (9-20); CRP 2.6 mg/dL (<1.0); Calcium 8.7 mg/dL (8.4-10.2); Carbon Dioxide > 40 mmol/L (22-30); Chloride 92 mmol/L (98-107); Estimated CRCL calculation 42 ml/min; Estimated Glomerular Filt Rate 40; Glucose 88 mg/dL (65-110); Magnesium 2.4 mg/dL (1.6-2.3); Sodium 141 mmol/L (137-145)
--- NOTE | 2021-01-26 07:46 | PM.IMPN ---
Progress Note: A&P Assessment and Plan (1) Respiratory failure: Qualifiers: Chronicity: acute Respiratory failure complication: hypercapnia Qualified Code(s): J96.02 - Acute respiratory failure with hypercapnia Code(s): J96.90 - Respiratory failure, unspecified, unspecified whether with hypoxia or hypercapnia Status: Acute Assessment and Plan: Patient is a 70-year-old man who lives at [facility], with a history of rupture of AAA with intravascular repair, CAD status post PCI, carotid stenosis with 100% occlusion bilaterally, CVA with residual right-sided weakness, PEG tube after CVA, hypertension, who presented emergency room with increasingly short of breath and was unresponsive. EMS was called and put him on a non-rebreather due to hypoxia and was given 125 mg of IV Solu-Medrol. First set of ABGs in ER showed pH 7.287, pCO2 75.8, PO2 53, O2 saturations 81.9 and bicarb 35.4. Patient was placed on a BiPAP and approximately 1 hour later his arterial blood gases were 7.325, CO2 65.2, PO2 59.4, O2 saturation 88%. Head CT was read as the following No acute intracranial process. Moderate-sized chronic infarct involving portions of the left frontal lobe and insula. Chronic bilateral mastoid effusions. H&H is 9.0 in 30.1 which is his baseline. Sodium 130. Creatinine 1.4 with a BUN at 37 which is also his baseline. Glucose is 130. Troponin negative x2 BNP 7100. Chest x-ray was read as mild pulmonary edema. Small left increasing small to moderate right pleural effusions and associated atelectasis and/or pneumonia not excludable. Patient was also given Narcan in the ER. The patient is being admitted to inpatient services for treatment of acute on chronic respiratory failure from COPD exacerbation with IV Solu-medrol/Duoneb treatments and CHF exacerbation with IV Lasix. Patient was tested for COVID and had a negative PCR on 01/19/2021 and taken off isolation 01/24/2021: Around 0645 this morning the patient was found to be hypoxic and confused. The patient needed to be increased to 15 L via nasal cannula with a non-rebreather mask with improvement of his oxygen saturations. A stat chest x-ray was completed which shows small pleural effusions and no acute change from atelectasis. Labs were drawn showing normal white blood cell count, CO2 greater than 40. I spoke with the psychiatric technician assistant who had personally evaluated the patient and reviewed the chest x-ray with me and he believes he is having some atelectasis causing hypoxia. He recommends placing the patient on BiPAP 02/05, breathing treatments q.i.d. with albuterol, Mucomyst to loosen secretions, check venous Dopplers to rule out DVT even though the patient is on Eliquis 5 mg q.12 hours. We will cancel the thoracentesis at this time because we do not want to hold his Eliquis and given his acute state. Will place the patient NPO and without any tube feedings until we further evaluate his abdominal ultrasound and mental status. Given his increased oxygenation we did a rapid COVID swab which was NEGATIVE 01/24/21 Cardiology evaluated the patient yesterday and switched him to oral Lasix 40 mg b.i.d.. I will hold his diuresis at this time since he will be NPO. Appreciate cardiology's input. Echo ordered and showing normal EF 60-65%, diastolic grade 2 dysfunction Spoke with patient's brother and patient participated in the conversation. Patient agreed with brother that he would like to go on hospice. COVID 19 PCR negative 01/24. BCX w/ no growth. No leukocytosis. Patient much more awake and alert this morning still requiring 6L HFNC to maintain adequate saturation. CXR today Passed swallow study and can have a heart healthy diet (2) COPD exacerbation: Code(s): J44.1 - Chronic obstructive pulmonary disease with (acute) exacerbation Status: Acute Assessment and Plan: Baseline home oxygen requ
[2021-01-26] MEDS: ACETYLCYSTEINE 20% INHAL SOLN 800 MG/4 ML VIAL 200 MG INHALATION ×2 (07:59→21:18)
[2021-01-26] MEDS: ALBUTEROL SULFATE NEB 2.5 MG/3 ML INH 1.25 MG INHALATION ×4 (07:59→21:18)
--- NOTE | 2021-01-26 09:20 | PCSTNOTE ---
Please refer to the Bedside Swallow Evaluation in the EMR. Please note, silent aspiration cannot be ruled out at bedside.
[2021-01-26] MEDS: polyethylene glycoL 3350 17 GM POWD.PACK PO (10:13)
[2021-01-26] MEDS: PANTOPRAZOLE SODIUM IV 40 MG VIAL IV PUSH ×2 (10:13→20:15)
[2021-01-26] MEDS: APIXABAN 5 MG TABLET PO ×2 (10:14→20:16)
[2021-01-26] MEDS: POTASSIUM CHLORIDE 20 MEQ PACKET (FOR LIQUID) PO (10:14)
[2021-01-26] MEDS: FOLIC ACID 1 MG TABLET PO (10:14)
[2021-01-26] MEDS: FUROSEMIDE 40 MG TABLET PO (10:14)
[2021-01-26] MEDS: carvediloL 25 MG TABLET PO ×2 (10:14→16:25)
[2021-01-26] MEDS: FINASTERIDE 5 MG TABLET PO (10:14)
[2021-01-26] MEDS: amLODIPine BESYLATE 5 MG TABLET 10 MG PO (10:14)
[2021-01-26] MEDS: ASPIRIN 81 MG CHEWABLE TABLET PO (10:15)
--- NOTE | 2021-01-26 11:36 | PM.PNCARD ---
Progress Note: A&P Additional Plan Acute on chronic diastolic heart failure, no clinical evidence of volume overload, paroxysmal AF with HX of strokes, Hx of AAA repair with complicated hospital course. Hx of COPD, CKD, Plan decrease oral diuretic to once daily, limit oral fluid intake to 1 L per day, cont apixaban (hold 2 days before thoracentesis), coreg, target BP in 140 to 160 range, Subjective Date/time seen: 01/26/21 11:36 Interval history: no acute events Intermittent hypoxemai overnight Review of Systems Review of Systems: All systems reviewed & are unremarkable except as noted in HPI and below Exam Const: General: comfortable and no acute distress Other: Able to lie flat HENMT: General nose exam: Normal nares present and no epistaxis Mouth: Yes moist mucous membranes Eyes: Sclera: sclerae normal Pupils: Equal, round and reactive pupils present Neck: Neck: supple and no JVD Carotids: no bruits Resp: Auscultation: clear to auscultation bilaterally, rales (basal), rhonchi upper bilaterally and lung sounds not diminished Other: No chest wall tenderness Cardio: Jugular venous distension: no JVD Rate: regular rate and bradycardic Rhythm: regular rhythm Heart sounds: S1 normal heart sound present, S2 normal heart sound present, no gallops, no murmurs and no rubs Skin: General skin exam: normal color, rashes and/or lesions noted and no erythema Lesions: other (rt upper face bleeding skin lesion ) Other: Warm Neuro: Cranial nerves: Yes Equal, round and reactive pupils present Speech: normal speech Other: No obvious focal deficit or facial asymmetry Objective Data Vital Signs Vital Signs: Vital Signs - 24 hr 01/25/21 11:54 01/25/21 12:00 01/25/21 12:09 Temperature 36.8 C Pulse Rate 58 L 60 Respiratory Rate 18 Blood Pressure 116/60 Pulse Oximetry 91 91 01/25/21 12:58 01/25/21 13:06 01/25/21 14:00 Temperature Pulse Rate 55 L 56 L 57 L Respiratory Rate 20 20 Blood Pressure Pulse Oximetry 01/25/21 15:51 01/25/21 16:00 01/25/21 17:51 Temperature 36.7 C Pulse Rate 61 61 65 Respiratory Rate 16 Blood Pressure 146/67 H Pulse Oximetry 93 91 01/25/21 18:00 01/25/21 20:00 01/25/21 20:34 Temperature 37.1 C Pulse Rate 63 62 76 Respiratory Rate 16 20 Blood Pressure 138/69 Pulse Oximetry 92 01/25/21 20:35 01/25/21 22:00 01/26/21 00:00 Temperature 37.0 C Pulse Rate 67 64 68 Respiratory Rate 18 17 Blood Pressure 145/75 H Pulse Oximetry 95 100 01/26/21 02:00 01/26/21 03:55 01/26/21 04:00 Temperature 37.1 C Pulse Rate 68 68 68 Respiratory Rate 18 Blood Pressure 141/72 H Pulse Oximetry 93 92 01/26/21 06:00 01/26/21 07:01 01/26/21 08:00 Temperature 37.1 C Pulse Rate 63 65 63 Respiratory Rate 18 Blood Pressure 145/61 H Pulse Oximetry 99 99 01/26/21 08:02 01/26/21 08:15 01/26/21 10:14 Temperature Pulse Rate 63 54 L 65 Respiratory Rate 20 20 Blood Pressure Pulse Oximetry 95 Intake/Output Intake/Output: Intake & Output 01/23/21 01/24/21 01/25/21 01/26/21 23:59 23:59 23:59 23:59 Intake Total 0 1879 0 0 Output Total 4200 1375 1700 600 Balance -4200 504 -1700 -600 Meds/Results Medications: Active Medications Generic Name Dose Route Start Last Admin Trade Name Freq PRN Reason Stop Dose Admin Acetylcysteine 200 mg 01/24/21 09:00 01/26/21 07:59 Acetylcysteine 20% Inhal Soln 800 Mg/4 Ml Vial INHALATION 200 mg Q12HR JENNIFER Administration Albuterol 2 puff 01/19/21 23:10 Albuterol Sulfate (*Sp) Aerosol 1 Puff INHALATION Q4-6H PRN Shortness Of Breath Albuterol 1.25 mg 01/24/21 09:00 01/26/21 07:59 Albuterol Sulfate Neb 2.5 Mg/3 Ml Inh INHALATION 1.25 mg QID JENNIFER Administration Amlodipine Besylate 10 mg 01/20/21 09:00 01/26/21 10:14 Amlodipine Besylate 5 Mg Tablet PO 10 mg DAILY JENNIFER Administration Apixaban 5 mg 01/20/21 00:30 01/26/21 10:14 Apix
[2021-01-26] MEDS: TERAZOSIN HCL 5 MG CAPSULE PO (20:16)
[2021-01-26] MEDS: ROSUVASTATIN 10 MG TABLET PO (20:16)
[2021-01-27] VITALS (22 sets, daily range): BP systolic 125–139; BP diastolic 51–68; PULSE 52–63; RESP 20–24; TEMP 36.4–37.3; O2SAT 92–100
--- NOTE | 2021-01-27 08:26 | PM.IMPN ---
Progress Note: A&P Assessment and Plan (1) Acute and chronic respiratory failure ([id number]): Code(s): J96.20 - Acute and chronic respiratory failure, unspecified whether with hypoxia or hypercapnia Status: Acute Assessment and Plan: Patient is a 70-year-old man who lives at [facility], with a history of rupture of AAA with intravascular repair, CAD status post PCI, carotid stenosis with 100% occlusion bilaterally, CVA with residual right-sided weakness, PEG tube after CVA, hypertension, who presented emergency room with increasingly short of breath and was unresponsive. EMS was called and put him on a non-rebreather due to hypoxia and was given 125 mg of IV Solu-Medrol. First set of ABGs in ER showed pH 7.287, pCO2 75.8, PO2 53, O2 saturations 81.9 and bicarb 35.4. Patient was placed on a BiPAP and approximately 1 hour later his arterial blood gases were 7.325, CO2 65.2, PO2 59.4, O2 saturation 88%. Head CT was read as the following No acute intracranial process. Moderate-sized chronic infarct involving portions of the left frontal lobe and insula. Chronic bilateral mastoid effusions. H&H is 9.0 in 30.1 which is his baseline. Sodium 130. Creatinine 1.4 with a BUN at 37 which is also his baseline. Glucose is 130. Troponin negative x2 BNP 7100. Chest x-ray was read as mild pulmonary edema. Small left increasing small to moderate right pleural effusions and associated atelectasis and/or pneumonia not excludable. Patient was also given Narcan in the ER. The patient is being admitted to inpatient services for treatment of acute on chronic respiratory failure from COPD exacerbation with IV Solu-medrol/Duoneb treatments and CHF exacerbation with IV Lasix. Patient was tested for COVID and had a negative PCR on 01/19/2021 and taken off isolation 01/24/2021: Around 0645 this morning the patient was found to be hypoxic and confused. The patient needed to be increased to 15 L via nasal cannula with a non-rebreather mask with improvement of his oxygen saturations. A stat chest x-ray was completed which shows small pleural effusions and no acute change from atelectasis. Labs were drawn showing normal white blood cell count, CO2 greater than 40. I spoke with the crane chaser who had personally evaluated the patient and reviewed the chest x-ray with me and he believes he is having some atelectasis causing hypoxia. He recommends placing the patient on BiPAP 02/05, breathing treatments q.i.d. with albuterol, Mucomyst to loosen secretions, check venous Dopplers to rule out DVT even though the patient is on Eliquis 5 mg q.12 hours. We will cancel the thoracentesis at this time because we do not want to hold his Eliquis and given his acute state. Will place the patient NPO and without any tube feedings until we further evaluate his abdominal ultrasound and mental status. Given his increased oxygenation we did a rapid COVID swab which was NEGATIVE 01/24/21 Cardiology evaluated the patient yesterday and switched him to oral Lasix 40 mg b.i.d.. I will hold his diuresis at this time since he will be NPO. Appreciate cardiology's input. Echo ordered and showing normal EF 60-65%, diastolic grade 2 dysfunction Spoke with patient's brother and patient participated in the conversation. Patient agreed with brother that he would like to go on hospice. COVID 19 PCR negative 01/24. BCX w/ no growth. No leukocytosis. Mental status seems to wax and wane. Passed swallow study and can have a heart healthy diet 01/26/2021 Had discussion with brother who feels hospice may be the best option for the patient. He worries that this cycle of hospitalization then out to rehab/care home then a readmission with continue until the patient gets to a point where he cannot leave the hospital Will call POA today to discuss how to move forward (2) COPD exacerbation: Code(s): J44.1 - Chronic obstructive pulmonary disease with (acute) exa
--- NOTE | 2021-01-27 09:53 | PM.PNCARD ---
Progress Note: A&P Additional Plan 70-year-old man presenting to the hospital last week with some hypoxemia and altered mental status. I do not believe this was primarily an issue with decompensated heart failure. He does not look like he was significantly fluid overloaded on presentation and is not today either. The chest x-rays upon my review did not show any significant or large pleural effusion that would affect the mechanics of breathing. Echocardiogram demonstrated well-preserved left ventricular systolic function, no significant valvular disease that would explain this and some diastolic noncompliance. A modest dose of furosemide has been ordered at this time orally which sounds reasonable. At this point there are no other cardiovascular recommendations to make in my opinion. We will sign off of his inpatient follow-up at this time please contact us if cardiovascular input is necessary. Horace Ziegler MD [facility] Subjective Date/time seen: Date of service: 01/27/21 09:53 Interval history: no acute events Intermittent hypoxemai overnight Date of service 01/27/2021: Patient is comfortable this morning does not have any shortness of breath or cardiovascular complaints. Extensive length the chart was reviewed prior to seeing him. Exam Narrative: General: Well developed, alert and oriented x3. No apparent distress, comfortable, pleasant, and cooperative. Head: atraumatic, normocephalic Eyes: EOM intact, sclerae anicteric, conjunctivae unremarkable Ears/Nose: external inspection of ears and nose were grossly normal Mouth/Throat: oral mucosa pink and moist Neck: supple, normal range of motion, no jugular venous distention or carotid bruits, thyroid nonpalpable, trachea midline. Cardiac: Regular rate and rhythm, normal S1-S2, no murmurs, clicks, gallops, or rubs. Lungs: Clear to auscultation bilaterally, no rales, wheezes, or rhonchi. Abdomen: Soft, nontender, nondistended, positive bowel sounds throughout. No appreciable hepatosplenomegaly, no rebound guarding or rigidity noted. Abdominal aorta nonpalpable, no appreciable bruits. Extremities: No edema, clubbing, and or cyanosis. Extremities warm and well perfused. Skin: Warm and dry without ecchymoses, rashes, and/or petechiae. Musculoskeletal: Muscle strength and tone intact throughout without obvious deformities. Vascular: Carotid upstrokes 2+ bilaterally, radial pulses 2+ bilaterally, dorsalis pedis pulses 2+ bilaterally, posterior tibialis pulses palpable bilaterally. Neurologic: Cranial nerves 2-12 grossly intact, examination grossly nonfocal Pscyhiatric: Mood calm and appropriate. Const: General: comfortable and no acute distress Other: Able to lie flat HENMT: General nose exam: Normal nares present and no epistaxis Mouth: Yes moist mucous membranes Eyes: Sclera: sclerae normal Pupils: Equal, round and reactive pupils present Neck: Neck: supple and no JVD Carotids: no bruits Resp: Auscultation: clear to auscultation bilaterally, rales (basal), rhonchi upper bilaterally and lung sounds not diminished Other: No chest wall tenderness Cardio: Jugular venous distension: no JVD Rate: regular rate and bradycardic Rhythm: regular rhythm Heart sounds: S1 normal heart sound present, S2 normal heart sound present, no gallops, no murmurs and no rubs GI: Auscultation: normal bowel sounds Skin: General skin exam: normal color, rashes and/or lesions noted and no erythema Lesions: other (rt upper face bleeding skin lesion ) Other: Warm Neuro: Cranial nerves: Yes Equal, round and reactive pupils present Speech: normal speech Other: No obvious focal deficit or facial asymmetry Extrem: General: no edema Other: Normal capillary refills Intact distal pulses. Objective Data Vital Signs Vital Signs: Vital Signs - 24 hr 01/26/21 10:00 01/26/21 10:14 01/26/21 12:00 Temperature 36.7 C Pulse Rate 66 65 62 Respi
[2021-01-27] MEDS: ACETYLCYSTEINE 20% INHAL SOLN 800 MG/4 ML VIAL 200 MG INHALATION ×2 (10:13→21:49)
[2021-01-27] MEDS: ALBUTEROL SULFATE NEB 2.5 MG/3 ML INH 1.25 MG INHALATION ×3 (10:13→21:49)
[2021-01-27 10:47] LABS: Basophils Percent Auto 0.2 % (0.2-1.2); Eosinophils Absolute Auto 0.2 K/mm3 (0-0.3); Hematocrit 34.2 % (42.0-52.0); Hemoglobin 10.5 g/dL (14.0-18.0); Immature Granulocyte Absolute 0.04 K/mm3 (0.00-0.031); Immature Granulocyte Percent A 0.5 % (0-0.5); Lymphocytes Absolute Auto 0.89 K/mm3 (0.9-3.2); Lymphocytes Percent Auto 10.6 % (18.3-44.2); Mean Corpuscular HGB Conc 30.7 g/dl (32-36); Mean Corpuscular Hemoglobin 27.9 pg (26-34); Mean Platelet Volume 8.9 fl (7.4-10.4); Monocytes Absolute Auto 0.5 K/mm3 (0.1-0.6); Monocytes Percent Auto 5.6 % (2.6-8.5); Neutrophils Absolute Auto 6.8 K/mm3 (1.3-6.7); Neutrophils Percent Auto 81.1 % (45.5-73.1); Platelet Count Result 162 k/mm3 (150-375); Red Blood Count 3.76 M/mm3 (4.6-6.20); Red Cell Distribution Width 17.4 % (11.5-14.5); White Blood Count 8.4 K/mm3 (4.5-10.0)
[2021-01-27 11:03] LABS: Anion Gap 5 mmol/L (8-16); Blood Urea Nitrogen 52 mg/dL (9-20); Calcium 8.3 mg/dL (8.4-10.2); Carbon Dioxide 39 mmol/L (22-30); Chloride 89 mmol/L (98-107); Estimated CRCL calculation 49 ml/min; Estimated Glomerular Filt Rate 43; Glucose 128 mg/dL (65-110); Potassium 3.9 mmol/L (3.4-5.0); Sodium 133 mmol/L (137-145)
[2021-01-27] MEDS: ASPIRIN 81 MG CHEWABLE TABLET PO (11:41)
[2021-01-27] MEDS: FOLIC ACID 1 MG TABLET PO (11:41)
[2021-01-27] MEDS: carvediloL 25 MG TABLET PO ×2 (11:42→19:01)
[2021-01-27] MEDS: amLODIPine BESYLATE 5 MG TABLET 10 MG PO (11:42)
[2021-01-27] MEDS: FUROSEMIDE 40 MG TABLET PO (11:42)
[2021-01-27] MEDS: POTASSIUM CHLORIDE 20 MEQ PACKET (FOR LIQUID) PO (11:44)
[2021-01-27] MEDS: APIXABAN 5 MG TABLET PO ×2 (11:44→21:34)
[2021-01-27] MEDS: PANTOPRAZOLE SODIUM IV 40 MG VIAL IV PUSH ×2 (11:44→21:34)
[2021-01-27] MEDS: ACETAMINOPHEN ELIXIR 325 MG/10.15 ML UDC 650 MG FEED TUBE ×3 (11:44→23:05)
[2021-01-27] MEDS: FINASTERIDE 5 MG TABLET PO (11:44)
--- NOTE | 2021-01-27 11:47 | PM.PNPUL ---
Progress Note: A&P Assessment and Plan (1) Respiratory failure: Qualifiers: Chronicity: acute Respiratory failure complication: hypercapnia Qualified Code(s): J96.02 - Acute respiratory failure with hypercapnia Code(s): J96.90 - Respiratory failure, unspecified, unspecified whether with hypoxia or hypercapnia Status: Acute Assessment and Plan: Chest x-ray showed significant decrease in the size of bilateral pleural effusions following treatment with IV diuretics for congestive heart failure. Patient has underlying COPD by radiographical criteria. He needs to remain on supplemental oxygen at this point and also to be discharged on home oxygen. I would continue with nebulized short-acting bronchodilators for now. Need to evaluate patient in the outpatient clinic for COPD. will sign off the case (2) Pleural effusion: Code(s): J90 - Pleural effusion, not elsewhere classified Status: Acute (3) Diastolic CHF, acute: Code(s): I50.31 - Acute diastolic (congestive) heart failure Status: Acute (4) COPD (chronic obstructive pulmonary disease): Qualifiers: COPD type: unspecified COPD Qualified Code(s): J44.9 - Chronic obstructive pulmonary disease, unspecified Code(s): J44.9 - Chronic obstructive pulmonary disease, unspecified Status: Acute (5) Pulmonary edema: Qualifiers: Chronicity: acute Qualified Code(s): J81.0 - Acute pulmonary edema Code(s): J81.1 - Chronic pulmonary edema Status: Acute (6) Herpes infection: Code(s): B00.9 - Herpesviral infection, unspecified Status: Acute (7) REYES (acute kidney injury): Code(s): N17.9 - Acute kidney failure, unspecified Status: Acute Subjective Date/time seen: 01/27/21 11:47 No new respiratory symptoms. The remaining on supplemental oxygen at 4 5 liters/minute. No cough or sputum production. Review of Systems Review of Systems: All systems reviewed & are unremarkable except as noted in HPI and below Exam Narrative: GENERAL APPEARANCE: Well developed, well nourished, who appears to be in mild respiratory distress while on supplemental oxygen. SKIN: Inspection of the skin reveals no rashes, ulcerations or petechiae. HEENT: Herpetic rash around R eye. R eye conjunctivitis. Extraocular movements were intact and pupils were large equal, round. NECK: Supple. There was no thyroid enlargement, and no tenderness, or masses were felt. CHEST: Normal AP diameter and normal contour without any kyphoscoliosis. LUNGS: Auscultation of the lungs revealed rare rhonchi anteriorly, and decreased breath sounds at the bases posteriorly. No wheezing CARDIAC: There was a regular rate and rhythm without any murmurs, gallops, rubs. ABDOMEN: Soft and nontender with normal bowel sounds. There was no organomegaly. LYMPH NODES: No lymphadenopathy was appreciated in the neck. EXTREMITIES: No cyanosis, clubbing or edema. NEUROLOGIC: Appears drowsy, Moving all extremities. Objective Data Vital Signs Vital Signs: Vital Signs - 24 hr 01/26/21 12:00 01/26/21 12:19 01/26/21 13:59 Temperature 36.7 C Pulse Rate 62 59 L Respiratory Rate 16 20 Blood Pressure 124/60 Pulse Oximetry 95 92 01/26/21 14:00 01/26/21 14:21 01/26/21 16:00 Temperature Pulse Rate 58 L 58 L 60 Respiratory Rate 20 Blood Pressure Pulse Oximetry 96 01/26/21 16:21 01/26/21 16:25 01/26/21 16:52 Temperature 36.7 C Pulse Rate 59 L 59 L 61 Respiratory Rate 20 Blood Pressure 145/63 H Pulse Oximetry 98 01/26/21 17:01 01/26/21 18:00 01/26/21 20:00 Temperature 36.4 C Pulse Rate 59 L 54 L 57 L Respiratory Rate 20 18 Blood Pressure 122/65 Pulse Oximetry 94 01/26/21 21:19 01/26/21 21:21 01/26/21 21:28 Temperature Pulse Rate 57 L 58 L 58 L Respiratory Rate 20 20 Blood Pressure Pulse Oximetry 93 01/26/21 22:00 01/26/21 23:36 01/26/21 23:37 Tem
[2021-01-27] MEDS: oxyCODONE/ACETAMINOPHEN (*CRX) 5-325 MG TABLET 1 TABLET PO (13:25)
[2021-01-27 17:25] LABS: EDCOVIDSCREEN Negative (Negative)
[2021-01-27] MEDS: ROSUVASTATIN 10 MG TABLET PO (21:34)
[2021-01-27] MEDS: TERAZOSIN HCL 5 MG CAPSULE PO (21:34)
[2021-01-28] VITALS (8 sets, daily range): BP systolic 119–134; BP diastolic 65–84; PULSE 52–99; RESP 14–22; TEMP 36.7–36.8; O2SAT 92–98
[2021-01-28] MEDS: oxyCODONE/ACETAMINOPHEN (*CRX) 5-325 MG TABLET 1 TABLET PO (03:15)
[2021-01-28] MEDS: oxyCODONE HCL (*CRX) 2.5 MG TAB IR PO (03:16)
[2021-01-28] MEDS: ACETYLCYSTEINE 20% INHAL SOLN 800 MG/4 ML VIAL 200 MG INHALATION (08:25)
[2021-01-28] MEDS: ALBUTEROL SULFATE NEB 2.5 MG/3 ML INH 1.25 MG INHALATION (08:25)
[2021-01-28] MEDS: PANTOPRAZOLE SODIUM IV 40 MG VIAL IV PUSH (09:07)
[2021-01-28] MEDS: FOLIC ACID 1 MG TABLET PO (09:08)
[2021-01-28] MEDS: FINASTERIDE 5 MG TABLET PO (09:08)
[2021-01-28] MEDS: ASPIRIN 81 MG CHEWABLE TABLET PO (09:08)
[2021-01-28] MEDS: FUROSEMIDE 40 MG TABLET PO (09:08)
[2021-01-28] MEDS: carvediloL 25 MG TABLET PO (09:08)
[2021-01-28] MEDS: amLODIPine BESYLATE 5 MG TABLET 10 MG PO (09:08)
[2021-01-28] MEDS: APIXABAN 5 MG TABLET PO (09:09)
[2021-01-28] MEDS: POTASSIUM CHLORIDE 20 MEQ PACKET (FOR LIQUID) PO (09:09)
--- NOTE | 2021-01-28 11:01 | PM.DS ---
DS: Admitting Diagnosis Discharge Date 01/28/2021 Admitting Diagnosis Shortness of breath DS: Discharge Diagnosis Discharge Diagnosis (1) Acute and chronic respiratory failure ([id number]): Code(s): J96.20 - Acute and chronic respiratory failure, unspecified whether with hypoxia or hypercapnia Status: Acute Assessment and Plan: Patient is a 70-year-old man who lives at [facility], with a history of rupture of AAA with intravascular repair, CAD status post PCI, carotid stenosis with 100% occlusion bilaterally, CVA with residual right-sided weakness, PEG tube after CVA, hypertension, who presented emergency room with increasingly short of breath and was unresponsive. EMS was called and put him on a non-rebreather due to hypoxia and was given 125 mg of IV Solu-Medrol. First set of ABGs in ER showed pH 7.287, pCO2 75.8, PO2 53, O2 saturations 81.9 and bicarb 35.4. Patient was placed on a BiPAP and approximately 1 hour later his arterial blood gases were 7.325, CO2 65.2, PO2 59.4, O2 saturation 88%. Head CT was read as the following No acute intracranial process. Moderate-sized chronic infarct involving portions of the left frontal lobe and insula. Chronic bilateral mastoid effusions. H&H is 9.0 in 30.1 which is his baseline. Sodium 130. Creatinine 1.4 with a BUN at 37 which is also his baseline. Glucose is 130. Troponin negative x2 BNP 7100. Chest x-ray was read as mild pulmonary edema. Small left increasing small to moderate right pleural effusions and associated atelectasis and/or pneumonia not excludable. Patient was also given Narcan in the ER. The patient is being admitted to inpatient services for treatment of acute on chronic respiratory failure from COPD exacerbation with IV Solu-medrol/Duoneb treatments and CHF exacerbation with IV Lasix. Patient was tested for COVID and had a negative PCR on 01/19/2021 and taken off isolation 01/24/2021: Around 0645 this morning the patient was found to be hypoxic and confused. The patient needed to be increased to 15 L via nasal cannula with a non-rebreather mask with improvement of his oxygen saturations. A stat chest x-ray was completed which shows small pleural effusions and no acute change from atelectasis. Echo ordered and showing normal EF 60-65%, diastolic grade 2 dysfunction COVID 19 PCR negative 01/24. BCX w/ no growth. No leukocytosis. Passed swallow study and can have a heart healthy diet 01/26/2021 Plan to proceed with hospice on discharge (2) COPD exacerbation: Code(s): J44.1 - Chronic obstructive pulmonary disease with (acute) exacerbation Status: Acute Assessment and Plan: Baseline home oxygen requirement is 2LNC complicated by pleural effusions. Continue oxygen (3) Herpes infection: Code(s): B00.9 - Herpesviral infection, unspecified Status: Acute Assessment and Plan: Lesions are scabbed over R. eye Treatment initiated 01/15, which would make today day 10. Acyclovir discontinued 01/25/2021. (4) Heart failure with preserved ejection fraction: Code(s): I50.30 - Unspecified diastolic (congestive) heart failure Status: Acute Assessment and Plan: 01/20 TTE EF 60-65% w/ grade II diastolic dysfunction. Appears euvolemic. Continue diuresis hospice (5) BPH (benign prostatic hyperplasia): Code(s): N40.0 - Benign prostatic hyperplasia without lower urinary tract symptoms Status: Acute Assessment and Plan: Diuresis resume home medication (6) CAD (coronary artery disease): Code(s): I25.10 - Atherosclerotic heart disease of [place] coronary artery without angina pectoris Status: Chronic Assessment and Plan: Patient has a history of multiple stents. Continue with carvedilol, rosuvastatin and ASA. Hospice care (7) HLD (hyperlipidemia): Code(s): E78.5 - Hyperlipidemia, unspecified Status: Acute Assessment and Plan: C
[2021-01-28] MEDS: ACETAMINOPHEN ELIXIR 325 MG/10.15 ML UDC 650 MG FEED TUBE (12:42)
== END 2021-01-28 12:53 | disposition hospice, inpatient (51) | DRG 189 ==
LOC: ANHED 19:34 → ANHIMU 20:53 → ANH3MEDSUR 01-21 07:07 → ANHIMU 01-25 07:22 → ANH3MEDSUR 01-29 15:10 → ANHIMU 01-29 15:10
PROVIDERS: Internal Medicine Pulmonary Disease; Nurse Practitioner; Physician Assistant; Admitting Provider Internal Medicine; Emergency Provider Emergency Medicine; PCP Internal Medicine; Visit Provider Family Medicine
DX: J96.22 Acute and chronic respiratory failure with hypercapnia (principal); I50.33 Acute on chronic diastolic (congestive) heart failure; E87.1 Hypo-osmolality and hyponatremia; I13.0 Hypertensive heart and chronic kidney disease with heart failure and stage 1 through stage 4 chronic kidney disease, or unspecified chronic kidney disease; B02.39 Other herpes zoster eye disease; I69.331 Monoplegia of upper limb following cerebral infarction affecting right dominant side; I69.320 Aphasia following cerebral infarction; Z93.1 Gastrostomy status; Z20.822 Contact with and (suspected) exposure to COVID-19; J96.21 Acute and chronic respiratory failure with hypoxia; N18.30 Chronic kidney disease, stage 3 unspecified; J43.2 Centrilobular emphysema; F17.210 Nicotine dependence, cigarettes, uncomplicated; I25.10 Atherosclerotic heart disease of native coronary artery without angina pectoris; I48.0 Paroxysmal atrial fibrillation; I65.23 Occlusion and stenosis of bilateral carotid arteries; D63.8 Anemia in other chronic diseases classified elsewhere; R41.82 Altered mental status, unspecified; F41.9 Anxiety disorder, unspecified; G25.81 Restless legs syndrome; E78.5 Hyperlipidemia, unspecified; N40.0 Benign prostatic hyperplasia without lower urinary tract symptoms; I25.2 Old myocardial infarction; Z79.01 Long term (current) use of anticoagulants; Z79.899 Other long term (current) drug therapy; Z86.79 Personal history of other diseases of the circulatory system; Z95.5 Presence of coronary angioplasty implant and graft; Z95.828 Presence of other vascular implants and grafts
CPT/HCPCS: 36415; 36600; 70450; 71045; 71250; 74176; 76705; 80048; 80053; 81003; 82040; 82140; 82150; 82247; 82375; 82465; 82728; 82805; 82947; 82948; 83050; 83605; 83615; 83690; 83735; 83880; 83935; 84155; 84300; 84311; 84443; 84478; 84484; 85025; 85027; 85610; 85730; 86140; 87040; 87426; 92610; 93005; 93306; 93970; 94002; 94003; 94640; 94660; 94667; 96374; 96375; 97110; 97162; 97167; 99285; A9270; C9113; C9803; J0131; J1940; J2060; J2310; J2930; J3480; U0003; U0005

== ENCOUNTER 2021-03-07 11:57 | Inpatient (IN) | payer MEDICARE, SELFPAY ==
[2021-03-07] VITALS (15 sets, daily range): BP systolic 106–124; BP diastolic 59–95; PULSE 62–86; RESP 15–28; TEMP 36.2–36.9; O2SAT 93–100
--- NOTE | ~2021-03-07 | CT_ITS ---
EXAMINATION: CTA chest PE protocol DATE: 03/07/2021 14:06 INDICATION: Shortness of breath. TECHNIQUE: Computed tomography angiography (CTA) of the chest was performed with 100 mL Omnipaque-350 intravenous contrast timed to evaluate the pulmonary arteries. Coronal maximum intensity projection 3D-reconstructions were created by the technologist. Automated exposure control and iterative reconst ruction technique were employed. The dose-length product was 549.72 mGy-cm. COMPARISON: Chest CT 01/21/2021 FINDINGS: There is mild scarring at the lung apices. There is moderate emphysema. There are dependent airspace opacities in the lower lobes with volume loss. There is mucous plugging in the lower lobes. There are small pleural effusions. The mid ascending aorta measures 3.9 cm in diameter. There is ect kade of aortic arch measuring 4.2 cm. The heart size is normal. There are coronary artery calcificati ons. The central pulmonary arteries are enlarged, consistent with pulmonary arterial hypertension. Th ere is no pulmonary embolus. A gastrostomy tube is noted. Partially visualized is a fusiform aneurysm of the abdominal aorta measuring at least 5.4 cm with stent graft. Partially visualized is volume lo ss of right kidney. There are stones in right kidney measuring up to 8 mm. There is mild mediastinal and right hilar lymphadenopathy. There are bridging endplate osteophytes at multiple levels in the sp ine, consistent with diffuse idiopathic skeletal hyperostosis (DISH). IMPRESSION: 1. No pulmonary embolus. 2. Moderate emphysema. 3. Mucous plugging in the lower lobes. Airspace opacities in the lower lobes with volume loss, consis tent with atelectasis without or with superimposed pneumonia. 4. Small pleural effusions. 5. Mild right hilar and mediastinal lymphadenopathy, likely reactive. Reviewed, dictated and finalized at location A. SEARCH MANAGER IMPRESSION: 1. No pulmonary embolus. 2. Moderate emphysema. 3. Mucous plugging in the lower lobes. Airspace opacities in the lower lobes wi th volume loss, consistent with atelectasis without or with superimposed pneumo madi. 4. Small pleural effusions. 5. Mild right hilar and mediastinal lymphadenopathy, likely reactive.
--- NOTE | ~2021-03-07 | XR_ITS ---
EXAMINATION: XR chest 1V portable DATE: 03/07/2021 13:09 INDICATION: Chest pain. TECHNIQUE: A single frontal view of the chest was obtained. COMPARISON: Chest single view 01/26/2021, chest CT 01/21/2021 FINDINGS: There are lucencies in the lungs, consistent with emphysema. There are airspace opacities i n left lower lobe and right lower lung zone. There is a small left pleural effusion. No pneumothorax. The heart size is normal. IMPRESSION: 1. Airspace opacities in left lower lobe and right lower lung zone with worsening on the left and imp rovement on the right, consistent with atelectasis versus pneumonia. 2. Small left pleural effusion. 3. Emphysema. Reviewed, dictated and finalized at location A. RED CAR DRIVER IMPRESSION: 1. Airspace opacities in left lower lobe and right lower lung zone with worseni ng on the left and improvement on the right, consistent with atelectasis versus pneumonia. 2. Small left pleural effusion. 3. Emphysema.
--- NOTE | 2021-03-07 12:20 | PC.NURSE ---
patient presents to ED via EMS from [facility] [place]. Report of change in mentation, decreased appetite, weakness, low O2 saturations, confusion, and covid positive. Report of decline starting last night.
--- NOTE | 2021-03-07 12:21 | PC.NURSE ---
Jhaveri present on presentation to ED. Catheter no secured and previously attempted to be secured by tape. Statlock applied.
--- NOTE | 2021-03-07 12:31 | ECG_ITS ---
Measurements Intervals [place] Rate: 73 P: 79 UT: 215 QRS: -66 QRSD: 101 T: 60 QT: 397 QTc: 439 Interpretive Statements SINUS RHYTHM WITH FIRST DEGREE AV BLOCK INCOMPLETE RIGHT BUNDLE BRANCH BLOCK LEFT ANTERIOR FASCICULAR BLOCK BORDERLINE T WAVE ABNORMALITY- ANTERIOR LEADS BASELINE ARTIFACT- I, II ,AVR, AVL, AVF, V3-V6 ABNORMAL ECG Electronically Signed On 03-07-2021 13:11:45 CONVEYOR ATTENDANT by Reji Benton D.O.
--- NOTE | 2021-03-07 12:33 | ED.GENADULT ---
HPI - General Adult General Chief complaint: Unspecified Stated complaint: COVID+ DECLINE IN CONDITION Time Seen by Provider: 03/07/21 12:12 Source: patient and EMS Mode of arrival: EMS Limitations: physical limitation and clinical condition History of Present Illness HPI narrative: Patient is a 71-year-old male complaining of shortness of breath, worsening, x1 week. Patient tested positive for Covid. Patient denies any chest pain, abdominal pain, nausea, vomiting, diarrhea, fever or chills. Patient is a poor historian. Patient is under hospice care through [facility] Related Data Home Medications Medication Instructions Recorded Confirmed Movantik 25 mg PO DAILY 05/01/19 01/19/21 albuterol sulfate [ProAir HFA] 2 inh INHALATION Q4-6H PRN 05/01/19 01/19/21 carvedilol 25 mg PO BID 06/22/20 01/19/21 Eliquis 5 mg PO BID 01/08/21 01/19/21 acidophilus-pectin, citrus 1 cap PO BID 01/08/21 01/19/21 amlodipine 10 mg PO DAILY 01/08/21 01/19/21 aspirin 81 mg PO DAILY 01/08/21 01/19/21 folic acid 1 mg PO DAILY 01/08/21 01/19/21 ondansetron 4 mg PO Q8H PRN 01/08/21 01/19/21 rosuvastatin 10 mg PO HS 01/08/21 01/19/21 terazosin 5 mg PO HS 01/08/21 01/19/21 oxycodone-acetaminophen 1 tablet PO Q4-6H PRN 01/19/21 01/19/21 Allergies Allergy/AdvReac Type Severity Reaction Status Date / Time hydralazine Allergy Unknown Verified 01/19/21 20:00 Review of Systems Review of Systems: All systems reviewed & are unremarkable except as noted in HPI and below ROS unobtainable: Yes unobtainable due to medical condition [facility] Past Medical History Medical History AAA (abdominal aortic aneurysm) History of ruptured AAA with intravascular repair Anxiety CAD (coronary artery disease) <4 METs, last stent in 2018 Carotid stenosis MADDIE. - 100% occlusion both sides Constipation Related to narcotic use CVA (cerebral vascular accident) residual right sided weakness, memory loss and occasional difficulty speaking GERD (gastroesophageal reflux disease) H/O: HTN (hypertension) Hepatitis C History of angina History of heart attack 2009 and 2018. History of kidney stones History of pneumonia HTN (hypertension), malignant Hypercholesteremia Osteomyelitis Tobacco abuse Surgical History Surgical History History of AAA (abdominal aortic aneurysm) repair Intra vascular repair 3 years ago at [facility] History of elbow surgery lt. History of lithotripsy History of tonsillectomy Hx of cardiac cath Hx of heart artery stent >5. Status post femorofemoral bypass surgery Family History Family History Mother Family history of malignant neoplasm Acute myocardial infarction, Onset Age: 89 Father Acute myocardial infarction Sibling AAA (abdominal aortic aneurysm) Other Asthma Cerebrovascular accident History of blood clots Social History Social History Social History: The patient is currently at at [facility] However he does have a significant other. The patient tells me that he would like to be a full code but would not like to live in a vegetative state. The patient has 2 children. The patient stated that his 2 children are the durable power deputy commonwealth's attorney for healthcare. The patient continues to smoke a pack cigarettes a day. He denies any alcohol marijuana or illicit drugs. He is retired from [employer]. Code status full code Smoking packs per day: 1 Smoking cigarettes per day: 20.0 Years smoked: 50 Smoking pack-years: 50.00 Smoking status: Current every day smoker Tobacco type: cigarettes Second hand tobacco smoke exposure: Yes Alcohol intake: former Substance use: current Substance use type: painkillers Gender identity (if verbalized by th
[2021-03-07] MEDS: ALBUTEROL SULFATE NEB 2.5 MG/0.5 ML INH 5 MG INHALATION ×2 (12:47→20:27)
[2021-03-07] MEDS: LACTATED RINGERS 1,000 ML 125 ML IV CONT (12:48)
[2021-03-07] MEDS: DEXAMETHASONE SOD PHOS INJ 4 MG/ML VIAL 10 MG IV PUSH (12:48)
[2021-03-07] MEDS: IPRATROPIUM BR 0.02% INH SOLN 0.5 MG/2.5 ML VIAL INHALATION ×2 (12:48→20:27)
[2021-03-07 13:00] LABS: Alveolar/Arterial O2 Gradient 595.8 mmHg; Base Excess ABG 3.2 mEq/l (+/-2.0); Carboxyhemoglobin 0.1 % THb (0-2.0); Device NON-REBREATHER MASK; Fractional Inspired Oxygen 100 %; HCO3 ABG 28.1 mEq/l (22.0-26.0); Modified Allen's Test Pass; Oxygen Content ABG 14.5 %vol (16.0-22.0); Oxyhemoglobin 93.5 % THb (90.0-100.0); PO2 ABG 73.2 mmHg (80.0-100.0); PO2 FiO2 Ratio Arterial Blood 0.73 %; Reduced Hemoglobin 6.4 %THb (0-5.0); Site Drawn RIGHT RADIAL; pH ABG 7.423 (7.350-7.450)
[2021-03-07 13:02] LABS: Basophils Percent Auto 0.4 % (0.2-1.2); Eosinophils Absolute Auto 0.1 K/mm3 (0-0.3); Eosinophils Percent Auto 0.7 % (0-4.4); Hematocrit 35.2 % (42.0-52.0); Hemoglobin 10.8 g/dL (14.0-18.0); Immature Granulocyte Absolute 0.03 K/mm3 (0.00-0.031); Immature Granulocyte Percent A 0.4 % (0-0.5); Lymphocytes Absolute Auto 0.76 K/mm3 (0.9-3.2); Lymphocytes Percent Auto 9.4 % (18.3-44.2); Mean Corpuscular HGB Conc 30.7 g/dl (32-36); Mean Corpuscular Hemoglobin 26.5 pg (26-34); Mean Corpuscular Volume 86.3 fl (80-100); Mean Platelet Volume 8.3 fl (7.4-10.4); Monocytes Absolute Auto 0.5 K/mm3 (0.1-0.6); Monocytes Percent Auto 5.9 % (2.6-8.5); Neutrophils Absolute Auto 6.7 K/mm3 (1.3-6.7); Neutrophils Percent Auto 83.2 % (45.5-73.1); Platelet Count Result 183 k/mm3 (150-375); Red Blood Count 4.08 M/mm3 (4.6-6.20); Red Cell Distribution Width 17.4 % (11.5-14.5); White Blood Count 8.1 K/mm3 (4.5-10.0)
[2021-03-07 13:14] LABS: Alanine Aminotransferase 7 U/L (4-50); Albumin Level 3.2 g/dL (3.5-5.1); Alkaline Phosphatase 128 U/L (38-126); Anion Gap 8 mmol/L (8-16); Aspartate Amino Transferase 21 U/L (17-59); Bilirubin,Total 0.4 mg/dL (0.2-1.3); Blood Urea Nitrogen 31 mg/dL (9-20); Calcium 8.3 mg/dL (8.4-10.2); Carbon Dioxide 30 mmol/L (22-30); Chloride 94 mmol/L (98-107); Estimated Glomerular Filt Rate 43; Glucose 98 mg/dL (65-110); Potassium 4.4 mmol/L (3.4-5.0); Sodium 132 mmol/L (137-145)
[2021-03-07 13:15] LABS: Lactic Acid Reflex 0.9 mmol/L (0.7-2.1)
[2021-03-07 13:26] LABS: Troponin I 0.022 ng/mL (0.000-0.034)
[2021-03-07 13:34] LABS: D Dimer 8.13 ug/mL (<0.48)
--- NOTE | 2021-03-07 14:11 | PCCCNOTE ---
Spoke with [facility], patient is with Gerardo who evaluated him this AM and advised to send to hospital. Called to [facility] spoke with Maren, per Maren shalonda Conrad wanted patient sent to hospital for +Covid. Phone call to shalonda Conrad no answer left vm message for return call to ED or ED disabilities caregiver.
--- NOTE | 2021-03-07 15:38 | PCCCNOTE ---
Addendum entered by Lima Glover RN 03/07/21 17:05: Son Houston called back states that he has revoked hospice and wants full code. Per son, patient has been at [facility] for last two months with Gerardo. States that he was doing really well until the last few days. Has been unable to speak with him since he was confused. Patient does not have a phone. [place] is the healthcare poa, and states that the patient's wishes have been full code including intubation but would not want to be in a vegetative state. Houston has paperwork and will be here tomorrow to sign the revoke for hospice and will bring in paperwork. Son wants to know where his Father will be explained for him to call ED and they can transfer possible for boarding in ED. Houston would like patient to return to [facility] at discharge from hospital. Houston would like to talk to his father, bedside RN took phone in to patient and they were able to talk. Addendum entered by Lima Glover RN 03/07/21 17:04: Vanessa called back and spoke with Dr. Eric, states that son has revoked hospice and would like full code and care for covid. Addendum entered by Lima Glover RN 03/07/21 16:40: No return call from Gerardo, called to Gerardo Mendez at [phone]. Vanessa spoke with Dr. Eric. Per Vanessa Mart to speak with family and call back. Original Note: Dr. Eric would like to talk to the hospice MD, called to Gerardo as [phone] office will have RN callback, provided ER phone number for return call.
--- NOTE | 2021-03-07 19:23 | PC.NURSE ---
Assumed care of pt at this time. Pt alert and upright on stretcher per baseline, resting on stretcher. Pt on 4L NC.
[2021-03-08] VITALS (11 sets, daily range): BP systolic 112–123; BP diastolic 60–63; PULSE 50–84; RESP 16–22; TEMP 36.1–36.5; O2SAT 92–97; BMI 22.2
--- NOTE | 2021-03-08 00:44 | PM.IMHP ---
H&P: HPI History of Present Illness Date/Time: 03/08/21 00:44 Chief Complaint: Altered mental status Narrative: This is a 70-year-old male with past medical history significant for COPD/emphysema, atrial fibrillation, gastroesophageal reflux disease, benign prostatic hyperplasia, chronic kidney disease. Patient resides add group home he was brought in for evaluation due to patient's decline and altered mental status. Most of the history has been obtained upon reviewing medical records and emergency room physician. Preliminary workup was significant for chest x-ray with bilateral lung infiltrates, a CTA of the chest was negative for acute pulmonary embolism but did show mucus plugging and infiltrates. Chemistry panel was significant for a BUN 31 and creatinine 1.6. Patient has been admitted for further evaluation ,management and treatment. Review of Systems Review of Systems: ROS unobtainable: Yes unobtainable due to mental status (Obtunded) [facility] Past Medical History Medical History (Updated 03/08/21 @ 04:54 by Sandra Buckner MD) AAA (abdominal aortic aneurysm) History of ruptured AAA with intravascular repair Anxiety CAD (coronary artery disease) <4 METs, last stent in 2018 Carotid stenosis MADDIE. - 100% occlusion both sides Constipation Related to narcotic use CVA (cerebral vascular accident) residual right sided weakness, memory loss and occasional difficulty speaking GERD (gastroesophageal reflux disease) H/O: HTN (hypertension) Hepatitis C History of angina History of heart attack 2009 and 2018. History of kidney stones History of pneumonia HTN (hypertension), malignant Hypercholesteremia Osteomyelitis Tobacco abuse Surgical History Surgical History History of AAA (abdominal aortic aneurysm) repair Intra vascular repair 3 years ago at [facility] History of elbow surgery lt. History of lithotripsy History of tonsillectomy Hx of cardiac cath Hx of heart artery stent >5. Status post femorofemoral bypass surgery Family History Family History Mother Family history of malignant neoplasm Acute myocardial infarction, Onset Age: 89 Father Acute myocardial infarction Sibling AAA (abdominal aortic aneurysm) Other Asthma Cerebrovascular accident History of blood clots Social History Social History Social History: The patient is currently at at [facility] However he does have a significant other. The patient tells me that he would like to be a full code but would not like to live in a vegetative state. The patient has 2 children. The patient stated that his 2 children are the durable power criminal defense attorney for healthcare. The patient continues to smoke a pack cigarettes a day. He denies any alcohol marijuana or illicit drugs. He is retired from [employer]. Code status full code Smoking packs per day: 1 Smoking cigarettes per day: 20.0 Years smoked: 50 Smoking pack-years: 50.00 Smoking status: Current every day smoker Tobacco type: cigarettes Second hand tobacco smoke exposure: Yes Alcohol intake: former Substance use: current Substance use type: painkillers Gender identity (if verbalized by the patient): Male Spiritual care concerns: No Agree to blood products: No Meds Home Medications and Allergies Home Medications Medication Instructions Recorded Confirmed Type carvedilol 25 mg PO BID 06/22/20 01/19/21 History pantoprazole 40 mg tablet,delayed 40 mg PO DAILY #90 tablet 07/30/20 01/19/21 Rx release Eliquis 5 mg PO BID 01/08/21 01/19/21 History amlodipine 10 mg PO DAILY 01/08/21 01/19/21 History aspirin 81 mg PO DAILY 01/08/21 01/19/21 History ondansetron 4 mg PO Q8H PRN 01/08/21 01/19/21 History terazosin 5 mg PO HS 01/08/2112/31
[2021-03-08] MEDS: LACTATED RINGERS 1,000 ML 75 ML IV CONT (02:29)
[2021-03-08] MEDS: IPRATROPIUM BR 0.02% INH SOLN 0.5 MG/2.5 ML VIAL INHALATION ×2 (02:31→22:03)
[2021-03-08] MEDS: ALBUTEROL SULFATE NEB 2.5 MG/0.5 ML INH 5 MG INHALATION (02:31)
--- NOTE | 2021-03-08 04:32 | PC.NURSE ---
This patient, Sameer Choe, was admitted to [facility] Surg Room 331-02. Patient/family oriented to hospital policies and general routines including ID bracelet, bed and alarms, visiting hours, pain management, procedures, bathroom and other care routines, personal items, smoking policy, room service/diet, and visiting hours. Information on how to activate the Rapid Response Team has been discussed. Patient/Family are encouraged to report perceived risks to care and to ask questions if they do not understand what they are told or what they should do.
--- NOTE | 2021-03-08 14:07 | PM.IMPN ---
Progress Note: A&P Assessment and Plan (1) Acute respiratory failure with hypoxia: Code(s): J96.01 - Acute respiratory failure with hypoxia Status: Acute Assessment and Plan: On supplemental oxygen by nasal cannula remains stable Continue to monitor CTA negative for PE but shows moderate emphysema in mucus plugging in the lower lobes ABG reviewed without hypercapnia on admission (2) COPD (chronic obstructive pulmonary disease): Qualifiers: COPD type: unspecified COPD Qualified Code(s): J44.9 - Chronic obstructive pulmonary disease, unspecified Code(s): J44.9 - Chronic obstructive pulmonary disease, unspecified Status: Acute Assessment and Plan: Breathing treatments Not actively wheezing Continue to monitor (3) Altered mental status: Code(s): R41.82 - Altered mental status, unspecified Status: Acute Assessment and Plan: Likely to be secondary to pneumonia and respiratory failure Toxic encephalopathy Supportive care More alert today (4) Aspiration pneumonia: Code(s): J69.0 - Pneumonitis due to inhalation of food and vomit Status: Acute Assessment and Plan: chest x-ray with airspace opacities in the left lower lobe and right lower lung atelectasis versus pneumonia Patient started on Zosyn Continue to monitor Cultures in progress (5) Mucus plugging of bronchi: Code(s): T17.500A - Unspecified foreign body in bronchus causing asphyxiation, initial encounter Status: Acute Assessment and Plan: Pulmozyme inhalation q.12 hours Continue to monitor (6) AAA (abdominal aortic aneurysm): Code(s): I71.4 - Abdominal aortic aneurysm, without rupture Status: Acute Assessment and Plan: Stable (7) HTN (hypertension), malignant: Code(s): I10 - Essential (primary) hypertension Status: Acute Assessment and Plan: Continue home meds (8) CVA (cerebral vascular accident): Qualifiers: CVA mechanism: unspecified Qualified Code(s): I63.9 - Cerebral infarction, unspecified Code(s): I63.9 - Cerebral infarction, unspecified Status: Chronic Assessment and Plan: Unchanged Patient is on aspirin and Eliquis (9) GERD (gastroesophageal reflux disease): Code(s): K21.9 - Gastro-esophageal reflux disease without esophagitis Status: Acute Assessment and Plan: Continue PPI (10) Chronic kidney disease: Code(s): N18.9 - Chronic kidney disease, unspecified Status: Acute Assessment and Plan: BUN and creatinine at patient's baseline chronic kidney disease stage 3 Continue to monitor. Subjective Date/time seen: 03/08/21 14:07 Interval history: HPI:This is a 70-year-old male with past medical history significant for COPD/emphysema, atrial fibrillation, gastroesophageal reflux disease, benign prostatic hyperplasia, chronic kidney disease. Patient resides add long term he was brought in for evaluation due to patient's decline and altered mental status. Most of the history has been obtained upon reviewing medical records and emergency room physician. Preliminary workup was significant for chest x-ray with bilateral lung infiltrates, a CTA of the chest was negative for acute pulmonary embolism but did show mucus plugging and infiltrates. Chemistry panel was significant for a BUN 31 and creatinine 1.6. Patient has been admitted for further evaluation ,management and treatment. 03/08/2021 seems to be more awake than what is perceived earlier this morning. Reports no active complaints. Knows he is in the hospital does not know which 1. Denies any chest pain he though is poor historian and does not know why he is here Review of Systems Review of Systems: All systems reviewed & are unremarkable except as noted in HPI and below ( HPI) Exam Narrative: GENERAL: The patient is thin built, not in acute distress mildly confused HEENT: Nonicter
[2021-03-08] MEDS: LACTATED RINGERS 1,000 ML 50 ML IV CONT (17:51)
--- NOTE | 2021-03-08 19:05 | PCRCNOTE ---
Window of time for administration has passed. See next scheduled administration.
[2021-03-08] MEDS: TERAZOSIN HCL 5 MG CAPSULE PO (20:03)
[2021-03-08] MEDS: HYDROcodone/acetaminophen (*CRX) 5-325 MG TABLET 1 TAB PO (20:03)
[2021-03-08] MEDS: HYOSCYAMINE SULFATE 0.125 MG TABLET PO (20:03)
[2021-03-08] MEDS: carvediloL 25 MG TABLET PO (20:03)
[2021-03-08] MEDS: APIXABAN 5 MG TABLET PO (20:05)
[2021-03-08] MEDS: DORNASE ALFA INH SOLN 1 MG/ML 2.5 ML AMP 2.5 MG INHALATION (22:02)
[2021-03-08] MEDS: ALBUTEROL SULFATE NEB 2.5 MG/0.5 ML INH INHALATION (22:02)
[2021-03-09] VITALS (16 sets, daily range): BP systolic 104–123; BP diastolic 57–72; PULSE 59–82; RESP 14–20; TEMP 36.1–36.8; O2SAT 94–97
[2021-03-09] MEDS: IPRATROPIUM BR 0.02% INH SOLN 0.5 MG/2.5 ML VIAL INHALATION ×6 (00:02→23:14)
[2021-03-09] MEDS: ALBUTEROL SULFATE NEB 2.5 MG/0.5 ML INH INHALATION ×6 (00:02→23:14)
[2021-03-09] MEDS: HYDROcodone/acetaminophen (*CRX) 5-325 MG TABLET 1 TAB PO ×5 (02:08→20:21)
[2021-03-09 07:23] LABS: Hematocrit 34.6 % (42.0-52.0); Hemoglobin 10.8 g/dL (14.0-18.0); Immature Granulocyte Absolute 0.03 K/mm3 (0.00-0.031); Immature Granulocyte Percent A 0.5 % (0-0.5); Lymphocytes Absolute Auto 0.54 K/mm3 (0.9-3.2); Lymphocytes Percent Auto 8.6 % (18.3-44.2); Mean Corpuscular HGB Conc 31.2 g/dl (32-36); Mean Corpuscular Volume 83.2 fl (80-100); Mean Platelet Volume 8.9 fl (7.4-10.4); Monocytes Absolute Auto 0.2 K/mm3 (0.1-0.6); Monocytes Percent Auto 3.2 % (2.6-8.5); Neutrophils Absolute Auto 5.5 K/mm3 (1.3-6.7); Neutrophils Percent Auto 87.7 % (45.5-73.1); Platelet Count Result 208 k/mm3 (150-375); Red Blood Count 4.16 M/mm3 (4.6-6.20); Red Cell Distribution Width 17.2 % (11.5-14.5); White Blood Count 6.3 K/mm3 (4.5-10.0)
[2021-03-09 07:39] LABS: Alanine Aminotransferase 8 U/L (4-50); Albumin Level 2.8 g/dL (3.5-5.1); Alkaline Phosphatase 95 U/L (38-126); Anion Gap 8 mmol/L (8-16); Aspartate Amino Transferase 21 U/L (17-59); Bilirubin,Total 0.4 mg/dL (0.2-1.3); Blood Urea Nitrogen 33 mg/dL (9-20); Calcium 7.8 mg/dL (8.4-10.2); Carbon Dioxide 25 mmol/L (22-30); Chloride 97 mmol/L (98-107); Estimated CRCL calculation 54 ml/min; Estimated Glomerular Filt Rate 50; Glucose 136 mg/dL (65-110); Potassium 4.1 mmol/L (3.4-5.0); Sodium 130 mmol/L (137-145)
[2021-03-09] MEDS: DORNASE ALFA INH SOLN 1 MG/ML 2.5 ML AMP 2.5 MG INHALATION ×2 (09:42→19:48)
[2021-03-09] MEDS: POTASSIUM CHLORIDE 20 MEQ PACKET (FOR LIQUID) PO (10:54)
[2021-03-09] MEDS: ASPIRIN 81 MG CHEWABLE TABLET PO (10:54)
[2021-03-09] MEDS: polyethylene glycoL 3350 17 GM POWD.PACK PO (10:54)
[2021-03-09] MEDS: HYOSCYAMINE SULFATE 0.125 MG TABLET PO ×4 (10:54→21:33)
[2021-03-09] MEDS: PANTOPRAZOLE 40 MG TABLET PO (10:54)
[2021-03-09] MEDS: carvediloL 25 MG TABLET PO ×2 (10:55→21:34)
[2021-03-09] MEDS: APIXABAN 5 MG TABLET PO ×2 (10:56→18:33)
[2021-03-09] MEDS: ARTIFICIAL TEARS OPHTH SOLN 15 ML BOTTLE 2 DROP EACH EYE ×3 (10:57→18:33)
[2021-03-09] MEDS: amLODIPine BESYLATE 5 MG TABLET 10 MG PO (10:58)
--- NOTE | 2021-03-09 12:19 | PM.IMPN ---
Progress Note: A&P Assessment and Plan (1) Acute respiratory failure with hypoxia: Code(s): J96.01 - Acute respiratory failure with hypoxia Status: Acute Assessment and Plan: On supplemental oxygen by nasal cannula remains stable Continue to monitor CTA negative for PE but shows moderate emphysema in mucus plugging in the lower lobes ABG reviewed without hypercapnia on admission (2) COPD (chronic obstructive pulmonary disease): Qualifiers: COPD type: unspecified COPD Qualified Code(s): J44.9 - Chronic obstructive pulmonary disease, unspecified Code(s): J44.9 - Chronic obstructive pulmonary disease, unspecified Status: Acute Assessment and Plan: Breathing treatments Not actively wheezing Continue to monitor (3) Altered mental status: Code(s): R41.82 - Altered mental status, unspecified Status: Acute Assessment and Plan: Likely to be secondary to pneumonia and respiratory failure Toxic encephalopathy Supportive care More alert today (4) Aspiration pneumonia: Code(s): J69.0 - Pneumonitis due to inhalation of food and vomit Status: Acute Assessment and Plan: chest x-ray with airspace opacities in the left lower lobe and right lower lung atelectasis versus pneumonia Patient started on Zosyn Continue to monitor Cultures in progress (5) Mucus plugging of bronchi: Code(s): T17.500A - Unspecified foreign body in bronchus causing asphyxiation, initial encounter Status: Acute Assessment and Plan: Pulmozyme inhalation q.12 hours Continue to monitor (6) AAA (abdominal aortic aneurysm): Code(s): I71.4 - Abdominal aortic aneurysm, without rupture Status: Acute Assessment and Plan: Stable (7) HTN (hypertension), malignant: Code(s): I10 - Essential (primary) hypertension Status: Acute Assessment and Plan: Continue home meds (8) CVA (cerebral vascular accident): Qualifiers: CVA mechanism: unspecified Qualified Code(s): I63.9 - Cerebral infarction, unspecified Code(s): I63.9 - Cerebral infarction, unspecified Status: Chronic Assessment and Plan: Unchanged Patient is on aspirin and Eliquis (9) GERD (gastroesophageal reflux disease): Code(s): K21.9 - Gastro-esophageal reflux disease without esophagitis Status: Acute Assessment and Plan: Continue PPI (10) Chronic kidney disease: Code(s): N18.9 - Chronic kidney disease, unspecified Status: Acute Assessment and Plan: BUN and creatinine at patient's baseline chronic kidney disease stage 3 Continue to monitor. Additional Plan 03/09/2021 Plan is to continue current treatment. Patient is slightly better today. Increase activity as tolerated. Possible discharge the morning. Subjective Date/time seen: 03/09/21 12:19 Patient was seen during the morning rounds. Feeling slightly better. Decreased shortness of breath, no chest pain. No abdominal pain, nausea, no vomiting. Mood stable Interval history: HPI:This is a 70-year-old male with past medical history significant for COPD/emphysema, atrial fibrillation, gastroesophageal reflux disease, benign prostatic hyperplasia, chronic kidney disease. Patient resides add intermediate he was brought in for evaluation due to patient's decline and altered mental status. Most of the history has been obtained upon reviewing medical records and emergency room physician. Preliminary workup was significant for chest x-ray with bilateral lung infiltrates, a CTA of the chest was negative for acute pulmonary embolism but did show mucus plugging and infiltrates. Chemistry panel was significant for a BUN 31 and creatinine 1.6. Patient has been admitted for further evaluation ,management and treatment. Review of Systems Review of Systems: All systems reviewed & are unremarkable except as noted in HPI and below ( HPI) ROS unobtainabl
[2021-03-09] MEDS: FUROSEMIDE 20 MG TABLET PO (13:09)
[2021-03-09] MEDS: LACTATED RINGERS 1,000 ML 50 ML IV CONT (15:49)
[2021-03-09] MEDS: ALPRAZolam (*CRX) 0.25 MG TABLET PO (20:21)
[2021-03-09] MEDS: TERAZOSIN HCL 5 MG CAPSULE PO (23:33)
[2021-03-10] VITALS (7 sets, daily range): BP systolic 113–120; BP diastolic 59–69; PULSE 56–86; RESP 16–20; TEMP 35.9–36.4; O2SAT 96–98; BMI 22.2
[2021-03-10] MEDS: IPRATROPIUM BR 0.02% INH SOLN 0.5 MG/2.5 ML VIAL INHALATION ×3 (04:01→12:00)
[2021-03-10] MEDS: ALBUTEROL SULFATE NEB 2.5 MG/0.5 ML INH INHALATION ×3 (04:01→12:00)
[2021-03-10] MEDS: HYDROcodone/acetaminophen (*CRX) 5-325 MG TABLET 1 TAB PO ×2 (06:06→12:14)
[2021-03-10] MEDS: DORNASE ALFA INH SOLN 1 MG/ML 2.5 ML AMP 2.5 MG INHALATION (09:08)
[2021-03-10] MEDS: HYOSCYAMINE SULFATE 0.125 MG TABLET PO ×2 (09:38→12:14)
[2021-03-10] MEDS: amLODIPine BESYLATE 5 MG TABLET 10 MG PO (09:39)
[2021-03-10] MEDS: ARTIFICIAL TEARS OPHTH SOLN 15 ML BOTTLE 2 DROP EACH EYE ×2 (09:39→12:14)
[2021-03-10] MEDS: POTASSIUM CHLORIDE 20 MEQ PACKET (FOR LIQUID) PO (09:39)
[2021-03-10] MEDS: polyethylene glycoL 3350 17 GM POWD.PACK PO (09:39)
[2021-03-10] MEDS: ASPIRIN 81 MG CHEWABLE TABLET PO (09:39)
[2021-03-10] MEDS: APIXABAN 5 MG TABLET PO (09:39)
[2021-03-10] MEDS: SENNA/DOCUSATE SODIUM TABLET 1 TAB PO (09:39)
[2021-03-10] MEDS: PANTOPRAZOLE 40 MG TABLET PO (09:40)
[2021-03-10] MEDS: carvediloL 25 MG TABLET PO (09:40)
[2021-03-10] MEDS: FUROSEMIDE 20 MG TABLET PO (09:40)
--- NOTE | 2021-03-10 11:30 | PM.IMPN ---
Progress Note: A&P Assessment and Plan (1) Acute respiratory failure with hypoxia: Code(s): J96.01 - Acute respiratory failure with hypoxia Status: Acute Assessment and Plan: On supplemental oxygen by nasal cannula remains stable Continue to monitor CTA negative for PE but shows moderate emphysema in mucus plugging in the lower lobes ABG reviewed without hypercapnia on admission (2) COPD (chronic obstructive pulmonary disease): Qualifiers: COPD type: unspecified COPD Qualified Code(s): J44.9 - Chronic obstructive pulmonary disease, unspecified Code(s): J44.9 - Chronic obstructive pulmonary disease, unspecified Status: Acute Assessment and Plan: Breathing treatments Not actively wheezing Continue to monitor (3) Altered mental status: Code(s): R41.82 - Altered mental status, unspecified Status: Acute Assessment and Plan: Likely to be secondary to pneumonia and respiratory failure Toxic encephalopathy Supportive care More alert today (4) Aspiration pneumonia: Code(s): J69.0 - Pneumonitis due to inhalation of food and vomit Status: Acute Assessment and Plan: chest x-ray with airspace opacities in the left lower lobe and right lower lung atelectasis versus pneumonia Patient started on Zosyn Continue to monitor Cultures in progress (5) Mucus plugging of bronchi: Code(s): T17.500A - Unspecified foreign body in bronchus causing asphyxiation, initial encounter Status: Acute Assessment and Plan: Pulmozyme inhalation q.12 hours Continue to monitor (6) AAA (abdominal aortic aneurysm): Code(s): I71.4 - Abdominal aortic aneurysm, without rupture Status: Acute Assessment and Plan: Stable (7) HTN (hypertension), malignant: Code(s): I10 - Essential (primary) hypertension Status: Acute Assessment and Plan: Continue home meds (8) CVA (cerebral vascular accident): Qualifiers: CVA mechanism: unspecified Qualified Code(s): I63.9 - Cerebral infarction, unspecified Code(s): I63.9 - Cerebral infarction, unspecified Status: Chronic Assessment and Plan: Unchanged Patient is on aspirin and Eliquis (9) GERD (gastroesophageal reflux disease): Code(s): K21.9 - Gastro-esophageal reflux disease without esophagitis Status: Acute Assessment and Plan: Continue PPI (10) Chronic kidney disease: Code(s): N18.9 - Chronic kidney disease, unspecified Status: Acute Assessment and Plan: BUN and creatinine at patient's baseline chronic kidney disease stage 3 Continue to monitor. Additional Plan 03/09/2021 Plan is to continue current treatment. Patient is slightly better today. Increase activity as tolerated. Possible discharge the morning. Subjective Date/time seen: 03/10/21 11:30 Interval history: HPI:This is a 70-year-old male with past medical history significant for COPD/emphysema, atrial fibrillation, gastroesophageal reflux disease, benign prostatic hyperplasia, chronic kidney disease. Patient resides add halfway he was brought in for evaluation due to patient's decline and altered mental status. Most of the history has been obtained upon reviewing medical records and emergency room physician. Preliminary workup was significant for chest x-ray with bilateral lung infiltrates, a CTA of the chest was negative for acute pulmonary embolism but did show mucus plugging and infiltrates. Chemistry panel was significant for a BUN 31 and creatinine 1.6. Patient has been admitted for further evaluation ,management and treatment. Review of Systems Review of Systems: All systems reviewed & are unremarkable except as noted in HPI and below ( HPI) ROS unobtainable: Yes unobtainable due to mental status (Obtunded) Exam Narrative: GENERAL: The patient is thin built, not in acute distress mildly confused HEENT: Nonicteric scle
[2021-03-10 12:24] LABS: EDCOVIDSCREEN Negative (Negative)
[2021-03-10] MEDS: LACTATED RINGERS 1,000 ML 50 ML IV CONT (12:58)
--- NOTE | 2021-03-10 13:54 | PC.NURSE ---
Report called to [facility], report given to Kavita, emt's to transport to facility. Awaiting arrival.
--- NOTE | 2021-04-06 12:18 | PM.DS ---
DS: Admitting Diagnosis Discharge Date 03/10/21 Admitting Diagnosis Acute respiratory failure with hypoxia Aspiration pneumonia DS: Discharge Diagnosis Discharge Diagnosis (1) Acute respiratory failure with hypoxia: Code(s): J96.01 - Acute respiratory failure with hypoxia Status: Acute Assessment and Plan: On supplemental oxygen by nasal cannula remains stable Continue to monitor CTA negative for PE but shows moderate emphysema in mucus plugging in the lower lobes ABG reviewed without hypercapnia on admission (2) COPD (chronic obstructive pulmonary disease): Qualifiers: COPD type: unspecified COPD Qualified Code(s): J44.9 - Chronic obstructive pulmonary disease, unspecified Code(s): J44.9 - Chronic obstructive pulmonary disease, unspecified Status: Acute Assessment and Plan: Breathing treatments Not actively wheezing Continue to monitor (3) Altered mental status: Code(s): R41.82 - Altered mental status, unspecified Status: Acute Assessment and Plan: Likely to be secondary to pneumonia and respiratory failure Toxic encephalopathy Supportive care More alert today (4) Aspiration pneumonia: Code(s): J69.0 - Pneumonitis due to inhalation of food and vomit Status: Acute Assessment and Plan: chest x-ray with airspace opacities in the left lower lobe and right lower lung atelectasis versus pneumonia Patient started on Zosyn Continue to monitor Cultures in progress (5) Mucus plugging of bronchi: Code(s): T17.500A - Unspecified foreign body in bronchus causing asphyxiation, initial encounter Status: Acute Assessment and Plan: Pulmozyme inhalation q.12 hours Continue to monitor (6) AAA (abdominal aortic aneurysm): Code(s): I71.4 - Abdominal aortic aneurysm, without rupture Status: Acute Assessment and Plan: Stable (7) HTN (hypertension), malignant: Code(s): I10 - Essential (primary) hypertension Status: Acute Assessment and Plan: Continue home meds (8) CVA (cerebral vascular accident): Qualifiers: CVA mechanism: unspecified Qualified Code(s): I63.9 - Cerebral infarction, unspecified Code(s): I63.9 - Cerebral infarction, unspecified Status: Chronic Assessment and Plan: Unchanged Patient is on aspirin and Eliquis (9) GERD (gastroesophageal reflux disease): Code(s): K21.9 - Gastro-esophageal reflux disease without esophagitis Status: Acute Assessment and Plan: Continue PPI (10) Chronic kidney disease: Code(s): N18.9 - Chronic kidney disease, unspecified Status: Acute Assessment and Plan: BUN and creatinine at patient's baseline chronic kidney disease stage 3 Continue to monitor. DS: Summary Hospital Course Reason for hospitalization: Acute respiratory failure with hypoxia Aspiration pneumonia Hospital Course: 68 years old male was admitted complained of any shortness of breath. Patient was found to have aspiration pneumonia and acute respiratory failure with hypoxia. Patient was given antibiotics and culture were done Patient was also given oxygen and electrolytes of monitor closely. Patient continued to improve and was discharged on 03/11/2001. Condition dime-sized was stable, outpatient follow-up scan Status at Discharge Cognitive/behavioral status at discharge: Stable Overall status at discharge: patient is back to baseline Time Spent with Patient Time attestation: Total time spent providing and/or coordinating discharge services: Time spent: Less than 30 minutes Exam Narrative: GENERAL: The patient is thin built, not in acute distress mildly confused HEENT: Nonicteric sclerae, PERRLA, EOMI. Oropharynx clear. dry mucous membranes. Conjunctivae appear well perfused. CHEST: Chest wall is nontender. HEART: Regular rate and rhythm without murmur, rubs, or gallops LUNGS: decreased breath sounds
--- NOTE | 2021-04-08 14:05 | PM.DS ---
DS: Admitting Diagnosis Discharge Date 03/10/21 Admitting Diagnosis Acute resp failure with hypoxia Copd Hypertension DS: Discharge Diagnosis Discharge Diagnosis (1) Acute respiratory failure with hypoxia: Code(s): J96.01 - Acute respiratory failure with hypoxia Status: Acute Assessment and Plan: On supplemental oxygen by nasal cannula remains stable Continue to monitor CTA negative for PE but shows moderate emphysema in mucus plugging in the lower lobes ABG reviewed without hypercapnia on admission (2) COPD (chronic obstructive pulmonary disease): Qualifiers: COPD type: unspecified COPD Qualified Code(s): J44.9 - Chronic obstructive pulmonary disease, unspecified Code(s): J44.9 - Chronic obstructive pulmonary disease, unspecified Status: Acute Assessment and Plan: Breathing treatments Not actively wheezing Continue to monitor (3) Altered mental status: Code(s): R41.82 - Altered mental status, unspecified Status: Acute Assessment and Plan: Likely to be secondary to pneumonia and respiratory failure Toxic encephalopathy Supportive care More alert today (4) Aspiration pneumonia: Code(s): J69.0 - Pneumonitis due to inhalation of food and vomit Status: Acute Assessment and Plan: chest x-ray with airspace opacities in the left lower lobe and right lower lung atelectasis versus pneumonia Patient started on Zosyn Continue to monitor Cultures in progress (5) Mucus plugging of bronchi: Code(s): T17.500A - Unspecified foreign body in bronchus causing asphyxiation, initial encounter Status: Acute Assessment and Plan: Pulmozyme inhalation q.12 hours Continue to monitor (6) AAA (abdominal aortic aneurysm): Code(s): I71.4 - Abdominal aortic aneurysm, without rupture Status: Acute Assessment and Plan: Stable (7) HTN (hypertension), malignant: Code(s): I10 - Essential (primary) hypertension Status: Acute Assessment and Plan: Continue home meds (8) CVA (cerebral vascular accident): Qualifiers: CVA mechanism: unspecified Qualified Code(s): I63.9 - Cerebral infarction, unspecified Code(s): I63.9 - Cerebral infarction, unspecified Status: Chronic Assessment and Plan: Unchanged Patient is on aspirin and Eliquis (9) GERD (gastroesophageal reflux disease): Code(s): K21.9 - Gastro-esophageal reflux disease without esophagitis Status: Acute Assessment and Plan: Continue PPI (10) Chronic kidney disease: Code(s): N18.9 - Chronic kidney disease, unspecified Status: Acute Assessment and Plan: BUN and creatinine at patient's baseline chronic kidney disease stage 3 Continue to monitor. DS: Summary Hospital Course Reason for hospitalization: Acute respiratory failure with hypoxia Aspiration pneumonia Hospital Course: Patient was admitted with sob and was found to have aspiration pneumonia and hypoxia. patient was given oxygen and antibiotics. After few days of treatment patient got better and was discharged in stable condition. Status at Discharge Cognitive/behavioral status at discharge: Stable Overall status at discharge: patient is back to baseline Time Spent with Patient Time attestation: Total time spent providing and/or coordinating discharge services: Time spent: Less than 30 minutes Exam Narrative: GENERAL: The patient is thin built, not in acute distress mildly confused HEENT: Nonicteric sclerae, PERRLA, EOMI. Oropharynx clear. dry mucous membranes. Conjunctivae appear well perfused. CHEST: Chest wall is nontender. HEART: Regular rate and rhythm without murmur, rubs, or gallops LUNGS: decreased breath sounds bilaterally. no respiratory distress ABDOMEN: Soft, positive bowel sounds, non-tender, no organomegaly. SKIN: No rash, no excessive bruising, petechiae, or purpura. NEUROLOGIC: Cranial nerves II-
== END 2021-03-10 15:35 | DRG 177 ==
LOC: ANHED 16:57 → ANH3MEDSUR 03-08 04:48
PROVIDERS: Internal Medicine; Admitting Provider Internal Medicine; Emergency Provider Emergency Medicine; PCP Internal Medicine; Visit Provider Family Medicine
DX: J69.0 Pneumonitis due to inhalation of food and vomit (principal); J96.01 Acute respiratory failure with hypoxia; G92.9 Unspecified toxic encephalopathy; I63.9 Cerebral infarction, unspecified; T17.500A Unspecified foreign body in bronchus causing asphyxiation, initial encounter; I48.20 Chronic atrial fibrillation, unspecified; I69.351 Hemiplegia and hemiparesis following cerebral infarction affecting right dominant side; J18.9 Pneumonia, unspecified organism; I69.311 Memory deficit following cerebral infarction; J43.9 Emphysema, unspecified; Z20.822 Contact with and (suspected) exposure to COVID-19; I71.4 Abdominal aortic aneurysm, without rupture; I10 Essential (primary) hypertension; K21.9 Gastro-esophageal reflux disease without esophagitis; N40.0 Benign prostatic hyperplasia without lower urinary tract symptoms; I12.9 Hypertensive chronic kidney disease with stage 1 through stage 4 chronic kidney disease, or unspecified chronic kidney disease; N18.30 Chronic kidney disease, stage 3 unspecified; I25.10 Atherosclerotic heart disease of native coronary artery without angina pectoris; E78.00 Pure hypercholesterolemia, unspecified; F17.210 Nicotine dependence, cigarettes, uncomplicated; Z79.01 Long term (current) use of anticoagulants; Z79.82 Long term (current) use of aspirin; I25.2 Old myocardial infarction; Z86.19 Personal history of other infectious and parasitic diseases; Z95.5 Presence of coronary angioplasty implant and graft
CPT/HCPCS: 36415; 36600; 71045; 71275; 80053; 82375; 82805; 83050; 83605; 84484; 85025; 85380; 87040; 87426; 93005; 94640; 96361; 96365; 96366; 96367; 96375; 99285; A9270; C9803; J0456; J0696; J1100; J2543; J7120; Q9967